=== PATIENT | male | born 1950 | race Caucasian/White ===

== ENCOUNTER 2017-05-21 09:35 | Emergency (ER) | payer OTHER ==
--- NOTE | 2017-05-21 09:53 | CPEKG ---
Heart Rate: 89 RR Interval: 674 P-R Interval: 172 QRSD Interval: 86 QT Interval: 360 QTC Interval: 439 P [place]: 40 QRS [place]: -30 T Wave [place]: 25 EKG Severity - OTHERWISE NORMAL ECG - EKG Impression: SINUS RHYTHM EKG Impression: LEFT AXIS DEVIATION Electronically Signed By: Ivan Ho 21-May-2017 13:24:55
--- NOTE | 2017-05-21 09:55 | EDPHY ---
H & P Time Seen by Provider: 05/21/17 09:54 HPI/ROS: Chief complaint. Chest pain HPI. 66-year-old male presents emergency department with 2 day history of sharp right anterior chest discomfort. It was worse yesterday. He describes it as pinpoint in the right chest radiating into his right axilla and right shoulder blade. Slight burning sensation. Slight shortness of breath sensation. Has a chronic cough but no fever. He has pain with movement and palpation but not with exertion or deep breathing. He denies recent injury or unusual activity. He has mild chronic swelling to his legs but no unusual leg swelling or pain. No recent travel. He has had a recent illness that is thought to be viral. ROS Constitutional. no fever/chills, no weakness Eyes. no problems with vision ENT. no sore throat, no nasal drainage Cardiovascular. Right-sided chest pain Respiratory. Slight shortness of breath with chronic cough Abdominal. no abdominal pain, no nausea/vomiting, no diarrhea . no problems urinating MS. no calf pain/swelling, no neck/back pain, no joint pain Skin. no rash Lymph. no swollen glands Neuro. no headache, no dizziness, no difficulty walking or with speech Past Medical/Surgical History: Bronchiectasis, gout, hypertension, diabetes Social History: Single, nonsmoker, no alcohol Smoking Status: Former smoker Physical Exam: General Appearance: Alert well-developed male mild distress. Vital signs are stable Eyes: Pupils equal and round no pallor or injection. ENT, Mouth: Mucous membranes are moist. Respiratory: There are no retractions, lungs are clear to auscultation. Cardiovascular: Regular rate and rhythm. Gastrointestinal: Abdomen is soft and nontender, no masses, bowel sounds normal. Neurological: Awake and alert, sensory and motor exams grossly normal. Skin: Warm and dry, no rashes. No rash that would suggest shingles Musculoskeletal: Neck is supple nontender. There is tenderness to palpation right anterior chest wall, axilla, palpation of the medial scapula. Extremities symmetrical, full range of motion. Psychiatric: Patient is oriented X 3, there is no agitation. Constitutional: Initial Vital Signs Temperature (C) 37.1 C 05/21/17 09:45 Heart Rate 99 05/21/17 09:45 Respiratory Rate 20 05/21/17 09:45 Blood Pressure 142/101 H 05/21/17 09:45 O2 Sat (%) 95 05/21/17 09:45 O2 Delivery Mode Room Air Allergies/Adverse Reactions: gentamicin sulfate [From Garamycin] Allergy (Verified 05/21/17 09:59) Penicillins Allergy (Verified 05/21/17 09:59) Home Medications: Medication Instructions Recorded metFORMIN HCL [Glucophage 500 mg 500 mg PO BIDMEAL 06/27/12 (RX)] Indomethacin 50 mg PO TIDMEAL PRN 11/19/12 Metoprolol Tartrate [Lopressor 25 25 mg PO DAILY 11/19/12 mg (RX)] Albuterol [Ventolin Hfa Inhaler] 200 puffs IH DAILY PRN 06/22/16 Allopurinol [Allopurinol 100 MG 100 mg PO DAILY 06/22/16 (*)] Budesonide/Formoterol 80/4.5 2 puffs IH BID 06/22/16 [Symbicort 80-4.5 Mcg Inhaler] Citalopram Hydrobromide 40 mg PO DAILY 06/22/16 [Citalopram HBr] Colchicine [Colchicine (*)] 1.2 mg PO DAILY PRN 06/22/16 Gabapentin [Neurontin 300 MG (*)] 300 mg PO TID 06/22/16 Ipratropium/Albuterol [Duoneb (*)] 3 ml IH Q4-6PRN PRN 06/22/16 Mycophenolate Mofetil 05/21/17 Medical Decision Making - Diagnostics EKG Interpretation: EKG interpreted by me shows normal sinus rhythm normal interval. There is left axis deviation. QRS is otherwise normal. There is no significant ST elevation or depression. No arrhythmia. The rate is 89 Imaging Results: Imaging Impressions Chest X-Ray 05/21/17 10:10 Impression: 1. Suspect low-grade CHF and new small right pleural effusion. 2. Query constrictive pericarditis. Chest/Thorax CTA 05/21/17 11:06 Impression: 1. No visible pulmonary embolus. 2. Interstitial lung disease, most likely representing UIP. 3. Mildly prominent mediastinal lymph nodes, which can be seen in the setting of interstitial lung disease. Attention is recommended on follow up. 4. Coronary artery atherosclerosis. 5. Likely benign 6-mm right middle lobe nodule. The 2017 Fleischner Society Guidelines recommend follow-up unenhanced chest CT in 6-12 months for a low risk patient, then consider additional follow up at 18-24 months. For a high risk patient, follow-up CT is recommended in 6-12 months, then again at 18-24 months if there is no change. 6. Additional findings as above. Findings discussed with Dr. Ivan Ho on May 21, 2017 at 1239 hours. Chest x-ray interpreted by me shows a new right pleural effusion. CT angiogram chest shows no evidence of pulmonary embolus. He has interstitial lung disease with prominent adenopathy. No evidence for congestive heart failure. Small right pleural effusion less impressive on CT then chest x-ray. No pericardial effusion. He does have atherosclerosis of his coronary arteries. This CT is reviewed by me and discussed with Dr. Harrington Procedures: IV normal saline, monitor ED Course/Re-evaluation: Re-evaluation at 11:05 a.m.. The patient and I discussed lab EKG and imaging studies. We discussed treatment plan including recommendation for chest CT. He expresses understanding and agreement He would like something for pain. Toradol IV is ordered Re-evaluation at 12:50 p.m. patient is much more comfortable. The patient and I discussed imaging and lab results. We discussed treatment plan. He is offered admission but he feels also that this is likely muscular and feels comfortable going home and will return for worsening symptoms. We discussed importance of follow-up and further evaluation. He expresses understanding and agreement Differential Diagnosis: I considered pulmonary embolus, pneumonia, muscular etiology as well as less likely this is acute coronary syndrome - Data Points Laboratory Results: Laboratory Results 05/21/17 09:35 05/21/17 09:35 05/21/17 05/21/17 05/21/17 09:35 09:35 09:35 WBC 7.96 10^3/uL 10^3/uL (3.80-9.50) RBC 4.60 10^6/uL 10^6/uL (4.40-6.38) Hgb 13.7 g/dL g/dL (13.7-17.5) Hct 41.4 % % (40.0-51.0) MCV 90.0 fL fL (81.5-99.8) MCH 29.8 pg pg (27.9-34.1) MCHC 33.1 g/dL g/dL (32.4-36.7) RDW 13.5 % % (11.5-15.2) Plt Count 388 10^3/uL 10^3/uL (150-400) MPV 9.5 fL fL (8.7-11.7) Neut % (Auto) 71.5 % % (39.3-74.2) Lymph % (Auto) 16.0 % % (15.0-45.0) [place] % (Auto) 7.5 % % (4.5-13.0) Eos % (Auto) 3.0 % % (0.6-7.6) Baso % (Auto) 1.1 % % (0.3-1.7) Nucleat RBC Rel Count 0.0 % % (0.0-0.2) Absolute Neuts (auto) 5.69 10^3/uL 10^3/uL (1.70-6.50) Absolute Lymphs (auto) 1.27 10^3/uL 10^3/uL (1.00-3.00) Absolute Monos (auto) 0.60 10^3/uL 10^3/uL (0.30-0.80) Absolute Eos (auto) 0.24 10^3/uL 10^3/uL (0.03-0.40) Absolute Basos (auto) 0.09 10^3/uL 10^3/uL (0.02-0.10) Absolute Nucleated RBC 0.00 10^3/uL 10^3/uL (0-0.01) Immature Gran % 0.9 % % (0.0-1.1) Immature Gran # 0.07 10^3/uL 10^3/uL (0.00-0.10) D-Dimer 0.40 ug/mLFEU ug/mLFEU (0.00-0.50) Sodium 137 mEq/L mEq/L (134-144) Potassium 4.3 mEq/L mEq/L (3.5-5.2) Chloride 103 mEq/L mEq/L (97-110) Carbon Dioxide 22 mEq/l mEq/l (22-31) Anion Gap 12 mEq/L mEq/L (8-16) BUN 12 mg/dL mg/dL (7-23) Creatinine 0.8 mg/dL mg/dL (0.7-1.3) Estimated GFR > 60 Glucose 121 mg/dL H mg/dL (70-100) Calcium 8.7 mg/dL mg/dL (8.5-10.4) Troponin I < 0.012 ng/mL ng/mL (0.000-0.034) Medications Given: Discontinued Medications Ketorolac Tromethamine (Toradol) 30 mg IVP EDNOW ONE Stop: 05/21/17 11:14 Last Admin: 05/21/17 11:22 Dose: 30 mg Departure - Departure Disposition: Home, Routine, Self-Care Clinical Impression: Chest wall pain Condition: Good Instructions: Chest Wall Pain (ED) Additional Instructions: Ibuprofen 600 mg every 6 hours for the next 24 hours. Heat to sore area of chest and back. Return for worsening chest discomfort, trouble breathing. Recheck in 1-2 days if not improving Referrals: SURI COLUNGA [Primary Care Provider] - 1 day, if not improved
[2017-05-21 10:09] VITALS: TEMP 98.8
[2017-05-21 10:16] LABS: % IMMATURE GRANULYOCYTES 0.9 % (0.0-1.1); ABSOLUTE IMMATURE GRANULOCYTES 0.07 10^3/uL (0.00-0.10); ADD DIFF? NO; ADD MORPH? NO; ADD SCAN? NO; ATYPICAL LYMPHOCYTE FLAG 0 (0-99); FRAGMENT RBC FLAG 0 (0-99); HEMATOCRIT 41.4 % (40.0-51.0); HEMOGLOBIN 13.7 g/dL (13.7-17.5); LEFT SHIFT FLG 0 (0-99); LIPEMIA HEMOLYSIS FLAG 80 (0-99); MEAN CELL HEMOGLOBIN 29.8 pg (27.9-34.1); MEAN CELL HEMOGLOBIN CONCENTR. 33.1 g/dL (32.4-36.7); MEAN PLATELET VOLUME 9.5 fL (8.7-11.7); PLATELET CLUMPS FLAG 10 (0-99); PLATELET COUNT 388 10^3/uL (150-400); RED CELL DISTRIBUTION WIDTH 13.5 % (11.5-15.2)
[2017-05-21 10:28] LABS: ANION GAP 12 mEq/L (8-16); CALCIUM 8.7 mg/dL (8.5-10.4); CARBON DIOXIDE 22 mEq/l (22-31); CHLORIDE 103 mEq/L (97-110); CREATININE 0.8 mg/dL (0.7-1.3); GLOMERULAR FILTRATION RATE > 60; GLUCOSE 121 mg/dL (70-100); POTASSIUM 4.3 mEq/L (3.5-5.2); SODIUM 137 mEq/L (134-144)
[2017-05-21 10:34] LABS: TROPONIN I < 0.012 ng/mL (0.000-0.034)
[2017-05-21] MEDS ORDERED: KETOROLAC 30 MG/1 ML SDV IVP ONE (11:13)
[2017-05-21] MEDS ORDERED: IOPAMIDOL (ISOVUE 370) 100 ML BTL IV ONE (11:13)
[2017-05-21 14:40] VITALS: BP 160/99; PULSE 71; RESP 18; O2SAT 96
== END 2017-05-21 13:21 | disposition home or self-care (01) ==
LOC: CED 09:35
DX: R07.89 Other chest pain (principal); I10 Essential (primary) hypertension; E11.9 Type 2 diabetes mellitus without complications; Z79.84 Long term (current) use of oral hypoglycemic drugs; Z87.891 Personal history of nicotine dependence
CPT/HCPCS: 71010-PO; 71275-PO; 80048-PO; 84484-PO; 85025-PO; 85378-PO; 96374; J1885; Q9967

== ENCOUNTER 2018-06-05 07:26 | Inpatient (IN) | payer OTHER ==
--- NOTE | 2018-06-05 07:02 | PDGENHP ---
History and Physical - Chief Complaint severe , single vessel CAD - History of Present Illness 67 yo diabetic male with ILD, severe PHTN and progressive /AI associated with a decline in LVEF, evaluated in clinic last month for consideration AVR. Preop testing notable for high grade RCA disease, nonobstructive carotid disease and preserved PFTs (normal lung volumes, low-normal diffusing capacity and mild obstruction). He has had cataract surgery and has generally been feeling well. No wt gain, edema, abdominal pains, palpitations, presyncope, chest pains, or change in morning cough or degree of exertional dyspnea. Feels that his left leg is getting stronger and is no longer as reliant on ambulatory assist devices. History Information - Allergies/Home Medication List Allergies/Adverse Reactions: gentamicin sulfate [From Garamycin] Allergy (Verified 06/05/18 07:52) Rash Penicillins Allergy (Verified 06/05/18 07:52) Swelling/neck,face,throat Home Medications: metFORMIN HCL [Glucophage 500 mg (RX)] 500 mg PO DAILY 06/27/12 [Last Taken 11/11] Metoprolol Tartrate [Lopressor 25 mg (RX)] 25 mg PO DAILY 11/19/12 [Last Taken 06/04/18] Citalopram Hydrobromide [Citalopram HBr] 40 mg PO DAILY 06/22/16 [Last Taken 08/11 08:00] Gabapentin [Neurontin 300 MG (*)] 300 mg PO DAILY 06/22/16 [Last Taken 06/04/18 08:00] Ipratropium/Albuterol [Duoneb (*)] 3 ml IH Q4-6PRN PRN 06/22/16 [Last Taken 08/11 21:00] Mycophenolate Mofetil [Cellcept] 1,500 mg PO TID 05/21/17 [Last Taken 06/04/18 08:00] Albuterol [Proventil Inhaler HFA (*)] 1 - 2 puffs IH DAILY PRN 05/16/18 [Last Taken 06/04/18 23:30] Allopurinol [Allopurinol 300 MG (RX)] 300 mg PO DAILY 05/16/18 [Last Taken 06/04 08:00] Aspirin [Aspirin 81mg (*)] 81 mg PO DAILY 05/16/18 [Last Taken 06/04/18 08:00] Budesonide/Formoterol 160/4.5 [Symbicort 160-4.5 Mcg Inh (*)] 1 puffs IH BID PRN 05/16/18 [Last Taken 06/04/18 08:00] Herbals/Supplements -Info Only 1 ea PO DAILY 05/16/18 [Last Taken 06/04/18 08:00 ] Ibuprofen [Motrin (*)] 200 mg PO DAILY PRN 05/16/18 [Last Taken 06/03/18] Lisinopril [Zestril 20 mg (*)] 20 mg PO DAILY 05/16/18 [Last Taken 06/04/18 08: 00] I have personally reviewed and updated: medical history, social history, surgical history - Past Medical History cataracts, CVA (november 2017, residual LLE weakness, walker for ambulation), diabetes type 2, GERD, migraines (ocular), pneumonia (hypersensitivity pneumonitis), SVT (paroxysmal), seizures (remote - no longer treated) Additional medical history: 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 Subcentimeter lung nodules, RUL/RML/LLL. TYLER - nocturnal O2 use; CPAP declined d/t claustrophobia. poor dentition. alcohol abuse - sober on Antabuse and d/cd about 8 mon ago. DJD knees - Surgical History Reports: ablation (catheter based RFA 2012) Additional surgical history: bilateral TKAs. bilateral cataract removal - complicated by intermittent right eye floaters and blurriness - Family History Positive for: cancer, CAD Additional family history: arrhythmias (mother) - Social History Smoking Status: Light smoker (in college; none since) Alcohol Use: Sober Review of Systems Review of Systems: Constitutional: Reports: no symptoms EENMT: Reports: blurred vision (rt eye) Cardiac: Reports: no symptoms Respiratory: Reports: cough (morning), shortness of breath (with rapid walking pace or stairs) Gastrointestinal: Reports: no symptoms Genitourinary: Reports: no symptoms Muscolosketal: Reports: no symptoms Skin: Reports: no symptoms Neurological: Reports: no symptoms Hematologic/Lymphatic: Reports: no symptoms Physical Exam Physical Exam: Constitutional: no apparent distress, obese Eyes: anicteric sclera Ears, Nose, Mouth, Throat: moist mucous membranes, poor dentition (multiple missing teeth) Cardiovascular: regular rate and rhythym, systolic murmur (harsh), pulses symmetric bilaterally, other (no visible edema) Peripheral Pulses: 2+: dorsalis-pedis (R), dorsalis-pedis (L) Respiratory: no respiratory distress Gastrointestinal: soft, non-tender abdomen Skin: warm, normal color, abrasion (left forearm) Musculoskeletal: other (symmetric tone) Psychiatric: interacting appropriately, not anxious Lab Data & Imaging Review 05/23/18: WBC 11.6, Hgb 14.3, HCT 43.1, Plt 286, INR 1.03 O positive, no antibodies Na 138, K 4.6, CO2 20, BUN 18, Cr 0.9, glc 101 HgbA1c 6.5% Visualized and Interpreted Chest x-ray results: Yes Chest X-Ray results: infiltrate (bilateral diffuse interstitial fibrosis) Visualized and Interpreted imaging results: No Interpretation: Carotid US: mild calcific plaquing bilateral bulbs, antegrade flow bilat vertebrals. R/LHC: rt dom system, mild diffuse irregs LAD, 50% LCX, 80% mid RCA, PA 69/35 (48), PCWP 19, CI 3.4. LOLIS: sig confirmed, LVEF 55-60% , mild-mod KADY, mild MR, mild TR Visualized and Interpreted EKG results: Yes EKG Interpretation: Positive for: normal sinsus rhythm, other (borderline TWA inf leads) Assessment & Plan Assessment: Severe with moderate AI Obstructive RCA disease Stable ILD TYLER Severe PHTN Recent CVA with residual left leg weakness and gait instability DM2, controlled Recovering alcoholic Chronic immunosuppression Plan: Tissue AVR CABG x 1 with SVG-RCA Consents per Dr Medel
[~2018-06-05 07:26] MED LIST: AMINOCAPROIC ACID 5 GM/20 ML VIAL IV ONE; CHLORHEXIDINE GLUC HIBICLENS 118 ML BTL TP SCH; CITRATE DEXTROSE SOLN 500 ML BAG MISC ONE; INSULIN REGULAR HUMAN 100 UNIT in NS 100 ML IV ONE; LIDOCAINE 1% 2 ML INJ ID PRN; MANNITOL 25% 12.5 GM/50 ML VIAL IVP ONE; MUPIROCIN 2% 22 GM OINT NS ONE; NOREPINEPHRINE BITARTRATE 16 MG in NS 250 ML IV ONE; PHENYLEPHRINE HCL 50 MG in NS 250 ML IV ONE; SODIUM BICARBONATE 20 MEQ, LIDOCAINE 1% 10 ML in NORMOSOL-R 1,000 ML MISC ONE; VANCOMYCIN 1.5 GM in NS 250 ML IV ONE; VANCOMYCIN PHARMACY TO DOSE MISC ONE; VERAPAMIL 5 MG, NITROGLYCERIN 2.5 MG, HEPARIN 500 UNIT, SODIUM BICARBONATE 0.2 MEQ in L... MISC ONE; niCARdipine/NACL 200 ML IV ONE
[2018-06-05] MEDS ORDERED: LR 1,000 ML IV ONE (07:32)
[2018-06-05] MEDS ORDERED: NA BICARBONATE 50 MEQ/50 ML VIAL ONE (07:39)
[2018-06-05] MEDS ORDERED: PROTAMINE SULFATE 50 MG/5 ML VIAL IVP ONE (07:39)
[2018-06-05] MEDS ORDERED: CALCIUM CHLORIDE 1 GM/10 ML INJ ONE ×2 (07:39→07:41)
[2018-06-05] MEDS ORDERED: MILRINONE/DEXTROSE/100 ML BAG IV ONE (07:39)
[2018-06-05] MEDS ORDERED: NITROGLYCERIN/D5W 50 MG/250 ML BOTTLE IV ONE (07:40)
[2018-06-05] MEDS ORDERED: ceFAZolin 1 GM VIAL ONE (07:40)
[2018-06-05] MEDS ORDERED: DOPamine/DEXTROSE 400 MG/250 ML BAG IV ONE ×2 (07:40→20:16)
[2018-06-05] MEDS ORDERED: AMIODARONE HCL 150 MG/3 ML VIAL ONE ×2 (07:40→07:42)
[2018-06-05] MEDS ORDERED: niCARdipine/NACL/200 ML BAG IV ONE ×2 (07:40→13:01)
[2018-06-05] MEDS ORDERED: ADENOSINE 6 MG/2 ML VIAL ONE (07:40)
[2018-06-05] MEDS ORDERED: HEPARIN 10,000 UNIT/10 ML MDV (1,000 UNIT/ML) ONE ×2 (07:40→07:41)
[2018-06-05] MEDS ORDERED: CITRATE DEXTROSE SOLN 500 ML BAG ONE (07:41)
[2018-06-05] MEDS ORDERED: LIDOCAINE 2% 100 MG/5 ML SYR ONE (07:41)
[2018-06-05] MEDS ORDERED: ALBUMIN 5% 250 ML BOTTLE IV ONE ×4 (07:41→20:00)
[2018-06-05] MEDS ORDERED: MAGNESIUM SULFATE 1 GM/2 ML VIAL ONE (07:42)
[2018-06-05] MEDS ORDERED: methylPREDNISolone SOD SUCC 1 GM/8 ML VIAL ONE (07:42)
[2018-06-05] MEDS ORDERED: PAPAVERINE HCL 60 MG/2 ML SDV ONE (08:00)
[2018-06-05] MEDS ORDERED: MINERAL OIL 10 ML VIAL ONE (08:00)
[2018-06-05] MEDS ORDERED: VERAPAMIL 5 MG/2 ML VIAL ONE (08:00)
[2018-06-05] MEDS ORDERED: MIDAZOLAM 2 MG/2 ML VIAL ONE (08:33)
[2018-06-05] MEDS ORDERED: MIDAZOLAM 2 MG/2 ML VIAL IVP ONE (08:36)
--- NOTE | 2018-06-05 08:36 | PDANEPAE ---
ANE History of Present Illness 67 yo for cabg/avr ANE Past Medical History - Cardiovascular History Hx Hypertension: Yes Hx Arrhythmias: Yes Hx Chest Pain: Yes Hx Coronary Artery / Peripheral Vascular Disease: Yes Hx CHF / Valvular Disease: Yes Hx Palpitations: No Cardiovascular History Comment: aortic insuff & stenosis. htn. murmur. svt. pericarditis. ablation with chad 11/19/12 - Pulmonary History Hx COPD: No Hx Asthma/Reactive Airway Disease: Yes Hx Recent Upper Respiratory Infection: No Hx Oxygen in Use at Home: Yes O2 in Use at Home (L/minute): 4l at noc Hx Sleep Apnea: Yes Sleep Apnea Screening Result - Last Documented: Positive Pulmonary History Comment: leah positive uses o2. asthma. interstitial lung disease. lung nodule 02/2015 - Neurologic History Hx Cerebrovascular Accident: Yes Hx Seizures: No Hx Dementia: No Neurologic History Comment: cva in november 2017 when he was in [place]- left sided weakness with hx of falls- last one being 2.4 weeks ago - Endocrine History Hx Diabetes: Yes Endocrine History Comment: type 2 - Renal History Hx Renal Disorders: No - Liver History Hx Hepatic Disorders: No - Neurological & Psychiatric Hx Hx Neurological and Psychiatric Disorders: No - Cancer History Hx Cancer: No - Congenital Disorder History Hx Congenital Disorders: No - GI History Hx Gastrointestinal Disorders: Yes Gastrointestinal History Comment: GERD - Other Health History Other Health History: wears glasses. 2 scabs on knees from falling - Chronic Pain History Chronic Pain: No - Surgical History Prior Surgeries: bilateral cataract surgery 04/2018. bilateral TKA. cardiac ablation. bleeding ulcer cauterized 2007 ANE Review of Systems Review of Systems: - Exercise capacity METS (RN): 3 METS ANE Patient History - Allergies Allergies/Adverse Reactions: gentamicin sulfate [From Garamycin] Allergy (Verified 06/05/18 07:52) Rash Penicillins Allergy (Verified 06/05/18 07:52) Swelling/neck,face,throat - Home Medications Home medications: home medication list seen and reviewed Home Medications: metFORMIN HCL [Glucophage 500 mg (RX)] 500 mg PO DAILY 06/27/12 [Last Taken 11/11] Metoprolol Tartrate [Lopressor 25 mg (RX)] 25 mg PO DAILY 11/19/12 [Last Taken 06/04/18] Citalopram Hydrobromide [Citalopram HBr] 40 mg PO DAILY 06/22/16 [Last Taken 08/11 08:00] Gabapentin [Neurontin 300 MG (*)] 300 mg PO DAILY 06/22/16 [Last Taken 06/04/18 08:00] Ipratropium/Albuterol [Duoneb (*)] 3 ml IH Q4-6PRN PRN 06/22/16 [Last Taken 08/11 21:00] Mycophenolate Mofetil [Cellcept] 1,500 mg PO TID 05/21/17 [Last Taken 06/04/18 08:00] Albuterol [Proventil Inhaler HFA (*)] 1 - 2 puffs IH DAILY PRN 05/16/18 [Last Taken 06/04/18 23:30] Allopurinol [Allopurinol 300 MG (RX)] 300 mg PO DAILY 05/16/18 [Last Taken 06/04 08:00] Aspirin [Aspirin 81mg (*)] 81 mg PO DAILY 05/16/18 [Last Taken 06/04/18 08:00] Budesonide/Formoterol 160/4.5 [Symbicort 160-4.5 Mcg Inh (*)] 1 puffs IH BID PRN 05/16/18 [Last Taken 06/04/18 08:00] Herbals/Supplements -Info Only 1 ea PO DAILY 05/16/18 [Last Taken 06/04/18 08:00 ] Ibuprofen [Motrin (*)] 200 mg PO DAILY PRN 05/16/18 [Last Taken 06/03/18] Lisinopril [Zestril 20 mg (*)] 20 mg PO DAILY 05/16/18 [Last Taken 06/04/18 08: 00] - NPO status NPO Status: no food or drink >8 hours - Anes Hx Anes Hx: no prior problems - Smoking Hx Smoking Status: Light smoker (in college; none since) - Alcohol Use Alcohol Use: Sober - Family Anes Hx Family Hx Anesthesia Complications: none ANE Labs/Vital Signs - Vital Signs Height: 5 ft 10 in Weight: 97.522 kg ANE Physical Exam - Airway Neck exam: FROM Mallampati Score: Class 2 Mouth exam: normal dental/mouth exam - Pulmonary Pulmonary: no respiratory distress - Cardiovascular Cardiovascular: regular rate and rhythym, systolic murmur - ASA Status ASA Status: IV ANE Anesthesia Plan Anesthesia Plan: general endotracheal anesthesia Lines/Monitors: arterial line, central line, LOLIS
[2018-06-05] MEDS ORDERED: fentaNYL 100 MCG/2 ML INJ ONE ×2 (08:47→12:49)
[2018-06-05] MEDS ORDERED: PROPOFOL/EMULSION 500 MG/50 ML BOTTLE IV ONE (08:47)
[2018-06-05] MEDS ORDERED: ROCURONIUM 100 MG/10 ML VIAL ONE (08:47)
[2018-06-05] MEDS ORDERED: REMIFENTANIL HCL 1 MG VIAL ONE (08:47)
[2018-06-05] MEDS ORDERED: DEXMEDETOMIDINE HCL 400 MCG in NS 100 ML IV SCH (09:00)
[2018-06-05] MEDS: ASPIRIN 81 MG CHEWABLE TAB PO SCH (10:57)
[2018-06-05] MEDS ORDERED: SUGAMMADEX SODIUM 200 MG/2 ML VIAL IVP ONE (12:09)
[2018-06-05] MEDS ORDERED: ONDANSETRON 4 MG/2 ML VIAL ONE (12:09)
[2018-06-05] MEDS ORDERED: PROPOFOL 200 MG/20 ML VIAL ONE (12:21)
[2018-06-05] MEDS ORDERED: niCARdipine/NACL 200 ML IV PRN (12:41)
[2018-06-05] MEDS ORDERED: MAGNESIUM HYDROXIDE 30 ML UDCUP PO PRN (12:41)
[2018-06-05] MEDS ORDERED: ONDANSETRON DISINTEGRATING 4 MG TAB PO PRN (12:41)
[2018-06-05] MEDS ORDERED: LACTULOSE 20 GM/30 ML UDCUP PO PRN (12:41)
[2018-06-05] MEDS ORDERED: BISACODYL 10 MG SUPP PR PRN (12:41)
[2018-06-05] MEDS ORDERED: ACETAMINOPHEN 325 MG TAB PO PRN (12:41)
[2018-06-05] MEDS ORDERED: ONDANSETRON 4 MG/2 ML VIAL IVP PRN (12:41)
[2018-06-05] MEDS ORDERED: METOCLOPRAMIDE 10 MG/2 ML VIAL IVP PRN (12:41)
[2018-06-05] MEDS ORDERED: ACETAMINOPHEN 650 MG SUPP PR PRN (12:41)
[2018-06-05] MEDS ORDERED: POTASSIUM Cl (KCl) 50 ML IV PRN (12:41)
[2018-06-05] MEDS ORDERED: fentaNYL 100 MCG/2 ML INJ IVP PRN (12:41)
[2018-06-05] MEDS ORDERED: SODIUM CL NASAL 45 ML BTL EACHNARE PRN (12:41)
[2018-06-05] MEDS ORDERED: MEPERIDINE 25 MG/0.5 ML AMP IVP PRN (12:41)
[2018-06-05] MEDS ORDERED: CEPACOL LOZENGE PO PRN (12:41)
[2018-06-05] MEDS ORDERED: PANTOPRAZOLE SODIUM 40 MG VIAL IVP ONE ×2 (12:41→15:00)
[2018-06-05] MEDS ORDERED: D50W 25 GM/50 ML SYR IVP PRN (12:41)
[2018-06-05] MEDS ORDERED: NS 1,000 ML IV SCH (12:45)
[2018-06-05] MEDS ORDERED: IPRATROPIUM/ALBUTEROL 3 ML DEYVIAL IH PRN (12:50)
[2018-06-05] MEDS ORDERED: INSULIN REGULAR HUMAN 100 UNIT in NS 100 ML IV SCH (13:00)
--- NOTE | 2018-06-05 14:00 | GOP ---
DATE OF OPERATION: 06/05/2018 SURGEON: Rich Medel DO LOOPER FIXER: Elias. ANESTHESIA: [facility]. PREOPERATIVE DIAGNOSIS: 1. Critical aortic stenosis. 2. Arteriosclerotic heart disease. POSTOPERATIVE DIAGNOSIS: 1. Critical aortic stenosis. 2. Arteriosclerotic heart disease. PROCEDURE PERFORMED: 1. Aortic valve replacement with a #23 Inspiris aortic valve. 2. Patch enlargement of the ascending aorta with bovine pericardium. 3. Saphenous vein graft to the distal right coronary artery. 4. Endoscopic vein harvest from the left leg. 5. Ligate left atrial appendage. FINDINGS: The patient was noted to have symptomatic aortic stenosis which had progressed under obser vation and diagnostic cath. He was noted to have severe mid right coronary artery stenosis. He was referred for surgical intervention. DESCRIPTION OF PROCEDURE: He was consented, brought to the operating room intubated, and monitoring lines were placed. He was prepped and draped in the sterile classical manner. A sternotomy was performed. Simultaneously, vein was harvested from the left leg by RIDDHI Engle wh o first assisted throughout the procedure. We then cannulated the patient in the ascending aorta. I t was noted the sinotubular junction appeared small for a gentleman of his size. The aorta was guy l in caliber. Sinuses were also noted to be quite small. He was heparinized and cannulated. Bypass was begun. A cardioplegic arrest was obtained with antegrade cardioplegia, retrograde cardioplegia, topical hypothermia, and systemic cooling. He had significant left ventricular hypertrophy noted at surgery. Aortotomy was performed. A heavily calcified trileaflet valve was excised. The anulus wa s debrided. The mitral valve was aggressively debrided from extension of calcium down onto the anter ior leaflet of the mitral valve. This was copiously irrigated. I then sized the patient for a 23 In spiris valve which was sutured with interrupted 2-0 Ti-Cron pledgeted mattress sutures in a supraannu lar position. Because of the small sinotubular junction and small sinuses, a piece of bovine pericar dium was used to close the aortotomy, taking all tension off the angle [place], facilitating easy hossein sure. We then proceeded with grafting the right coronary artery after takeoff of the large marginal branch. It was a 3 mm vessel. The vein was 3.5. It was then brought off the ascending aorta with a cross- clamp on without difficulty. The left atrial appendage had been doubly ligated. The cross-clamp was removed with suction on the ascending aortic vent. Spontaneous cardiac activity was noted to resume . When there was no further air identified on echo, the LV sump was removed. While he is in [place], he was aspirated through the LV apex for any residual air which was then oversewn. He then w as weaned from bypass. The aortic valve appeared to be competent and well-seated. Biventricular fun ction was unchanged. When no further air was identified, heparin was reversed with protamine. The cannula was removed and oversewn. Two ventricular pacing wires and 2 mediastinal drains were placed. The thymic fat and pe ricardium were closed. The chest was closed in the standard fashion. The patient was returned to [facility] ICU in stable condition. /[id number]/MODL
[2018-06-05] MEDS ORDERED: SODIUM BICARBONATE 50 MEQ/50 ML SYR ONE (14:20)
--- NOTE | 2018-06-05 14:20 | GCON ---
PULMONARY/CRITICAL CARE CONSULTATION DATE OF CONSULTATION: 06/05/2018 REFERRING PHYSICIAN: Rich Medel DO REASON FOR CONSULTATION: Evaluation and management of interstitial lung disease and sleep apnea. HISTORY: The patient is a 67-year-old man with a history of chronic interstitial lung disease, who u nderwent elective aortic valve replacement with a single-vessel CABG earlier today. His intraoperati ve course was unremarkable. He has returned to the intensive care unit, intubated and unresponsive. I am asked to assist in ventilator/respiratory management. PAST MEDICAL HISTORY: 1. Interstitial lung disease. The patient has been seen by Dr. Zarate and is also followed at [facility] by Dr. Raygoza. He is presumed to have a chronic hypersensitivity pneumonitis. He has be en managed with prednisone and mycophenolate in the past, but stopped the prednisone due to side effe cts and is primarily managed with mycophenolate. He uses oxygen at night. His main symptom is nonpr oductive cough. 2. Obstructive sleep apnea. This is previously diagnosed. The patient was using CPAP, but has not been using CPAP recently because of claustrophobia. 3. Diabetes. 4. Hypertension. MEDICATIONS: At the time of admission include: Metformin, metoprolol, gabapentin, citalopram, DuoNeb , mycophenolate 1500 mg 3 times daily, Symbicort 1 puff twice daily, albuterol p.r.n., aspirin, lisin opril, allopurinol. ALLERGIES: Gentamicin and penicillins. SOCIAL HISTORY: The patient has a trivial history of smoking. He previously had moderate to heavy a lcohol use, but has been sober recently. FAMILY HISTORY: Positive for cancer and coronary artery disease. REVIEW OF SYSTEMS: A 10-point review of systems adds nothing to the history of present illness. PHYSICAL EXAMINATION: GENERAL: The patient is intubated and sedated, recovering from anesthesia. V ITAL SIGNS: Blood pressure is 149/74 with a heart rate of 68. He is afebrile. Oxygen saturations 98% on 50% oxygen. His CVP is 8. HEENT: Normocephalic and atraumatic. No icterus. NECK: No adenopathy . Trachea is midline. CHEST: He has some rales in the bases. CARDIAC: Regular rate and rhythm withou t murmur. ABDOMEN: Soft, nontender. Bowel sounds are present. EXTREMITIES: No clubbing, cyanosis , or edema. NEURO: The patient is currently unresponsive and not cooperating with neuro exam. LABORATORIES: Glucose is 110. Pulmonary function tests from 05/02/2018 demonstrate mild obstruction that does not improve with bronchodilator. Lung volumes are in the normal range, with a total lung capacity of 89% of normal. Diffusing capacity is mildly reduced at 75% predicted. A chest x-ray ramon ws some mild peripheral interstitial lung disease. Images reviewed by me. ASSESSMENT: 1. Status post coronary artery bypass graft and aortic valve replacement. These were done due to dy spnea with exertion with progressive aortic stenosis and reduced left ventricular function. The etelvina ent's intraoperative course was unremarkable. 2. Interstitial lung disease. This is mild-moderate radiographically, and mild clinically in terms of his symptoms. He is managed by Dr. Raygoza from [facility] on mycophenolate, and appears to be stable recently. 3. Possible asthma. The patient has some obstruction on pulmonary function test. He is currently o n Symbicort. 4. Obstructive sleep apnea. This has been previously diagnosed and treated with CPAP, the patient i s currently noncompliant due to claustrophobia. He uses oxygen with sleep. RECOMMENDATIONS: 1. Wean ventilator and extubate as per protocol. I do not anticipate a prolonged mechanical ventila tion due to his mild lung disease. 2. Consider the use of CPAP here in the hospital if he is able to tolerate it. Otherwise, oxygen wi ll be used at night. 3. Continue Symbicort and p.r.n. bronchodilators. /[id number]/MODL
[2018-06-05] MEDS ORDERED: SODIUM BICARBONATE 50 MEQ/50 ML SYR IVP ONE (15:00)
--- NOTE | 2018-06-05 15:15 | PDMN ---
Medical Necessity Medical necessity: Pt meets inpt criteria per MD order and [facility] S-390, Coronary Artery Bypass Graft, CPT 20123, [facility] inpt only surgery list and [facility] S-290, Cardiac Valve Replacement or Repair, CPT 33688, [facility] inpt only surgery list. Est LOS>2MN for above surgery and post-op care.
[2018-06-05] MEDS: ALBUMIN 5% 250 ML IV PRN ×2 (15:40→17:10)
[2018-06-05] MEDS: KETOROLAC 15 MG/1 ML SDV IVP PRN (19:09)
--- NOTE | 2018-06-05 19:52 | ASMTCASEMG ---
Living Arrangements What is your living Answers: With Spouse arrangement? Who do you live with? Type Of Residence What kind of residence do Answers: House you live in? Discharge Plan Comments Coordination Status Comments Notes: Patient is a 67yo male who was admitted for surgery tissue AVR, CABG x1 with SVG-RCA. OT/PT/cardiac rehab evals ordered. D/C plan TBD. CM will follow. Date Signed: 06/05/2018 04:52 PM Electronically Signed By:Ghada Monk LCSW
[2018-06-05] MEDS ORDERED: ALBUMIN 5% 250 ML IV ONE ×2 (20:30)
[2018-06-05] MEDS ORDERED: VANCOMYCIN HCL/NORMAL SALINE 250 ML IV SCH (21:00)
[2018-06-05] MEDS: POLYMYXIN B SULFATE/TMP 10 ML OPHT.BTL RTEYE SCH (21:05)
[2018-06-05] MEDS: prednisoLONE ACET 1% 5 ML OPHT.BTL RTEYE SCH (21:07)
[2018-06-05] MEDS: Difluprednate [Durezol] 1 DROP RTEYE SCH (21:08)
[2018-06-05] MEDS: BRIMONIDINE/TIMOLOL 5 ML OPHT.BTL RTEYE SCH (21:09)
[2018-06-05] MEDS: BIMATOPROST 0.01% 2.5 ML OPHT.BTL RTEYE SCH (21:10)
[2018-06-05] MEDS: MUPIROCIN 2% 22 GM OINT NS SCH (21:15)
[2018-06-05] MEDS: VANCOMYCIN 1.5 GM in NS 250 ML IV SCH (21:21)
[2018-06-06] MEDS: KETOROLAC 15 MG/1 ML SDV IVP PRN ×3 (00:20→12:16)
[2018-06-06 04:10] LABS: PLATELET COUNT 159 10^3/uL (150-400)
--- NOTE | 2018-06-06 06:09 | SOAPPROG ---
SOAP Progress Note Assessment/Plan: POD #1: CABGx1 (SVG-RCA), AVR with #23 Inspiris Resilia bioprosthesis, patch enlargement of ascending aorta with bovine pericardium, ligation left atrial appendage Critical aortic stenosis s/p AVR - AL/FC out, CTs to bulb suction, wires removed - ASA for thromboprophylaxis - Transfer to PCU later today CAD- s/p CABGx1 - BB, ASA, statin when appropriate - Further mgmt as per AVR Acute blood loss anemia - No transfusions needed DM 2, well-controlled by A1c of 6.5% - Insulin gtt transition to ISS with eventual restarting of Metformin DVT prophylaxis - SCDs/heparin SQ 06/06/18 10:37 Subjective: Denies pain/SOB. Objective: Vital Signs Temp Pulse Resp BP Pulse Ox 36.1 C 75 15 153/67 H 98 06/05/18 20:00 06/06/18 05:00 06/06/18 05:00 06/06/18 05:00 06/06/18 05:00 Laboratory Results 06/06/18 04:00 06/06/18 04:00 06/05/18 06/06/18 06/07/18 05:59 05:59 05:59 Intake Total 2524.9 Output Total 2790 Balance -265.1 Physical Exam - Physical Exam General Appearance: WD/WN, alert, no apparent distress EENT: No scleral icterus (R), No scleral icterus (L) Neck: normal inspection Respiratory: No respiratory distress Cardiac/Chest: regular rate, rhythm Abdomen: non-tender, soft, No distended Skin: normal color, warm/dry Extremities: No pedal edema Neuro/Psych: no motor/sensory deficits, alert, normal mood/affect, oriented x 3 ICD10 Worksheet Patient Problems: Problems Problem Status Onset S/P CABG x 1 Acute ~06/05/18 S/P aortic valve replacement with bioprosthetic valve Acute ~06/05/18 Aortic valve stenosis with insufficiency Chronic CAD in [place] artery Chronic Diabetes mellitus type 2, controlled Chronic History of stroke with residual deficit Chronic ILD (interstitial lung disease) Chronic Immunosuppression Chronic Nocturnal hypoxemia Chronic TYLER (obstructive sleep apnea) Chronic Pulmonary hypertension Chronic
[2018-06-06] MEDS: prednisoLONE ACET 1% 5 ML OPHT.BTL RTEYE SCH ×2 (06:42→21:17)
[2018-06-06] MEDS: HEPARIN 5,000 UNIT/0.5 ML INJ SC SCH ×3 (06:43→21:13)
[2018-06-06] MEDS: HYDROCODONE/APAP 5/325 TAB PO PRN ×4 (06:47→21:07)
--- NOTE | 2018-06-06 08:40 | CPEKG ---
Test Reason : OPEN Blood Pressure : / mmHG Vent. Rate : 071 BPM Atrial Rate : 071 BPM P-R Int : 197 ms QRS Dur : 121 ms QT Int : 439 ms P-R-T Axes : 058 -50 074 degrees QTc Int : 478 ms Sinus rhythm Left bundle branch block Confirmed by Deniz Wagner ([id number]) on 06/06/2018 8:40:13 AM Referred By: Confirmed By:Deniz Wagner
[2018-06-06] MEDS ORDERED: ASPIRIN 81 MG CHEWABLE TAB TUBE PRN (09:00)
[2018-06-06] MEDS: VANCOMYCIN 1.5 GM in NS 250 ML IV SCH ×2 (09:11→22:00)
[2018-06-06] MEDS: PANTOPRAZOLE SODIUM 40 MG TAB PO SCH (09:11)
[2018-06-06] MEDS: ASPIRIN 81 MG CHEWABLE TAB PO SCH (09:11)
[2018-06-06] MEDS: BIMATOPROST 0.01% 2.5 ML OPHT.BTL RTEYE SCH (09:16)
[2018-06-06] MEDS: POLYMYXIN B SULFATE/TMP 10 ML OPHT.BTL RTEYE SCH ×2 (09:16→21:12)
[2018-06-06] MEDS: BRIMONIDINE/TIMOLOL 5 ML OPHT.BTL RTEYE SCH ×2 (09:16→21:12)
[2018-06-06] MEDS: Difluprednate [Durezol] 1 DROP RTEYE SCH ×2 (09:16→21:12)
[2018-06-06] MEDS: MUPIROCIN 2% 22 GM OINT NS SCH ×2 (09:19→21:12)
[2018-06-06] MEDS: INSULIN LISPRO 100 UNIT/ML SC SCH ×2 (12:19→18:30)
[2018-06-06] MEDS ORDERED: PROPOFOL/EMULSION 100 ML IV SCH (14:30)
[2018-06-06] MEDS ORDERED: fentaNYL/NACL 100 ML IV SCH (14:30)
--- NOTE | 2018-06-06 14:45 | PDINTPN ---
Business Support Manager Progress Note Assessment/Plan: Assessment: S/P AVR/CABG x 1: Doing well post-op. ILD: Clinically stable on mycophenolate. Cough: Chronic. He reports that nasal ipratropium helps, suggesting that this is due to PND, not ILD. TYLER; On oxygen at night due to intolerance of CPAP. He might do better with BiPAP, could be tried as an outpatient. Plan: Ipratropium nasal p.r.n. Cough. Consider trial of BiPAP as an outpatient. 06/06/18 14:48 Subjective: Feels better. Some LEA with walking in the unit. Continues to have a chronic cough with a sense of irritation in the back of his throat. Has sternal pain wiht the cough. Objective: Vital Signs Temp Pulse Resp BP Pulse Ox 36.7 C 77 18 127/68 H 97 06/06/18 12:00 06/06/18 12:00 06/06/18 12:00 06/06/18 12:00 06/06/18 12:00 Laboratory Results 06/06/18 04:00 06/06/18 13:15 06/05/18 06/06/18 06/07/18 05:59 05:59 05:59 Intake Total 2524.9 Output Total 2790 260 Balance -265.1 -260 CXR: Decreased edema pattern. Images reviewed by me. Physical Exam - Physical Exam General Appearance: alert, no apparent distress EENT: normal ENT inspection Neck: normal inspection Respiratory: lungs clear, normal breath sounds Cardiac/Chest: regular rate, rhythm, No edema Abdomen: normal bowel sounds, non-tender Skin: normal color, warm/dry Extremities: normal inspection Neuro/Psych: alert, normal mood/affect, oriented x 3 ICD10 Worksheet Patient Problems: Problems Problem Status Onset S/P CABG x 1 Acute ~06/05/18 S/P aortic valve replacement with bioprosthetic valve Acute ~06/05/18 Aortic valve stenosis with insufficiency Chronic CAD in [place] artery Chronic Diabetes mellitus type 2, controlled Chronic History of stroke with residual deficit Chronic ILD (interstitial lung disease) Chronic Immunosuppression Chronic Nocturnal hypoxemia Chronic TYLER (obstructive sleep apnea) Chronic Pulmonary hypertension Chronic
[2018-06-06] MEDS: traMADol 50 MG TAB PO PRN ×2 (14:46→19:25)
--- NOTE | 2018-06-06 15:57 | ASMTCMCOM ---
CM Note CM Note Notes: Spoke with PT/OT and both are recommending Inpatient Rehab for discharge. Requested an order for inpatient rehab eval. CM will follow. Date Signed: 06/06/2018 03:51 PM Electronically Signed By:Ghada Monk LCSW
[2018-06-06] MEDS: MYCOPHENOLATE MOFETIL 250 MG CAP PO SCH ×2 (16:13→21:11)
[2018-06-06] MEDS: SENNOSIDES/DOCUSATE SODIUM TAB PO SCH (21:08)
[2018-06-06] MEDS: METOPROLOL TARTRATE 25 MG TAB PO SCH (21:09)
[2018-06-07] MEDS: HYDROCODONE/APAP 5/325 TAB PO PRN ×2 (04:08→19:56)
[2018-06-07] MEDS: HEPARIN 5,000 UNIT/0.5 ML INJ SC SCH (04:09)
[2018-06-07 04:22] LABS: PLATELET COUNT 124 10^3/uL (150-400)
--- NOTE | 2018-06-07 06:32 | SOAPPROG ---
SOBELLA Progress Note Assessment/Plan: POD #2: CABGx1 (SVG-RCA), AVR with #23 Inspiris Resilia bioprosthesis, patch enlargement of ascending aorta with bovine pericardium, ligation left atrial appendage Critical aortic stenosis s/p AVR - Remove CTs today - ASA for thromboprophylaxis CAD - s/p CABGx1 - BB, ASA, statin Acute blood loss anemia - No transfusions needed Post-op rate controlled AF - Amiodarone/BB for rhythm/rate control - Eliquis for thromboprophylaxis DM 2, well-controlled by A1c of 6.5% - ISS/Metformin h/o CVA with residual LLE weakness - Stable h/o autoimmune dx - Home meds restarted DVT prophylaxis - SCDs/Eliquis Subjective: Has some pain around CT sites and feels it's hard to take deep breaths. Objective: Vital Signs Temp Pulse Resp BP Pulse Ox 36.7 C 74 16 119/77 98 06/07/18 04:05 06/07/18 04:05 06/07/18 04:05 06/07/18 04:05 06/07/18 04:05 Laboratory Results 06/07/18 04:15 06/07/18 04:15 06/06/18 06/07/18 06/08/18 05:59 05:59 05:59 Intake Total 2524.9 500 Output Total 2790 1190 Balance -265.1 -690 Physical Exam - Physical Exam General Appearance: WD/WN, alert, no apparent distress EENT: No scleral icterus (R), No scleral icterus (L) Neck: normal inspection Respiratory: No respiratory distress Cardiac/Chest: irregularly irregular Abdomen: non-tender, soft, No distended Skin: normal color, warm/dry Extremities: pedal edema Neuro/Psych: no motor/sensory deficits, alert, normal mood/affect, oriented x 3 ICD10 Worksheet Patient Problems: Problems Problem Status Onset S/P CABG x 1 Acute ~06/05/18 S/P aortic valve replacement with bioprosthetic valve Acute ~06/05/18 Aortic valve stenosis with insufficiency Chronic CAD in [place] artery Chronic Diabetes mellitus type 2, controlled Chronic History of stroke with residual deficit Chronic ILD (interstitial lung disease) Chronic Immunosuppression Chronic Nocturnal hypoxemia Chronic TYLER (obstructive sleep apnea) Chronic Pulmonary hypertension Chronic
[2018-06-07] MEDS ORDERED: FUROSEMIDE 20 MG/2 ML VIAL IVP ONE (07:50)
[2018-06-07] MEDS: APIXABAN 5 MG TAB PO SCH ×2 (08:37→22:13)
[2018-06-07] MEDS: ASPIRIN 81 MG CHEWABLE TAB PO SCH (08:37)
[2018-06-07] MEDS: PANTOPRAZOLE SODIUM 40 MG TAB PO SCH (08:37)
[2018-06-07] MEDS: CITALOPRAM 20 MG TAB PO SCH (08:37)
[2018-06-07] MEDS: ALLOPURINOL 300 MG TAB PO SCH (08:37)
[2018-06-07] MEDS: GABAPENTIN 300 MG CAP PO SCH (08:37)
[2018-06-07] MEDS: SENNOSIDES/DOCUSATE SODIUM TAB PO SCH ×2 (08:38→22:12)
[2018-06-07] MEDS: metFORMIN HCL 500 MG TAB PO SCH (08:38)
[2018-06-07] MEDS: AMIODARONE HCL 200 MG TAB PO SCH ×2 (08:38→22:13)
[2018-06-07] MEDS: METOPROLOL TARTRATE 25 MG TAB PO SCH ×2 (08:38→22:13)
[2018-06-07] MEDS: POLYMYXIN B SULFATE/TMP 10 ML OPHT.BTL RTEYE SCH ×2 (08:39→21:59)
[2018-06-07] MEDS: MUPIROCIN 2% 22 GM OINT NS SCH ×2 (08:39→22:03)
[2018-06-07] MEDS: BRIMONIDINE/TIMOLOL 5 ML OPHT.BTL RTEYE SCH ×2 (08:40→22:01)
[2018-06-07] MEDS: BIMATOPROST 0.01% 2.5 ML OPHT.BTL RTEYE SCH ×2 (08:40→08:50)
[2018-06-07] MEDS: prednisoLONE ACET 1% 5 ML OPHT.BTL RTEYE SCH ×2 (08:40→22:01)
[2018-06-07] MEDS: Difluprednate [Durezol] 1 DROP RTEYE SCH ×2 (08:40→22:01)
[2018-06-07] MEDS: traMADol 50 MG TAB PO PRN ×3 (08:54→20:54)
[2018-06-07] MEDS: VANCOMYCIN 1.5 GM in NS 250 ML IV SCH (08:55)
[2018-06-07] MEDS: INSULIN LISPRO 100 UNIT/ML SC SCH ×3 (09:44→18:06)
[2018-06-07] MEDS: MYCOPHENOLATE MOFETIL 1500 MG PO SCH ×3 (09:45→22:02)
--- NOTE | 2018-06-07 13:47 | ECHO ---
[email or web address] [address] [address] Main: [phone] Fax: Transthoracic Echocardiogram Name: GINA IGNACIO MR#: [id number] Study Date: 06/07/2018 Study Time: 10:43 AM Date of : 1950 Age: 67 year(s) Height: 177.8 cm (70 in.) Weight: 104.78 kg (231 lb.) BSA: 2.22 m2 Gender: Male Examination: Echo Indication: #23 Inspiris Resilia bioprosthesis Image Quality: Technically Difficult Contrast: Requested by: Alvin Prado BP: 110 mmHg/60 mmHg Heart Rate: Rhythm: Indication: #23 Inspiris Resilia bioprosthesis Procedure Staff Delivery Specialist: Tricia Sanches RD Reading Physician: Jordan Unger MD Requesting Provider: Conclusions: Normal global systolic LV function. The ejection fraction is visually estimated to be 55 %. Difficult assessment of mitral valve due to limited windows. Mitral valve calcification. The aortic valve is a bioprosthesis. Normal functioning aortic valve prosthesis. #23 Inspiris Resilia bioprosthesis. Difficult visualization of the aortic valve replacement due to recent surgery. Difficult tricuspid regurgitation assessment. Patient supine due to recent surgery, difficult imaging. Measurements: Chambers Valvular Assessment AV/MV Valvular Assessment TV/PV Normal Normal Normal Name Value Range Name Value Range Name Value Range Visual EF: 55 % AV Vmax: 1.68 m/s (1 m/s-1.7 m/s) AV maxP mmHg ( - ) AV meanP mmHg ( - ) MV E Vmax: 1.27 m/s ( - ) MV A Vmax: 1.04 m/s ( - ) MV E/A: 1.22 ( - ) MV meanP mmHg ( - ) MV PHT: 0.079 s ( - ) MVA (PHT): 2.8 s ( - ) Continued Measurements: Valvular Assessment AV/MV Name Value Patient: GINA IGNACIO Study Date: 06/07/2018 Page 1 of 2 10:43 AM MV DecTime: 257 m/s MV E/E' Lateral: 18.90 MV VTI: 45.00 cm Findings: Left Ventricle: Normal size left ventricle. Normal global systolic LV function. The ejection fraction is visually estimated to be 55 %. No regional wall motion abnormality. Diastolic function appears normal, not all criteria could be accurately obtained due to difficult imaging from recent surgery. Difficult visualization of 2D structures making measurements limited. Right Ventricle: Normal size right ventricle. Mitral Valve: The mitral valve is normal in appearance and function. Difficult assessment of mitral valve due to limited windows. Mitral valve calcification. Aortic Valve: The aortic valve is a bioprosthesis. Normal functioning aortic valve prosthesis. The prosthetic aortic valve is normal. The orifice motion of the prosthetic aortic valve is normal. No prosthesis regurgitation. #23 Inspiris Resilia bioprosthesis. Difficult visualization of the aortic valve replacement due to recent surgery. Tricuspid Valve: The tricuspid valve is normal in appearance and function. Difficult tricuspid regurgitation assessment. Pulmonic Valve: The pulmonic valve is normal in appearance and function. Aorta: The aorta is normal. Pericardium: No obvious evidence of pericardial effusion. Exam Comments: Patient supine due to recent surgery, difficult imaging. (No Signature Object) Patient: GINA IGNACIO Study Date: 06/07/2018 Page 2 of 2 10:43 AM [id number]
--- NOTE | 2018-06-07 15:11 | ASMTCMCOM ---
CM Note CM Note Notes: Pt will be observed over the weekend and reassessed on Sunday to determine if acute inpatient rehab is an appropriate referral. CM to follow. D/C Plan: TBD Date Signed: 06/07/2018 03:02 PM Electronically Signed By:Chloe Dodd
[2018-06-07] MEDS ORDERED: FUROSEMIDE 40 MG/4 ML VIAL IVP ONE (15:50)
[2018-06-07] MEDS ORDERED: POTASSIUM CL 20 MEQ TAB PO ONE (15:50)
[2018-06-08] MEDS: HYDROCODONE/APAP 5/325 TAB PO PRN ×3 (05:51→22:48)
[2018-06-08] MEDS: INSULIN LISPRO 100 UNIT/ML SC SCH ×3 (07:34→17:56)
[2018-06-08] MEDS: BUDESONIDE/FORMOTEROL 160/4.5 60 PUFFS/MDI IH PRN ×2 (09:13→21:56)
[2018-06-08] MEDS: ALBUTEROL 60 PUFFS/8 GM MDI IH PRN ×2 (09:17→21:56)
[2018-06-08] MEDS: Difluprednate [Durezol] 1 DROP RTEYE SCH ×2 (09:34→20:39)
[2018-06-08] MEDS: POLYMYXIN B SULFATE/TMP 10 ML OPHT.BTL RTEYE SCH ×2 (09:34→20:40)
[2018-06-08] MEDS: BRIMONIDINE/TIMOLOL 5 ML OPHT.BTL RTEYE SCH ×2 (09:34→20:41)
[2018-06-08] MEDS: SENNOSIDES/DOCUSATE SODIUM TAB PO SCH ×2 (09:35→20:42)
[2018-06-08] MEDS: prednisoLONE ACET 1% 5 ML OPHT.BTL RTEYE SCH ×2 (09:35→20:41)
[2018-06-08] MEDS: CITALOPRAM 20 MG TAB PO SCH (09:35)
[2018-06-08] MEDS: MYCOPHENOLATE MOFETIL 1500 MG PO SCH ×2 (09:35→21:47)
[2018-06-08] MEDS: METOPROLOL TARTRATE 25 MG TAB PO SCH ×2 (09:36→20:42)
[2018-06-08] MEDS: metFORMIN HCL 500 MG TAB PO SCH (09:36)
[2018-06-08] MEDS: AMIODARONE HCL 200 MG TAB PO SCH ×2 (09:36→20:42)
[2018-06-08] MEDS: ASPIRIN 81 MG CHEWABLE TAB PO SCH (09:36)
[2018-06-08] MEDS: ALLOPURINOL 300 MG TAB PO SCH (09:36)
[2018-06-08] MEDS: PANTOPRAZOLE SODIUM 40 MG TAB PO SCH (09:36)
[2018-06-08] MEDS: APIXABAN 5 MG TAB PO SCH ×2 (09:36→20:41)
[2018-06-08] MEDS: GABAPENTIN 300 MG CAP PO SCH (09:36)
[2018-06-08] MEDS: BIMATOPROST 0.01% 2.5 ML OPHT.BTL RTEYE SCH ×2 (09:40→21:49)
[2018-06-08] MEDS: traMADol 50 MG TAB PO PRN ×3 (11:21→20:41)
--- NOTE | 2018-06-08 11:39 | SOAPPROG ---
SOAP Progress Note Assessment/Plan: Assessment: POD #3: CABGx1 (SVG-RCA), AVR with #23 Inspiris Resilia bioprosthesis, patch enlargement of ascending aorta with bovine pericardium, ligation left atrial appendage Critical aortic stenosis s/p AVR - CT and PW out - ASA for thromboprophylaxis - Routine postop echo showed EF 55% and well-functioning prosthetic aortic valve CAD s/p CABGx1 - On BB, ASA, statin Acute blood loss anemia - No transfusions needed Post-op rate controlled AF - Resolved. Currently in SR 60-80's with 1st degree AVB - Amiodarone/BB for rhythm/rate control - Eliquis for thromboprophylaxis Postop hypervolemia - Patient still up 5g from preop weight - On Lasix DM 2, well-controlled by A1c of 6.5% - ISS/Metformin h/o CVA with residual LLE weakness - Stable h/o Autoimmune dx - Home meds restarted DVT prophylaxis - SCDs/Eliquis Disposition - to evaluate patient for Acute rehab on Sunday d/t patient's hx stroke Subjective: Patient reports good pain control. Patient without complaints. Objective: Vital Signs Temp Pulse Resp BP Pulse Ox 36.4 C 71 19 104/64 93 06/08/18 04:00 06/08/18 09:36 06/08/18 07:30 06/08/18 09:36 06/08/18 07:30 Laboratory Results 06/07/18 04:15 06/07/18 04:15 06/07/18 06/08/18 06/09/18 05:59 05:59 05:59 Intake Total 500 2100 Output Total 1190 2900 200 Balance -690 -800 -200 Physical Exam - Physical Exam General Appearance: WD/WN, alert, no apparent distress EENT: normal ENT inspection Neck: supple Respiratory: lungs clear, decreased breath sounds (bases), other (No wheezing/ rhonchi/rales. ) Cardiac/Chest: regular rate, rhythm, other (Distant heart sounds. No murmurs/ rubs/gallops. Sternum stable. Sternotomy c/d/i. ) Abdomen: normal bowel sounds, non-tender, soft Skin: normal color, warm/dry Extremities: other (warm, minimal lower extremity edema. Leg incision c/d/i. ) Neuro/Psych: alert, normal mood/affect, oriented x 3 ICD10 Worksheet Patient Problems: Problems Problem Status Onset S/P CABG x 1 Acute ~06/05/18 S/P aortic valve replacement with bioprosthetic valve Acute ~06/05/18 Aortic valve stenosis with insufficiency Chronic CAD in [place] artery Chronic Diabetes mellitus type 2, controlled Chronic History of stroke with residual deficit Chronic ILD (interstitial lung disease) Chronic Immunosuppression Chronic Nocturnal hypoxemia Chronic TYLER (obstructive sleep apnea) Chronic Pulmonary hypertension Chronic
[2018-06-08] MEDS: ATORVASTATIN CALCIUM 40 MG TAB PO SCH (11:46)
[2018-06-08] MEDS: FUROSEMIDE 40 MG TAB PO SCH (12:53)
[2018-06-08] MEDS: POTASSIUM CL 20 MEQ TAB PO SCH (12:53)
[2018-06-08] MEDS: POLYETHYLENE GLYCOL 3350 17 GM PKT PO PRN (16:26)
[2018-06-09] MEDS: POLYETHYLENE GLYCOL 3350 17 GM PKT PO PRN (06:02)
[2018-06-09] MEDS: traMADol 50 MG TAB PO PRN ×3 (06:02→19:12)
--- NOTE | 2018-06-09 08:01 | SOAPPROG ---
SOBELLA Progress Note Assessment/Plan: Assessment: POD #4: CABGx1 (SVG-RCA), AVR with #23 Inspiris Resilia bioprosthesis, patch enlargement of ascending aorta with bovine pericardium, ligation left atrial appendage Critical aortic stenosis s/p AVR - CT and PW out. D/c TLC. - ASA for thromboprophylaxis. - Routine postop echo showed EF 55% and well-functioning prosthetic aortic valve. CAD s/p CABGx1 - On BB, ASA, statin. Acute blood loss anemia - H&H 9.1/28.7. Will start Iron. - No transfusions needed. Post-op rate controlled AF - Resolved. Currently in SR 60-70's with 1st degree AVB. - Amiodarone/BB for rhythm/rate control. - Eliquis for thromboprophylaxis. Postop hypervolemia - Patient still up 5.6 g from preop weight - On Lasix 40mg po daily. Will give Lasix 40mg IV x 1 today. DM 2, well-controlled by A1c of 6.5% - ISS/Metformin h/o CVA with residual LLE weakness - Stable h/o Autoimmune dx - Home meds restarted DVT prophylaxis - SCDs/Eliquis Disposition - to evaluate patient for Acute rehab on Sunday d/t patient's hx stroke Subjective: Patient without complaints. Reports good pain control. Objective: Vital Signs Temp Pulse Resp BP Pulse Ox 37.1 C 71 20 104/63 88 L 06/09/18 07:53 06/09/18 07:53 06/09/18 07:53 06/09/18 07:53 06/09/18 07:53 Laboratory Results 06/09/18 06:10 06/09/18 06:10 06/08/18 06/09/18 06/10/18 05:59 05:59 05:59 Intake Total 2100 850 Output Total 2900 1075 Balance -800 -225 Physical Exam - Physical Exam General Appearance: WD/WN, alert, no apparent distress Neck: supple Respiratory: lungs clear, decreased breath sounds (bases), other (No wheezing, rhonchi, rales) Cardiac/Chest: regular rate, rhythm, other (No murmurs, rubs, gallops. Sternum stable. Sternotomy c/d/i. ) Abdomen: normal bowel sounds, non-tender, soft Skin: normal color, warm/dry Extremities: other (Warm, 1+ lower extremity pitting edema L>R. ) Neuro/Psych: no motor/sensory deficits, alert, normal mood/affect, oriented x 3 ICD10 Worksheet Patient Problems: Problems Problem Status Onset S/P CABG x 1 Acute ~06/05/18 S/P aortic valve replacement with bioprosthetic valve Acute ~06/05/18 Aortic valve stenosis with insufficiency Chronic CAD in [place] artery Chronic Diabetes mellitus type 2, controlled Chronic History of stroke with residual deficit Chronic ILD (interstitial lung disease) Chronic Immunosuppression Chronic Nocturnal hypoxemia Chronic TYLER (obstructive sleep apnea) Chronic Pulmonary hypertension Chronic
[2018-06-09] MEDS: INSULIN LISPRO 100 UNIT/ML SC SCH ×3 (09:23→18:21)
[2018-06-09] MEDS: ALBUTEROL 60 PUFFS/8 GM MDI IH PRN (09:38)
[2018-06-09] MEDS: BUDESONIDE/FORMOTEROL 160/4.5 60 PUFFS/MDI IH PRN ×2 (09:42→20:07)
[2018-06-09] MEDS: ATORVASTATIN CALCIUM 40 MG TAB PO SCH (09:56)
[2018-06-09] MEDS: SENNOSIDES/DOCUSATE SODIUM TAB PO SCH ×2 (09:56→20:44)
[2018-06-09] MEDS: ASPIRIN 81 MG CHEWABLE TAB PO SCH (09:56)
[2018-06-09] MEDS: CITALOPRAM 20 MG TAB PO SCH (09:56)
[2018-06-09] MEDS: metFORMIN HCL 500 MG TAB PO SCH (09:56)
[2018-06-09] MEDS: AMIODARONE HCL 200 MG TAB PO SCH ×2 (09:56→20:42)
[2018-06-09] MEDS: PANTOPRAZOLE SODIUM 40 MG TAB PO SCH (09:56)
[2018-06-09] MEDS: GABAPENTIN 300 MG CAP PO SCH (09:56)
[2018-06-09] MEDS: POTASSIUM CL 20 MEQ TAB PO SCH (09:57)
[2018-06-09] MEDS: ALLOPURINOL 300 MG TAB PO SCH (09:57)
[2018-06-09] MEDS: METOPROLOL TARTRATE 25 MG TAB PO SCH ×2 (09:57→20:42)
[2018-06-09] MEDS: APIXABAN 5 MG TAB PO SCH ×2 (09:57→20:43)
[2018-06-09] MEDS: FUROSEMIDE 40 MG TAB PO SCH (09:57)
[2018-06-09] MEDS: BRIMONIDINE/TIMOLOL 5 ML OPHT.BTL RTEYE SCH ×2 (09:59→20:40)
[2018-06-09] MEDS: MYCOPHENOLATE MOFETIL 1500 MG PO SCH ×2 (09:59→20:42)
[2018-06-09] MEDS ORDERED: POTASSIUM CL 20 MEQ TAB PO ONE ×2 (10:00→15:00)
[2018-06-09] MEDS: prednisoLONE ACET 1% 5 ML OPHT.BTL RTEYE SCH ×2 (10:00→20:40)
[2018-06-09] MEDS: Difluprednate [Durezol] 1 DROP RTEYE SCH ×2 (10:00→20:40)
[2018-06-09] MEDS ORDERED: FUROSEMIDE 40 MG/4 ML VIAL IVP ONE ×2 (10:00→15:00)
[2018-06-09] MEDS: POLYMYXIN B SULFATE/TMP 10 ML OPHT.BTL RTEYE SCH ×2 (10:00→20:40)
[2018-06-09] MEDS ORDERED: ZOLPIDEM TARTRATE 5 MG TAB PO PRN (10:01)
[2018-06-09] MEDS: FERROUS SULFATE 325 MG TAB PO SCH ×2 (10:11→20:43)
[2018-06-09] MEDS: BUDESONIDE/FORMOTEROL 160/4.5 60 PUFFS/MDI IH SCH (20:09)
[2018-06-09] MEDS: BIMATOPROST 0.01% 2.5 ML OPHT.BTL RTEYE SCH (20:41)
[2018-06-09] MEDS: HYDROCODONE/APAP 5/325 TAB PO PRN (20:42)
[2018-06-10] MEDS: traMADol 50 MG TAB PO PRN ×3 (01:13→13:42)
--- NOTE | 2018-06-10 08:35 | SOAPPROG ---
SOAP Progress Note Assessment/Plan: Assessment: POD#5 CABGx1 (SV-RCA), EVH LLE, AVR#23 Inspiris Resilia bioprosthesis, bovine pericardial patch aortoplasty, prophylactic suture ligation of BONNY Critical aortic stenosis s/p tissue AVR - CT, PW, and QLC out. - ASA for thromboprophylaxis. - Active diuresis of moderate volume overload in progress. - Nl bioprosthetic valve fx and preserved BiV systolic fx by postop echo. Incidental CAD s/p CABGx1 - Secondary prevention with BB, ASA, statin. Acute expected blood loss anemia - Stable. No transfusions needed. - DVT prophylaxis with Eliquis/SCDs. Post-op PAF - Resolved on amiodarone and BB. - [id number] VASc score of 6. Eliquis for thromboprophylaxis. DM2, well-controlled by A1c of 6.5% - Transitioned from insulin gtt to Metformin/SSI. No correctional needs. h/o CVA with residual LLE weakness and gait instability - Stable - Significant deficits per PT. ? IPR. h/o ILD - MDIs and mycophenolate resumed. Plan: Cont IV diuresis. Stop SSI. Wean O2. Inpatient rehab consult. Dispo - IPR vs SNF when bed available. 06/10/18 08:32 Subjective: Doing ok. Some difficulty mobilizing secretions. Improving appetite and stamina. Adequate analgesia. Terrified of left knee buckling/falling. Awaiting BM. Objective: Vital Signs Temp Pulse Resp BP Pulse Ox 37.0 C 72 19 117/77 95 06/10/18 07:55 06/10/18 07:55 06/10/18 07:55 06/10/18 07:55 06/10/18 07:55 Laboratory Results 06/10/18 03:24 06/10/18 03:24 06/09/18 06/10/18 06/11/18 05:59 05:59 05:59 Intake Total 850 420 Output Total 1075 1450 Balance -225 -1030 Holding SR w 1st degree AVB. SBP controlled. Borderline suppl O2 req. Improving fluid balance on IV lasix. Physical Exam - Physical Exam General Appearance: alert, no apparent distress Respiratory: lungs clear (grossly) Cardiac/Chest: regular rate, rhythm, other (Sternotomy, CT sites and LLE venotomy CDI) Abdomen: non-tender, soft Skin: warm/dry Extremities: swelling (trace dependent) ICD10 Worksheet Patient Problems: Problems Problem Status Onset S/P CABG x 1 Acute ~06/05/18 S/P aortic valve replacement with bioprosthetic valve Acute ~06/05/18 Aortic valve stenosis with insufficiency Chronic CAD in [place] artery Chronic Diabetes mellitus type 2, controlled Chronic History of stroke with residual deficit Chronic ILD (interstitial lung disease) Chronic Immunosuppression Chronic Nocturnal hypoxemia Chronic TYLER (obstructive sleep apnea) Chronic Pulmonary hypertension Chronic
[2018-06-10] MEDS: INSULIN LISPRO 100 UNIT/ML SC SCH (08:45)
[2018-06-10] MEDS: BRIMONIDINE/TIMOLOL 5 ML OPHT.BTL RTEYE SCH (08:54)
[2018-06-10] MEDS: Difluprednate [Durezol] 1 DROP RTEYE SCH (08:55)
[2018-06-10] MEDS: POLYMYXIN B SULFATE/TMP 10 ML OPHT.BTL RTEYE SCH (08:56)
[2018-06-10] MEDS: prednisoLONE ACET 1% 5 ML OPHT.BTL RTEYE SCH (08:58)
[2018-06-10] MEDS: metFORMIN HCL 500 MG TAB PO SCH (09:00)
[2018-06-10] MEDS ORDERED: FUROSEMIDE 40 MG/4 ML VIAL IVP ONE (09:00)
[2018-06-10] MEDS: ALLOPURINOL 300 MG TAB PO SCH (09:00)
[2018-06-10] MEDS: METOPROLOL TARTRATE 25 MG TAB PO SCH (09:00)
[2018-06-10] MEDS: SENNOSIDES/DOCUSATE SODIUM TAB PO SCH (09:00)
[2018-06-10] MEDS: PANTOPRAZOLE SODIUM 40 MG TAB PO SCH (09:00)
[2018-06-10] MEDS: AMIODARONE HCL 200 MG TAB PO SCH (09:01)
[2018-06-10] MEDS: GABAPENTIN 300 MG CAP PO SCH (09:01)
[2018-06-10] MEDS: CITALOPRAM 20 MG TAB PO SCH (09:01)
[2018-06-10] MEDS: APIXABAN 5 MG TAB PO SCH (09:01)
[2018-06-10] MEDS: POTASSIUM CL 20 MEQ TAB PO SCH (09:01)
[2018-06-10] MEDS: ASPIRIN 81 MG CHEWABLE TAB PO SCH (09:01)
[2018-06-10] MEDS: ATORVASTATIN CALCIUM 40 MG TAB PO SCH (09:01)
[2018-06-10] MEDS: MYCOPHENOLATE MOFETIL 1500 MG PO SCH (09:03)
[2018-06-10] MEDS: BUDESONIDE/FORMOTEROL 160/4.5 60 PUFFS/MDI IH SCH (09:07)
[2018-06-10] MEDS ORDERED: guaiFENesin 600 MG TAB.ER PO SCH (11:00)
--- NOTE | 2018-06-10 14:17 | PDIAF ---
- Diagnosis Diagnosis: DM2, ILD, , CAD s/p AVR, CABG; postop PAF; LLE weakness from CVA 6 mo ago Code Status: Full Code - Medication Management Discharge Medications: Medications to Continue on Transfer metFORMIN HCL [Glucophage 500 mg (*)] 500 mg PO DAILY 06/27/12 [Last Taken 05/26] Citalopram Hydrobromide [Citalopram HBr] 40 mg PO DAILY 06/22/16 [Last Taken 08/11 08:00] Gabapentin [Neurontin 300 MG (*)] 300 mg PO DAILY 06/22/16 [Last Taken 06/04/18 08:00] Ipratropium/Albuterol [Duoneb (*)] 3 ml IH Q4-6PRN PRN 06/22/16 [Last Taken 08/11 21:00] Mycophenolate Mofetil [Cellcept] 1,500 mg PO BID 05/21/17 [Last Taken 06/04/18 08:00] Albuterol [Proventil Inhaler HFA (*)] 1 - 2 puffs IH DAILY PRN 05/16/18 [Last Taken 06/04/18 23:30] Allopurinol [Allopurinol 300 MG (RX)] 300 mg PO DAILY 05/16/18 [Last Taken 06/04 08:00] Aspirin [Aspirin 81mg (*)] 81 mg PO DAILY 05/16/18 [Last Taken 06/04/18 08:00] Budesonide/Formoterol 160/4.5 [Symbicort 160-4.5 Mcg Inh (*)] 1 puffs IH BID PRN 05/16/18 [Last Taken 06/04/18 08:00] Herbals/Supplements -Info Only 1 ea PO DAILY 05/16/18 [Last Taken 06/04/18 08:00 ] Bimatoprost 0.01% [Lumigan 0.01% (*)] 1 drops RTEYE DAILY 06/05/18 [Last Taken 06/05/18 08:30] Brimonidine/Timolol [Combigan (*)] 1 drop RTEYE BID 06/05/18 [Last Taken 08:30] Difluprednate [Durezol] 1 drop RTEYE BID 06/05/18 [Last Taken 06/05/18 08:30] Polymyxin B Sulfate/Tmp [Polytrim Opht Drops (*)] 1 drop RTEYE BID 06/05/18 [ Last Taken 06/05/18 08:30] prednisoLONE ACET 1% [Pred Forte 1% (*)] 1 drops RTEYE BID 06/05/18 [Last Taken 06/05/18 08:30] Acetaminophen [Tylenol 325mg (*)] 325 - 650 mg PO Q4HRS PRN tab 06/10/18 [Last Taken Unknown] Amiodarone HCl [Pacerone (*)] 200 mg PO BID tab 06/10/18 [Last Taken Unknown] Apixaban [Eliquis] 5 mg PO BID tab 06/10/18 [Last Taken Unknown] Atorvastatin Calcium [Lipitor 40 mg (*)] 40 mg PO DAILY tab 06/10/18 [Last Taken Unknown] Furosemide [Lasix 40 MG (*)] 40 mg PO BID@0900,1500 tab 06/10/18 [Last Taken Unknown] Metoprolol Tartrate [Lopressor 25 mg (*)] 12.5 mg PO BID tab 06/10/18 [Last Taken Unknown] Polyethylene Glycol 3350 [Miralax 17 gm (*)] 17 gm PO DAILY PRN pkt 06/10/18 [ Last Taken Unknown] Potassium Cl [Klor-Con 20 meq (*)] 20 meq PO BID tab 06/10/18 [Last Taken Unknown] Sennosides/Docusate Sodium [Senokot-S] 1 - 2 tab PO BID PRN tab 06/10/18 [Last Taken Unknown] guaiFENesin [Mucinex 600 MG (*)] 600 mg PO BID tab.er 06/10/18 [Last Taken Unknown] traMADol [Ultram 50 mg (*)] 50 - 100 mg PO Q4HRS PRN tab 06/10/18 [Last Taken Unknown] Additional Medication Instructions: Reduce lasix to 40 mg daily once back to baseline weight of 103 kg. Reduce klor con to 20 meq daily if lasix dose reduced. Reduce amiodarone to 200 mg once daily on 06/15/18. Reduce amiodarone to 100 mg once daily on 06/22/18. Discontinue amiodarone on 07/06/18. Discharge Medications: Refer to the Discharge Home Medication list for PRN reason. PICC Care - Routine: N/A - Orders Services needed: Registered Nurse (cardiorespiratory and wound monitoring ), Physical Therapy (2x daily; sternal precautions x 3 more weeks), Occupational Therapy (daily; sternal precautions x 3 more weeks) Isolation Type: None Oxygen: prn SpO2 < 90% Diet Recommendation: ADA 2000 consistent carb, fluid restriction (use comment for amount) (2 liters daily while on lasix) Diet Texture: Regular Texture Diet Weigh Patient: daily Robert: Not applicable Wound Care Instructions: daily soap and water. ok to leave open to air. no ointments Activity/Weight Bearing Restrictions: Sternal precautions x 3 more weeks. Avoid push pull activities. Avoid lifting > 10 lbs with an outstretched arm Additional Instructions: Call [facility] cardiac rehab to enroll in phase 2 classes once released from [facility]. Sternal precautions x 3 more weeks. Avoid lifting > 10lbs with an outstretched arm. Avoid push/pull activities. Cleanse wounds once daily with soap and water. Avoid underwater immersion (pool , hot tub, bath) until scabs off. Ok to leave all wounds open to air. Avoid creams or ointments until scabs off. Elevate low legs at rest. Avoid prolonged standing or dangling. Log daily vital signs: weight, resting heart rate over 1 minute, blood pressure , +/- pulse oximetry. Call [facility] for overnight weight gain > 2lbs, weekly gain > 5lbs or worsening leg swelling. Call [facility] for resting heart rate > 120 or < 60 OR for systolic blood pressure consistently < 90 or > 140. Target oxygen saturation > 89%. Please obtain a chest xray prior to surgical appointment. Use requisition form attached to appointment card. Chest x-rays don't require an appointment. Go to the Emergency Room entrance at the [facility] location. Sign in at the computer kiosk in the entryway. You will be given a number & may sit in the waiting area until called. You will be registered and directed to Imaging on the 1st floor. This process can take up to an hour. Please allow at least 30 min before your appt to get x-ray taken. Ok to use [id number] medications for iron supplementation, bowel function or pain. Consider Tylenol 500-650 mg with meals and before bed. Max daily dose of Tylenol 3000 mg. Avoid nonsteroidal anti-inflammatories (ie. Ibuprofen, advil, motrin, aleve) x 3 months for interference with beneficial effects of aspirin on graft flow. - Labs/Radiology Imaging Orders: chest xray prior to surgical appointment - Follow Up Care Current Providers and Referrals: SURI COLUNGA [Primary Care Provider] - Rich Medel DO [Doctor of Osteopathy] - 06/18/18 10:30 am Mg Corrales MD [Medical Doctor] - (follow up in 4-6 weeks; appointment to be established during surgical visit)
--- NOTE | 2018-06-10 14:22 | PDDCSUM ---
Discharge Summary Discharge Summary: DATE OF ADMISSION: 06/05/18 DATE OF DISCHARGE: 06/10/18 DISPOSITION: Transferred to [facility] in [place] PRINCIPAL DISCHARGE DIAGNOSES: 1. Severe aortic valve stenosis treated with aortic valve replacement with a bioprosthesis 2. Single vessel obstructive coronary artery disease treated with coronary artery bypass grafting 3. Acute expected blood loss anemia 4. Postoperative paroxysmal atrial fibrillation FOLLOW UP APPOINTMENTS: 1. CV surgery: with Dr Medel at [facility] on 06/18 at 10:30 am. 2. Cardiology: with Dr Corrales at [facility] within 4-6 weeks. Appointment to be established during surgical visit. FOLLOW UP TESTIN. CXR prior to surgical appointment. ALLERGIES/SENSITIVITIES: Gentamicin causing a rash, Penicillins causing swelling of the neck/throat/face DISCHARGE MEDICATIONS: see medical administration record for full details Essentially as on admission with the following adjustments: 1. Hold Lisinopril 20 mg daily 2. Change metoprolol tartrate from 25 mg daily to 12.5 mg BID NEW prescriptions: 1. Amiodarone 200 mg BID thru 06/14, then 200 mg daily x 1 week, then 100 mg daily x 2 weeks 2. Eliquis 5 mg BID 3. Atorvastatin 40 mg daily 4. Lasix 40 mg BID until back to baseline weight of 97.5 kg, then 40 mg daily 5. Klor-Con 20 meq with each 40 mg dose of Lasix 6. Mucinex 600 mg BID x 2 weeks 7. Tramadol 50-100 mg q6hrs prn incisional pain 8. Oxygen @ 1 lpm continuously, or as directed by SpO2 CONSULTANTS: Pulmonology/critical care ([place]) PROCEDURES/IMAGIN/12 (Gianfranco): Coronary artery bypass grafting x 1 (SV-RCA). Endoscopic vein harvest left leg. Aortic valve replacement with a 23 mm Chahal Inspiris Resilia bovine pericardial bioprosthesis. Bovine pericardial patch aortoplasty. Prophylactic suture ligation of the left atrial appendage HISTORY OF PRESENT ILLNESS: 67 yo male with progressive aortic valve dysfunction associated with worsening LV systolic function and high grade RCA disease admitted for elective AVR/CABG. 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 ABBREVIATED HOSPITAL COURSE BY ACTIVE PROBLEM LIST: 1. Severe with mod AI - s/p tissue AVR. Stable postop course. Moderate volume overload actively diuresed with stable renal fx. Antithrombotic prophylaxis as per CAD. 2. Incidental CAD - s/p CABGx1 with venous conduit. Secondary prevention with baby ASA, BB, and statin. 3. Acute expected blood loss anemia - Stable. No transfusions needed. H/H > maintained. 4. Post-op PAF - Resolved on amiodarone and BB. Antithrombotic prophylaxis with Eliquis for [id number] VASc score of 6. 5. DM2 - Well-controlled by preop A1c of 6.5%. Transitioned from insulin gtt to Metformin/SSI. No correctional needs and monitoring suspended. 6. Hx CVA with residual LLE weakness and gait instability - Skilled by PT for inpatient rehab. 7. ILD - Extubated afternoon of surgery without incident. MDIs and Cellcept resumed. Steady reduction in suppl O2 needs. Mucolytics and cough suppressant prn.
[2018-06-10] MEDS ORDERED: FUROSEMIDE 40 MG TAB PO SCH (15:00)
[2018-06-10] MEDS ORDERED: POTASSIUM CL 20 MEQ TAB PO SCH (15:00)
[2018-06-10] MEDS: HYDROCODONE/APAP 5/325 TAB PO PRN (15:07)
--- NOTE | 2018-06-10 15:09 | PDIAF ---
- Diagnosis Diagnosis: DM2, ILD, , CAD s/p AVR, CABG; postop PAF; LLE weakness from CVA 6 mo ago Code Status: Full Code - Medication Management Discharge Medications: Medications to Continue on Transfer metFORMIN HCL [Glucophage 500 mg (*)] 500 mg PO DAILY 06/27/12 [Last Taken 05/26] Citalopram Hydrobromide [Citalopram HBr] 40 mg PO DAILY 06/22/16 [Last Taken 08/11 08:00] Gabapentin [Neurontin 300 MG (*)] 300 mg PO DAILY 06/22/16 [Last Taken 06/04/18 08:00] Ipratropium/Albuterol [Duoneb (*)] 3 ml IH Q4-6PRN PRN 06/22/16 [Last Taken 08/11 21:00] Mycophenolate Mofetil [Cellcept] 1,500 mg PO BID 05/21/17 [Last Taken 06/04/18 08:00] Albuterol [Proventil Inhaler HFA (*)] 1 - 2 puffs IH DAILY PRN 05/16/18 [Last Taken 06/04/18 23:30] Allopurinol [Allopurinol 300 MG (RX)] 300 mg PO DAILY 05/16/18 [Last Taken 06/04 08:00] Aspirin [Aspirin 81mg (*)] 81 mg PO DAILY 05/16/18 [Last Taken 06/04/18 08:00] Budesonide/Formoterol 160/4.5 [Symbicort 160-4.5 Mcg Inh (*)] 1 puffs IH BID PRN 05/16/18 [Last Taken 06/04/18 08:00] Herbals/Supplements -Info Only 1 ea PO DAILY 05/16/18 [Last Taken 06/04/18 08:00 ] Bimatoprost 0.01% [Lumigan 0.01% (*)] 1 drops RTEYE DAILY 06/05/18 [Last Taken 06/05/18 08:30] Brimonidine/Timolol [Combigan (*)] 1 drop RTEYE BID 06/05/18 [Last Taken 08:30] Difluprednate [Durezol] 1 drop RTEYE BID 06/05/18 [Last Taken 06/05/18 08:30] Polymyxin B Sulfate/Tmp [Polytrim Opht Drops (*)] 1 drop RTEYE BID 06/05/18 [ Last Taken 06/05/18 08:30] prednisoLONE ACET 1% [Pred Forte 1% (*)] 1 drops RTEYE BID 06/05/18 [Last Taken 06/05/18 08:30] Acetaminophen [Tylenol 325mg (*)] 325 - 650 mg PO Q4HRS PRN tab 06/10/18 [Last Taken Unknown] Amiodarone HCl [Pacerone (*)] 200 mg PO BID tab 06/10/18 [Last Taken Unknown] Apixaban [Eliquis] 5 mg PO BID tab 06/10/18 [Last Taken Unknown] Atorvastatin Calcium [Lipitor 40 mg (*)] 40 mg PO DAILY tab 06/10/18 [Last Taken Unknown] Dextromethorphan Polistirex [Delsym] 30 mg PO BID PRN #1 [id number] 06/10/18 [ Last Taken Unknown] Furosemide [Lasix 40 MG (*)] 40 mg PO BID@0900,1500 tab 06/10/18 [Last Taken Unknown] Ipratropium 0.06% Nasal [Atrovent 0.06% Nasal] 1 - 2 sprays EACHNARE QID #1 mdi 06/10/18 [Last Taken Unknown] Metoprolol Tartrate [Lopressor 25 mg (*)] 12.5 mg PO BID tab 06/10/18 [Last Taken Unknown] Polyethylene Glycol 3350 [Miralax 17 gm (*)] 17 gm PO DAILY PRN pkt 06/10/18 [ Last Taken Unknown] Potassium Cl [Klor-Con 20 meq (*)] 20 meq PO BID tab 06/10/18 [Last Taken Unknown] Sennosides/Docusate Sodium [Senokot-S] 1 - 2 tab PO BID PRN tab 06/10/18 [Last Taken Unknown] guaiFENesin [Mucinex 600 MG (*)] 600 mg PO BID tab.er 06/10/18 [Last Taken Unknown] traMADol [Ultram 50 mg (*)] 50 - 100 mg PO Q4HRS PRN tab 06/10/18 [Last Taken Unknown] Additional Medication Instructions: Reduce lasix to 40 mg daily once back to baseline weight of 103 kg. Reduce klor con to 20 meq daily if lasix dose reduced. Reduce amiodarone to 200 mg once daily on 06/15/18. Reduce amiodarone to 100 mg once daily on 06/22/18. Discontinue amiodarone on 07/06/18. Discharge Medications: Refer to the Discharge Home Medication list for PRN reason. PICC Care - Routine: N/A - Orders Services needed: Registered Nurse (cardiorespiratory and wound monitoring ), Physical Therapy (2x daily; sternal precautions x 3 more weeks), Occupational Therapy (daily; sternal precautions x 3 more weeks) Isolation Type: None Oxygen: prn SpO2 < 90% Diet Recommendation: ADA 2000 consistent carb, fluid restriction (use comment for amount) (2 liters daily while on lasix) Diet Texture: Regular Texture Diet Weigh Patient: daily Robert: Not applicable Wound Care Instructions: daily soap and water. ok to leave open to air. no ointments Activity/Weight Bearing Restrictions: Sternal precautions x 3 more weeks. Avoid push pull activities. Avoid lifting > 10 lbs with an outstretched arm Additional Instructions: Call [facility] cardiac rehab to enroll in phase 2 classes once released from [facility]. Sternal precautions x 3 more weeks. Avoid lifting > 10lbs with an outstretched arm. Avoid push/pull activities. Cleanse wounds once daily with soap and water. Avoid underwater immersion (pool , hot tub, bath) until scabs off. Ok to leave all wounds open to air. Avoid creams or ointments until scabs off. Elevate low legs at rest. Avoid prolonged standing or dangling. Log daily vital signs: weight, resting heart rate over 1 minute, blood pressure , +/- pulse oximetry. Call [employer] for overnight weight gain > 2lbs, weekly gain > 5lbs or worsening leg swelling. Call [facility] for resting heart rate > 120 or < 60 OR for systolic blood pressure consistently < 90 or > 140. Target oxygen saturation > 89%. Please obtain a chest xray prior to surgical appointment. Use requisition form attached to appointment card. Chest x-rays don't require an appointment. Go to the Emergency Room entrance at the [facility] location. Sign in at the computer kiosk in the entryway. You will be given a number & may sit in the waiting area until called. You will be registered and directed to Imaging on the 1st floor. This process can take up to an hour. Please allow at least 30 min before your appt to get x-ray taken. Ok to use [id number] medications for iron supplementation, bowel function or pain. Consider Tylenol 500-650 mg with meals and before bed. Max daily dose of Tylenol 3000 mg. Avoid nonsteroidal anti-inflammatories (ie. Ibuprofen, advil, motrin, aleve) x 3 months for interference with beneficial effects of aspirin on graft flow. - Labs/Radiology Imaging Orders: chest xray prior to surgical appointment - Follow Up Care Current Providers and Referrals: SURI COLUNGA [Primary Care Provider] - Rich Medel DO [Doctor of Osteopathy] - 06/18/18 10:30 am Mg Corrales MD [Medical Doctor] - (follow up in 4-6 weeks; appointment to be established during surgical visit)
[2018-06-10] MEDS ORDERED: GUAIFENESIN/DM 10 ML UDCUP PO ONE (15:10)
--- NOTE | 2018-06-10 15:28 | ASMTDCNOTE ---
Case Management Discharge Discharge Order Complete? Answers: Yes Patient to Obtain Answers: Other Notes: [facility] Transportation Arranged Answers: Other Notes: [facility] - Bri [phone] Transport will Pick (Date 06/10/2018 12:00 AM & Time) Case Management Transport Answers: Yes Notes: [facility] Form Complete Faxed Final Orders Answers: Yes Notes: [facility] Agency/Facility Transfer Answers: Yes Notes: [facility] Report Printed & Faxed to Receiving Agency Family Notified Answers: Yes Notes: in room Discharge Comments Notes: Pt to discharge to [facility] in [place]. 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 Bri with [facility] arranged transport with [facility]. Her number is [phone]. No further CM needs noted at this time. CM available should further needs arise. Date Signed: 06/10/2018 03:27 PM Electronically Signed By:Ghada Monk LCSW
--- NOTE | 2018-06-10 15:30 | ASDISCHSUM ---
Discharge Information Plan Status:SNF Medically Cleared to Leave:06/10/2018 Discharge Date:06/10/2018 CM D/C [facility] ADT D/C Disposition[facility] Projected Discharge Date:06/10/2018 11:00 AM Transportation at D/C:Wheelchair Van Discharge Delay Reason: Follow-Up Date:06/10/2018 11:00 AM Discharge Slot:3 - 18:01 pm - 12:00 am Final Diagnosis:CAD Placement Information Referral Type:*Snf/SNF Referral ID:[id number] Provider Name:Roxana Ruffinayette Address 1:[address] Phone Number: Address 2: Fax Number: [facility]:[place] Selection Factors: State:[place] Patient Contact Information Contact Name:LATASHA Relationship: Address:[address] City:[place] Alternate Phone: State/Zip Code:[place] [address] Email: Financial Information Financial Class:HMO and PPO Plans Primary Plan Desc:[facility] Primary Plan Number:[id number] Secondary Plan Desc: Secondary Plan Number: Assessment Information LACE LACE Length of stay for Answers: 4-6 days current admission Acuity / Level of Answers: Yes Care: Did the patient have an inpatient admission? Comorbidities - select Answers: Coronary Artery Disease all that apply Other Notes: coronary artery bypass graft # of Emergency department Answers: 1-2 visits in the last 6 months Score: 11 Date Signed: 06/10/2018 03:28 PM Electronically Signed By:Ghada Monk LCSW [facility] Initial CM Assessment Living Arrangements What is your living Answers: With Spouse arrangement? Who do you live with? Type Of Residence What kind of residence do Answers: House you live in? Discharge Plan Comments Coordination Status Comments Notes: Patient is a 67yo male who was admitted for surgery tissue AVR, CABG x1 with SVG-RCA. OT/PT/cardiac rehab evals ordered. D/C plan TBD. CM will follow. Date Signed: 06/05/2018 04:52 PM Electronically Signed By:Ghada Monk LCSW [facility] CM Progress Note CM Note CM Note Notes: Spoke with PT/OT and both are recommending Inpatient Rehab for discharge. Requested an order for inpatient rehab eval. CM will follow. Date Signed: 06/06/2018 03:51 PM Electronically Signed By:Ghada Monk LCSW [facility] CM Progress Note CM Note CM Note Notes: Pt will be observed over the weekend and reassessed on Sunday to determine if acute inpatient rehab is an appropriate referral. CM to follow. D/C Plan: TBD Date Signed: 06/07/2018 03:02 PM Electronically Signed By:Chloe Dodd Case Management Discharge Plan Note Case Management Discharge Discharge Order Complete? Answers: Yes Patient to Obtain Answers: Other Notes: [facility] Transportation Arranged Answers: Other Notes: [facility] - Bri [phone] Transport will Pick (Date 06/10/2018 12:00 AM & Time) Case Management Transport Answers: Yes Notes: [facility] Form Complete Faxed Final Orders Answers: Yes Notes: [facility] Agency/Facility Transfer Answers: Yes Notes: [facility] Report Printed & Faxed to Receiving Agency Family Notified Answers: Yes Notes: in room Discharge Comments Notes: Pt to discharge to [facility] in [place]. 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 Bri with [facility] arranged transport with [facility]. Her number is [phone]. No further CM needs noted at this time. CM available should further needs arise. Date Signed: 06/10/2018 03:27 PM Electronically Signed By:Ghada Monk LCSW Intervention Information
[2018-06-10 16:26] VITALS: BP 105/72
[2018-06-10] MEDS ORDERED: SENNOSIDES/DOCUSATE SODIUM TAB PO PRN (21:00)
--- NOTE | 2018-06-17 07:30 | GPROG ---
Patient has been discharged. Chart has been reviewed. He left. He was cardiovascularly stable. Pu lmonary status was stable. Pain was well controlled. There were no apparent complications from anthony thesianu. /[id number]/MODL
== END 2018-06-10 18:38 | DRG 220 ==
LOC: F2W 07:26 → F2N 12:54 → F2W 06-06 17:05
PROVIDERS: ADMIT Thoracic Surgery (Cardiothoracic Vascular Surgery); ATTEND Thoracic Surgery (Cardiothoracic Vascular Surgery)
PROC: 5A1221Z Performance of Cardiac Output, Continuous (ICD-10-PCS; principal; 2018-06-05 08:45)
PROC: 06BQ4ZZ Excision of Left Saphenous Vein, Percutaneous Endoscopic Approach (ICD-10-PCS; principal; 2018-06-05 08:45)
PROC: 02L70CK Occlusion of Left Atrial Appendage with Extraluminal Device, Open Approach (ICD-10-PCS; principal; 2018-06-05 08:45)
PROC: 02RF08Z Replacement of Aortic Valve with Zooplastic Tissue, Open Approach (ICD-10-PCS; principal; 2018-06-05 08:45)
PROC: 021009W Bypass Coronary Artery, One Artery from Aorta with Autologous Venous Tissue, Open Approach (ICD-10-PCS; principal; 2018-06-05 08:45)
DX: I35.2 Nonrheumatic aortic (valve) stenosis with insufficiency (principal); D62 Acute posthemorrhagic anemia; J84.9 Interstitial pulmonary disease, unspecified; I69.354 Hemiplegia and hemiparesis following cerebral infarction affecting left non-dominant side; I48.0 Paroxysmal atrial fibrillation; I25.10 Atherosclerotic heart disease of native coronary artery without angina pectoris; E11.9 Type 2 diabetes mellitus without complications; K21.9 Gastro-esophageal reflux disease without esophagitis; G47.33 Obstructive sleep apnea (adult) (pediatric); I10 Essential (primary) hypertension; Z72.0 Tobacco use; Z23 Encounter for immunization
CPT/HCPCS: 82435-PO; 82565-PO; 82947-PO; 83605-PO; 84132-PO; 84295-PO; 84520-PO; 85014-PO; 97110-GP; 97116-GP; 97162-GP; 97166-GO; 97530-GO; 97530-GP; 97535-GO; C1763; G0008; J0153; J0282; J0690; J1265; J1644; J1815; J1885; J1940; J2001; J2150; J2250; J2260; J2270; J2370; J2405; J2440; J2704; J2720; J2765; J2930; J3010; J3370; J3475; J7060; P9041

== ENCOUNTER → 2018-06-18 | Outpatient (CLI) | payer OTHER | LOC: FIMAGING 09:29 | PROVIDERS: ATTEND Thoracic Surgery (Cardiothoracic Vascular Surgery) | DX: Z48.89 Encounter for other specified surgical aftercare (principal); J84.9 Interstitial pulmonary disease, unspecified; J84.10 Pulmonary fibrosis, unspecified; M40.204 Unspecified kyphosis, thoracic region; M51.34 Other intervertebral disc degeneration, thoracic region; Z95.1 Presence of aortocoronary bypass graft; Z95.2 Presence of prosthetic heart valve ==

== ENCOUNTER 2018-06-25 19:39 | Inpatient (IN) | payer OTHER ==
--- NOTE | 2018-06-25 19:46 | EDPHY ---
H & P Time Seen by Provider: 06/25/18 19:39 HPI/ROS: CHIEF COMPLAINT: Left-sided weakness HISTORY OF PRESENT ILLNESS: Patient had recent cardiac surgery, had a previous stroke earlier this year with a little bit of left-sided residual weakness, presents today with severe left-sided weakness that the patient and states started yesterday morning 36 hr ago. Today presents with severe generalized weakness. His left-sided weakness is much more pronounced than typical. Not associated with headache or difficulty with speech or vision. Not better or worse with anything. He did see his primary care doctor today and apparently had systolic blood pressures in the 80s and increased his fluids. REVIEW OF SYSTEMS: Eye: no change in vision ENT: no sore throat Cardiac: Residual chest pain after surgery, no palpitations. Pulmonary: no cough or SOB Abdomen: no vomiting, diarrhea, abdominal pain Musculoskeletal: Other than postoperative pain, negative. Peripheral edema. Skin: no new rash Neuro: no headache, no neck pain, no vertigo Constitutional: no fever : no urinary symptoms A comprehensive 10 point review of systems is otherwise negative aside from elements mentioned in the history of present illness. PAST MEDICAL HISTORY: Aortic valve replacement with bypass surgery and 2017, stroke in November of 2017 with residual mild left-sided weakness, atrial fibrillation postoperatively, interstitial lung disease, diabetes, hypertension Social history: Here with his General Appearance: Alert and conversant, cooperative. Eyes: No scleral icterus. ENT, Mouth: Normal mucous membranes. Respiratory: Normal respiratory effort, breath sounds equal, lungs are clear to auscultation. Cardiovascular: Regular rate and rhythm. Gastrointestinal: Abdomen is soft and non tender. Neurological: Alert, face symmetric. He can lift the right leg off the bed with normal strength and has good back end developer with the right arm. He can barely lift the left leg 1 in off the bed, can lift the left arm very slowly about 4 in off the bed but is very weak movement of his fingers. Speech is fluent. Mentation is normal. Skin: Some bruising on the right arm. Slight LLe redness not warm to touch. Musculoskeletal: Lower extremity 2+ bilateral peripheral edema without tenderness. Psychiatric: Not agitated. Emergency Department course/MDM: Patient presents with acute left-sided weakness which is worse then his normal, but he is 36 hr since onset of symptoms so he is not made an acute stroke alert. I-STAT creatinine 1.8, noncontrast head CT ordered but angiography not performed with abnormal renal function. 2021: discussed with Dr. Vargas from [facility]; recommends no CTA, no stroke alert, admit for evaluation. 2023: discussed with Danielle Griffin from CV surgery, admit hospitalist service, Gianfranco aware. 2030: Discussed with admitting hospitalist Dr. Enciso, requests no lovenox, ( INR 1.5) risk of hemorrhagic transformation if he did have an ischemic stroke event. Elias aware and in agreement. Blood pressure noted to be 98 and 105 systolic, normal saline 500 mL IV given. Differential includes hypoperfusion from hypotension, this would also go along with his elevated creatinine, possibly prerenal. Negative head CT per Dr. Hodge at 8:40 p.m. White blood cell count noted to be elevated but his last 4 range from 11-19, 000. Think it is unlikely that he has an acute infection, or sepsis. 2102: BP 107 systolic after 500ml NS. Ejection fraction 55% on echo performed June 07, additional 500 mL normal saline IV bolus. Possible that hypotension exacerbating previous CVA symptoms. Smoking Status: Light smoker Constitutional: Initial Vital Signs Temperature (C) 36.5 C 06/25/18 19:44 Heart Rate 68 06/25/18 19:44 Respiratory Rate 20 06/25/18 19:44 Blood Pressure 105/62 06/25/18 19:44 O2 Sat (%) 93 06/25/18 19:44 O2 Delivery Mode Room Air Allergies/Adverse Reactions: gentamicin sulfate [From Garamycin] Allergy (Verified 06/25/18 19:48) Rash Penicillins Allergy (Verified 06/25/18 19:48) Swelling/neck,face,throat Home Medications: Medication Instructions Recorded metFORMIN HCL [Glucophage 500 mg 500 mg PO DAILY 06/27/12 (*)] Citalopram Hydrobromide 40 mg PO DAILY 06/22/16 [Citalopram HBr] Gabapentin [Neurontin 300 MG (*)] 300 mg PO DAILY 06/22/16 Ipratropium/Albuterol [Duoneb (*)] 3 ml IH Q4-6PRN PRN 06/22/16 Mycophenolate Mofetil [Cellcept] 1,500 mg PO BID 05/21/17 Albuterol [Proventil Inhaler HFA 1 - 2 puffs IH DAILY PRN 05/16/18 (*)] Allopurinol [Allopurinol 300 MG 300 mg PO DAILY 05/16/18 (RX)] Aspirin [Aspirin 81mg (*)] 81 mg PO DAILY 05/16/18 Budesonide/Formoterol 160/4.5 1 puffs IH BID PRN 05/16/18 [Symbicort 160-4.5 Mcg Inh (*)] Bimatoprost 0.01% [Lumigan 0.01% 1 drops RTEYE DAILY 06/05/18 (*)] Brimonidine/Timolol [Combigan (*)] 1 drop RTEYE BID 06/05/18 Difluprednate [Durezol] 1 drop RTEYE BID 06/05/18 Polymyxin B Sulfate/Tmp [Polytrim 1 drop RTEYE BID 06/05/18 Opht Drops (*)] prednisoLONE ACET 1% [Pred Forte 1 drops RTEYE BID 06/05/18 1% (*)] Acetaminophen [Tylenol 325mg (*)] 325 - 650 mg PO Q4HRS PRN tab 06/10/18 Amiodarone HCl [Pacerone (*)] 200 mg PO BID tab 06/10/18 Apixaban [Eliquis] 5 mg PO BID tab 06/10/18 Atorvastatin Calcium [Lipitor 40 40 mg PO DAILY tab 06/10/18 mg (*)] Dextromethorphan Polistirex 30 mg PO BID PRN #1 [id number] 06/10/18 [Delsym] Furosemide [Lasix 40 MG (*)] 40 mg PO BID@0900,1500 tab 06/10/18 Metoprolol Tartrate [Lopressor 25 12.5 mg PO BID tab 06/10/18 mg (*)] Polyethylene Glycol 3350 [Miralax 17 gm PO DAILY PRN pkt 06/10/18 17 gm (*)] Potassium Cl [Klor-Con 20 meq (*)] 20 meq PO BID tab 06/10/18 Sennosides/Docusate Sodium 1 - 2 tab PO BID PRN tab 06/10/18 [Senokot-S] traMADol [Ultram 50 mg (*)] 50 - 100 mg PO Q4HRS PRN tab 06/10/18 Ipratropium 0.06% Nasal [Atrovent 1 - 2 sprays EACHNARE QID PRN 06/25/18 0.06% Nasal] guaiFENesin [Mucinex 600 MG (*)] 600 mg PO BID PRN 06/25/18 Medical Decision Making - Diagnostics EKG Interpretation: 12-lead EKG interpreted by me; official reading is in computer system. My interpretation is sinus rhythm with first-degree AV block and left bundle branch block. Rate 69. Imaging Results: Imaging Impressions Head CT 06/25/18 19:59 Impression: Atrophy and microvascular ischemic disease. Findings and recommendations discussed with NORBERTO DEE at 8:39 PM hour, 2017. Final report concurs with initial preliminary interpretation. Imaging: Discussed imaging studies w/ scallop binder Radiologist Differential Diagnosis: Differential considered including but not limited to ischemic stroke, intracranial bleed, seizure, dissection Critical Care Time: Critical care time spent by me, Dr. Dee, exclusively with the care of this patient was 30 minutes, exclusive of PA or LINER WORKER time and exclusive of separate procedures. The organ system at risk was neurologic and I ordered multiple diagnostics, specialist consultation, IV fluids to address borderline low blood pressure to stabilize the patient and prevent worsening of the patient's condition. - Data Points Laboratory Results: Laboratory Results 06/25/18 19:47 06/25/18 19:47 06/25/18 06/25/18 06/25/18 20:00 19:51 19:47 WBC RBC Hgb POC Hgb 11.2 gm/dL L gm/dL (13.7-17.5) Hct POC Hct 33 % L % (40-51) MCV MCH MCHC RDW Plt Count MPV Neut % (Auto) Lymph % (Auto) [place] % (Auto) Eos % (Auto) Baso % (Auto) Nucleat RBC Rel Count Absolute Neuts (auto) Absolute Lymphs (auto) Absolute Monos (auto) Absolute Eos (auto) Absolute Basos (auto) Absolute Nucleated RBC Immature Gran % Immature Gran # PT INR APTT POC Sodium 134 mEq/L L mEq/L (135-145) Sodium 133 mEq/L L mEq/L (135-145) POC Potassium 4.0 mEq/L mEq/L (3.3-5.0) Potassium 4.3 mEq/L mEq/L (3.3-5.0) POC Chloride 95 mEq/L L mEq/L (97-110) Chloride 93 mEq/L L mEq/L (97-110) Carbon Dioxide 28 mEq/l mEq/l (22-31) Anion Gap 12 mEq/L mEq/L (8-16) POC BUN 23 mg/dL mg/dL (7-23) BUN 27 mg/dL H mg/dL (7-23) Creatinine 1.6 mg/dL H mg/dL (0.7-1.3) POC Creatinine 1.8 mg/dL H mg/dL (0.7-1.3) Estimated GFR 43 Glucose 110 mg/dL H mg/dL (70-100) POC Glucose 114 mg/dL H mg/dL (70-100) Calcium 8.6 mg/dL mg/dL (8.5-10.4) POC Troponin I 0.03 ng/mL ng/mL (0.00-0.08) 06/25/18 06/25/18 19:47 19:47 WBC 15.83 10^3/uL H 10^3/uL (3.80-9.50) RBC 3.43 10^6/uL L 10^6/uL (4.40-6.38) Hgb 9.8 g/dL L g/dL (13.7-17.5) POC Hgb Hct 31.5 % L % (40.0-51.0) POC Hct MCV 91.8 fL fL (81.5-99.8) MCH 28.6 pg pg (27.9-34.1) MCHC 31.1 g/dL L g/dL (32.4-36.7) RDW 14.6 % % (11.5-15.2) Plt Count 508 10^3/uL H 10^3/uL (150-400) MPV 8.8 fL fL (8.7-11.7) Neut % (Auto) 77.9 % H % (39.3-74.2) Lymph % (Auto) 8.9 % L % (15.0-45.0) [place] % (Auto) 9.2 % % (4.5-13.0) Eos % (Auto) 2.1 % % (0.6-7.6) Baso % (Auto) 0.5 % % (0.3-1.7) Nucleat RBC Rel Count 0.0 % % (0.0-0.2) Absolute Neuts (auto) 12.33 10^3/uL H 10^3/uL (1.70-6.50) Absolute Lymphs (auto) 1.41 10^3/uL 10^3/uL (1.00-3.00) Absolute Monos (auto) 1.46 10^3/uL H 10^3/uL (0.30-0.80) Absolute Eos (auto) 0.33 10^3/uL 10^3/uL (0.03-0.40) Absolute Basos (auto) 0.08 10^3/uL 10^3/uL (0.02-0.10) Absolute Nucleated RBC 0.00 10^3/uL 10^3/uL (0-0.01) Immature Gran % 1.4 % H % (0.0-1.1) Immature Gran # 0.22 10^3/uL H 10^3/uL (0.00-0.10) PT 18.5 SEC H SEC (12.0-15.0) INR 1.53 H (0.83-1.16) APTT 37.4 SEC SEC (23.0-38.0) POC Sodium Sodium POC Potassium Potassium POC Chloride Chloride Carbon Dioxide Anion Gap POC BUN BUN Creatinine POC Creatinine Estimated GFR Glucose POC Glucose Calcium POC Troponin I Medications Given: Discontinued Medications Sodium Chloride (Ns) 500 mls @ 0 mls/hr IV EDNOW ONE; Wide Open PRN Reason: Protocol Stop: 06/25/18 20:37 Last Admin: 06/25/18 20:39 Dose: 500 mls Sodium Chloride (Ns) 500 mls @ 1,000 mls/hr IV EDNOW ONE PRN Reason: Protocol Stop: 06/25/18 21:33 Last Admin: 06/25/18 21:33 Dose: 500 mls Cefazolin Sodium/Dextrose (Ancef 2 Gm) 100 mls @ 200 mls/hr IV Q8HRS SCAR PRN Reason: Protocol Stop: 07/25/18 23:44 Last Admin: 06/26/18 03:00 Dose: 100 mls Point of Care Test Results: Chemistry 06/25/18 06/25/18 20:00 19:51 POC Sodium 134 mEq/L L mEq/L (135-145) POC Potassium 4.0 mEq/L mEq/L (3.3-5.0) POC Chloride 95 mEq/L L mEq/L (97-110) POC BUN 23 mg/dL mg/dL (7-23) POC Creatinine 1.8 mg/dL H mg/dL (0.7-1.3) POC Glucose 114 mg/dL H mg/dL (70-100) POC Troponin I 0.03 ng/mL ng/mL (0.00-0.08) ISTAT H&H 06/25/18 20:00 POC Hgb 11.2 gm/dL L gm/dL (13.7-17.5) POC Hct 33 % L % (40-51) Departure - Departure Disposition: [facility] Inpatient Acute Clinical Impression: Left-sided weakness, Acute kidney injury Condition: Serious
--- NOTE | 2018-06-25 19:56 | CPEKG ---
Test Reason : OPEN Blood Pressure : / mmHG Vent. Rate : 069 BPM Atrial Rate : 069 BPM P-R Int : 210 ms QRS Dur : 123 ms QT Int : 416 ms P-R-T Axes : 056 -35 202 degrees QTc Int : 446 ms Sinus rhythm Left bundle branch block Confirmed by Desmond Ma ([id number]) on 06/25/2018 7:55:47 PM Referred By: Confirmed By:Desmond Ma
[2018-06-25 20:00] LABS: PLATELET COUNT 508 10^3/uL (150-400)
[2018-06-25 20:07] LABS: INR 1.53 (0.83-1.16)
[2018-06-25] MEDS ORDERED: NS 500 ML IV ONE ×2 (20:36→21:04)
[2018-06-25 20:43] LABS: PROTIME(PATIENT) 18.5 SEC (12.0-15.0)
[2018-06-25] MEDS ORDERED: ONDANSETRON DISINTEGRATING 4 MG TAB PO PRN (22:05)
[2018-06-25] MEDS ORDERED: ONDANSETRON 4 MG/2 ML VIAL IVP PRN (22:05)
[2018-06-25] MEDS ORDERED: BUDESONIDE/FORMOTEROL 160/4.5 60 PUFFS/MDI IH PRN (22:13)
[2018-06-25] MEDS ORDERED: ALBUTEROL 60 PUFFS/8 GM MDI IH PRN (22:13)
[2018-06-25] MEDS ORDERED: ceFAZolin 2 GM/DEXTROSE 100 ML IV SCH (23:45)
--- NOTE | 2018-06-26 00:57 | PDGENHP ---
History and Physical - Chief Complaint Weakness - History of Present Illness 67 yo M w/ hx of CVA, CAD, AF, ILD, recent CABG and bAVR presents with L leg weakness beyond baseline. The patient had a stroke in November of 2017 and suffers from resultant L leg and arm weakness. He returned home from rehab on Sunday. Starting Sunday, he noticed a worsening of his L leg and arm weakness. This progressed to the point where he was no longer able to ambulate with a walker. He denies other, new neurologic symptoms. During my evaluation he is complaining of continued LLE weakness as well as L heel pain. His LLE is erythematous and mildly swollen. Of note, he stubbed his toe a few days ago and lost a toenail. He has been taking Eliquis for anticoagulation after bioprosthetic AVR. Case discussed with Dr. Enciso; records reviewed in EMR including last DC summary by Dr. schaffer 06/10/18. History Information - Allergies/Home Medication List Allergies/Adverse Reactions: gentamicin sulfate [From Garamycin] Allergy (Verified 06/25/18 19:48) Rash Penicillins Allergy (Verified 06/25/18 19:48) Swelling/neck,face,throat Home Medications: metFORMIN HCL [Glucophage 500 mg (*)] 500 mg PO DAILY 06/27/12 [Last Taken 06/25] Citalopram Hydrobromide [Citalopram HBr] 40 mg PO DAILY 06/22/16 [Last Taken 11/11] Gabapentin [Neurontin 300 MG (*)] 300 mg PO DAILY 06/22/16 [Last Taken 06/25/18] Ipratropium/Albuterol [Duoneb (*)] 3 ml IH Q4-6PRN PRN 06/22/16 [Last Taken 08/11 21:00] Mycophenolate Mofetil [Cellcept] 1,500 mg PO BID 05/21/17 [Last Taken 06/25/18] Albuterol [Proventil Inhaler HFA (*)] 1 - 2 puffs IH DAILY PRN 05/16/18 [Last Taken 06/04/18 23:30] Allopurinol [Allopurinol 300 MG (RX)] 300 mg PO DAILY 05/16/18 [Last Taken 06/25] Aspirin [Aspirin 81mg (*)] 81 mg PO DAILY 05/16/18 [Last Taken 06/24/18] Budesonide/Formoterol 160/4.5 [Symbicort 160-4.5 Mcg Inh (*)] 1 puffs IH BID PRN 05/16/18 [Last Taken 06/04/18 08:00] Bimatoprost 0.01% [Lumigan 0.01% (*)] 1 drops RTEYE DAILY 06/05/18 [Last Taken 06/25/18] Brimonidine/Timolol [Combigan (*)] 1 drop RTEYE BID 06/05/18 [Last Taken ] Difluprednate [Durezol] 1 drop RTEYE BID 06/05/18 [Last Taken 06/25/18] Polymyxin B Sulfate/Tmp [Polytrim Opht Drops (*)] 1 drop RTEYE BID 06/05/18 [ Last Taken 06/25/18] prednisoLONE ACET 1% [Pred Forte 1% (*)] 1 drops RTEYE BID 06/05/18 [Last Taken 06/25/18] Ipratropium 0.06% Nasal [Atrovent 0.06% Nasal] 1 - 2 sprays EACHNARE QID PRN 11/11 [Last Taken Unknown] guaiFENesin [Mucinex 600 MG (*)] 600 mg PO BID PRN 06/25/18 [Last Taken Unknown] I have personally reviewed and updated: family history, medical history - Past Medical History cataracts, CVA (november 2017, residual LLE weakness, walker for ambulation), diabetes type 2, GERD, migraines (ocular), pneumonia (hypersensitivity pneumonitis), SVT (paroxysmal), seizures (remote - no longer treated) Additional medical history: 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 Subcentimeter lung nodules, RUL/RML/LLL. TYLER - nocturnal O2 use; CPAP declined d/t claustrophobia. poor dentition. alcohol abuse - sober on Antabuse and d/cd about 8 mon ago. DJD knees - Surgical History Reports: ablation (catheter based RFA 2012), coronary bypass surgery Additional surgical history: bilateral TKAs. bilateral cataract removal - complicated by intermittent right eye floaters and blurriness. bAVR - Family History Positive for: cancer, CAD Additional family history: arrhythmias (mother) - Social History Smoking Status: Light smoker Review of Systems Review of Systems: ROS: 10pt was reviewed & negative except for what was stated in HPI & below Physical Exam Physical Exam: Temp Pulse Resp BP Pulse Ox 36.7 C 62 16 104/59 L 93 06/26/18 00:25 06/26/18 00:25 06/26/18 00:25 06/26/18 00:25 06/26/18 00:25 O2 (L/minute) 3 Constitutional: no apparent distress, not in pain Eyes: PERRL, EOMI Ears, Nose, Mouth, Throat: moist mucous membranes, no oral mucosal ulcers Cardiovascular: regular rate and rhythym, no murmur, rub, or gallop, edema (1+ LLE) Respiratory: no respiratory distress, clear to auscultation Gastrointestinal: normoactive bowel sounds, soft, non-tender abdomen Skin: warm, erythema (LLE below the knee) Neurologic: AAOx3, weakness (LLE 3/5, LUE 4/5), CN II-XII Intact Psychiatric: interacting appropriately, not anxious Lab Data & Imaging Review 06/25/18 19:47 06/25/18 19:47 WBC 15.83 10^3/uL (3.80-9.50) H 06/25/18 19:47 RBC 3.43 10^6/uL (4.40-6.38) L 06/25/18 19:47 Hgb 9.8 g/dL (13.7-17.5) L 06/25/18 19:47 POC Hgb 11.2 gm/dL (13.7-17.5) L 06/25/18 20:00 Hct 31.5 % (40.0-51.0) L 06/25/18 19:47 POC Hct 33 % (40-51) L 06/25/18 20:00 MCV 91.8 fL (81.5-99.8) 06/25/18 19:47 MCH 28.6 pg (27.9-34.1) 06/25/18 19:47 MCHC 31.1 g/dL (32.4-36.7) L 06/25/18 19:47 RDW 14.6 % (11.5-15.2) 06/25/18 19:47 Plt Count 508 10^3/uL (150-400) H 06/25/18 19:47 MPV 8.8 fL (8.7-11.7) 06/25/18 19:47 Neut % (Auto) 77.9 % (39.3-74.2) H 06/25/18 19:47 Lymph % (Auto) 8.9 % (15.0-45.0) L 06/25/18 19:47 [place] % (Auto) 9.2 % (4.5-13.0) 06/25/18 19:47 Eos % (Auto) 2.1 % (0.6-7.6) 06/25/18 19:47 Baso % (Auto) 0.5 % (0.3-1.7) 06/25/18 19:47 Nucleat RBC Rel Count 0.0 % (0.0-0.2) 06/25/18 19:47 Absolute Neuts (auto) 12.33 10^3/uL (1.70-6.50) H 06/25/18 19:47 Absolute Lymphs (auto) 1.41 10^3/uL (1.00-3.00) 06/25/18 19:47 Absolute Monos (auto) 1.46 10^3/uL (0.30-0.80) H 06/25/18 19:47 Absolute Eos (auto) 0.33 10^3/uL (0.03-0.40) 06/25/18 19:47 Absolute Basos (auto) 0.08 10^3/uL (0.02-0.10) 06/25/18 19:47 Absolute Nucleated RBC 0.00 10^3/uL (0-0.01) 06/25/18 19:47 Immature Gran % 1.4 % (0.0-1.1) H 06/25/18 19:47 Immature Gran # 0.22 10^3/uL (0.00-0.10) H 06/25/18 19:47 PT 18.5 SEC (12.0-15.0) H 06/25/18 19:47 INR 1.53 (0.83-1.16) H 06/25/18 19:47 APTT 37.4 SEC (23.0-38.0) 06/25/18 19:47 POC Sodium 134 mEq/L (135-145) L 06/25/18 20:00 Sodium 133 mEq/L (135-145) L 06/25/18 19:47 POC Potassium 4.0 mEq/L (3.3-5.0) 06/25/18 20:00 Potassium 4.3 mEq/L (3.3-5.0) 06/25/18 19:47 POC Chloride 95 mEq/L (97-110) L 06/25/18 20:00 Chloride 93 mEq/L (97-110) L 06/25/18 19:47 Carbon Dioxide 28 mEq/l (22-31) 06/25/18 19:47 Anion Gap 12 mEq/L (8-16) 06/25/18 19:47 POC BUN 23 mg/dL (7-23) 06/25/18 20:00 BUN 27 mg/dL (7-23) H 06/25/18 19:47 Creatinine 1.6 mg/dL (0.7-1.3) H 06/25/18 19:47 POC Creatinine 1.8 mg/dL (0.7-1.3) H 06/25/18 20:00 Estimated GFR 43 06/25/18 19:47 Glucose 110 mg/dL (70-100) H 06/25/18 19:47 POC Glucose 114 mg/dL (70-100) H 06/25/18 20:00 Calcium 8.6 mg/dL (8.5-10.4) 06/25/18 19:47 POC Troponin I 0.03 ng/mL (0.00-0.08) 06/25/18 19:51 Imaging Review: Imaging Impressions Head CT 06/25/18 19:59 Impression: Atrophy and microvascular ischemic disease. Findings and recommendations discussed with NORBERTO DEE at 8:39 PM hour, 2017. Final report concurs with initial preliminary interpretation. Visualized and Interpreted EKG results: Yes EKG Interpretation: Positive for: normal sinsus rhythm Assessment & Plan Assessment: 67 yo M w/ hx of CVA and resultant L-sided weakness presents with L-sided weakness beyond baseline. Plan: 1. Left-sided weakness, acute on chronic - Patient presents with 36 hours of L sided weakness beyond baseline. Unclear if this represents new CVA or worsening of existing symptoms due to other illness; I favor the latter. Considerations for etiology include LLE cellulitis vs. hypotension/KEELY from dehydration. CTH in the ED without acute findings. - Admit for observation - Hold Eliquis, monitor on telemetry - Obtain Brain MRI, carotid dopplers, TTE w/ bubble for stroke work-up ( Currently with KEELY so will hold off on CTA) - Neurology consult placed - PT/OT/JEWEL HOLE GAUGER evaluations - Address LLE erythema as below 2. LLE erythema - LLE erythematous with mild swelling; suspicious for cellulitis. WBC of 15,000 on admission. This may be contributing to worsening of existing stroke symptoms. - Blood cultures ordered - Cefazolin 2g IV q8h - Will also obtain LLE US to rule out DVT 3. KEELY - Serum creatinine 1.8 on admission increased from a normal baseline. This is possibly due to combination of ongoing furosemide and lisinopril use noting recent low/normal BPs. - Hold furosemide, lisinopril - S/p 1L IVF, will continue mIVF overnight - Check UA, FeNa, FeUrea - Avoid nephrotoxic agents, renally dose medications - Monitor BMP 4. CAD, - S/p CABG and bAVR by Dr. Medel on 06/06/18. - Will hold Eliquis and for now pending stroke evaluation - Continue BB, ASA, statin 5. Hx CVA - In November of 2017; with resultant L-sided weakness. - Acute management as above 6. ILD - Stable on Cellcept, will continue. 7. HTN - Low/normal BPs as of late. - Hold antihypertensives for now and monitor Diet - Regular pending swallow screen Code - Full Ppx - SCDs Dispo - Admit under observation status
[2018-06-26 04:22] LABS: PLATELET COUNT 402 10^3/uL (150-400)
[2018-06-26] MEDS ORDERED: GABAPENTIN 300 MG CAP PO SCH (09:00)
[2018-06-26] MEDS ORDERED: MYCOPHENOLATE MOFETIL 250 MG CAP PO SCH (09:00)
[2018-06-26] MEDS ORDERED: AMIODARONE HCL 200 MG TAB PO SCH (09:45)
--- NOTE | 2018-06-26 09:52 | WOCRNPDOC ---
WOCRN Advanced Assessment Note - Skin Integrity Problem, Advanced Assess Left Second Toe Dressing Type: Gauze Exudate Amount: None Integumentary Issue Intervention: Dressing Removed Skin Integrity Problem Comment: Patient states that he fell and ripped the nail off of the left second toe. No drainage noted and no open wound. Explained to patient that nail will likely grow back in time. May keep it covered to minimize risk of further damage to the area and protect it from bumping. Left lower leg and foot are endematous, patient states he is having a flair up of his gout. No open wounds noted on his lower extremeties. Wound care will sign off, please reconsult PRN.
[2018-06-26] MEDS: ALLOPURINOL 300 MG TAB PO SCH (10:16)
[2018-06-26] MEDS: ATORVASTATIN CALCIUM 40 MG TAB PO SCH (10:16)
[2018-06-26] MEDS: ASPIRIN 81 MG CHEWABLE TAB PO SCH (10:16)
[2018-06-26] MEDS: CITALOPRAM 20 MG TAB PO SCH (10:16)
[2018-06-26] MEDS ORDERED: D50W 25 GM/50 ML SYR IVP PRN (10:41)
[2018-06-26] MEDS: prednisoLONE ACET 1% 5 ML OPHT.BTL RTEYE SCH ×2 (12:00→21:46)
[2018-06-26] MEDS: DIFLUPREDNATE RTEYE SCH ×2 (12:01→21:46)
--- NOTE | 2018-06-26 12:01 | ASMTCMCOM ---
CM Note CM Note Notes: Pts case discussed in tx rounds. Pt is a 67 y/o man admitted for low blood pressure, weakness on left side. Pt had a stroke. SPL, OT, PT and wound care have been ordered. PT is recommending inpatient rehab. Yolanda Galvan will be continuing to follow this case. CM awaiting on additional recommendations from therapies. Pt has a supportive . CM to follow. Plan: TBD/Possibly inpatient rehab Date Signed: 06/26/2018 12:00 PM Electronically Signed By:MICHEL Medel
--- NOTE | 2018-06-26 12:01 | GCON ---
NEUROLOGY CONSULTATION REFERRING PHYSICIAN: Niraj Baird MD CHIEF COMPLAINT: Stroke. HISTORY OF PRESENT ILLNESS: The patient is a very pleasant 67-year-old gentleman who has multiple vascular risk factors. He had a stroke in November of 2017, which left him with left-sided hemiparesis. The patient recently had open -heart surgery on June 05, 2018. The patient had aortic valve replacement with a #23 Inspiris aortic valve, patch enlargement of the ascending aorta with bovine pericardium, saphenous vein graft to the distal right coronary artery, endoscopic vein harvest from the left leg and ligation of the left atrial appendage. He was just discharged from rehabilitation on Sunday, and then on Sunday at home, he noticed acute on chronic left-sided weakness, especially in his leg, and came back to the emergency department. In addition to the cardiac procedure noted above, he also has atrial fibrillation, for which he was prescribed Eliquis. He states he was on Eliquis when the acute on chronic left- sided symptoms occurred on Sunday. The patient had MRI brain, which showed acute subacute multifocal punctate infarcts in the left parietal-occipital region, left occipital lobe, and right frontal lobe near the vertex. Carotid ultrasound was also done, showing no sonographic evidence of hemodynamically significant ICA stenosis on either side. He does have some plaque noted in each common carotid artery, which is similar to his previous study on April. REVIEW OF SYSTEMS: A 10-point review of systems was done and only pertinent to the HPI. For past medical history, social history, family history, home medications, and allergies, see Dr. Baird's note. PHYSICAL EXAM: VITAL SIGNS: Blood pressure is 97/60. He is afebrile at 36.6, respirations 16, O2 sats 97-100 percent. GENERAL: The patient is awake and alert, very pleasant. He has no aphasia. No dysarthria. He has some left- sided weakness. No convulsive movements in my presence. IMPRESSION/PLAN: 1. Status post cardiac surgery. 2. History of atrial fibrillation. 3. Stroke. The patient's MRI brain suggests a cardioembolic mechanism for these recurrent, small infarcts. It appears the right frontal infarct would explain his acute on chronic left-sided weakness, maximal in the left leg. We discussed that this can happen in a variety of settings, including the patient's specific cardiac risk factors noted above and being on oral anticoagulation. I discussed this at length with the patient and his primary hospitalist, Dr. Hendrickson. The patient states he was on Eliquis when this occurred. If that is the case, it would be reasonable to switch him to a different oral anticoagulant. The hospitalist team will confirm this data before changing his oral anticoagulation. He will also need evaluation by Physical Therapy to comment on the therapy plan for his acute on chronic left-sided weakness. No further recommendations now. We will continue to follow as needed. Please do not hesitate to call if there are any questions or changes in neurologic status with this very pleasant patient. Forty-five total minutes today of floor time reviewing the patient's previous records, including his recent heart surgery, current inpatient records, including MRI brain images showing acute infarct, showing image to the patient, direct counseling and coordination of care. /[id number]/MODL MTDD
[2018-06-26] MEDS: BRIMONIDINE/TIMOLOL 5 ML OPHT.BTL RTEYE SCH ×2 (12:02→21:46)
[2018-06-26] MEDS: BIMATOPROST 0.01% 2.5 ML OPHT.BTL RTEYE SCH (12:02)
[2018-06-26] MEDS: INSULIN REGULAR HUMAN 100 UNIT/ML UNIT SC SCH ×3 (12:04→21:51)
[2018-06-26] MEDS ORDERED: ceFAZolin 2 GM/DEXTROSE 100 ML IV SCH (12:30)
--- NOTE | 2018-06-26 13:06 | ECHO ---
[email or web address] [address] [address] Main: [phone] Fax: Transthoracic Echocardiogram Name: GINA IGNAICO MR#: [id number] Study Date: 06/26/2018 Study Time: 11:16 AM Date of : 1950 Age: 67 year(s) Height: 177.8 cm (70 in.) Weight: 99.79 kg (220 lb.) BSA: 2.17 m2 Gender: Male Examination: Echo with Agitated Saline Indication: Ischemic Stroke Image Quality: Technically Difficult Contrast: Requested by: Niraj Fierro BP: 95 mmHg/51 mmHg Heart Rate: Rhythm: Indication: Ischemic Stroke Procedure Staff Printed Circuit Board Preassembler: Tricia Sanches RDCS Reading Physician: Michael Jolley MD Requesting Provider: Conclusions: This is a technically limited study with poor acoustic windows. The patient was bradycardic throughout the study. The left ventricle is normal in size with preserved LV systolic function. There are no obvious wall motion abnormalities. These, however, cannot be excluded based on the quality of this study. Diastolic dysfunction is noted. There is mild left atrial enlargement. An agitated saline contrast study was performed without evidence of an interatrial shunt. The aortic valve is a bioprosthesis with normal function. Mild mitral leaflet calcification is present. There is mild mitral regurgitation. There is trivial tricuspid regurgitation. There are no obvious vegetations noted however, based on the limited nature of the study these cannot be excluded. Consider LOLIS if there is a high index of suspicion for a cardiac source for embolism. Measurements: Chambers Valvular Assessment AV/MV Valvular Assessment TV/PV Normal Normal Normal Name Value Range Name Value Range Name Value Range Ao Abeba (2D): 2.7 cm (1.4 cm-2.6 AV Vmax: 2.10 m/s (1 m/s-1.7 PV Vmax: 0.96 m/s (0.6 m/s-0.9 cm) m/s) m/s) IVSd (2D): 1.3 cm (0.6 cm-1.1 AV maxP mmHg ( - ) PV PGmax: 4 mmHg ( - ) cm) AV meanP mmHg ( - ) LVDd (2D): 4.9 cm (4.2 cm-5.9 PRATIK (VTI): 1.8 cm ( - ) cm) MV E Vmax: 1.25 m/s ( - ) LVDs (2D): 3.4 cm (2.1 cm-4 MV A Vmax: 1.06 m/s ( - ) cm) MV E/A: 1.18 ( - ) LVPWd (2D): 1.2 cm (0.6 cm-1 cm) MV PHT: 0.063 s ( - ) LVOTd 2.0 cm 2.0 cm mm MVA (PHT): 3.5 s ( - ) LVEF (MOD4): 65 % (>=55 %) Visual EF: 60 % RVDd(2D): 3.1 cm (1.9 cm-3.8 cmmm) Patient: GINA IGNACIO Study Date: 06/26/2018 Page 1 of 2 11:16 AM Continued Measurements: Chambers Valvular Assessment AV/MV Name Value Name Value LADs: 5.2 cm MV DecTime: 190 m/s LADs Lon.6 cm MV E' Septal: 0.07 m/s LA Area: 22.7 cm2 MV E/E' Septal: 18.10 LA Volume: 84 ml MV E/E' Lateral: 18.60 LA Volume Index: 38.7 ml/m2 RA Area: 22.3 cm2 Additional Vessels Name Value Ao Ascendin.3 cm Inferior Vena Cava: 2.4 cm Findings: Left Ventricle: Normal size left ventricle. Mild concentric LV hypertrophy. Normal global systolic LV function. The ejection fraction is visually estimated to be 60 %. No regional wall motion abnormality. Grade 2 diastolic dysfunction (pseudonormalized LV filling pattern). Right Ventricle: Normal size right ventricle. Normal RV function. Left Atrium: The left atrium is mildly dilated. An agitated saline study was performed and was negative for intracardiac shunting. Right Atrium: The right atrium is normal in size. Mitral Valve: The mitral valve is normal in appearance and function. Mild mitral valve leaflet calcification is present. Mild mitral valve regurgitation is present. Aortic Valve: The aortic valve is a bioprosthesis. Normal functioning aortic valve prosthesis. The prosthetic aortic valve is normal. The orifice motion of the prosthetic aortic valve is normal. No prosthesis stenosis. No prosthesis regurgitation. #23 Inspiris Resilia. Tricuspid Valve: The tricuspid valve is normal in appearance and function. Trivial tricuspid valve regurgitation. Pulmonic Valve: The pulmonic valve is normal in appearance and function. There is no pulmonic regurgitation seen. Aorta: The aorta is normal. Normal size aortic root measuring 2.7 cm. Normal size ascending aorta measuring 3.3 cm. IVC: The IVC is dilated. Pericardium: No pericardial effusion. Exam Comments: (No Signature Object) Patient: GINA IGNACIO Study Date: 06/26/2018 Page 2 of 2 11:16 AM [id number]
[2018-06-26] MEDS: ENOXAPARIN 100 MG/ML SYR SC SCH (17:37)
[2018-06-26] MEDS: WARFARIN SODIUM 5 MG TAB PO SCH (17:37)
--- NOTE | 2018-06-26 18:00 | HOSPPROG ---
Hospitalist Progress Note Assessment/Plan: Assessment: 67 yo M p/w acute CVA Plan: # Acute CVA. New problem, further w/u indicated. Multifocal on MRI, resulting in acute on chronic L hemiparesis -CUS w/ stable, bilat plaque but non-flow limiting -getting Echo w/ bubble -d/w Dr. Castaneda, he recommends d/w patient regarding anticoagulation adherence to determine whether this is eliquis failure -get PT/OT/inpatient rehab consults, suspect patient may benefit from IPR # Leg edema. Unilateral, LLE w/ no e/o DVT on US -suspect 2/2 post-vein graft harvest w/ mild hematoma on US -counseled patient to elevate, wear GLORIA # KEELY. Most likely 2/2 hypovolemia and hypotension in setting of restarting ACEi + diuretics -holding diuretics and ACEi -cont IVF -repeat Cr in AM # CAD, . Chronic, s/p CABG and bAVR by Dr. Medel on 06/06/18. - Continue BB (low dose), ASA, statin # ILD. Chronic, stable on Cellcept, will continue. # HTN. Patient accidentally restarted ACEi, resulting in hypotension -held bblocker and ACEi today # DM2. Holding metformin until renal fxn improved, ISS Diet - ADA Code - Full Ppx - restart anticoagulation Dispo - upgrade to inpatient admission status for reasonable medical necessity including acute CVA requiring initiation of anticoagulation, therapy evals Subjective: ongoing L hemiparesis, less pain in L heel Objective: Vital Signs Temp Pulse Resp BP Pulse Ox 36.6 C 69 16 113/61 95 06/26/18 15:03 06/26/18 15:03 06/26/18 15:03 06/26/18 15:03 06/26/18 15:03 Laboratory Results 06/26/18 04:12 06/26/18 04:12 06/25/18 06/26/18 06/27/18 05:59 05:59 05:59 Intake Total 1000 570 Output Total 200 Balance 800 570 PT 18.5 SEC (12.0-15.0) H 06/25/18 19:47 INR 1.53 (0.83-1.16) H 06/25/18 19:47 - Physical Exam Constitutional: no apparent distress, appears nourished, not in pain, No uncomfortable Cardiovascular: systolic murmur (I/ at sternum), edema (1+ LLE), No irregularly irregular, No tachycardia Respiratory: no respiratory distress, no rales or rhonchi, clear to auscultation Gastrointestinal: normoactive bowel sounds, soft, non-tender abdomen, no palpable masses Skin: other (mild blanchability L heel and lateral aspect L foot w/o erythema, no tenderness, no fluctuance, no induration) Musculoskeletal: other (no tenderness L ankle or heel) Neurologic: AAOx3, sensation intact bilaterally, weakness (motor 5/5 bilat UE/LE ), CN II-XII Intact Psychiatric: interacting appropriately, not anxious, not encephalopathic, thought process linear ICD10 Worksheet Patient Problems: Problems Problem Status Onset Left-sided weakness Acute Acute kidney injury Acute Diabetes mellitus type 2, controlled Chronic History of stroke with residual deficit Chronic S/P CABG x 1 Acute ~06/05/18 S/P aortic valve replacement with bioprosthetic valve Acute ~06/05/18 Immunosuppression Chronic Pulmonary hypertension Chronic Nocturnal hypoxemia Chronic TYLER (obstructive sleep apnea) Chronic ILD (interstitial lung disease) Chronic Aortic valve stenosis with insufficiency Chronic CAD in [place] artery Chronic
--- NOTE | 2018-06-26 21:29 | PDMN ---
Medical Necessity Medical necessity: Pt meets inpt criteria per MD order and [facility] M-83, Stroke: Ischemic, 2 days. 67 y/o admitted w/ acute CVA, multifocal on MRI, resulting in acute on chronic L hemiparesis, ongoing, leg edema, and KEELY. Neuro consult, initiation of anticoagulation, PT/OT evals, inpatient rehab may be appropriate, anticipate >2MN for further eval/management of above medical issues.
[2018-06-26] MEDS: ACETAMINOPHEN 325 MG TAB PO PRN (21:45)
[2018-06-26] MEDS: GABAPENTIN 300 MG CAP PO SCH (21:46)
[2018-06-26] MEDS: MYCOPHENOLATE MOFETIL 1500 MG PO SCH (21:47)
[2018-06-27 04:21] LABS: PLATELET COUNT 407 10^3/uL (150-400)
[2018-06-27 04:23] LABS: INR 1.34 (0.83-1.16); PROTIME(PATIENT) 16.8 SEC (12.0-15.0)
[2018-06-27] MEDS: ENOXAPARIN 100 MG/ML SYR SC SCH ×2 (05:48→17:45)
[2018-06-27] MEDS: INSULIN REGULAR HUMAN 100 UNIT/ML UNIT SC SCH ×4 (08:53→22:21)
[2018-06-27] MEDS ORDERED: FUROSEMIDE 20 MG TAB PO ONE (09:12)
[2018-06-27] MEDS: GABAPENTIN 300 MG CAP PO SCH ×2 (09:36→20:37)
[2018-06-27] MEDS: CITALOPRAM 20 MG TAB PO SCH (09:36)
[2018-06-27] MEDS: ATORVASTATIN CALCIUM 40 MG TAB PO SCH (09:36)
[2018-06-27] MEDS: ASPIRIN 81 MG CHEWABLE TAB PO SCH (09:36)
[2018-06-27] MEDS: METOPROLOL SUCCINATE XR 25 MG TAB PO SCH (09:36)
[2018-06-27] MEDS: ALLOPURINOL 300 MG TAB PO SCH (09:36)
[2018-06-27] MEDS: AMIODARONE HCL 200 MG TAB PO SCH (09:37)
[2018-06-27] MEDS: MYCOPHENOLATE MOFETIL 1500 MG PO SCH ×2 (11:29→20:36)
[2018-06-27] MEDS: prednisoLONE ACET 1% 5 ML OPHT.BTL RTEYE SCH ×2 (11:33→20:38)
[2018-06-27] MEDS: DIFLUPREDNATE RTEYE SCH ×2 (11:35→20:38)
[2018-06-27] MEDS: BRIMONIDINE/TIMOLOL 5 ML OPHT.BTL RTEYE SCH ×2 (11:36→20:38)
[2018-06-27] MEDS: BIMATOPROST 0.01% 2.5 ML OPHT.BTL RTEYE SCH (14:19)
--- NOTE | 2018-06-27 14:41 | ASMTCMCOM ---
CM Note CM Note Notes: Pts case discussed in tx rounds. Pt may be ready to d/c as early as tomorrow. LOY spoke to Eulalia with [facility]. Eulalia provided Yolanda Galvan at inpatient rehab the contact number for the [facility] at [place]. CM to follow. Plan: Inpatient rehab/awaiting auth Date Signed: 06/27/2018 02:40 PM Electronically Signed By:MICHEL Medel
[2018-06-27] MEDS: WARFARIN SODIUM 5 MG TAB PO SCH (15:40)
[2018-06-27] MEDS ORDERED: BIMATOPROST 0.01% 2.5 ML OPHT.BTL RTEYE SCH (21:00)
--- NOTE | 2018-06-27 21:44 | HOSPPROG ---
Hospitalist Progress Note Assessment/Plan: Assessment: 67 yo M p/w acute CVA Plan: # Acute CVA. Multifocal on MRI, resulting in acute on chronic L hemiparesis -CUS w/ stable, bilat plaque but non-flow limiting -Echo bubble neg -initiated on coumadin/lovenox bridge -get PT/OT/inpatient rehab consults, suspect patient may benefit from IPR # Leg edema. Unilateral, LLE w/ no e/o DVT on US -suspect 2/2 post-vein graft harvest w/ mild hematoma on US -counseled patient to elevate, wear GLORIA # KEELY. Resolved # CAD, . Chronic, s/p CABG and bAVR by Dr. Medel on 06/06/18. - Continue BB (low dose), ASA, statin # ILD. Chronic, stable on Cellcept, will continue # HTN. Patient accidentally restarted ACEi, resulting in hypotension -reinitiated bblocker today, gauge tolerance -orthostatic VS neg # DM2. Restarted metformin, stop ISS # Cough. Acute, new prob, further w/u indicated. At risk for effusion given recent CABG -checked CXR w/ atelectasis but no effusion (personally interpreted) -WBC elevated but downtrending from prior labs post-CABG, cont to monitor # Atelectasis. Resulting in cough, physical exam findings -start acapella chest therapy, start IS Diet - ADA Code - Full Ppx - restarted anticoagulation Dispo - ongoing therapy assessments, recommend IPR Subjective: productive cough, increasing strength Objective: Vital Signs Temp Pulse Resp BP Pulse Ox 36.3 C 70 16 107/65 99 06/27/18 20:00 06/27/18 20:00 06/27/18 20:00 06/27/18 20:00 06/27/18 20:00 Laboratory Results 06/27/18 03:53 06/27/18 03:53 06/26/18 06/27/18 06/28/18 05:59 05:59 05:59 Intake Total 1000 1370 440 Output Total 200 1275 775 Balance 800 95 -335 PT 16.8 SEC (12.0-15.0) H 06/27/18 03:53 INR 1.34 (0.83-1.16) H 06/27/18 03:53 - Physical Exam Constitutional: no apparent distress, not in pain, chronically ill appearing, No uncomfortable Cardiovascular: edema (2+ LLE, trace RLE), No systolic murmur, No irregularly irregular, No tachycardia Respiratory: reduced air movement (L base), inspiratory crackles (bilat bases), No expiratory wheeze, No bronchial breath sounds, No respiratory distress Gastrointestinal: normoactive bowel sounds, soft, non-tender abdomen, no palpable masses Skin: other (blanching but non-erythematous lateral aspect L ankle w/o tenderness/induration/fluctuance) Musculoskeletal: other (full ROM L ankle w/o pain) Neurologic: AAOx3 Psychiatric: interacting appropriately, not anxious, not encephalopathic, thought process linear ICD10 Worksheet Patient Problems: Problems Problem Status Onset Left-sided weakness Acute Acute kidney injury Acute Diabetes mellitus type 2, controlled Chronic History of stroke with residual deficit Chronic S/P CABG x 1 Acute ~06/05/18 S/P aortic valve replacement with bioprosthetic valve Acute ~06/05/18 Immunosuppression Chronic Pulmonary hypertension Chronic Nocturnal hypoxemia Chronic TYLER (obstructive sleep apnea) Chronic ILD (interstitial lung disease) Chronic Aortic valve stenosis with insufficiency Chronic CAD in [place] artery Chronic
[2018-06-27] MEDS ORDERED: IPRATROPIUM/ALBUTEROL 3 ML DEYVIAL IH PRN (21:46)
[2018-06-28] MEDS: ACETAMINOPHEN 325 MG TAB PO PRN (03:03)
[2018-06-28 04:42] LABS: PLATELET COUNT 380 10^3/uL (150-400)
[2018-06-28 04:49] LABS: INR 1.61 (0.83-1.16); PROTIME(PATIENT) 19.3 SEC (12.0-15.0)
[2018-06-28] MEDS: ENOXAPARIN 100 MG/ML SYR SC SCH (05:42)
[2018-06-28] MEDS: HYDROCODONE/APAP 5/325 TAB PO PRN ×2 (06:42→11:21)
[2018-06-28] MEDS ORDERED: metFORMIN HCL 500 MG TAB PO SCH (09:00)
[2018-06-28] MEDS ORDERED: FUROSEMIDE 20 MG TAB PO SCH (09:00)
[2018-06-28] MEDS: AMIODARONE HCL 200 MG TAB PO SCH (09:33)
[2018-06-28] MEDS: ALLOPURINOL 300 MG TAB PO SCH (09:33)
[2018-06-28] MEDS: ASPIRIN 81 MG CHEWABLE TAB PO SCH (09:33)
[2018-06-28] MEDS: METOPROLOL SUCCINATE XR 25 MG TAB PO SCH (09:34)
[2018-06-28] MEDS: ATORVASTATIN CALCIUM 40 MG TAB PO SCH (09:34)
[2018-06-28] MEDS: GABAPENTIN 300 MG CAP PO SCH (09:34)
[2018-06-28] MEDS: CITALOPRAM 20 MG TAB PO SCH (09:34)
[2018-06-28] MEDS: DIFLUPREDNATE RTEYE SCH (09:37)
[2018-06-28] MEDS: prednisoLONE ACET 1% 5 ML OPHT.BTL RTEYE SCH (10:22)
[2018-06-28] MEDS: BRIMONIDINE/TIMOLOL 5 ML OPHT.BTL RTEYE SCH (10:23)
[2018-06-28 11:14] VITALS: BP 96/61
[2018-06-28] MEDS: MYCOPHENOLATE MOFETIL 1500 MG PO SCH (13:16)
--- NOTE | 2018-06-28 13:34 | PDIAF ---
- Diagnosis Diagnosis: CVA, Afib, leg edema Code Status: Full Code - Medication Management Discharge Medications: Medications to Continue on Transfer metFORMIN HCL [Glucophage 500 mg (*)] 500 mg PO DAILY 06/27/12 [Last Taken 06/25] Citalopram Hydrobromide [Citalopram HBr] 40 mg PO DAILY 06/22/16 [Last Taken 11/11] Gabapentin [Neurontin 300 MG (*)] 300 mg PO BID 06/22/16 [Last Taken 06/25/18] Ipratropium/Albuterol [Duoneb (*)] 3 ml IH Q4-6PRN PRN 06/22/16 [Last Taken 08/11 21:00] Albuterol [Proventil Inhaler HFA (*)] 1 - 2 puffs IH DAILY PRN 05/16/18 [Last Taken 06/04/18 23:30] Allopurinol [Allopurinol 300 MG (RX)] 300 mg PO DAILY 05/16/18 [Last Taken 06/25] Aspirin [Aspirin 81mg (*)] 81 mg PO DAILY 05/16/18 [Last Taken 06/24/18] Budesonide/Formoterol 160/4.5 [Symbicort 160-4.5 Mcg Inh (*)] 1 puffs IH BID PRN 05/16/18 [Last Taken 06/04/18 08:00] Bimatoprost 0.01% [Lumigan 0.01% (*)] 1 drops RTEYE DAILY 06/05/18 [Last Taken 06/25/18] Brimonidine/Timolol [Combigan (*)] 1 drop RTEYE BID 06/05/18 [Last Taken ] Difluprednate [Durezol] 1 drop RTEYE BID 06/05/18 [Last Taken 06/25/18] Polymyxin B Sulfate/Tmp [Polytrim Opht Drops (*)] 1 drop RTEYE BID 06/05/18 [ Last Taken 06/25/18] prednisoLONE ACET 1% [Pred Forte 1% (*)] 1 drops RTEYE BID 06/05/18 [Last Taken 06/25/18] Acetaminophen [Tylenol 325mg (*)] 325 - 650 mg PO Q4HRS PRN tab 06/10/18 [Last Taken Unknown] Atorvastatin Calcium [Lipitor 40 mg (*)] 40 mg PO DAILY tab 06/10/18 [Last Taken 06/25/18] Dextromethorphan Polistirex [Delsym] 30 mg PO BID PRN #1 hank.[id number] 06/10/18 [ Last Taken Unknown] Polyethylene Glycol 3350 [Miralax 17 gm (*)] 17 gm PO DAILY PRN pkt 06/10/18 [ Last Taken Unknown] Sennosides/Docusate Sodium [Senokot-S] 1 - 2 tab PO BID PRN tab 06/10/18 [Last Taken Unknown] Ipratropium 0.06% Nasal [Atrovent 0.06% Nasal] 1 - 2 sprays EACHNARE QID PRN 11/11 [Last Taken Unknown] guaiFENesin [Mucinex 600 MG (*)] 600 mg PO BID PRN 06/25/18 [Last Taken Unknown] Mycophenolate Mofetil [Cellcept] 1,500 mg PO BID 06/26/18 [Last Taken 06/25/18] Amiodarone HCl [Pacerone (*)] 200 mg PO DAILY tab 06/28/18 [Last Taken Unknown] Bacitracin Zinc [Bacitracin Ointment Tube 15 gm (OTC)] 1 maddie TP BID #1 ointtube 06/28/18 [Last Taken Unknown] Enoxaparin [Lovenox 100 MG (*)] 100 mg SC BID@0600,1800 syr 06/28/18 [Last Taken Unknown] Furosemide [Lasix 20 MG (*)] 20 mg PO BID@0900,1500 tab 06/28/18 [Last Taken Unknown] Hydrocodone/APAP 5/325 [[place] 5/325 (*)] 1 tab PO Q4HRS PRN tab 06/28/18 [Last Taken Unknown] Metoprolol Succinate Xr [Toprol Xl 25 mg (*)] 25 mg PO DAILY tab 06/28/18 [ Last Taken Unknown] Potassium Cl [Klor-Con 20 meq (*)] 20 meq PO DAILY #0 tab 06/28/18 [Last Taken 06/25/18] Warfarin Sodium [Coumadin 5MG (*)] 5 mg PO DAILY AT 4PM tab 06/28/18 [Last Taken Unknown] Additional Medication Instructions: stop lovenox 24hrs (2 doses AFTER INR > 2) Discharge Medications: Refer to the Discharge Home Medication list for PRN reason. PICC Care - Routine: N/A - Orders Services needed: Registered Nurse, Certified Back Roll Lathe Operator, Physical Therapy, Occupational Therapy, Speech Language Pathologist Isolation Type: None Oxygen: NA Diet Recommendation: ADA 2000 consistent carb Weigh Patient: weekly Robert: Not applicable Wound Care Instructions: daily bacitracin to R great toe, keep clean and bandaged - Labs/Radiology BMP Date: 07/01/18 PT/INR Date: 07/01/18 - Follow Up Care Current Providers and Referrals: SURI COLUNGA [Primary Care Provider] - As per Instructions Rich Medel DO [Doctor of Osteopathy] - (follow-up after DC from rehab) Lorelei Umanzor DPM [Doctor of Podiatric Medicine] - 3 days of d/c SNF/Rehab Nicolas Castaneda MD [Medical Doctor] - follow up in 2 weeks
--- NOTE | 2018-06-28 16:54 | ASDISCHSUM ---
Discharge Information Plan Status:Inpatient Rehab Medically Cleared to Leave:06/28/2018 Discharge Date:06/28/2018 02:30 PM D/C Disposition:[facility] D/C Disposition:[facility] Projected Discharge Date:06/28/2018 11:00 AM Transportation at D/C:Family Discharge Delay Reason: Follow-Up Date:06/28/2018 11:00 AM Discharge Slot: Final Diagnosis: Placement Information Referral Type:Rehabilitation Hospital Referral ID:[id number] Provider Name:[facility] Address 1:[address] Phone Number: Address 2: Fax Number: City:[place] Selection Factors: State:[place] Patient Contact Information Contact Name:LATASHA Relationship: Address:[address] City:[place] Alternate Phone: State/Zip Code:[place] [address] Email: Financial Information Financial Class:HMO and PPO Plans Primary Plan Desc:[facility] Primary Plan Number:[id number] Secondary Plan Desc:MEDICARE INPATIENT Secondary Plan Number:[id number] Assessment Information LACE LACE Length of stay for Answers: 2 days current admission Acuity / Level of Answers: Yes Care: Did the patient have an inpatient admission? Comorbidities - select Answers: Cerebrovascular disease all that apply (CVA, TIA, aneurysms, vasc ular dementia) Coronary Artery Disease Diabetes (uncontrolled or controlled) Other Notes: AFib; HTN # of Emergency department Answers: 1-2 visits in the last 6 months Score: 11 Date Signed: 06/28/2018 04:46 PM Electronically Signed By:Carli Keane RN [facility] CM Progress Note CM Note CM Note Notes: Pts case discussed in tx rounds. Pt is a 67 y/o man admitted for low blood pressure, weakness on left side. Pt had a stroke. SPL, OT, PT and wound care have been ordered. PT is recommending inpatient rehab. Yolanda Galvan will be continuing to follow this case. CM awaiting on additional recommendations from therapies. Pt has a supportive . CM to follow. Plan: TBD/Possibly inpatient rehab Date Signed: 06/26/2018 12:00 PM Electronically Signed By:MICHEL Medel [facility] Progress Note CM Note CM Note Notes: Pts case discussed in tx rounds. Pt may be ready to d/c as early as tomorrow. LOY spoke to Eulalia with [place]. Eulalia provided Yolanda Galvan at inpatient rehab the contact number for the [facility] [place]. CM to follow. Plan: Inpatient rehab/awaiting auth Date Signed: 06/27/2018 02:40 PM Electronically Signed By:MICHEL Medel Case Management Discharge Plan Note Case Management Discharge Discharge Order Complete? Answers: Yes Patient to Obtain Answers: Other Notes: inpatient rehab Medications Transportation Arranged Answers: Family/Friends Faxed Final Orders Answers: Yes Agency/Facility Transfer Answers: Yes Report Printed & Faxed to Receiving Agency Family Notified Answers: Yes Notes: in room Discharge Comments Notes: 06/28/2018 Case Management Note Faxed final orders to inpatient rehab [facility]. RN called report. Pt transported in private vehicle to save money. Date Signed: 06/28/2018 04:48 PM Electronically Signed By:Carli Keane RN Intervention Information Intervention Type:*IM-Signed Date of Service:06/28/2018 02:02 PM Patient Type:Inpatient Staff Member:Debbie David Hours: Discipline: Severity: Comment:
--- NOTE | 2018-06-28 20:48 | PDDCSUM ---
Discharge Summary Discharge Summary: Date of Admission: 06/25/18 Date of Discharge: 06/28/18 Follow-up items: Outpatient podiatry appointment after DC from [facility] Discharge Diagnoses: 1. Acute CVA 2. KEELY 3. Chronic HTN 4. Unilateral edema 5. R great toe wound 6. Atelectasis 7. Chronic CAD 8. Paroxysmal Afib Procedures: MRI confirming multifocal CVA; no significant stenosis on CUS; LLE US w/o DVT Chief complaint: L. hemiparesis Subjective: Improved strength, throbbing pain in R great toe Physical Exam: SBP 110-120, HR 60, AFeb o/n, R great toe w/ non-erythematous medial laceration w/ scabbing tissue, no tenderness or induration; L calf w/o erythema around vein harvest site; bibasilar crackles w/o wheezing Labs: Hgb 9; WBC 10,600; Cr 0.7; K 4.3; 1.6 Hospital Course: 67 yo M p/w acute CVA in setting of recent CABG and PAF 1. Acute CVA. Multifocal on MRI, resulting in acute on chronic L hemiparesis, likely 2/2 watershed events from over-treated hypertension w/ SBP < 90 in setting of presentation. -CUS w/ stable, bilat plaque but non-flow limiting -Echo bubble neg -initiated on coumadin/lovenox bridge given underlying Afib -recommend more liberal BPs (>100) and have educated patient/ that he is to stay off ACEi on discharge 2. Leg edema. Unilateral, LLE w/ no e/o DVT on US -suspect 2/2 post-vein graft harvest w/ mild hematoma on US -counseled patient to elevate, wear GLORIA, and restarted low dose lasix 20 bid + K 3. KEELY. 2/2 hypotension, resolved. 4. CAD, . Chronic, s/p CABG and bAVR by Dr. Medel on 06/06/18. - Continue BB (low dose), ASA, statin 5. ILD. Chronic, stable on Cellcept 6. Chronic HTN. Patient accidentally restarted ACEi when he discharged from SNF , resulting in SBP < 90 and CVA. BPs have been stable and > 100 w/ reintroduction of bblocker + lasix. -tolerating bblocker + lasix, w/ negative orthostatics -remain OFF of ACEi 7. DM2. Restarted metformin 8. Atelectasis. Resulting in cough, but no significant effusion on CXR -started acapella chest therapy, started IS 9. Paroxysmal Afib. Unclear if contributing to CVA, but certainly has high CVA risk moving forward, recommend systemic anticoagulation. Long discussion w/ patient/ regarding risk of continuing on eliquis (unclear if this is truly an eliquis "failure", but he was adherent to it), and he has decided to use coumadin moving forward. Providing lovenox bridge, recommend continuing for 2 doses beyond therapeutic INR of 2, recommend regular INR monitoring at [facility]. -adjusted to metop succinate 25 daily + amio 200 daily (per Dr. Medel's recent adjustment) 10. Great toe wound. POA, not infected, recommended bacitracin + routine wound care and outpt podiatry f/u -PRN vicodin + ongoing gabapentin Discharge medications: see official DC med rec sheet in chart; of note, off ACEi , on metop succ 25 daily, lasix 20 bid, amio 200 daily > 30 minutes spent on direct patient care, as well as discharge planning and preparation.
== END 2018-06-28 14:30 | DRG 65 ==
LOC: F2W 21:57
PROVIDERS: ADMIT Internal Medicine; ATTEND Internal Medicine
DX: I63.9 Cerebral infarction, unspecified (principal); N17.9 Acute kidney failure, unspecified; G81.94 Hemiplegia, unspecified affecting left nondominant side; J98.11 Atelectasis; J84.9 Interstitial pulmonary disease, unspecified; E86.9 Volume depletion, unspecified; I10 Essential (primary) hypertension; I25.10 Atherosclerotic heart disease of native coronary artery without angina pectoris; I48.0 Paroxysmal atrial fibrillation; E11.9 Type 2 diabetes mellitus without complications; S91.205A Unspecified open wound of left lesser toe(s) with damage to nail, initial encounter; W22.09XA Striking against other stationary object, initial encounter; Z79.84 Long term (current) use of oral hypoglycemic drugs; Z95.4 Presence of other heart-valve replacement; Z79.01 Long term (current) use of anticoagulants; Z95.1 Presence of aortocoronary bypass graft
CPT/HCPCS: 82435-PO; 82565-PO; 82947-PO; 84132-PO; 84295-PO; 84484-PO; 84520-PO; 85014-PO; 92523-GN; 97116-GP; 97162-GP; 97166-GO; 97530-GP; 97535-GO; G0378; G8978-GP-CJ; G8979-GP-CI; G8987-GO-CK; G8988-GO-CI; G9165-GN-CH; G9166-GN-CH; G9167-GN-CH; J0690; J1650

== ENCOUNTER 2018-06-28 15:01 | Inpatient (IN) | payer OTHER ==
[2018-06-28] MEDS ORDERED: ALBUTEROL 60 PUFFS/8 GM MDI IH PRN (16:05)
[2018-06-28] MEDS ORDERED: DEXTROMETHORPHAN POLISTIREX 30 MG PO PRN (16:05)
[2018-06-28] MEDS ORDERED: POLYETHYLENE GLYCOL 3350 17 GM PKT PO PRN (16:05)
[2018-06-28] MEDS ORDERED: ACETAMINOPHEN 325 MG TAB PO PRN (16:05)
[2018-06-28] MEDS ORDERED: IPRATROPIUM/ALBUTEROL 3 ML DEYVIAL IH PRN (16:05)
[2018-06-28] MEDS ORDERED: IPRATROPIUM 0.06% NASAL SPRAY EACHNARE PRN (16:05)
[2018-06-28] MEDS ORDERED: SENNOSIDES/DOCUSATE SODIUM TAB PO PRN (16:05)
[2018-06-28] MEDS ORDERED: PANTOPRAZOLE SODIUM 40 MG TAB PO ONE (16:09)
--- NOTE | 2018-06-28 17:15 | GHP ---
POST ADMISSION PHYSICIAN EVALUATION AND REHABILITATION TREATMENT PLAN. DATE OF ADMISSION: 06/28/2018 DATE OF EVALUATION: June 28, 2018. TIME OF EVALUATION: 1525. REFERRING FACILITY: [facility]. REFERRING PHYSICIAN: Dr. Enciso. CONSULTING PHYSICIANS: He was seen by Neurology, Dr. Castaneda, and by the wound nurse, Stacie Collazo. REHABILITATION DIAGNOSIS: Cerebrovascular accident IMPAIRMENT GROUP is 1.1. ETIOLOGIC DIAGNOSIS is left body involvement (right brain). Date of onset: 10/2017. HISTORY OF PRESENT ILLNESS: This patient had a coronary artery bypass graft and aortic valve replacement on 06/05/2018, at [facility]. He was discharged to the [facility] on 06/10/2018. He returned home on 06/24/2018, and was rehospitalized the next day with stroke symptoms of acute on chronic left-sided weakness. He had an MRI of the brain which showed acute and subacute multifocal punctate infarcts in the left parieto -occipital region, the left occipital lobe and the right frontal lobe near the vertex. He was seen by Neurology, who considered it most likely to be cardioembolic in origin. A carotid ultrasound study showed stable plaque in the common carotid artery, but no embolic source. He had been on apixaban, so it was considered that the apixaban had failed to prevent cerebrovascular accident. He was switched to warfarin. It was also considered possible that the strokes were due to hypotensive watershed infarcts, as he had a systolic blood pressure lower than 90 on the day of admission. He was otherwise medically stabilized, participating in therapies and ready for inpatient rehabilitation. STUDIES AND LABS DURING HIS STAY: Most recent CBC showed anemia with a hemoglobin of 9 and hematocrit of 28.8, and an elevated white blood cell count at 10.64 which was predominantly neutrophils and monocytes with no left shift. Most recent INR on the day of discharge is 1.61. Serum chemistry showed stable hyponatremia of 133-134. He had an elevated creatinine of 1.6 with a GFR of 43 on the day of admission, but that subsequently normalized and on the day of hospital discharge it is 0.7 with a GFR of greater than 60. Liver function tests done on 06/26/2018, showed a slightly low albumin at 2.7. Cholesterol was less than 50. Hemoglobin A1c was 6.5. Echocardiogram showed normal sized left ventricle with preserved LV function and no obvious wall motion abnormalities. He had diastolic dysfunction. There was mild left atrial enlargement. There was no interatrial shunt. The aortic valve was a bioprosthesis with normal function. He had mitral leaflet calcification and mild mitral regurgitation. There was trivial tricuspid regurgitation. Head CT ruled out intracranial hemorrhage. Brain MRI showed acute to subacute punctate lacunar infarcts at the left parieto-occipital junction, left occipital lobe, and the right frontal lobe near the vertex. There was extensive periventricular white matter disease and central volume loss, which was unchanged from previous studies. Ultrasound of the left lower extremity was done and ruled out superficial deep venous thromboses. There was a subcutaneous clot in the medial calf. This was within the surgical site where the patient's greater saphenous vein had been removed for bypass surgery. Chest x-ray on 06/27/2018, showed mild cardiomegaly, peribronchial cuffing and pulmonary vascular congestion and stable interstitial edema/fibrosis. There was small persistent bilateral pleural effusions and there were persistent areas of bibasilar subsegmental atelectasis. PRECAUTIONS: He is a fall risk and he has sternal precautions. ACTIVE COMORBIDITIES: He has the comorbidities of morbid obesity and diabetes mellitus. PAST MEDICAL HISTORY: 1. CVA in November of 2017. 2. Coronary artery disease. 3. Aortic valve dysfunction. 4. Diabetes mellitus type 2. 5. Interstitial lung disease. 6. Atrial fibrillation. 7. Depression. 8. Peripheral neuropathy. 9. Gout. 10. Glaucoma. 11. Gastroesophageal reflux disorder. 12. Ocular migraines. 13. Seizures. 14. Viral pericarditis. 15. Obstructive sleep apnea, treated with nocturnal oxygen. 16. History of alcohol abuse. 17. Degenerative joint disease of the knees. PAST SURGICAL HISTORY: 1. He has had catheter ablation for dysrhythmia. 2. Coronary artery bypass surgery. 3. Aortic valve replacement. 4. Left atrial appendage clipping. 5. Bilateral total knee arthroplasties. 6. Bilateral cataract removal. PRE-HOSPITAL MEDICATIONS: 1. Metformin 500 mg p.o. daily. 2. Citalopram 40 mg p.o. daily. 3. Gabapentin 300 mg p.o. daily. 4. Ipratropium/albuterol nebulizer q.4-6 hours p.r.n. 5. Mycophenolate mofetil 1500 mg p.o. twice daily. 6. Albuterol 1-2 puffs daily p.r.n. 7. Allopurinol 300 mg p.o. daily. 8. Aspirin 81 mg p.o. daily. 9. Budesonide/formoterol 1 puff twice daily p.r.n. 10. Bimatoprost 0.01% 1 drop right eye daily. 11. Brimonidine/timolol 1 drop right eye twice daily. 12. Difluprednate 1 drop right eye twice daily. 13. Polymyxin B/trimethoprim ophthalmic drops right eye twice daily. 14. Prednisolone 1% ophthalmic 1 drop right eye twice daily. 15. Ipratropium nasal 2 sprays each nares four times daily p.r.n. 16. Guaifenesin 600 mg p.o. twice daily p.r.n. ADMISSION MEDICATIONS: 1. metFORMIN HCL [Glucophage 500 mg (*)] 500 mg PO DAILY 06/27/12 [Last Taken ] 2. Citalopram Hydrobromide [Citalopram HBr] 40 mg PO DAILY 06/22/16 [Last Taken 06/25/18] 3. Gabapentin [Neurontin 300 MG (*)] 300 mg PO BID 06/22/16 [Last Taken ] 4. Ipratropium/Albuterol [Duoneb (*)] 3 ml IH Q4-6PRN PRN 06/22/16 [Last Taken 06/04/18 21:00] 5. Albuterol [Proventil Inhaler HFA (*)] 1 - 2 puffs IH DAILY PRN 05/16/18 [ Last Taken 06/04/18 23:30] 6. Allopurinol [Allopurinol 300 MG (RX)] 300 mg PO DAILY 05/16/18 [Last Taken 06/25/18] 7. Aspirin [Aspirin 81mg (*)] 81 mg PO DAILY 05/16/18 [Last Taken 06/24/18] 8. Budesonide/Formoterol 160/4.5 [Symbicort 160-4.5 Mcg Inh (*)] 1 puffs IH BID PRN 05/16/18 [Last Taken 06/04/18 08:00] 9. Bimatoprost 0.01% [Lumigan 0.01% (*)] 1 drops RTEYE DAILY 06/05/18 [Last Taken 06/25/18] 10. Brimonidine/Timolol [Combigan (*)] 1 drop RTEYE BID 06/05/18 [Last Taken ] 11. Difluprednate [Durezol] 1 drop RTEYE BID 06/05/18 [Last Taken 06/25/18] 12. Polymyxin B Sulfate/Tmp [Polytrim Opht Drops (*)] 1 drop RTEYE BID [Last Taken 06/25/18] 13. prednisoLONE ACET 1% [Pred Forte 1% (*)] 1 drops RTEYE BID 06/05/18 [Last Taken 06/25/18] 14. Acetaminophen [Tylenol 325mg (*)] 325 - 650 mg PO Q4HRS PRN tab 06/10/18 [ Last Taken Unknown] 15. Atorvastatin Calcium [Lipitor 40 mg (*)] 40 mg PO DAILY tab 06/10/18 [ Last Taken 06/25/18] 16. Dextromethorphan Polistirex [Delsym] 30 mg PO BID PRN #1 hank.er.12h [Last Taken Unknown] 17. Polyethylene Glycol 3350 [Miralax 17 gm (*)] 17 gm PO DAILY PRN pkt [Last Taken Unknown] 18. Sennosides/Docusate Sodium [Senokot-S] 1 - 2 tab PO BID PRN tab 06/10/18 [ Last Taken Unknown] 19. Ipratropium 0.06% Nasal [Atrovent 0.06% Nasal] 1 - 2 sprays EACHNARE QID PRN 06/25/18 [Last Taken Unknown] 20. guaiFENesin [Mucinex 600 MG (*)] 600 mg PO BID PRN 06/25/18 [Last Taken Unknown] 21. Mycophenolate Mofetil [Cellcept] 1,500 mg PO BID 06/26/18 [Last Taken 06/25] 22. Amiodarone HCl [Pacerone (*)] 200 mg PO DAILY tab 06/28/18 [Last Taken Unknown] 23. Bacitracin Zinc [Bacitracin Ointment Tube 15 gm (OTC)] 1 maddie TP BID #1 ointtube 06/28/18 [Last Taken Unknown] 24. Enoxaparin [Lovenox 100 MG (*)] 100 mg SC BID@0600,1800 syr 06/28/18 [ Last Taken Unknown] 25. Furosemide [Lasix 20 MG (*)] 20 mg PO BID@0900,1500 tab 06/28/18 [Last Taken Unknown] 26. Hydrocodone/APAP 5/325 [Platinum 5/325 (*)] 1 tab PO Q4HRS PRN tab 06/28/18 [ Last Taken Unknown] 27. Metoprolol Succinate Xr [Toprol Xl 25 mg (*)] 25 mg PO DAILY tab 06/28/18 [Last Taken Unknown] 28. Potassium Cl [Klor-Con 20 meq (*)] 20 meq PO DAILY #0 tab 06/28/18 [Last Taken 06/25/18] 29. Warfarin Sodium [Coumadin 5MG (*)] 5 mg PO DAILY AT 4PM tab 06/28/18 [ Last Taken Unknown] ALLERGIES: Listed to gentamicin and penicillins. SOCIAL HISTORY: He is . He lives with his . They have no children. He is a former smoker and has a history of alcohol abuse but has been sober for many months. He is retired from [employer] in [employer]. FAMILY HISTORY: Positive for cancer and coronary artery disease. REVIEW OF SYSTEMS: He has a cough. It was severe on the day of his stroke, but has been improving subsequently. He denies dyspnea. He is sleeping well. He denies visual disturbance. He denies difficulty swallowing. He is aware of some numbness on the left foot and thinks it may be a residual of his prior stroke. He is not in pain. He has no nausea, vomiting, constipation, or diarrhea. There is no dysuria or urinary frequency. He has swollen feet, the left more than the right, though he denies any joint pain or joint swelling. Otherwise, a 10-point review of systems is negative. PHYSICAL EXAMINATION: VITAL SIGNS: Vitals are not yet available in the chart. In the hospital this morning, blood pressure was 96/61, heart rate was 62, respiratory rate was 16, oxygenation saturation was 91% on room air. Temperature was 36.4 degrees centigrade. His weight was 100.6 kg for a body mass index of 31.8. GENERAL: This is an obese man, dressed in street clothes, sitting up on the edge of the bed with his present, cooperative and in no acute distress. HEENT: Extraocular movements are intact. Pupils are equal, round, reactive to light. Mucous membranes are moist. Dentition is in good condition. He has a moderately crowded airway, Mallampati class 3. NECK: Supple. HEART: There is a regular rate and rhythm. Heart sounds are distant. No murmurs were auscultated. LUNGS: Clear to auscultation bilaterally with somewhat reduced lung sounds overall. ABDOMEN: Soft, nontender, nondistended with normoactive bowel sounds and no hepatosplenomegaly. EXTREMITIES: There is no cyanosis or clubbing. There is 3 to 4+ edema on the left foot and 2+ edema left pretibial. There is 1+ edema on the right lower leg pretibial. He has dystrophic nails. There is callus on the left medial plantar foot. He has a split nail on the left great toe. NEUROLOGIC: He is alert and oriented x3. Cranial nerves 2-12 are grossly intact. There is no focal weakness. Sensation overall is intact to light touch, but is absent on the left foot. There is no extinction to double simultaneous stimulation. Deep tendon reflexes are grossly hypoactive. On finger to nose testing it is normal on the right side and slow and mildly inaccurate on the left side. There is mild pronator drift on the left. CURRENT LEVEL OF FUNCTION per the preadmission screen. he is on a regular diet texture. He accomplished grooming, contact guard standing at the sink. Bathing required minimal assist and voice cues. Dressing lower body required total assist and the upper body required minimal assist. Toileting required moderate assist for clothing management. He was continent of bowel and bladder. Bed mobility required moderate assist. Transfers required minimal to standby assist with voice cues for safe and controlled [id number] technique, used a front-wheeled walker. Balance, seated was independent and standing required contact guard. Endurance was fair. He ambulated 125 feet with contact guard and voice cues. Communication and cognition were considered to be within normal limits. IMPRESSION: This is a 67-year-old man who has suffered his 2nd cerebrovascular accident. This was presumably cardioembolic, though he was taking apixaban for atrial fibrillation. He was initiated on warfarin and the apixaban was discontinued. Other multiple medical conditions were stable. He is status post coronary artery bypass graft and aortic valve replacement on 06/06/2018, and continues on sternal precautions. He has interstitial lung disease, which is chronic and stable. He has intermittent exacerbation of cough related to this. He has hypertension and per the hospital notes, he was inadvertently restarted on an angiotensin-converting enzyme inhibitor which caused hypotension and has not been continued. He has diabetes mellitus type 2, treated with a low dose of metformin, but his hemoglobin A1c was 6.5, indicating adequate control. He is appropriate for inpatient rehabilitation where he will receive therapies with Physical Therapy and Occupational Therapy with a goal to return home with his spouse and outpatient services. For safe discharge he will need to achieve independence with grooming, and modified independence with dressing, transfers, bathing and ambulation with the least restrictive device on level and unlevel surfaces. He will need to have awareness and compliance of sternal precautions during activities of daily living and functional activities. He may require assistance with bed mobility to maintain sternal precautions, and he will likely require assistance for shopping and household management. He will have therapy with Physical Therapy and Occupational Therapy for 90 minutes per day for each discipline on 5-7 days of the week. His expected duration of stay is 7-10 days. It is expected that upon discharge he will continue to benefit from outpatient therapy including Occupational Therapy and Physical Therapy as well as an outpatient stroke support group. PLAN: 1. Multifocal cerebrovascular accident with left-sided weakness and ataxia. PT and OT to optimize mobility and activities of daily living towards the independent to modified independent level. 2. Diastolic congestive heart failure, recent coronary artery bypass graft and aortic valve replacement, and edema. Continue cardiac related medications with furosemide and metoprolol. Will also provide GLORIA hose to help with edema. Daily weights. 3. Secondary prevention of CVA. He is on warfarin and INR will be managed per pharmacy. Continue control of lipids with atorvastatin. Continue aspirin as well. 4. Diabetes mellitus type 2, well controlled on metformin 500 mg daily. 5. Coronary artery disease status post CABG. Continue aspirin as well as other cardiac medications. 6. Interstitial lung disease, chronic, stable. Continue mycophenolate mofetil , as well as a cough suppressants with dextromethorphan and guaifenesin. 7. Hypertension, currently managed only with furosemide and metoprolol. The amiodarone may have some effect on blood pressure as well. Monitor blood pressure and adjust medications as needed. 8. Prophylaxis. Continue enoxaparin at treatment dose until he is therapeutic with warfarin, at which point it can be discontinued. He also reported history of a bleeding gastric ulcer in the past, which may have been related to his alcohol use. However, given that he is on anti-platelet as well as anticoagulant therapy, will initiate pantoprazole at least while he is inpatient. 9. History of cataracts with cataract surgery, as well as glaucoma. Continue multiple eyedrops. /[id number]/MODL MTDD
[2018-06-28] MEDS ORDERED: WARFARIN SODIUM 5 MG TAB PO SCH (17:45)
[2018-06-28] MEDS: ENOXAPARIN 100 MG/ML SYR SC SCH (18:30)
[2018-06-28] MEDS: HYDROCODONE/APAP 5/325 TAB PO PRN ×2 (18:35→22:33)
[2018-06-28] MEDS: MUPIROCIN 2% OINTMENT TP SCH (20:39)
[2018-06-28] MEDS: MYCOPHENOLATE MOFETIL 500 MG PO SCH (20:45)
[2018-06-28] MEDS: prednisoLONE ACET 1% 5 ML OPHT.BTL RTEYE SCH (20:46)
[2018-06-28] MEDS: Difluprednate [Durezol] 1 DROP RTEYE SCH (20:48)
[2018-06-28] MEDS: GABAPENTIN 300 MG CAP PO SCH (20:50)
[2018-06-28] MEDS: BRIMONIDINE/TIMOLOL 5 ML OPHT.BTL RTEYE SCH (20:51)
[2018-06-28] MEDS: BUDESONIDE/FORMOTEROL 160/4.5 60 PUFFS/MDI IH SCH (21:04)
[2018-06-28] MEDS: POLYMYXIN B SULFATE/TMP 10 ML OPHT.BTL RTEYE SCH (21:04)
[2018-06-29] MEDS: HYDROCODONE/APAP 5/325 TAB PO PRN ×3 (02:30→22:49)
[2018-06-29] MEDS: ENOXAPARIN 100 MG/ML SYR SC SCH (05:11)
[2018-06-29 08:04] LABS: INR 1.84 (0.83-1.16); PROTIME(PATIENT) 21.3 SEC (12.0-15.0)
[2018-06-29] MEDS ORDERED: BIMATOPROST 0.01% 2.5 ML OPHT.BTL RTEYE SCH (09:00)
[2018-06-29] MEDS: ALLOPURINOL 300 MG TAB PO SCH (09:02)
[2018-06-29] MEDS: AMIODARONE HCL 200 MG TAB PO SCH (09:02)
[2018-06-29] MEDS: ATORVASTATIN CALCIUM 40 MG TAB PO SCH (09:03)
[2018-06-29] MEDS: ASPIRIN 81 MG CHEWABLE TAB PO SCH (09:03)
[2018-06-29] MEDS: CITALOPRAM 20 MG TAB PO SCH (09:04)
[2018-06-29] MEDS: FUROSEMIDE 20 MG TAB PO SCH ×2 (09:05→15:46)
[2018-06-29] MEDS: GABAPENTIN 300 MG CAP PO SCH ×2 (09:05→20:34)
[2018-06-29] MEDS: METOPROLOL SUCCINATE XR 25 MG TAB PO SCH (09:06)
[2018-06-29] MEDS: metFORMIN HCL 500 MG TAB PO SCH (09:06)
[2018-06-29] MEDS: POTASSIUM CL 20 MEQ TAB PO SCH (09:07)
[2018-06-29] MEDS: BRIMONIDINE/TIMOLOL 5 ML OPHT.BTL RTEYE SCH ×2 (09:26→20:32)
[2018-06-29] MEDS: Difluprednate [Durezol] 1 DROP RTEYE SCH ×2 (09:27→20:33)
[2018-06-29] MEDS: MYCOPHENOLATE MOFETIL 500 MG PO SCH ×2 (09:30→20:35)
[2018-06-29] MEDS: prednisoLONE ACET 1% 5 ML OPHT.BTL RTEYE SCH ×2 (09:31→20:36)
[2018-06-29] MEDS ORDERED: ENOXAPARIN 100 MG/ML SYR SC SCH (11:57)
[2018-06-29] MEDS: MUPIROCIN 2% OINTMENT TP SCH ×2 (12:01→20:36)
--- NOTE | 2018-06-29 13:42 | HOSPPROG ---
Hospitalist Progress Note Assessment/Plan: * s/p multifocal CVA - ?cardioembolic or d/t low BP. Was on oral anticoagulant at the time * cont PT/OT * Stroke prophylaxis * coumadin has been started with lovenox bridge. INR 1.8 today * will decrease lovenox dose to 40mg bid because of hematuria * Hematuria * decrease intensity of anticoagulation today *h/o recent CABG and AVR *diastolic CHF * on some lasix. right leg edema without vein graft is improving slowly * raise left leg d/t venous insuff *DM2' * metformin *htn * bp good - not too low on current regimen *ILD * cont mycophenate *TYLER * nocturnal o2 Subjective: had gross hematuria last night and a little today. some pain when starting to urinate Objective: Vital Signs Temp Pulse Resp BP Pulse Ox 36.6 C 65 16 121/69 H 96 06/29/18 06:23 06/29/18 09:06 06/29/18 06:23 06/29/18 09:06 06/29/18 10:35 06/28/18 06/29/18 06/30/18 05:59 05:59 05:59 Intake Total 550 Output Total 350 700 Balance 200 -700 PT 21.3 SEC (12.0-15.0) H 06/29/18 06:00 INR 1.84 (0.83-1.16) H 06/29/18 06:00 - Physical Exam Constitutional: no apparent distress, appears nourished, not in pain Eyes: anicteric sclera, EOMI Ears, Nose, Mouth, Throat: moist mucous membranes, hearing normal Cardiovascular: regular rate and rhythym, systolic murmur, edema (1+ right, 2 + left) Gastrointestinal: normoactive bowel sounds, soft, non-tender abdomen, no palpable masses Skin: warm Neurologic: AAOx3 Psychiatric: interacting appropriately, not anxious, not encephalopathic, thought process linear ICD10 Worksheet Patient Problems: Problems Problem Status Onset Acute kidney injury Acute Left-sided weakness Acute S/P CABG x 1 Acute ~06/05/18 S/P aortic valve replacement with bioprosthetic valve Acute ~06/05/18 Aortic valve stenosis with insufficiency Chronic CAD in elim ira artery Chronic Diabetes mellitus type 2, controlled Chronic History of stroke with residual deficit Chronic ILD (interstitial lung disease) Chronic Immunosuppression Chronic Nocturnal hypoxemia Chronic TYLER (obstructive sleep apnea) Chronic Pulmonary hypertension Chronic
[2018-06-29] MEDS ORDERED: WARFARIN SODIUM 3 MG TAB PO ONE (16:00)
[2018-06-29] MEDS: POLYMYXIN B SULFATE/TMP 10 ML OPHT.BTL RTEYE SCH ×2 (17:19→21:13)
[2018-06-29] MEDS: BUDESONIDE/FORMOTEROL 160/4.5 60 PUFFS/MDI IH SCH ×2 (17:19→20:49)
[2018-06-29] MEDS: BIMATOPROST 0.01% 2.5 ML OPHT.BTL RTEYE SCH (20:30)
[2018-06-29] MEDS ORDERED: ENOXAPARIN 40 MG/0.4 ML SYR SC SCH ×2 (21:00→21:30)
[2018-06-29] MEDS ORDERED: ONDANSETRON DISINTEGRATING 4 MG TAB PO ONE (21:00)
[2018-06-29] MEDS: ENOXAPARIN 40 MG/0.4 ML SYR SC SCH (22:37)
[2018-06-30 07:10] LABS: INR 2.18 (0.83-1.16); PROTIME(PATIENT) 24.3 SEC (12.0-15.0)
[2018-06-30] MEDS: MUPIROCIN 2% OINTMENT TP SCH ×2 (07:55→21:47)
[2018-06-30] MEDS: ASPIRIN 81 MG CHEWABLE TAB PO SCH (08:52)
[2018-06-30] MEDS: ATORVASTATIN CALCIUM 40 MG TAB PO SCH (08:52)
[2018-06-30] MEDS: AMIODARONE HCL 200 MG TAB PO SCH (08:52)
[2018-06-30] MEDS: ALLOPURINOL 300 MG TAB PO SCH (08:52)
[2018-06-30] MEDS: CITALOPRAM 20 MG TAB PO SCH (08:53)
[2018-06-30] MEDS: FUROSEMIDE 20 MG TAB PO SCH ×2 (08:54→15:17)
[2018-06-30] MEDS: GABAPENTIN 300 MG CAP PO SCH ×2 (08:54→21:35)
[2018-06-30] MEDS: POTASSIUM CL 20 MEQ TAB PO SCH (09:05)
[2018-06-30] MEDS: metFORMIN HCL 500 MG TAB PO SCH (09:05)
[2018-06-30] MEDS: METOPROLOL SUCCINATE XR 25 MG TAB PO SCH (09:06)
[2018-06-30] MEDS: MYCOPHENOLATE MOFETIL 500 MG PO SCH ×2 (09:18→21:47)
[2018-06-30] MEDS: BRIMONIDINE/TIMOLOL 5 ML OPHT.BTL RTEYE SCH ×2 (09:22→21:39)
[2018-06-30] MEDS: Difluprednate [Durezol] 1 DROP RTEYE SCH ×2 (09:23→21:39)
[2018-06-30] MEDS: ENOXAPARIN 40 MG/0.4 ML SYR SC SCH ×2 (09:24→21:35)
[2018-06-30] MEDS: prednisoLONE ACET 1% 5 ML OPHT.BTL RTEYE SCH ×2 (09:25→21:47)
--- NOTE | 2018-06-30 11:08 | HOSPPROG ---
Hospitalist Progress Note Assessment/Plan: * s/p multifocal CVA - ?cardioembolic or d/t low BP. Was on oral anticoagulant at the time * cont PT/OT * Stroke prophylaxis * coumadin has been started with lovenox bridge. INR 2.1 today * lovenox decreased to 40 mg bid because of hematuria. Will d/c after tomorrow am dose. * Hematuria * resolved today *h/o recent CABG and AVR *diastolic CHF * on some lasix. right leg edema without vein graft is improving slowly * raise left leg d/t venous insuff *DM2' * metformin *htn * bp good - not too low on current regimen *ILD * cont mycophenate *TYLER * nocturnal o2 Subjective: feeling well. no more hematuria Objective: Vital Signs Temp Pulse Resp BP Pulse Ox 36.6 C 66 19 109/63 84 L 06/30/18 08:00 06/30/18 08:00 06/30/18 08:00 06/30/18 08:00 06/30/18 08:00 06/29/18 06/30/18 07/01/18 05:59 05:59 05:59 Intake Total 550 1107 450 Output Total 350 1290 Balance 200 -183 450 PT 24.3 SEC (12.0-15.0) H 06/30/18 06:00 INR 2.18 (0.83-1.16) H 06/30/18 06:00 - Physical Exam Constitutional: no apparent distress, appears nourished, not in pain Eyes: anicteric sclera, EOMI Ears, Nose, Mouth, Throat: moist mucous membranes, ears appear normal Cardiovascular: regular rate and rhythym, systolic murmur, edema (1+ RIGHT, 2 + left) Skin: warm Neurologic: AAOx3 Psychiatric: interacting appropriately, not anxious, not encephalopathic, thought process linear ICD10 Worksheet Patient Problems: Problems Problem Status Onset Acute kidney injury Acute Left-sided weakness Acute S/P CABG x 1 Acute ~06/05/18 S/P aortic valve replacement with bioprosthetic valve Acute ~06/05/18 Aortic valve stenosis with insufficiency Chronic CAD in elim ira artery Chronic Diabetes mellitus type 2, controlled Chronic History of stroke with residual deficit Chronic ILD (interstitial lung disease) Chronic Immunosuppression Chronic Nocturnal hypoxemia Chronic TYLER (obstructive sleep apnea) Chronic Pulmonary hypertension Chronic
[2018-06-30] MEDS: POLYMYXIN B SULFATE/TMP 10 ML OPHT.BTL RTEYE SCH ×2 (14:02→21:47)
[2018-06-30] MEDS: BUDESONIDE/FORMOTEROL 160/4.5 60 PUFFS/MDI IH SCH ×2 (14:03→21:46)
[2018-06-30] MEDS ORDERED: WARFARIN SODIUM 3 MG TAB PO ONE (16:00)
[2018-06-30] MEDS: BIMATOPROST 0.01% 2.5 ML OPHT.BTL RTEYE SCH (21:39)
[2018-06-30] MEDS: HYDROCODONE/APAP 5/325 TAB PO PRN (23:30)
[2018-07-01 09:36] LABS: INR 2.48 (0.83-1.16); PROTIME(PATIENT) 26.8 SEC (12.0-15.0)
[2018-07-01] MEDS: prednisoLONE ACET 1% 5 ML OPHT.BTL RTEYE SCH ×2 (10:09→20:41)
[2018-07-01] MEDS: MYCOPHENOLATE MOFETIL 500 MG PO SCH ×2 (10:10→20:47)
[2018-07-01] MEDS: BRIMONIDINE/TIMOLOL 5 ML OPHT.BTL RTEYE SCH ×2 (10:11→20:42)
[2018-07-01] MEDS: METOPROLOL SUCCINATE XR 25 MG TAB PO SCH (10:11)
[2018-07-01] MEDS: AMIODARONE HCL 200 MG TAB PO SCH (10:11)
[2018-07-01] MEDS: metFORMIN HCL 500 MG TAB PO SCH (10:12)
[2018-07-01] MEDS: CITALOPRAM 20 MG TAB PO SCH (10:12)
[2018-07-01] MEDS: GABAPENTIN 300 MG CAP PO SCH ×2 (10:13→20:40)
[2018-07-01] MEDS: FUROSEMIDE 20 MG TAB PO SCH ×2 (10:13→15:28)
[2018-07-01] MEDS: ATORVASTATIN CALCIUM 40 MG TAB PO SCH (10:13)
[2018-07-01] MEDS: POTASSIUM CL 20 MEQ TAB PO SCH (10:13)
[2018-07-01] MEDS: ALLOPURINOL 300 MG TAB PO SCH (10:13)
[2018-07-01] MEDS: ENOXAPARIN 40 MG/0.4 ML SYR SC SCH (10:14)
[2018-07-01] MEDS: Difluprednate [Durezol] 1 DROP RTEYE SCH ×2 (10:14→20:45)
[2018-07-01] MEDS: ASPIRIN 81 MG CHEWABLE TAB PO SCH (10:14)
[2018-07-01] MEDS: BUDESONIDE/FORMOTEROL 160/4.5 60 PUFFS/MDI IH SCH ×2 (10:16→20:48)
[2018-07-01] MEDS: MUPIROCIN 2% OINTMENT TP SCH ×2 (10:19→20:43)
[2018-07-01] MEDS: POLYMYXIN B SULFATE/TMP 10 ML OPHT.BTL RTEYE SCH ×2 (10:20→20:42)
[2018-07-01] MEDS ORDERED: PNEUMOC 13-VAL CONJ-DIP CRM/PF 0.5 ML SYR IM ONE (10:24)
--- NOTE | 2018-07-01 11:52 | SOAPPROG ---
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 * Initial functional independence measure 88 on 07/01/2018. Standby assist for bed mobility and transfers. Ambulated 150 ft with standby assist using 1 L of oxygen. Has decreased endurance. Climbed and descended 9 stairs with 1 rail, standby assist to supervision level. Standby assist for most ADLs but needs assist for Gloria hose and a neoprene knee brace that he chooses to wear. Minimal assist for bath transfer and bathing. Contact guard assist for toileting and toilet transfer. * Continue PT and OT to optimize mobility and activities of daily living towards the independent to modified independent level. Diastolic congestive heart failure, recent coronary artery bypass graft and aortic valve replacement, and edema. Continue cardiac related medications with furosemide and metoprolol. Will also provide GLORIA hose to help with edema. Daily weights. * Chest x-ray 07/01/2018 to further evaluate hypoxia with exertion. Secondary prevention of CVA. He is on warfarin and INR will be managed per pharmacy. Continue control of lipids with atorvastatin. Continue aspirin as well. Diabetes mellitus type 2, well controlled on metformin 500 mg daily. Coronary artery disease status post CABG. Continue aspirin as well as other cardiac medications. Interstitial lung disease, chronic, stable. Continue mycophenolate mofetil, as well as a cough suppressants with dextromethorphan and guaifenesin. Hypertension, currently managed only with furosemide and metoprolol. The amiodarone may have some effect on blood pressure as well. Monitor blood pressure and adjust medications as needed. History of cataracts with cataract surgery, as well as glaucoma. Continue multiple eyedrops. Prophylaxis. Continue enoxaparin at treatment dose until he is therapeutic with warfarin, at which point it can be discontinued. He also reported history of a bleeding gastric ulcer in the past, which may have been related to his alcohol use. However, given that he is on anti-platelet as well as anticoagulant therapy, will initiate pantoprazole at least while he is inpatient. DISPOSITION: Attended staffing, 15 min. Discussed with case management, nursing, dietitian, PT, OT. Lives at home with his . has reported that he has significant fear of falling. Needs to accomplish a high level of independence as his works during the day. Tentative discharge date set for 07/05/2018. 07/01/18 12:13 Subjective: Not sleeping well in the bed. He says his feet bump up against the foot board and he can't get comfortable. He slept last night in the recliner and says he slept well. He does not normally sleep in recliner at home. He denies cough or shortness of breath when he lies down. Overall he thinks his breathing feels better than prior to his surgery. Objective: Vital Signs Temp Pulse Resp BP Pulse Ox 36.6 C 54 L 16 126/74 H 85 L 07/01/18 06:38 07/01/18 06:38 07/01/18 06:38 07/01/18 06:38 07/01/18 09:30 06/30/18 07/01/18 07/02/18 05:59 05:59 05:59 Intake Total 1107 1690 240 Output Total 1290 600 Balance -183 1090 240 PT 26.8 SEC (12.0-15.0) H 07/01/18 08:00 INR 2.48 (0.83-1.16) H 07/01/18 08:00 - Time Spent With Patient Time Spent With Patient: Greater than 35 min floor time today, including more than 50% of time in coordination of care during staffing meeting, and counseling patient. Physical Exam - Physical Exam General Appearance: WD/WN, alert, no apparent distress, obese Respiratory: normal breath sounds, No crackles, No rhonchi, No wheezing Cardiac/Chest: regular rate, rhythm, edema (Trace bilateral pretibial), JVD ( [facility] from clavicle to angle of jaw.), systolic murmur Skin: normal color, warm/dry Neuro/Psych: alert, normal mood/affect, oriented x 3, abnormal gait (Slow, narrow based, step through pattern, with front wheeled walker.) ICD10 Worksheet Patient Problems: Problems Problem Status Onset Acute kidney injury Acute Left-sided weakness Acute S/P CABG x 1 Acute ~06/05/18 S/P aortic valve replacement with bioprosthetic valve Acute ~06/05/18 Aortic valve stenosis with insufficiency Chronic CAD in [place] artery Chronic Diabetes mellitus type 2, controlled Chronic History of stroke with residual deficit Chronic ILD (interstitial lung disease) Chronic Immunosuppression Chronic Nocturnal hypoxemia Chronic TYLER (obstructive sleep apnea) Chronic Pulmonary hypertension Chronic
[2018-07-01] MEDS ORDERED: WARFARIN SODIUM 2 MG TAB PO ONE (16:00)
[2018-07-01] MEDS: BIMATOPROST 0.01% 2.5 ML OPHT.BTL RTEYE SCH (20:44)
[2018-07-01] MEDS: HYDROCODONE/APAP 5/325 TAB PO PRN (21:30)
[2018-07-02 09:26] LABS: INR 2.64 (0.83-1.16); PROTIME(PATIENT) 28.1 SEC (12.0-15.0)
[2018-07-02] MEDS: AMIODARONE HCL 200 MG TAB PO SCH (10:05)
[2018-07-02] MEDS: METOPROLOL SUCCINATE XR 25 MG TAB PO SCH (10:05)
[2018-07-02] MEDS: MUPIROCIN 2% OINTMENT TP SCH ×2 (10:05→20:22)
[2018-07-02] MEDS: CITALOPRAM 20 MG TAB PO SCH (10:05)
[2018-07-02] MEDS: ATORVASTATIN CALCIUM 40 MG TAB PO SCH (10:06)
[2018-07-02] MEDS: POTASSIUM CL 20 MEQ TAB PO SCH (10:06)
[2018-07-02] MEDS: FUROSEMIDE 20 MG TAB PO SCH ×2 (10:06→14:58)
[2018-07-02] MEDS: ASPIRIN 81 MG CHEWABLE TAB PO SCH (10:06)
[2018-07-02] MEDS: GABAPENTIN 300 MG CAP PO SCH ×2 (10:07→20:19)
[2018-07-02] MEDS: BRIMONIDINE/TIMOLOL 5 ML OPHT.BTL RTEYE SCH ×2 (10:07→20:22)
[2018-07-02] MEDS: Difluprednate [Durezol] 1 DROP RTEYE SCH ×2 (10:07→20:23)
[2018-07-02] MEDS: POLYMYXIN B SULFATE/TMP 10 ML OPHT.BTL RTEYE SCH ×2 (10:07→20:24)
[2018-07-02] MEDS: metFORMIN HCL 500 MG TAB PO SCH (10:07)
[2018-07-02] MEDS: ALLOPURINOL 300 MG TAB PO SCH (10:07)
[2018-07-02] MEDS: BUDESONIDE/FORMOTEROL 160/4.5 60 PUFFS/MDI IH SCH ×2 (10:08→20:22)
[2018-07-02] MEDS: MYCOPHENOLATE MOFETIL 500 MG PO SCH ×2 (10:08→20:19)
[2018-07-02] MEDS: prednisoLONE ACET 1% 5 ML OPHT.BTL RTEYE SCH ×2 (10:08→20:23)
--- NOTE | 2018-07-02 13:03 | SOAPPROG ---
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 * Initial functional independence measure 88 on 07/01/2018. Standby assist for bed mobility and transfers. Ambulated 150 ft with standby assist using 1 L of oxygen. Has decreased endurance. Climbed and descended 9 stairs with 1 rail, standby assist to supervision level. Standby assist for most ADLs but needs assist for Gloria hose and a neoprene knee brace that he chooses to wear. Minimal assist for bath transfer and bathing. Contact guard assist for toileting and toilet transfer. * Continue PT and OT to optimize mobility and activities of daily living towards the independent to modified independent level. Diastolic congestive heart failure, recent coronary artery bypass graft and aortic valve replacement, and edema. Continue cardiac related medications with furosemide and metoprolol. Will also provide GLORIA hose to help with edema. Daily weights. * Chest x-ray 07/02/2018 with increased signs of fluid overload. * Increase furosemide from 20 mg twice daily to 40 mg twice daily starting this afternoon 07/02/2018. * Back CBC to rule out infection. Check BM P and BNP regarding renal function, electrolytes and status of CHF. Continue daily weights. Secondary prevention of CVA. He is on warfarin and INR will be managed per pharmacy. Continue control of lipids with atorvastatin. Continue aspirin as well. Anxiety. He is reassured but plan for a home visit with PT and OT prior to discharge home. Diabetes mellitus type 2, well controlled on metformin 500 mg daily. Coronary artery disease status post CABG. Continue aspirin as well as other cardiac medications. Interstitial lung disease, chronic, stable. Continue mycophenolate mofetil, as well as a cough suppressants with dextromethorphan and guaifenesin. Hypertension, currently managed only with furosemide and metoprolol. The amiodarone may have some effect on blood pressure as well. Monitor blood pressure and adjust medications as needed. History of cataracts with cataract surgery, as well as glaucoma. Continue multiple eyedrops. Prophylaxis. Continue warfarin. He also reported history of a bleeding gastric ulcer in the past, which may have been related to his alcohol use. However, given that he is on anti-platelet as well as anticoagulant therapy, will initiate pantoprazole at least while he is inpatient. DISPOSITION: Lives at home with his . has reported that he has significant fear of falling. Needs to accomplish a high level of independence as his works during the day. Tentative discharge date set for 07/05/2018. 07/02/18 13:23 Subjective: Episode of anxiety this morning any felt that his breathing was shallow. He did not have chest pain or chest pressure. He continues to have a cough consistent with his chronic symptoms due to bronchiectasis. He brings up some clear sputum. No fevers or chills. Otherwise no dyspnea. He thinks the anxiety might have to do with his 's reaction to his pending discharge in 3 days. Objective: Vital Signs Temp Pulse Resp BP Pulse Ox 36.6 C 60 16 114/69 97 07/02/18 07:30 07/02/18 10:05 07/02/18 07:30 07/02/18 10:05 07/02/18 07:30 07/01/18 07/02/18 07/03/18 05:59 05:59 05:59 Intake Total 1690 1380 Output Total 600 700 Balance 1090 680 PT 28.1 SEC (12.0-15.0) H 07/02/18 06:00 INR 2.64 (0.83-1.16) H 07/02/18 06:00 Physical Exam - Physical Exam General Appearance: WD/WN, alert, no apparent distress Respiratory: normal breath sounds, decreased breath sounds (Left lower lobe), crackles (Right lower lobe), No rhonchi, No wheezing Cardiac/Chest: regular rate, rhythm, edema (Trace bilateral pretibial), JVD (To angle of jaw), No diastolic murmur, No systolic murmur Skin: normal color, warm/dry Neuro/Psych: no motor/sensory deficits, alert, normal mood/affect, oriented x 3 ICD10 Worksheet Patient Problems: Problems Problem Status Onset Acute kidney injury Acute Left-sided weakness Acute S/P CABG x 1 Acute ~06/05/18 S/P aortic valve replacement with bioprosthetic valve Acute ~06/05/18 Aortic valve stenosis with insufficiency Chronic CAD in [place] artery Chronic Diabetes mellitus type 2, controlled Chronic History of stroke with residual deficit Chronic ILD (interstitial lung disease) Chronic Immunosuppression Chronic Nocturnal hypoxemia Chronic TYLER (obstructive sleep apnea) Chronic Pulmonary hypertension Chronic
[2018-07-02 15:11] LABS: PLATELET COUNT 350 10^3/uL (150-400)
[2018-07-02] MEDS ORDERED: WARFARIN SODIUM 2 MG TAB PO ONE (16:00)
[2018-07-02] MEDS: BIMATOPROST 0.01% 2.5 ML OPHT.BTL RTEYE SCH (20:23)
[2018-07-02] MEDS: HYDROCODONE/APAP 5/325 TAB PO PRN (20:39)
[2018-07-03 08:20] LABS: INR 2.42 (0.83-1.16); PROTIME(PATIENT) 26.3 SEC (12.0-15.0)
[2018-07-03] MEDS: POTASSIUM CL 20 MEQ TAB PO SCH (08:46)
[2018-07-03] MEDS: CITALOPRAM 20 MG TAB PO SCH (08:46)
[2018-07-03] MEDS: GABAPENTIN 300 MG CAP PO SCH ×2 (08:46→20:24)
[2018-07-03] MEDS: metFORMIN HCL 500 MG TAB PO SCH (08:46)
[2018-07-03] MEDS: ASPIRIN 81 MG CHEWABLE TAB PO SCH (08:46)
[2018-07-03] MEDS: FUROSEMIDE 20 MG TAB PO SCH ×2 (08:46→16:41)
[2018-07-03] MEDS: ALLOPURINOL 300 MG TAB PO SCH (08:47)
[2018-07-03] MEDS: AMIODARONE HCL 200 MG TAB PO SCH (08:47)
[2018-07-03] MEDS: ATORVASTATIN CALCIUM 40 MG TAB PO SCH (08:47)
[2018-07-03] MEDS: BUDESONIDE/FORMOTEROL 160/4.5 60 PUFFS/MDI IH SCH ×2 (10:05→20:22)
[2018-07-03] MEDS: MYCOPHENOLATE MOFETIL 500 MG PO SCH ×2 (10:06→20:23)
[2018-07-03] MEDS: METOPROLOL SUCCINATE XR 25 MG TAB PO SCH (10:06)
[2018-07-03] MEDS: MUPIROCIN 2% OINTMENT TP SCH ×2 (10:08→20:10)
[2018-07-03] MEDS: BRIMONIDINE/TIMOLOL 5 ML OPHT.BTL RTEYE SCH ×2 (10:09→20:19)
[2018-07-03] MEDS: prednisoLONE ACET 1% 5 ML OPHT.BTL RTEYE SCH (10:09)
[2018-07-03] MEDS: POLYMYXIN B SULFATE/TMP 10 ML OPHT.BTL RTEYE SCH (10:09)
[2018-07-03] MEDS: Difluprednate [Durezol] 1 DROP RTEYE SCH (10:10)
--- NOTE | 2018-07-03 11:24 | SOAPPROG ---
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 * Initial functional independence measure 88 on 07/01/2018. Standby assist for bed mobility and transfers. Ambulated 150 ft with standby assist using 1 L of oxygen. Has decreased endurance. Climbed and descended 9 stairs with 1 rail, standby assist to supervision level. Standby assist for most ADLs but needs assist for Gloria hose and a neoprene knee brace that he chooses to wear. Minimal assist for bath transfer and bathing. Contact guard assist for toileting and toilet transfer. * Continue PT and OT to optimize mobility and activities of daily living towards the independent to modified independent level. Diastolic congestive heart failure, recent coronary artery bypass graft and aortic valve replacement, and edema. Continue cardiac related medications with furosemide and metoprolol. Will also provide GLORIA hose to help with edema. Daily weights. * Chest x-ray 07/02/2018 with increased signs of fluid overload. * Increase furosemide from 20 mg twice daily to 40 mg twice daily starting this afternoon 07/02/2018. * Labs, 07/02/2018: Renal function normal. Mild elevation of white blood cells , improving. BNP elevated at 14 10. * Low blood pressure morning of 07/03/2018. Discussed with legal support assistant to Dr. Shey aparicio at [facility]: Okay to discontinue amiodarone. Will reduce metoprolol from 25 mg to 12.5 mg q.day. Continue increased furosemide but with 40 mg in the morning and 20 mg in the afternoon. Has diuresed approximately half a kg as of 07/03/2018. Secondary prevention of CVA. He is on warfarin and INR will be managed per pharmacy. Continue control of lipids with atorvastatin. Continue aspirin as well. Anxiety. He is reassured but plan for a home visit with PT and OT prior to discharge home. Diabetes mellitus type 2, well controlled on metformin 500 mg daily. Coronary artery disease status post CABG. Continue aspirin as well as other cardiac medications. Interstitial lung disease, chronic, stable. Continue mycophenolate mofetil, as well as a cough suppressants with dextromethorphan and guaifenesin. Hypertension, currently managed only with furosemide and metoprolol. The amiodarone may have some effect on blood pressure as well. Monitor blood pressure and adjust medications as needed. History of cataracts with cataract surgery, as well as glaucoma. Discussed with office of melter supervisor Dr. Morel. Discontinue steroid and antibiotic eyedrops 07/03/2018, which were prescribed short-term post cataract surgery. Prophylaxis. Continue warfarin. He also reported history of a bleeding gastric ulcer in the past, which may have been related to his alcohol use. However, given that he is on anti-platelet as well as anticoagulant therapy, will initiate pantoprazole at least while he is inpatient. DISPOSITION: Lives at home with his . has reported that he has significant fear of falling. Needs to accomplish a high level of independence as his works during the day. Tentative discharge date set for 07/05/2018. FOLLOW-UP: Will have home therapies. Will see Cardiology and cardiothoracic surgery after discharge. Will arrange for cardiac rehabilitation when home therapies are completed. 07/03/18 11:24 Subjective: No complaints. Sleeping well. Not in pain. Has occasional cough. Does not no dyspnea. Thinks his endurance is improving since prior to his heart surgery. Objective: Vital Signs Temp Pulse Resp BP Pulse Ox 36.4 C 67 16 96/58 L 92 07/02/18 19:24 07/03/18 10:06 07/03/18 08:00 07/03/18 10:06 07/03/18 08:00 Laboratory Results 07/02/18 13:43 07/02/18 13:43 07/02/18 07/03/18 07/04/18 05:59 05:59 05:59 Intake Total 1380 1180 240 Output Total 700 400 Balance 680 780 240 PT 26.3 SEC (12.0-15.0) H 07/03/18 06:00 INR 2.42 (0.83-1.16) H 07/03/18 06:00 Physical Exam - Physical Exam General Appearance: WD/WN, alert, no apparent distress Respiratory: normal breath sounds, crackles (Few, right lower lobe), No rhonchi , No wheezing Cardiac/Chest: regular rate, rhythm, edema (1+ bilateral feet and ankles), JVD ( To angle of jaw) Skin: normal color, warm/dry Neuro/Psych: alert, normal mood/affect, oriented x 3 ICD10 Worksheet Patient Problems: Problems Problem Status Onset Acute kidney injury Acute Left-sided weakness Acute S/P CABG x 1 Acute ~06/05/18 S/P aortic valve replacement with bioprosthetic valve Acute ~06/05/18 Aortic valve stenosis with insufficiency Chronic CAD in [place] artery Chronic Diabetes mellitus type 2, controlled Chronic History of stroke with residual deficit Chronic ILD (interstitial lung disease) Chronic Immunosuppression Chronic Nocturnal hypoxemia Chronic TYLER (obstructive sleep apnea) Chronic Pulmonary hypertension Chronic
[2018-07-03] MEDS ORDERED: WARFARIN SODIUM 3 MG TAB PO ONE (16:00)
[2018-07-03] MEDS: HYDROCODONE/APAP 5/325 TAB PO PRN ×2 (17:25→21:35)
[2018-07-03] MEDS: guaiFENesin 600 MG TAB.ER PO PRN (17:48)
[2018-07-03] MEDS: BIMATOPROST 0.01% 2.5 ML OPHT.BTL RTEYE SCH (20:19)
[2018-07-04] MEDS: CITALOPRAM 20 MG TAB PO SCH (08:46)
[2018-07-04] MEDS: FUROSEMIDE 20 MG TAB PO SCH ×2 (08:47→15:33)
[2018-07-04] MEDS: ALLOPURINOL 300 MG TAB PO SCH (08:49)
[2018-07-04] MEDS: GABAPENTIN 300 MG CAP PO SCH ×2 (08:49→20:00)
[2018-07-04] MEDS: ASPIRIN 81 MG CHEWABLE TAB PO SCH (08:49)
[2018-07-04] MEDS: POTASSIUM CL 20 MEQ TAB PO SCH (08:50)
[2018-07-04] MEDS: ATORVASTATIN CALCIUM 40 MG TAB PO SCH (08:50)
[2018-07-04] MEDS: metFORMIN HCL 500 MG TAB PO SCH (08:50)
[2018-07-04] MEDS: METOPROLOL SUCCINATE XR 25 MG TAB PO SCH (08:58)
[2018-07-04] MEDS: MUPIROCIN 2% OINTMENT TP SCH ×2 (09:00→20:06)
[2018-07-04] MEDS: BUDESONIDE/FORMOTEROL 160/4.5 60 PUFFS/MDI IH SCH ×2 (11:03→20:05)
[2018-07-04] MEDS: BRIMONIDINE/TIMOLOL 5 ML OPHT.BTL RTEYE SCH ×2 (11:03→20:03)
[2018-07-04 11:25] LABS: INR 2.32 (0.83-1.16); PROTIME(PATIENT) 25.5 SEC (12.0-15.0)
[2018-07-04] MEDS: MYCOPHENOLATE MOFETIL 500 MG PO SCH (12:26)
--- NOTE | 2018-07-04 12:27 | SOAPPROG ---
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 * Initial functional independence measure 88 on 07/01/2018. Standby assist for bed mobility and transfers. Ambulated 150 ft with standby assist using 1 L of oxygen. Has decreased endurance. Climbed and descended 9 stairs with 1 rail, standby assist to supervision level. Standby assist for most ADLs but needs assist for GLORIA hose and a neoprene knee brace that he chooses to wear. Minimal assist for bath transfer and bathing. Contact guard assist for toileting and toilet transfer. * Continue PT and OT to optimize mobility and activities of daily living towards the independent to modified independent level. Diastolic congestive heart failure, recent coronary artery bypass graft and aortic valve replacement, and edema. Continue cardiac related medications with furosemide and metoprolol. Will also provide GLORIA hose to help with edema. Daily weights. * Chest x-ray 07/02/2018 with increased signs of fluid overload. * Increase furosemide from 20 mg twice daily to 40 mg twice daily starting this afternoon 07/02/2018. * Labs, 07/02/2018: Renal function normal. Mild elevation of white blood cells , improving. BNP elevated at 1410. * Low blood pressure morning of 07/03/2018. Discussed with assistant film editor to Dr. Medel at [facility]: Okay to discontinue amiodarone. Reduced metoprolol from 25 mg to 12.5 mg q.day starting 07/04/2018. Continue increased furosemide but with 40 mg in the morning and 20 mg in the afternoon. Has diuresed approximately half a kg as of 07/03/2018. Secondary prevention of CVA. He is on warfarin and INR will be managed per pharmacy. Continue control of lipids with atorvastatin. Continue aspirin as well. Diabetes mellitus type 2, well controlled on metformin 500 mg daily. Coronary artery disease status post CABG. Continue aspirin as well as other cardiac medications. Interstitial lung disease, chronic, stable. Continue mycophenolate mofetil, as well as a cough suppressants with dextromethorphan and guaifenesin. Hypertension, currently managed only with furosemide and metoprolol. Discontinued amiodarone and decreased metoprolol to 12.5 mg q.day starting 07/04.. Monitor blood pressure and adjust medications as needed. History of cataracts with cataract surgery, as well as glaucoma. Discussed with office of community resource consultant Dr. Morel. Discontinued steroid and antibiotic eyedrops 07/03/2018, which were prescribed short-term post cataract surgery. Prophylaxis. Continue warfarin. He also reported history of a bleeding gastric ulcer in the past, which may have been related to his alcohol use. However, given that he is on anti-platelet as well as anticoagulant therapy, will initiate pantoprazole at least while he is inpatient. DISPOSITION: Lives at home with his . has reported that he has significant fear of falling. Needs to accomplish a high level of independence as his works during the day. Tentative discharge date set for 07/05/2018. FOLLOW-UP: Will have home OT & PT. Will see Cardiology and cardiothoracic surgery after discharge. Will arrange for cardiac rehabilitation when home therapies are completed. 07/04/18 12:21 Subjective: No complaints. Slept well. Moved his bowels this morning. Not in pain. No cough or dyspnea. Objective: Vital Signs Temp Pulse Resp BP Pulse Ox 36.6 C 67 14 122/68 H 97 07/04/18 06:40 07/04/18 08:58 07/04/18 06:40 07/04/18 06:40 07/04/18 06:40 Laboratory Results 07/02/18 13:43 07/02/18 13:43 07/03/18 07/04/18 07/05/18 05:59 05:59 05:59 Intake Total 1180 890 830 Output Total 400 925 Balance 780 -35 830 PT 25.5 SEC (12.0-15.0) H 07/04/18 10:05 INR 2.32 (0.83-1.16) H 07/04/18 10:05 Physical Exam - Physical Exam General Appearance: WD/WN, alert, no apparent distress Respiratory: normal breath sounds, No decreased breath sounds, No rhonchi, No wheezing Cardiac/Chest: regular rate, rhythm, edema (Trace bilateral pretibial), JVD ( Approximately 7 cm above clavicle), systolic murmur (1+, left sternal border), No diastolic murmur Skin: normal color, warm/dry Neuro/Psych: alert, normal mood/affect, oriented x 3, abnormal gait (Narrow based, step through pattern, slow, with front wheeled walker) ICD10 Worksheet Patient Problems: Problems Problem Status Onset Acute kidney injury Acute Left-sided weakness Acute S/P CABG x 1 Acute ~06/05/18 S/P aortic valve replacement with bioprosthetic valve Acute ~06/05/18 Aortic valve stenosis with insufficiency Chronic CAD in [place] artery Chronic Diabetes mellitus type 2, controlled Chronic History of stroke with residual deficit Chronic ILD (interstitial lung disease) Chronic Immunosuppression Chronic Nocturnal hypoxemia Chronic TYLER (obstructive sleep apnea) Chronic Pulmonary hypertension Chronic
--- NOTE | 2018-07-04 12:54 | PDOREHIP ---
Admission [facility] - Admission - 3 Day Assessment Period Admission Date/Day 1: 06/28/18 Day 2: 06/29/18 Day 3: 06/30/18 - Active Diagnoses Comorbidities and Co-existing Conditions at Admission: 57258. None of the Above Discharge [facility] - Discharge - 3 Day Assessment Period 2 Days Prior to Anticipated Discharge Date: 07/03/18 1 Day Prior to Anticipated Discharge Date: 07/04/18 Anticipated Discharge Date: 07/05/18 - Discharge Skin Conditions Unhealed Pressure Ulcer (1 or more/Stage 1 or >)-Discharge: 0. No # Stage 1 Pressure Ulcers-Discharge: 0 # Stage 2 Pressure Ulcers-Discharge: 0 # of These Stage 2 Pressure Ulcers Present on Admission: 0 # Stage 3 Pressure Ulcers-Discharge: 0 # of These Stage 3 Pressure Ulcers Present on Admission: 0 # Stage 4 Pressure Ulcers-Discharge: 0 # of These Stage 4 Pressure Ulcers Present on Admission: 0 # Unstageable Pressure Ulcers (Non-remove Dress)-Discharge: 0 # These Unstageable Pressure Ulcers (NRD)-Present on Admit: 0 # Unstageable Pressure Ulcers (Slough/Eschar)-Discharge: 0 # These Unstageable Pressure Ulcers(Slough) Present on Admit: 0 # Unstageable Pressure Ulcers (Deep Tissue Injury)-Discharge: 0 # These Unstageable Pressure Ulcers (DTI) Present on Admit: 0
--- NOTE | 2018-07-04 12:54 | PDOREHIP ---
Admission [facility] - Admission - 3 Day Assessment Period Admission Date/Day 1: 06/28/18 Day 2: 06/29/18 Day 3: 06/30/18 - Active Diagnoses Comorbidities and Co-existing Conditions at Admission: 16036. None of the Above - Skin Conditions Unhealed Pressure Ulcer (1 or more/Stage 1 or >)-Admission: 0. No (Late entry for 06/28/2018) # Stage 1 Pressure Ulcers-Admission: 0 # Stage 2 Pressure Ulcers-Admission: 0 # Stage 3 Pressure Ulcers-Admission: 0 # Stage 4 Pressure Ulcers-Admission: 0 # Unstageable Pressure Ulcers (Non-remove Dress)-Admission: 0 # Unstageable Pressure Ulcers (Slough/Eschar)-Admission: 0 # Unstageable Pressure Ulcers (Deep Tissue Injury)-Admission: 0 Discharge [facility] - Discharge - 3 Day Assessment Period 2 Days Prior to Anticipated Discharge Date: 07/03/18 1 Day Prior to Anticipated Discharge Date: 07/04/18 Anticipated Discharge Date: 07/05/18
[2018-07-04] MEDS ORDERED: WARFARIN SODIUM 3 MG TAB PO SCH (16:00)
[2018-07-04] MEDS: MYCOPHENOLATE MOFETIL 250 MG CAP PO SCH (20:00)
[2018-07-04] MEDS: BIMATOPROST 0.01% 2.5 ML OPHT.BTL RTEYE SCH (20:03)
[2018-07-04] MEDS: guaiFENesin 600 MG TAB.ER PO PRN (20:18)
[2018-07-05] MEDS: FUROSEMIDE 20 MG TAB PO SCH (08:55)
[2018-07-05] MEDS: MYCOPHENOLATE MOFETIL 250 MG CAP PO SCH (08:55)
[2018-07-05] MEDS: POTASSIUM CL 20 MEQ TAB PO SCH (08:55)
[2018-07-05] MEDS: CITALOPRAM 20 MG TAB PO SCH (08:56)
[2018-07-05] MEDS: ATORVASTATIN CALCIUM 40 MG TAB PO SCH (08:56)
[2018-07-05] MEDS: metFORMIN HCL 500 MG TAB PO SCH (08:56)
[2018-07-05] MEDS: GABAPENTIN 300 MG CAP PO SCH (08:56)
[2018-07-05] MEDS: ALLOPURINOL 300 MG TAB PO SCH (08:56)
[2018-07-05] MEDS: ASPIRIN 81 MG CHEWABLE TAB PO SCH (08:56)
[2018-07-05 09:08] VITALS: BP 102/60
[2018-07-05] MEDS: METOPROLOL SUCCINATE XR 25 MG TAB PO SCH (09:09)
[2018-07-05] MEDS: BRIMONIDINE/TIMOLOL 5 ML OPHT.BTL RTEYE SCH (09:56)
[2018-07-05] MEDS: BUDESONIDE/FORMOTEROL 160/4.5 60 PUFFS/MDI IH SCH (09:57)
[2018-07-05] MEDS: MUPIROCIN 2% OINTMENT TP SCH (09:57)
--- NOTE | 2018-07-05 14:25 | GDS ---
ADMITTING DIAGNOSIS: Cerebrovascular accident with left-sided weakness and ataxia. DISCHARGE DIAGNOSIS: Cerebrovascular accident with left-sided weakness and ataxia. OTHER DISCHARGE DIAGNOSES: 1. Diastolic congestive heart failure, status post coronary artery bypass grafting and aortic valve replacement. 2. Diabetes mellitus type 2. 3. Chronic interstitial lung disease. COMPLICATIONS: There were none. PROCEDURES: There were none. CONSULTATIONS: There were none. HISTORY AND HOSPITAL COURSE: This patient was admitted from [facility]. He had a coronary artery bypass graft and aortic valve replacement on 06/05/2018 at [facility]. He was discharged to the [facility] on 06/10/2018. He returned home on 06/24/2018 and was rehospitalized the next day with stroke symptoms of acute on chronic left-sided weakness. MRI of the brain showed acute and subacute multifocal punctate infarcts in the left parieto-occipital region, the left occipital lobe, and the right frontal lobe near the vertex. This was considered most likely to be cardioembolic in origin. He had been taking apixaban for anticoagulation, so this was considered a failure on apixaban. He was switched to warfarin. There was also suspicion that these were hypotensive watershed infarcts as he had a low systolic blood pressure on the day of hospitalization. He did well in rehabilitation. His initial functional independence measure was 88 on 07/01/2018, which is consistent with assisted living level of care. He had subsequent improvement, and by the day of discharge, he was ambulating 150 feet or greater using a front-wheeled walker with cues and supervision for safety but no assistance. He had climbed and descended 12 stairs with a step to step pattern using no rails and with cues and supervision for safety. He was independent with bed mobility. Regarding activities of daily living, he had modified independence using an assistive device for grooming, which he did standing at the sink. He needed only setup for upper and lower body dressing. He was able to shower with setup and standby assist. He was able to do shower transfers with standby assist. He was independent with toileting. Regarding congestive heart failure, he continued furosemide and metoprolol. There was edema, which was treated with GLORIA hose. A chest x-ray was done on 05/2018, which showed increased signs of fluid overload. His furosemide was increased from 20 mg twice a day to 40 mg twice a day on 07/02/2018. He had an elevated BNP at 1410. There was a low blood pressure on the higher dose of furosemide on 07/03/2018. Amiodarone was discontinued. Metoprolol was decreased from 25 to 12.5 mg q. day, and he was continued on the elevated dose of furosemide at 40 mg in the morning and 20 mg in the afternoon. His weight on the day of discharge was 98.4 kg, which was at least a 2 kg and possibly as much as a 3 kg diuresis during his stay. He continued to need 1-2 L of oxygen, though at times at rest he was able to be without oxygen. Blood pressure on the day of discharge ranged from 102/60 to 125/71. CONDITION UPON DISCHARGE: Good. ACTIVITY: Ad barron. DIET: Cardiac low-salt and low-fat. MEDICATIONS UPON DISCHARGE: 1. Acetaminophen 325-650 mg p.o. q.4 hours p.r.n. 2. Albuterol 1-2 puffs q. day p.r.n. 3. Allopurinol 300 mg p.o. q. day. 4. Aspirin 81 mg p.o. q. day. 5. Atorvastatin 40 mg p.o. q. day. 6. Bimatoprost 0.01% 1 drop right eye daily. 7. Brimonidine/timolol 1 drop right eye b.i.d. 8. Budesonide/formoterol 1 puff b.i.d. 9. Citalopram 40 mg p.o. q. day. 10. Dextromethorphan 30 mg p.o. b.i.d. p.r.n. 11. Furosemide 40 mg p.o. q. day and 20 mg p.o. at 1500 each day. 12. Gabapentin 300 mg p.o. b.i.d. 13. Guaifenesin 600 mg p.o. b.i.d. p.r.n. 14. Hydrocodone/acetaminophen 5/325 one p.o. q.4 hours p.r.n. 15. Ipratropium 0.06% nasal 1-2 sprays each naris q.i.d. p.r.n. 16. Metformin 500 mg p.o. q. day. 17. Metoprolol succinate XR 12.5 mg p.o. q. day. 18. Mycophenolate mofetil 1500 mg p.o. b.i.d. 19. Polyethylene glycol 17 g p.o. q. day p.r.n. 20. Potassium chloride 20 mEq p.o. q. day. 21. Warfarin 2 mg p.o. q. Sunday, Sunday, and Sunday, and 3 mg p.o. q. Sunday, Sunday, , and Sunday. ISSUES TO BE ADDRESSED AT FOLLOWUP: 1. Functional status: Continue PT and OT at home and follow up with primary care. 2. Diastolic CHF, status post CABG and aortic valve replacement. He will follow up with configuration management manager, Savanna Horne, and wood model builder, Dr. Rich Medel. 3. Status post CVA. He will follow up with Dr. Grabiel Ingram. Greater than 30 minutes was spent on this discharge summary including medication reconciliation, coordination of care, and counseling of patient. Copy requested to: Dr. Grabiel Ingram Neurologist Frantz Medley Primary Care Provider /[id number]/MODL MTDD
[2018-07-05] MEDS ORDERED: WARFARIN SODIUM 2 MG TAB PO SCH (16:00)
== END 2018-07-05 13:00 | disposition home health service (06) | DRG 57 ==
LOC: BREH 15:01
PROVIDERS: ADMIT Internal Medicine; ATTEND Internal Medicine
PROC: F07M3ZZ Motor Function Treatment of Musculoskeletal System - Whole Body (ICD-10-PCS; principal; 2018-06-28)
PROC: F08Z7ZZ Vocational Activities and Functional Community or Work Reintegration Skills Treatment (ICD-10-PCS; principal; 2018-06-28)
DX: I69.354 Hemiplegia and hemiparesis following cerebral infarction affecting left non-dominant side (principal); E66.01 Morbid (severe) obesity due to excess calories; Z68.31 Body mass index [BMI] 31.0-31.9, adult; J84.9 Interstitial pulmonary disease, unspecified; R31.9 Hematuria, unspecified; E11.9 Type 2 diabetes mellitus without complications; I25.10 Atherosclerotic heart disease of native coronary artery without angina pectoris; I11.0 Hypertensive heart disease with heart failure; I50.30 Unspecified diastolic (congestive) heart failure; I48.91 Unspecified atrial fibrillation; F32.9 Major depressive disorder, single episode, unspecified; G62.9 Polyneuropathy, unspecified; K21.9 Gastro-esophageal reflux disease without esophagitis; G47.33 Obstructive sleep apnea (adult) (pediatric); H40.9 Unspecified glaucoma; Z96.653 Presence of artificial knee joint, bilateral; Z95.3 Presence of xenogenic heart valve; Z95.1 Presence of aortocoronary bypass graft; M10.9 Gout, unspecified; Z86.73 Personal history of transient ischemic attack (TIA), and cerebral infarction without residual deficits
CPT/HCPCS: 97110-GP; 97116-GP; 97140-GO; 97162-GP; 97166-GO; 97530-GO; 97530-GP; 97535-GO; G0009; G0515-GO; J1650

== ENCOUNTER → 2018-10-16 | Outpatient (CLI) | payer OTHER | LOC: FIMAGING 16:24 | PROVIDERS: ATTEND Psychiatry & Neurology Neurology | DX: R41.3 Other amnesia (principal); G31.9 Degenerative disease of nervous system, unspecified; Z86.73 Personal history of transient ischemic attack (TIA), and cerebral infarction without residual deficits ==

== ENCOUNTER 2018-10-28 19:44 | Inpatient (IN) | payer OTHER ==
--- NOTE | 2018-10-28 19:54 | EDPHY ---
H & P Stated Complaint: left leg weakness Time Seen by Provider: 10/28/18 19:53 HPI/ROS: CHIEF COMPLAINT: Weakness, dyspnea, hypotension HISTORY OF PRESENT ILLNESS: The patient is an anticoagulated 68 y/o male with a history of CVA x2, CAD, atrial fibrillation, interstitial lung disease, CABG arriving with his for evaluation of weakness, dyspnea, and difficulty walking worsening since , 4 days ago. He has residual left leg weakness following his CVA, but this has been worse than baseline over the last few days. He says he "fell 7 times in 2 days" last week, but denies injuries from these. On , while getting into the car he couldn't move his left leg and had to physically move it with his arms. This improved through the evening. In conjunction with this weakness his had a diffuse itching sensation, chills, and a weight increase as measured at cardiac rehab. Today his came home to find him so weak he couldn't walk and seemed unable to catch his breath. His BP was low around 90/32 at home. No chest pain, fever, change in cough, abdominal pain, change in stools, hematuria, dysuria, melena, headache, sore throat. REVIEW OF SYSTEMS: A ten system review of systems was performed and is negative with the exception of the items mentioned in the HPI. Baseline ankle swelling. Past medical history: 1. CVA x2 (Nov 2017, Jun 2018) - residual left leg weakness, slight left arm weakness 2. CAD 3. Atrial fibrillation - Coumadin 4. Interstitial lung disease with bronchiectasis - attributed to chronic hypersensitivity pneumonitis. 5. Hypertension 6. Cataracts 7. Diabetes type 2 8. GERD 9. Obstructive sleep apnea 10. GI bleed due to ulcer Past surgical history: 1. CABG x1 - Dr. Medel 06/05/18 2. Bioprosthetic AVR - Eliquis - Dr. Medel 06/05/18 3. Bilateral total knee arthroplasties 4. Cataract removal 5. Ablation Family history: Noncontributory Social history: at bedside. Lives in [place]. Retired. Prior medical records reviewed including admission 06/25/18 for weakness. General Appearance: Alert. Vital signs reviewed. BP 94/67, HR 64. Eyes: Pupils equal and round, no conjunctival injection, no discharge. Anicteric. ENT, Mouth: Mucous membranes are moist, no oropharyngeal erythema or edema. Neck: No lymphadenopathy, supple. Respiratory: Lungs have bilateral wheezing. No rales or rhonchi. Cardiovascular: Distant but regular rate and rhythm; no murmur, rub, or gallop. Gastrointestinal: Abdomen is soft and nontender, no masses or organomegaly. Skin: Warm and dry, no rashes on exposed skin, normal color. Back: Nontender to palpation over the thoracolumbar spine. No CVAT. Rectal: Melanotic stool. Extremities: 2+ pitting lower extremity edema almost to the knees bilaterally, no calf tenderness or swelling. Scarring on forearms. Neurological: Alert and oriented. Moving all four extremities easily and equally. Cranial nerves II through XII are examined and are intact (visual acuity not tested). Strength is 5 over 5 bilaterally with testing of all major motor groups. Can hold left leg up for count of 10. Sensation is intact to light touch over all 4 extremities. Psychiatric: Normal affect. - Personal History Current Tetanus/Diphtheria Vaccine: Yes Current Tetanus Diphtheria and Acellular Pertussis (TDAP): Yes - Medical/Surgical History Hx Asthma: No Hx Chronic Respiratory Disease: Yes Hx Diabetes: Yes Hx Cardiac Disease: Yes Hx Renal Disease: No Hx Cirrhosis: No Hx Alcoholism: Yes Hx HIV/AIDS: No Hx Splenectomy or Spleen Trauma: No Other PMH: bilat knee replacement, BRONCHIECTASIS. cardiac ablation Dr Corrales, for abnormalities on the heart wall. ulcer of the stomach-cauterized, cva, aortic valve replacement, cabg, HTN, sleep apnea. - Social History Smoking Status: Former smoker Constitutional: Initial Vital Signs Temperature (C) 36.4 C 10/28/18 19:46 Heart Rate 66 10/28/18 19:46 Respiratory Rate 16 10/28/18 19:46 Blood Pressure 94/51 L 10/28/18 19:46 O2 Sat (%) 94 10/28/18 19:46 O2 Delivery Mode Room Air Allergies/Adverse Reactions: gentamicin sulfate [From Garamycin] Allergy (Verified 10/28/18 19:52) Rash Penicillins Allergy (Verified 10/28/18 19:52) Swelling/neck,face,throat gentamicin sulfate Allergy (Unknown, Uncoded 10/28/18 19:52) Rash Home Medications: Medication Instructions Recorded Polyethylene Glycol 3350 [Miralax 17 gm PO DAILY PRN pkt 06/10/18 17 gm (*)] Albuterol [Proventil Inhaler HFA 1 - 2 puffs IH DAILY PRN #1 mdi 07/04/18 (*)] Allopurinol [Allopurinol 300 MG 300 mg PO DAILY #30 tab 07/04/18 (RX)] Atorvastatin Calcium [Lipitor 40 40 mg PO DAILY #30 tab 07/04/18 mg (*)] Budesonide/Formoterol 160/4.5 1 puffs IH BID PRN #1 mdi 07/04/18 [Symbicort 160-4.5 Mcg Inh (*)] Citalopram Hydrobromide 40 mg PO DAILY #30 tablet 07/04/18 [Citalopram HBr] Furosemide [Lasix 40 MG (*)] 40 mg PO DAILY #30 tab 07/04/18 Gabapentin [Neurontin 300 MG (*)] 300 mg PO BID #60 cap 07/04/18 Ipratropium 0.06% Nasal [Atrovent 1 - 2 sprays EACHNARE QID PRN #1 07/04/18 0.06% Nasal] mdi Metoprolol Succinate Xr [Toprol Xl 12.5 mg PO DAILY #15 tab 07/04/18 25 mg (*)] Mycophenolate Mofetil [Cellcept] 1,500 mg PO BID #60 tablet 07/04/18 Potassium Cl [Klor-Con 20 meq (*)] 20 meq PO DAILY #30 tab 07/04/18 metFORMIN HCL [Glucophage 500 mg 500 mg PO DAILY #30 tab 07/04/18 (*)] Furosemide [Lasix 20 MG (*)] 40 mg PO DAILY@1500 10/28/18 Acetaminophen [Tylenol 325mg (*)] 650 mg PO Q4HRS PRN tab 11/01/18 Cetirizine [ZyrTEC 10 mg (*)] 10 mg PO HS tab 11/01/18 Ipratropium/Albuterol [Duoneb (*)] 3 ml IH Q6HRS deyvial 11/01/18 Pantoprazole Sodium [Protonix 40mg 40 mg PO BID #120 tab 11/01/18 (*)] Medical Decision Making - Diagnostics Imaging: Discussed imaging studies w/ call manager Radiologist, I viewed and interpreted images myself ED Course/Re-evaluation: This is a 68 y/o male with a history of CVA x2 on coumadin, h/o UGI bleed in past and several comorbidities who presents with a 4-day history of worsening weakness, dyspnea, difficulty walking, and today hypotension. He has wheezes bilaterally on auscultation and 2+ pitting edema in lower extremities. He has decent strength in extremities while lying in the bed. He is hypotensive at 94/ 51. Doubt ACS. Plan for IV, labs, EKG, chest x-ray, duo neb. The 12 lead EKG was interpreted by myself. Sinus rhythm. T wave inversion II, III, avF different from EKG 06/25/18. See hard copy and/or "tracemaster" electronic copy for interpretation. Chest x-ray: CHF INR 3.9. 2139: Patient walked to the bathroom with assistance. He had "diarrheal" stool. He says his leg and walking ability feels like it is back at baseline. 2199: Consulted with Dr. Corrales, cardiology. 0: Hgb 25.9. Rectal exam reveals melena. Plan for type&cross, second peripheral IV, 80mg IV Protonix, 10mg IV vitamin K ordered. Will consider FFP if needed. Two IVs. 3: Consulted with Dr. Larson, hospitalist. She accepts admission for GI bleed , weakness, dyspnea. Plan to transfuse. Suspect LEA due to anemia, chronic lung disease, and CHF. 223: Consulted with Dr. Hickman, GI. He will consult during admission. He remained awake and alert during his ED stay. Differential Diagnosis: I considered a ddx of upper GI bleeding that includes but is not limited to coagulopathy, ulcer disease, esophageal varices, Maricruz-Leon tears, and esophagitis. Critical Care Time: This patient received 45 minutes of critical care, exclusive of procedures performed (none were) and PA involvement (there was no midlevel involvement). The patient was at risk of hemodynamic deterioration. - Data Points Laboratory Results: Laboratory Results 10/28/18 20:18 10/28/18 20:18 Medications Given: Discontinued Medications Albuterol/Ipratropium (Duoneb) 3 ml IH EDNOW ONE Stop: 10/28/18 20:25 Last Admin: 10/28/18 20:28 Dose: 3 ml Albuterol/Ipratropium (Duoneb) 3 ml IH Q6HRS SCAR Stop: 04/29/19 17:59 Last Admin: 11/01/18 11:19 Dose: 3 ml Allopurinol (Allopurinol) 300 mg PO DAILY SCAR Stop: 04/30/19 08:59 Last Admin: 11/01/18 09:24 Dose: 300 mg Alprazolam (Xanax) 0.25 mg PO BID PRN PRN Reason: Anxiety Stop: 04/28/19 13:59 Last Admin: 11/01/18 09:51 Dose: 0.25 mg Atorvastatin Calcium (Lipitor) 40 mg PO DAILY SCAR Stop: 04/30/19 08:59 Last Admin: 11/01/18 09:27 Dose: 40 mg Cetirizine HCl (Zyrtec) 10 mg PO HS SCAR Stop: 04/27/19 23:44 Last Admin: 10/31/18 21:50 Dose: 10 mg Citalopram Hydrobromide (Celexa) 40 mg PO DAILY SCAR Stop: 04/30/19 08:59 Last Admin: 11/01/18 09:29 Dose: 40 mg Diphenhydramine HCl (Benadryl Injection) 25 mg IVP EDNOW ONE Stop: 10/28/18 23:19 Last Admin: 10/28/18 23:19 Dose: 25 mg Diphenhydramine HCl (Benadryl Injection) 25 mg IVP Q4HRS PRN PRN Reason: Itching Stop: 04/27/19 00:26 Last Admin: 10/31/18 19:45 Dose: 25 mg Furosemide (Lasix Injection) 20 mg IVP ONCE ONE Stop: 10/29/18 08:04 Last Admin: 10/29/18 08:23 Dose: 20 mg Furosemide (Lasix Injection) 40 mg IVP BID@0900,1500 [facility] Stop: 04/29/19 14:59 Last Admin: 11/01/18 09:30 Dose: 40 mg Gabapentin (Neurontin) 300 mg PO BID SCAR Stop: 04/29/19 20:59 Last Admin: 11/01/18 09:24 Dose: 300 mg Hydroxyzine HCl (Hydroxyzine Hcl) 25 mg PO Q6HRS PRN PRN Reason: Itching Stop: 04/28/19 09:38 Last Admin: 10/30/18 10:02 Dose: 25 mg Phytonadione 10 mg/ Sodium (Chloride) 51 mls @ 102 mls/hr IV EDNOW ONE Stop: 10/28/18 22:54 Last Admin: 10/28/18 22:43 Dose: 51 mls Sodium Chloride (Ns) 1,000 mls @ 75 mls/hr IV CONT SCAR Stop: 10/29/18 12:49 Last Admin: 10/29/18 00:43 Dose: 1,000 mls Lactated Ringer's (Lr) 1,000 mls @ 0 mls/hr IV ONCE ONE PRN Reason: Per Protocol Stop: 10/29/18 16:54 Last Admin: 10/29/18 16:59 Dose: 1,000 mls Metformin HCl (Glucophage) 500 mg PO DAILY SCAR Stop: 04/29/19 13:44 Last Admin: 11/01/18 09:29 Dose: 500 mg Metoprolol Succinate (Toprol Xl) 12.5 mg PO DAILY SCAR Stop: 04/29/19 13:44 Last Admin: 11/01/18 09:25 Dose: 12.5 mg Miscellaneous Medication (Icy Hot Lidocaine/Menthol 4%/1% Patch) 1 patch TD ONCE ONE Stop: 10/31/18 17:31 Last Admin: 10/31/18 17:39 Dose: 1 patch Mycophenolate Mofetil (Cellcept) 1,500 mg PO BID SCAR Stop: 04/29/19 20:59 Last Admin: 11/01/18 09:22 Dose: 1,500 mg Pantoprazole Sodium (Protonix) 80 mg IVP EDNOW ONE Stop: 10/28/18 22:12 Last Admin: 10/28/18 22:19 Dose: 80 mg Pantoprazole Sodium (Protonix) 40 mg IVP Q6H SCAR Stop: 04/27/19 03:59 Last Admin: 11/01/18 09:46 Dose: 40 mg Point of Care Test Results: Chemistry 10/28/18 20:19 POC Troponin I 0.00 ng/mL ng/mL (0.00-0.08) Departure - Departure Disposition: [facility] Acute Clinical Impression: Upper GI bleeding, Weakness Dyspnea Qualifiers: Dyspnea type: dyspnea on exertion Qualified Code(s): R06.09 - Other forms of dyspnea Condition: Fair Report Scribed for: Lise Terrell Report Scribed by: Olga Wahl Date of Report: 10/28/18 Time of Report: 20:28 Physician Review and Approval Statement: 10/28/18 19:53 Portions of this note were transcribed by the medical pathology teacher. I, Dr. Lise Terrell, personally performed the history, physical exam, and medical decision- making; and confirmed the accuracy of the information in the transcribed note.
[2018-10-28] MEDS ORDERED: IPRATROPIUM/ALBUTEROL 3 ML DEYVIAL IH ONE (20:24)
--- NOTE | 2018-10-28 20:33 | CPEKG ---
Test Reason : OPEN Blood Pressure : / mmHG Vent. Rate : 064 BPM Atrial Rate : 064 BPM P-R Int : 162 ms QRS Dur : 104 ms QT Int : 422 ms P-R-T Axes : 039 -34 -72 degrees QTc Int : 436 ms Sinus rhythm Left axis deviation Nonspecific T abnormalities, inferior leads Confirmed by Lise Terrell ([id number]) on 10/28/2018 8:32:50 PM Referred By: Lise Terrell Confirmed By:Lise Terrell
[2018-10-28 20:34] LABS: PLATELET COUNT 275 10^3/uL (150-400)
[2018-10-28 20:39] LABS: INR 3.9 (0.83-1.16); PROTIME(PATIENT) 37.9 SEC (12.0-15.0)
[2018-10-28] MEDS ORDERED: PANTOPRAZOLE SODIUM 40 MG VIAL IVP ONE (22:11)
[2018-10-28] MEDS ORDERED: PANTOPRAZOLE SODIUM 40 MG VIAL ONE (22:19)
[2018-10-28] MEDS ORDERED: PHYTONADIONE 10 MG in NS 50 ML IV ONE (22:25)
[2018-10-28] MEDS ORDERED: ACETAMINOPHEN 325 MG TAB PO PRN (23:16)
[2018-10-28] MEDS ORDERED: ONDANSETRON DISINTEGRATING 4 MG TAB PO PRN (23:16)
[2018-10-28] MEDS ORDERED: ONDANSETRON 4 MG/2 ML VIAL IVP PRN (23:16)
[2018-10-28] MEDS ORDERED: NS 1,000 ML IV SCH (23:30)
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
[2018-10-29] MEDS: PANTOPRAZOLE SODIUM 40 MG VIAL IVP SCH ×4 (04:08→21:40)
[2018-10-29 06:19] LABS: PLATELET COUNT 205 10^3/uL (150-400)
[2018-10-29 06:28] LABS: INR 2.47 (0.83-1.16); PROTIME(PATIENT) 26.7 SEC (12.0-15.0)
[2018-10-29] MEDS ORDERED: FUROSEMIDE 20 MG/2 ML VIAL IVP ONE (08:03)
--- NOTE | 2018-10-29 10:04 | PDMN ---
Medical Necessity Medical necessity: Pt meets inpt criteria per MD order and MCG M-180, Gastrointestinal Bleeding, Upper, A-2 days. 68 y/o presented w/c/o worsening fatigue, SOB, acute on chronic LLE weakness, and melanic stool, admitted w/ acute upper GI bleed (has hx gastric ulcer requiring cautery), ABLA (H&H 6.4, 21.3), acute dyspnea, hypotension, CHF exacerbation as seen on CXR and BNP 1230 , weakness, and suprathrapeutic INR (3.9). PMH includes chronic afib- currently on Coumadin, interstitial lung diasease (on 3 L O2 chronically), CAD w/CABG, HTN , gastric ulcer, and DM 2. GI consult pending, IVF, IV PPI, IV antiemetics, IV benedryl, sereial H&H, anticipate>2MN for ongoing eval/management of above.
--- NOTE | 2018-10-29 10:44 | HOSPPROG ---
Hospitalist Progress Note Assessment/Plan: DIAGNOSES: * Acute upper GI bleed (suspect ulcer, has hx bleeding ulcer and has been taking some NSAID) * excessive anticoagulation (coumadin for chronic AFib) * Acute CHF, R sided, ?also some diastolic L CHF * dyspnea on exertion worsening over period of 4-6 weeks due to CHF, also has bronchiectasis/ILD/ TYLER (not tolerant of cpap so not using) * L leg weakness * severre pruritis x weeks, scratching * ? pericardial abnormality on CXR? (none mentioned on prior echo's or heart surgery op note) PLANS: * transfusing FFP now * follow hemodynamics, INR, Hg closely * GI consult for EGD * bid PPI * lasix diuresis * review cxr findings with Dr Long and with Dr Zuniga Seen by me today on hospitalist rounds as well as ICU multidisciplinary rounds Greater than 45 min total in 3 visits with the patient and in care coordination by me today Needing ongoingn aggressive treatments of CHF and bleeding, careful monitoring, and procedures Will need at least one more midnight, inpatient care SUBJECTIVE: Feels well with no abdominal pain or nausea or vomiting Has not passed any more stools or blood Not lightheaded, no shortness of breath or chest pain OBJECTIVE Vitals reviewed: Vaccine Manager, my review: Exam: alert oriented skin warm dry color ok resps not labored lungs clear BSs heart regular abd soft nondistended nontender, bowel sounds present limbs warm, no edema iv site ok Lab data: Hemoglobin stable at 7.2 through the day Creatinine stable ADDENDUM: I reviewed the endoscopy images with Dr. Colindres after the EGD today. The patient did have multiple ulcers 1 of which had slight bleeding and a visible vessel. This was clipped on. Patient will need ongoing proton pump inhibitor therapy and will need to monitor very closely for any further bleeding Objective: Vital Signs Temp Pulse Resp BP Pulse Ox 36.7 C 66 20 108/67 100 10/29/18 09:08 10/29/18 09:08 10/29/18 09:08 10/29/18 09:08 10/29/18 09:08 Laboratory Results 10/29/18 08:20 10/29/18 06:01 10/28/18 10/29/18 10/30/18 06:59 06:59 06:59 Intake Total 2000 Output Total 1000 Balance 1000 PT 26.7 SEC (12.0-15.0) H 10/29/18 06:01 INR 2.47 (0.83-1.16) H 10/29/18 06:01 ICD10 Worksheet Patient Problems: Problems Problem Status Onset Dyspnea Acute Upper GI bleeding Acute Weakness Acute Acute kidney injury Acute Left-sided weakness Acute S/P CABG x 1 Acute ~06/05/18 S/P aortic valve replacement with bioprosthetic valve Acute ~06/05/18 Aortic valve stenosis with insufficiency Chronic CAD in [place] artery Chronic Diabetes mellitus type 2, controlled Chronic History of stroke with residual deficit Chronic ILD (interstitial lung disease) Chronic Immunosuppression Chronic Nocturnal hypoxemia Chronic TYLER (obstructive sleep apnea) Chronic Pulmonary hypertension Chronic
[2018-10-29 11:58] LABS: INR 1.79 (0.83-1.16); PROTIME(PATIENT) 20.9 SEC (12.0-15.0)
--- NOTE | 2018-10-29 13:54 | GCON ---
[f rep st] CONSULTATION MEDICAL REVIEW SPECIALIST CONSULTATION REFERRING PHYSICIAN: Elizabeth Larson MD REASON FOR ADMISSION: GI bleed. I was asked to see patient by Dr. Elizabeth Larson. HISTORY: Mr. Weathers is an extremely pleasant 68-year-old white male with an extensive past medica l history, including possible hypersensitivity pneumonitis, bronchiectasis for which he is followed a t [facility], cataracts, stroke, non-insulin dependent diabetes, gastroesophageal reflux disease , SVT, remote history of seizures, obstructive sleep apnea, coronary artery disease with a coronary b ypass graft, aortic valve replacement and a gastric ulcer in the past as well as hypertension. He pr esented with complaints of feeling unwell. He is on Coumadin. His INR was quite high. He was seen in the emergency room, found to be hypotensive. Hemoglobin and hematocrit revealed significant anemi a, and patient was found to have a melenic stool. He was subsequently admitted to the intensive care unit. Currently, he is resting comfortably awaiting GI evaluation. REVIEW OF SYSTEMS: A 10-point review of systems is performed. Negative, except for what is listed i n HPI. ALLERGIES: Gentamicin and penicillin. MEDICATION: Medications at home include: 1. Coumadin. 2. Lasix. 3. Aspirin. 4. Mycophenolate. FAMILY HISTORY: Significant for coronary artery disease. PAST MEDICAL HISTORY: Again, significant for gastric ulcer, hypertension, coronary artery disease, a trial fibrillation, obstructive sleep apnea for which he is noncompliant with CPAP, interstitial lung disease and bronchiectasis for which he is on mycophenolate, chronic respiratory failure for which sasha cohen is on supplemental oxygen 24/7, stroke, SVT, [id number] diabetes, gastroesophageal reflu x disease. SOCIAL HISTORY: Previous smoker, none for many years. No significant alcohol use. Work history: Sasha cohen is retired. He is , lives with his . They have no children. He has excellent family s upport. OBJECTIVE: VITAL SIGNS: On physical exam, blood pressure is 111/54, pulse is 71, respirations 18, t emperature is 36.8. Oxygen saturation 100% on 3 liters nasal cannula. GENERAL: He is a mildly over weight but very pleasant 68-year-old white male who is resting comfortably in no acute distress. YOLANDA NT: Eyes are PERRLA, EOMI. Throat shows no erythema or tonsillar hypertrophy. NECK: Supple. No c ervical adenopathy. CARDIAC: Heart is regular rate and rhythm with a 2/6 systolic murmur at the lef t sternal border without radiation. RESPIRATORY: Lungs show diminished breath sounds, a few bibasil ar crackles. There is no wheeze. ABDOMEN: Soft, nontender. Bowel sounds are present in all 4 quad rants. EXTREMITIES: No clubbing, cyanosis or edema. LABORATORIES: White count is 10.8, hemoglobin is 7.1, hematocrit 23, platelet count is 205. INR is 1.79. Sodium 139, potassium 4.4, chloride 113, CO2 is 23, BUN 63, creatinine 1.0, glucose is 92. Chest x-ray shows congestive heart failure with interstitial lung disease. IMPRESSION: 1. Gastrointestinal bleed, likely upper. 2. A history of gastroesophageal reflux disease as well as a gastric ulcer. 3. Bronchiectasis. Possible hypersensitivity pneumonitis for which he is followed at [facility] and on mycophenolate. 4. Chronic respiratory failure. 5. Oxygen dependence. 6. Acute blood-loss anemia secondary to gastrointestinal bleed. 7. Supratherapeutic international normalized ratio. This is likely the cause of his acute blood-los s anemia and gastrointestinal bleed. 8. Coronary artery disease. 9. Obstructive sleep apnea. 10. Diabetes. 11. Hypertension. RECOMMENDATIONS: 1. Close cardiovascular monitoring. 2. Follow H and H closely. 3. GI to see the patient. 4. Continue supplemental oxygen. 5. , both, albuterol and Atrovent. 6. Judicious restarting of Coumadin. 7. NPO for now. /[id number]/MODL
[2018-10-29] MEDS ORDERED: LIDOCAINE 2% 5 ML SDV ONE (16:46)
[2018-10-29] MEDS ORDERED: MIDAZOLAM 2 MG/2 ML VIAL ONE (16:46)
[2018-10-29] MEDS ORDERED: PROPOFOL/EMULSION 500 MG/50 ML BOTTLE IV ONE (16:46)
[2018-10-29] MEDS ORDERED: LR 1,000 ML IV ONE (16:53)
[2018-10-29] MEDS ORDERED: NALOXONE HCL 0.4 MG/ML INJ IVP PRN (17:33)
[2018-10-29] MEDS ORDERED: fentaNYL 100 MCG/2 ML INJ IVP PRN (17:33)
[2018-10-29] MEDS ORDERED: ALBUTEROL 3 ML DEYVIAL IH PRN (17:33)
--- NOTE | 2018-10-29 17:33 | PDANEPAE ---
ANE History of Present Illness egd ANE Past Medical History - Cardiovascular History Hx Hypertension: Yes Hx Arrhythmias: Yes Hx Chest Pain: Yes Hx Coronary Artery / Peripheral Vascular Disease: Yes Hx CHF / Valvular Disease: Yes Hx Palpitations: No Cardiovascular History Comment: aortic insuff & stenosis. htn. murmur. svt. pericarditis. ablation with chad 11/19/12 - Pulmonary History Hx COPD: No Hx Asthma/Reactive Airway Disease: Yes Hx Recent Upper Respiratory Infection: No Hx Oxygen in Use at Home: Yes O2 in Use at Home (L/minute): 3 Hx Sleep Apnea: No Sleep Apnea Screening Result - Last Documented: Positive Pulmonary History Comment: laeh positive uses o2. asthma. interstitial lung disease. lung nodule 02/2015 - Neurologic History Hx Cerebrovascular Accident: Yes Hx Seizures: No Hx Dementia: No Neurologic History Comment: cva in november 2017 when he was in [place]- left sided weakness with hx of falls- last one being 2.4 weeks ago - Endocrine History Hx Diabetes: Yes Endocrine History Comment: type 2 - Renal History Hx Renal Disorders: No - Liver History Hx Hepatic Disorders: No - Neurological & Psychiatric Hx Hx Neurological and Psychiatric Disorders: No - Cancer History Hx Cancer: No - Congenital Disorder History Hx Congenital Disorders: No - GI History Hx Gastrointestinal Disorders: Yes Gastrointestinal History Comment: GERD - Other Health History Other Health History: wears glasses. 2 scabs on knees from falling - Chronic Pain History Chronic Pain: No - Surgical History Prior Surgeries: bilateral cataract surgery 04/2018. bilateral TKA. cardiac ablation. bleeding ulcer cauterized 2007 ANE Review of Systems Review of Systems: - Exercise capacity Exercise capacity: <4 METS ANE Patient History - Allergies Allergies/Adverse Reactions: gentamicin sulfate [From Garamycin] Allergy (Verified 10/28/18 19:52) Rash Penicillins Allergy (Verified 10/28/18 19:52) Swelling/neck,face,throat gentamicin sulfate Allergy (Unknown, Uncoded 10/28/18 19:52) Rash - Home Medications Home Medications: Aspirin [Aspirin 81mg (*)] 81 mg PO DAILY 05/16/18 [Last Taken 10/28/18] Furosemide [Lasix 20 MG (*)] 40 mg PO DAILY@1500 10/28/18 [Last Taken 10/28/18 15:00] Warfarin Sodium [Coumadin 3MG (*)] 6 mg PO MOWETHSA@16 10/28/18 [Last Taken 01/10] Warfarin Sodium [Coumadin 3MG (*)] 9 mg PO SUTUFR@1600 10/28/18 [Last Taken 12/10] - NPO status NPO Since - Liquids (Date): 10/29/18 NPO Since - Liquids (Time): 14:00 NPO Since - Solids (Date): 10/29/18 NPO Since - Solids (Time): 00:00 - Smoking Hx Smoking Status: Former smoker - Alcohol Use Alcohol Use: Sober - Family Anes Hx Family Hx Anesthesia Complications: none ANE Labs/Vital Signs - Labs Result Diagrams: 10/29/18 15:20 10/29/18 06:01 - Vital Signs Blood Pressure: 110/69 Heart Rate: 68 Respiratory Rate: 14 O2 Sat (%): 99 Height: 177.8 cm Weight: 100.698 kg ANE Physical Exam - Airway Mallampati Score: Class 2 Mouth exam: normal dental/mouth exam - Pulmonary Pulmonary: no respiratory distress - Cardiovascular Cardiovascular: regular rate and rhythym - ASA Status ASA Status: II ANE Anesthesia Plan Anesthesia Plan: GA with mask
--- NOTE | 2018-10-29 17:33 | POSTANESTH ---
Post Anesthetic Evaluation Cardiovascular Status: Normal, Stable Respiratory Status: Normal, Stable Level of Consciousness/Mental Status: Can Participate in Eval Pain Control: Adequate, Prn Tx Ordered Nausea/Vomiting Control: Adequate, Prn Tx Ordered Complications Possibly Related to Anesthesia: None Noted
--- NOTE | 2018-10-29 17:45 | GIREPORT ---
Formerly [facility], Later [facility] Surgical [facility] - Endoscopy Department Patient Name: Quentin Weathers Procedure Date: 10/29/2018 4:52 PM Patient Type: Inpatient Attending MD/ ER Physician: Jake Hickman MD Procedure: Upper GI endoscopy Indications: Acute post hemorrhagic anemia, Melena Providers: Jake Hickman MD Referring MD: Frantz Medley MD Medicines: Propofol per Anesthesia Complications: No immediate complications. Estimated blood loss: Minimal. Description of Procedure: After obtaining informed consent, the endoscope was passed under direct vision. Throughout the procedure, the patient's blood pressure, pulse, and oxygen saturations were monitored continuously. The Endoscope was intro duced through the mouth, and advanced to the third part of duodenum. The uppe r GI endoscopy was accomplished without difficulty. The patient tolerated th e procedure well. Findings: LA Grade B (one or more mucosal breaks greater than 5 mm, not extending between the tops of two mucosal folds) esophagitis with no bleeding was found at the gastroesophageal junction. Scattered moderate inflammation characterized by congestion (edema), erosions, erythema and shallow ulcerations was found in the gastric bod y and in the gastric antrum. Biopsies were taken with a cold forceps for histology. Estimated blood loss was minimal. One non-bleeding cratered duodenal ulcer with a flat pigmented spot (Fo rrest Class IIc) was found in the duodenal bulb. The lesion was 10 mm in larg est dimension. For hemostasis, four hemostatic clips were successful and on e hemostatic clip was unsuccessfully placed (MR conditional). There was n o bleeding during, or at the end, of the procedure. One non-bleeding superficial duodenal ulcer with no stigmata of bleedin g was found in the duodenal bulb. The lesion was 8 mm in largest dimension. The second portion of the duodenum and third portion of the duodenum we re normal. The exam was otherwise without abnormality. Estimated Blood Loss: Estimated blood loss was minimal. Post Op Diagnosis: - LA Grade B reflux esophagitis. - Gastritis. Biopsied. - One non-bleeding duodenal ulcer with a flat pigmented spot (Esdras C lass IIc). Clips (MR conditional) were placed. - One non-bleeding duodenal ulcer with no stigmata of bleeding. - Normal second portion of the duodenum and third portion of the duoden um. - The examination was otherwise normal. Recommendation: - Await pathology results. IF no h pylori, then check serum Ab and lito t if positive. - My office will call with the pathology result with 5-7 days. If you h ave not heard from my office by 12-14, do not assume the pathology is guy l, please call [phone] to get the pathology results. - Use Protonix (pantoprazole) 40 mg PO BID for 2 weeks. Then daily for total of 8 weeks - may need penitentiary acid suppression to prevent ulcers from recurring. - Clear liquid diet. If stable can advance in morning - Return patient to hospital ba for ongoing care. - Thank you for allowing me to help in your patient's care. Do not hesi hammond to call with any questions. Attending Participation: I personally performed the entire procedure. Vick Cuellar M.D Jake Hickman MD 10/29/2018 5:45:06 PM This report has been signed electronicallyMattkobe Hickman MD Number of Addenda: 0 Note Initiated On: 10/29/2018 4:52 PM [email or web address]
[2018-10-30] MEDS: CETIRIZINE 10 MG TAB PO SCH ×2 (00:02→20:06)
[2018-10-30] MEDS: PANTOPRAZOLE SODIUM 40 MG VIAL IVP SCH ×4 (04:31→20:07)
--- NOTE | 2018-10-30 05:48 | GCON ---
[f rep st] CONSULTATION DATE OF CONSULTATION: 10/29/2018 REFERRING PHYSICIAN: Marvin Bynum MD INDICATION FOR CONSULTATION: I have been asked by Dr. Bynum to see this patient in consultation for chief complaint of post hemorrhagic anemia, melena, and history of gastric ulcer. This is a pleasant 68-year-old male who has significant past medical history for coronary disease sta tus post CABG, hypertension, obstructive sleep apnea, history of gastric ulcer about 10 years ago, wh ich supposedly required cautery. He also has history of atrial fibrillation on chronic Coumadin, and interstitial lung disease on 3 L of oxygen chronically. His INRs have been over the board for the l ast number weeks and actually just last week was as high as 4.8. He was brought to the hospital by h is for evaluation of weakness, dyspnea, and difficulty walking since approximately 4 days ago. He says he fell a couple times in the last 2 days. He denies any nausea, vomiting, dysphagia, odynop hagia, or early satiety. On questioning, he has had some black stools for a number of days. Laborat ory studies showed a significant post hemorrhagic anemia and admitted for treatment of the above and I was called to help in treatment in that regard. PAST MEDICAL HISTORY: Coronary disease status post CABG, atrial fibrillation on chronic Coumadin, in terstitial lung disease on chronic oxygen, hypertension, diabetes, GERD, obstructive sleep apnea, and CVA with some residual left leg weakness and slight left arm weakness. SURGICAL HISTORY: Includes a bypass on June 05, 2018, an AVR for which he is on anticoagulation , again 06/05/2018, bilateral knee arthroplasties, cataract removal. FAMILY HISTORY: There is no family history of colon cancer, colon polyps to his knowledge. SOCIAL HISTORY: He is a former smoker. He does not drink. He is , lives with his . MEDICATIONS: At home include baby aspirin, Lasix 20 mg, and Coumadin takes 6 mg on Sunday, Sunday , , Sunday, and 9 mg on Sunday, Sunday, and Sunday. In hospital, he is written for Tyleno l, Benadryl p.r.n., Zofran p.r.n., Protonix 40 mg IV q.6. He has also received vitamin K for reversa l agents. ALLERGIES: He says he has allergies to Garamycin, although is currently this is gentamicin. He does have an allergy to penicillin with swelling neck, face, and throat. REVIEW OF SYSTEMS: A complete review of systems performed. Is negative other than noted in the HPI. Other pertinent negatives include no chest pain, palpitations, diaphoresis. Pertinent positives no in the HPI includes shortness of breath, melanic stools, weakness. PHYSICAL EXAM: GENERAL: Well-developed, well-nourished male sitting in his bed. No acute distress. VITAL SIGNS: Blood pressure is 113/64, pulse is 69, respirations are 18. 98% on 3 L nasal cannula . Temperature is 37. EYES: Anicteric. ANGELITA, EOMI. MOUTH: No lesions. Moist membranes. NECK: Supple. Full range of motion. No JVD. BACK: No spine tenderness. No CVA tenderness. LUNGS: Klaus ar. CARDIAC: S1, S2, regular. No murmurs, rubs, or gallops appreciated. ABDOMEN: Bowel sounds ar e normal pitch and frequency. Soft, nontender. No hepatosplenomegaly. EXTREMITIES: 1 to 2+ pittin g edema. No cyanosis. NEUROLOGIC: Cranial nerves intact, nonfocal. SKIN: No stigmata of advanced liver disease, no rashes. LABORATORY DATA: From yesterday, WBC 10.65, hemoglobin 7.5, hematocrit 25.9, platelet count 275. He moglobin dropped down to 6.4, it is up to 7.1 this morning. From yesterday, ProTime 37.9, INR 3.90, PTT 40.0. From this morning, PT 20.9, INR 1.79. From today, sodium 139, potassium 4.4, chloride 113 , bicarb 23, BUN 63, creatinine 1.0, glucose 90, calcium 7.02, total bilirubin 0.7, AST 15, ALT 25, a lkaline phosphatase 97, total protein 4.4, albumin 2.4. BNP from October 28 was 1,230. Chest x-ra y from October 28 reveals congestive heart failure superimposed on underlying interstitial lung dis ease and suspected COPD. Historical data: On July 02, 2018, his hemoglobin was 9.9, hematocrit 32.4. The same day, BUN was 16, creatinine 0.8. ASSESSMENT: 1. Posthemorrhagic anemia. 2. Melena. 3. Long-term use of aspirin. 4. Coronary disease status post bypass and valvular surgery. 5. Long-term anticoagulation. Over-anticoagulated on admission. 6. Interstitial lung disease. 7. Long-term oxygen use. RECOMMENDATIONS: 1. Urgent EGD with anesthesia for evaluation of presumed upper GI bleed related to peptic ulcer dise ase. 2. Serial H and H. Keep hemoglobin greater than 7. 3. Treatment of his other multiple medical issues as per hospitalist. 4. If he does peptic ulcer disease and biopsies not reveal H-pylori, I would recommend check H-pylor i serum antibody and treat for eradication. 5. If he does have peptic ulcer disease, he will likely need long-term anticoagulation given his asp irin use and Coumadin use, and history of peptic ulcer disease in the past. 6. Further recommendations to follow results above. Given the patient's medical history, this is a high-risk procedure. I will ask Anesthesia to be pres ent during the entire procedure for the safe completion of the EGD. Thank you for allowing me to participate in this patient's healthcare. Do not hesitate to call me wi th any questions. Copy requested to: Juanjo Medley Dr. /[id number]/MODL
[2018-10-30] MEDS ORDERED: hydrOXYzine HCL 25 MG TAB PO PRN (09:39)
--- NOTE | 2018-10-30 09:39 | PDINTPN ---
Travel Nurse Progress Note Assessment/Plan: Assessment/plan: * GI bleed-endoscopy found duodenal ulcer that was clipped. * Acute blood-loss anemia-H&H down this morning. -transfuse * Obstructive sleep apnea * Atrial fibrillation * Anticoagulation-was on Coumadin. -continue to hold * Pruritus-etiology which is unclear. On improved with Benadryl. -try Vistaril * Coronary disease * Interstitial lung disease-bronchiectasis * Diabetes-blood sugars under control Subjective: Resting comfortably. Still complains of severe itching. Objective: Vital Signs Temp Pulse Resp BP Pulse Ox 37.1 C 68 16 110/52 L 100 10/30/18 08:00 10/30/18 08:00 10/30/18 08:00 10/30/18 08:00 10/30/18 08:00 Laboratory Results 10/30/18 07:40 10/29/18 06:01 10/29/18 10/30/18 10/31/18 05:59 05:59 05:59 Intake Total 3050 Output Total 2150 Balance 900 PT 20.9 SEC (12.0-15.0) H 10/29/18 11:25 INR 1.79 (0.83-1.16) H 10/29/18 11:25 - Time Spent With Patient Time Spent With Patient: 35 min of time spent with patient, over 1/2 involved with coordination of care or counseling. Case discussed with nursing Physical Exam - Physical Exam General Appearance: alert, mild distress EENT: PERRL/EOMI Neck: non-tender, full range of motion Respiratory: chest non-tender, lungs clear, normal breath sounds, crackles (Few basilar), No wheezing Cardiac/Chest: normal peripheral pulses, regular rate, rhythm Peripheral Pulses: 2+: carotid (R), carotid (L), femoral (R), femoral (L), dorsalis-pedis (R), dorsalis-pedis (L) Abdomen: normal bowel sounds, non-tender, soft Male Genitalia: deferred Rectal: deferred Extremities: normal range of motion, non-tender, normal inspection, normal capillary refill Neuro/Psych: no motor/sensory deficits, alert, normal mood/affect, oriented x 3 ICD10 Worksheet Patient Problems: Problems Problem Status Onset Dyspnea Acute Upper GI bleeding Acute Weakness Acute Acute kidney injury Acute Left-sided weakness Acute S/P CABG x 1 Acute ~06/05/18 S/P aortic valve replacement with bioprosthetic valve Acute ~06/05/18 Aortic valve stenosis with insufficiency Chronic CAD in [place] artery Chronic Diabetes mellitus type 2, controlled Chronic History of stroke with residual deficit Chronic ILD (interstitial lung disease) Chronic Immunosuppression Chronic Nocturnal hypoxemia Chronic TYLER (obstructive sleep apnea) Chronic Pulmonary hypertension Chronic
[2018-10-30] MEDS: ALPRAZolam 0.25 MG TAB PO PRN ×2 (14:00→23:12)
--- NOTE | 2018-10-30 15:42 | ASMTCASEMG ---
Living Arrangements What is your living Answers: With Spouse arrangement? Who do you live with? Type Of Residence What kind of residence do Answers: House you live in? Discharge Plan Comments Coordination Status Comments Notes: Patient is a 68yo male with a hx of AFIB on Coumadin who presents with worsening fatigue, shortness of breath, acute on chronic left leg weakness and an episode of melanic stool. Patient is being admitted for upper GI bleed, acute blood loss anemia, hypotension, dyspnea, weakness, supratherapeutic INR, and hypoalbuminemia. Patient is full code. OT/PT evals have been ordered. D/C plan TBD. CM will follow. Date Signed: 10/30/2018 03:42 PM Electronically Signed By:Ghada Monk LCSW
--- NOTE | 2018-10-30 18:32 | SOAPPROG ---
[facility] Progress Note Assessment/Plan: Assessment:Plan: 1) DU - egd s/p clips - not sure if he has had rebleed, Hb dropped and BUN stable - had one melena this am and one in pm. ON PPI, if rebleeds may need repeat EGD 2) anemia - s/p one PRBC, keep HB > 7 3) diet - full liquids for now will follow 10/30/18 18:30 Subjective: cc- DU with UGI bleed and anemia pt w/o abdo pain no n/v two stools today both black Objective: Vital Signs Temp Pulse Resp BP Pulse Ox 37.0 C 67 19 112/64 100 10/30/18 12:00 10/30/18 16:00 10/30/18 16:00 10/30/18 16:00 10/30/18 16:00 Laboratory Results 10/30/18 15:58 10/29/18 06:01 10/29/18 10/30/18 10/31/18 05:59 05:59 05:59 Intake Total 3050 350 Output Total 2150 725 Balance 900 -375 PT 20.9 SEC (12.0-15.0) H 10/29/18 11:25 INR 1.79 (0.83-1.16) H 10/29/18 11:25 A+Ox3 CTA S Laboratory Tests 10/28/18 10/29/18 10/29/18 20:18 06:01 06:01 Hgb 6.9 L PT INR BUN 61 H 63 H Creatinine 1.0 1.0 10/29/18 10/29/18 10/29/18 08:20 11:25 15:20 Hgb 7.1 L 7.2 L PT 20.9 H INR 1.79 H BUN Creatinine 10/30/18 10/30/18 07:40 15:58 Hgb 6.8 L 7.6 L PT INR BUN Creatinine 1S2, RRR +BS soft nt ICD10 Worksheet Patient Problems: Problems Problem Status Onset Dyspnea Acute Upper GI bleeding Acute Weakness Acute Acute kidney injury Acute Left-sided weakness Acute S/P CABG x 1 Acute ~06/05/18 S/P aortic valve replacement with bioprosthetic valve Acute ~06/05/18 Aortic valve stenosis with insufficiency Chronic CAD in [place] artery Chronic Diabetes mellitus type 2, controlled Chronic History of stroke with residual deficit Chronic ILD (interstitial lung disease) Chronic Immunosuppression Chronic Nocturnal hypoxemia Chronic TYLER (obstructive sleep apnea) Chronic Pulmonary hypertension Chronic
[2018-10-31] MEDS: PANTOPRAZOLE SODIUM 40 MG VIAL IVP SCH ×4 (05:08→21:49)
--- NOTE | 2018-10-31 08:49 | ECHO ---
[email or web address] [address] [address] Main: [phone] Fax: Transthoracic Echocardiogram Name: GINA IGNACIO MR#: [id number] Study Date: 10/30/2018 Study Time: 03:21 PM Date of : 1950 Age: 68 year(s) Height: 177.8 cm (70 in.) Weight: 90.72 kg (200 lb.) BSA: 2.09 m2 Gender: Male Examination: Echo Indication: Aortic Valve Regurgitation, CABG x1 Image Quality: Technically Difficult Contrast: Requested by: Elizabeth Larson BP: 113 mmHg/57 mmHg Heart Rate: Rhythm: Indication: Aortic Valve Regurgitation, CABG x1 Procedure Staff Time Study Observer: Tricia Sanches RDCS Reading Physician: Jon Lou MD Requesting Provider: Conclusions: No effusion. Preserved LV systolic function. Mitral valve thickening. Normally functioning prosthetic aortic valve without significant regurgitation. Measurements: Chambers Valvular Assessment AV/MV Valvular Assessment TV/PV Normal Normal Normal Name Value Range Name Value Range Name Value Range Ao [place] (2D): 3.2 cm (1.4 cm-2.6 AV Vmax: 1.87 m/s (1 m/s-1.7 PV Vmax: 0.79 m/s (0.6 m/s-0.9 cm) m/s) m/s) IVSd (2D): 1.1 cm (0.6 cm-1.1 AV maxP mmHg ( - ) PV PGmax: 2 mmHg ( - ) cm) AV meanP mmHg ( - ) LVDd (2D): 4.5 cm (4.2 cm-5.9 PRATIK (VTI): 1.4 cm ( - ) cm) MV E Vmax: 1.30 m/s ( - ) LVDs (2D): 2.9 cm (2.1 cm-4 MV A Vmax: 1.05 m/s ( - ) cm) MV E/A: 1.24 ( - ) LVPWd (2D): 1.0 cm (0.6 cm-1 cm) MV meanP mmHg ( - ) LVOTd 1.9 cm 1.9 cm mm MV PHT: 0.075 s ( - ) Visual EF: 55 % MVA (Vmax): 1.2 m/s ( - ) RVDd(2D): 2.3 cm (1.9 cm-3.8 MVA (PHT): 2.9 s ( - ) cmmm) Continued Measurements: Chambers Valvular Assessment AV/MV Name Value Name Value LADs: 4.0 cm MV DecTime: 225 m/s LADs Lon.0 cm MV E' Septal: 0.10 m/s LA Area: 25.3 cm2 MV E/E' Septal: 13.00 MV E/E' Lateral: 13.00 Patient: IGNA IGNACIO Study Date: 10/30/2018 Page 1 of 2 03:21 PM MV VTI: 41.60 cm Additional Vessels Name Value Ao Ascendin.2 cm Findings: Left Ventricle: Normal size left ventricle. No LV hypertrophy. Normal global systolic LV function. The ejection fraction is visually estimated to be 55 %. Right Ventricle: Normal size right ventricle. Normal RV function. Left Atrium: The left atrium is mildly dilated. Right Atrium: The right atrium is normal in size. Mitral Valve: The mitral valve is normal in appearance and function. Mild mitral valve leaflet calcification is present. Trivial mitral valve regurgitation. No mitral stenosis is present. Aortic Valve: The aortic valve is a bioprosthesis. Normal functioning aortic valve prosthesis. The prosthetic aortic valve is normal. No prosthesis stenosis. No prosthesis regurgitation. Tricuspid Valve: The tricuspid valve is normal in appearance and function. Trivial tricuspid valve regurgitation. Pulmonic Valve: Pulmonary valve not well visualized. Aorta: The aorta is normal. Normal size aortic root measuring 3.2 cm. Normal size ascending aorta measuring 3.2 cm. Pericardium: No pericardial effusion. Exam Comments: Technically difficult exam, poor acoustic windows, patient supine. (No Signature Object) Patient: GINA IGNACIO Study Date: 10/30/2018 Page 2 of 2 03:21 PM [id number]
[2018-10-31 10:07] LABS: PLATELET COUNT 164 10^3/uL (150-400)
[2018-10-31] MEDS: ALPRAZolam 0.25 MG TAB PO PRN ×2 (11:33→22:39)
[2018-10-31] MEDS ORDERED: BUDESONIDE/FORMOTEROL 160/4.5 60 PUFFS/MDI IH PRN (13:45)
[2018-10-31] MEDS ORDERED: POLYETHYLENE GLYCOL 3350 17 GM PKT PO PRN (13:45)
[2018-10-31] MEDS ORDERED: ALBUTEROL 60 PUFFS/8 GM MDI IH PRN (13:45)
[2018-10-31] MEDS ORDERED: IPRATROPIUM 0.06% NASAL SPRAY EACHNARE PRN (13:45)
--- NOTE | 2018-10-31 13:55 | HOSPPROG ---
Hospitalist Progress Note Assessment/Plan: DIAGNOSES: * Acute upper GI bleed (bleeding gastric ulcer w visible vessel, several other ulcers; prior hx of gastric ulcer needing cautery) * excessive anticoagulation (coumadin for chronic AFib) * Acute CHF, R sided, ?also some diastolic L CHF * Acute Hypoxemic resp failure; dyspnea on exertion worsening over period of 4- 6 weeks due to CHF, also has bronchiectasis/hypersenstivity pneumonitis/ILD/ TYLER (not tolerant of cpap so not using) * severe pruritis x weeks, scratching - ? cause; no visible underlying skin process * ? pericardial abnormality on CXR? (none mentioned on prior echo's or heart surgery op note) * DM2 * hx of CVA w residual L side weakness * hx if sz disorder, no longer on meds * hx of Afib post ablation; chornic anticoag * Alcoholism, 8 months sober PLANS: * follow hemodynamics, Hg closely * off anticoag for now * bid PPI * diet per gi recommendations * start iv lasix diuresis at preset * increase activity * usual bronchodilators * reviewed cxr findings with Dr Long; recommends high resolution CT to assess pericardium * hydroxyzine for pruritis Ongoing inpatient care now for treatment of R side CHF, monitoring for any rebleed from ulcer SUBJECTIVE: Feels well with no abdominal pain or nausea or vomiting Has not passed any more stools or blood Not lightheaded, no shortness of breath or chest pain OBJECTIVE Vitals reviewed: normal BP, P, R, no fevers First Leveler, my review: sinus Exam: alert oriented skin warm dry color ok resps not labored lungs clear BSs heart regular abd soft nondistended nontender, bowel sounds present limbs warm, no edema iv site ok Lab data: Hemoglobin up from 6.8 to 7.8 after unit of RBCs yesterday Creatinine stable, lytes ok Objective: Vital Signs Temp Pulse Resp BP Pulse Ox 36.8 C 82 12 123/72 H 96 10/31/18 11:45 10/31/18 11:45 10/31/18 11:45 10/31/18 11:45 10/31/18 11:45 Laboratory Results 10/31/18 09:16 10/31/18 09:16 10/30/18 10/31/18 11/01/18 06:59 06:59 06:59 Intake Total 3050 550 Output Total 2150 1050 Balance 900 -500 PT 20.9 SEC (12.0-15.0) H 10/29/18 11:25 INR 1.79 (0.83-1.16) H 10/29/18 11:25 - Time Spent With Patient Time Spent with Patient: greater than 35 minutes Time Spent with Patient: Greater than 35 minutes spent on this patients care, greater than 50% of time spent counseling, educating, and coordinating care regarding the above mentioned plan. ICD10 Worksheet Patient Problems: Problems Problem Status Onset Dyspnea Acute Upper GI bleeding Acute Weakness Acute Acute kidney injury Acute Left-sided weakness Acute S/P CABG x 1 Acute ~06/05/18 S/P aortic valve replacement with bioprosthetic valve Acute ~06/05/18 Aortic valve stenosis with insufficiency Chronic CAD in [place] artery Chronic Diabetes mellitus type 2, controlled Chronic History of stroke with residual deficit Chronic ILD (interstitial lung disease) Chronic Immunosuppression Chronic Nocturnal hypoxemia Chronic TYLER (obstructive sleep apnea) Chronic Pulmonary hypertension Chronic
[2018-10-31] MEDS ORDERED: NON-FORMULARY NEW DRUG IH PRN (14:00)
[2018-10-31] MEDS: metFORMIN HCL 500 MG TAB PO SCH (14:33)
[2018-10-31] MEDS: FUROSEMIDE 40 MG/4 ML VIAL IVP SCH (14:33)
[2018-10-31] MEDS: METOPROLOL SUCCINATE XR 25 MG TAB PO SCH (14:34)
--- NOTE | 2018-10-31 15:01 | ASMTCMCOM ---
CM Note CM Note Notes: Today OT rec home, PT rec home/outpatient and therapies rec pt continue with cardiac rehab. Anticipate pt will d/c home with when medically stable. CM to follow. D/c plan of care: likely Independent Date Signed: 10/31/2018 03:01 PM Electronically Signed By:LINDSEY Parker
[2018-10-31] MEDS: IPRATROPIUM/ALBUTEROL 3 ML DEYVIAL IH SCH ×2 (15:30→22:50)
[2018-10-31] MEDS ORDERED: LIDOCAINE 4%/MENTHOL 1% PATCH TD ONE (17:30)
--- NOTE | 2018-10-31 20:25 | SOAPPROG ---
[facility] Progress Note Assessment/Plan: Assessment:Plan: 1) DU - egd s/p clips - not sure if he has had rebleed, Hb dropped and BUN stable - had one melena this am and one in pm. ON PPI, if rebleeds may need repeat EGD 2) anemia - s/p one PRBC, keep HB > 7 3) diet - full liquids for now will follow 10/30/18 18:30 10/31/18 20:22 1) DU - BUN down, HB up c/w no bleeding. PPI bid for 2 weeks then daily prob oysterman 2) anemia - hb going up no need for PRBC 3) diet - ADAT will sign off please recall if needed Subjective: CC - UGI bleed form DU s/p EGD and clips feeling well had one black stool today - expect will turn brown in few days Objective: Vital Signs Temp Pulse Resp BP Pulse Ox 36.4 C 82 15 133/79 H 92 10/31/18 19:19 10/31/18 19:19 10/31/18 19:19 10/31/18 19:19 10/31/18 19:19 Laboratory Results 10/31/18 09:16 10/31/18 09:16 10/30/18 10/31/18 11/01/18 05:59 05:59 05:59 Intake Total 3050 550 480 Output Total 2150 1050 900 Balance 900 -500 -420 PT 20.9 SEC (12.0-15.0) H 10/29/18 11:25 INR 1.79 (0.83-1.16) H 10/29/18 11:25 A+Ox3 CTA S1S2 +BS soft nt Laboratory Tests 10/29/18 10/30/18 10/30/18 06:01 07:40 15:58 Hgb 6.8 L 7.6 L BUN 63 H Creatinine 1.0 10/31/18 10/31/18 09:16 09:16 Hgb 7.8 L BUN 16 Creatinine 0.7 ICD10 Worksheet Patient Problems: Problems Problem Status Onset Dyspnea Acute Upper GI bleeding Acute Weakness Acute Acute kidney injury Acute Left-sided weakness Acute S/P CABG x 1 Acute ~06/05/18 S/P aortic valve replacement with bioprosthetic valve Acute ~06/05/18 Aortic valve stenosis with insufficiency Chronic CAD in [place] artery Chronic Diabetes mellitus type 2, controlled Chronic History of stroke with residual deficit Chronic ILD (interstitial lung disease) Chronic Immunosuppression Chronic Nocturnal hypoxemia Chronic TYLER (obstructive sleep apnea) Chronic Pulmonary hypertension Chronic
[2018-10-31] MEDS: CETIRIZINE 10 MG TAB PO SCH (21:50)
[2018-10-31] MEDS: GABAPENTIN 300 MG CAP PO SCH (21:50)
[2018-10-31] MEDS: MYCOPHENOLATE MOFETIL 250 MG CAP PO SCH (21:50)
[2018-11-01] MEDS: PANTOPRAZOLE SODIUM 40 MG VIAL IVP SCH ×2 (04:42→09:46)
[2018-11-01] MEDS: IPRATROPIUM/ALBUTEROL 3 ML DEYVIAL IH SCH ×3 (05:42→11:28)
[2018-11-01] MEDS ORDERED: ALLOPURINOL 300 MG TAB PO SCH (09:00)
[2018-11-01] MEDS ORDERED: ATORVASTATIN CALCIUM 40 MG TAB PO SCH (09:00)
[2018-11-01] MEDS ORDERED: CITALOPRAM 20 MG TAB PO SCH (09:00)
[2018-11-01] MEDS: MYCOPHENOLATE MOFETIL 250 MG CAP PO SCH (09:22)
[2018-11-01] MEDS: GABAPENTIN 300 MG CAP PO SCH (09:24)
[2018-11-01] MEDS: METOPROLOL SUCCINATE XR 25 MG TAB PO SCH (09:25)
[2018-11-01] MEDS: metFORMIN HCL 500 MG TAB PO SCH (09:29)
[2018-11-01] MEDS: FUROSEMIDE 40 MG/4 ML VIAL IVP SCH (09:30)
[2018-11-01] MEDS: ALPRAZolam 0.25 MG TAB PO PRN (09:51)
[2018-11-01 11:38] VITALS: BP 122/68
--- NOTE | 2018-11-01 12:30 | PDDCSUM ---
Discharge Summary Discharge Summary: DISCHARGE DIAGNOSES: * Acute upper GI bleed * Bleeding gastric ulcer with visible vessel * Multiple gastric ulcers, NSAID induced * Post hemorrhagic anemia requiring transfusion of 3 red cells; 1 transfusion FFP given because of anticoagulation * Excessive anticoagulation INR 3.9 at admission, on Coumadin chronically for AFib * Acute right-sided congestive heart failure * Acute on chronic hypoxemic respiratory failure * Type 2 diabetes mellitus * Lung disease including sleep apnea, interstitial lung disease, bronchiectasis , and hypersensitivity pneumonitis * History of stroke * History of seizure * History of alcoholism, now 8 months sober CONSULTANTS: Dr. Jake Long PROCEDURES: EGD, cautery and clipping of visible vessel and a bleeding gastric ulcer HOSPITAL COURSE SUMMARY: This patient who has chronic heart and lung disease came in complaining of gradually worsening fatigue weakness shortness of breath having difficulty walking. He noted having melenic stools. There was melenic stool here. The patient had initial hemoglobin of 7 and mildly hypotensive at 94/51. He had some mild right-sided congestive heart failure acutely and had INR 3.9 due to his Coumadin. The patient was admitted the hospital and had his Coumadin reversed, receive some red blood cell transfusion. He continued to have decrease in his hemoglobin even after transfusions so received further transfusions. He underwent esophagogastroduodenoscopy showing multiple gastric ulcers including a bleeding lesion with visible vessel. This was cauterized and clipped. Hemostasis was achieved and there is no sign of further bleeding after that. In all he received 3 units of red blood cells. He required some diuresis after this but otherwise has been fairly stable. As his INR was high his Coumadin is stopped at this time and he has been given FFP for reversal of his anticoagulation. Is recommended he stay off anticoagulation for another 2 weeks. The patient was taking the some nonsteroidal anti-inflammatory medicine prior to this admission. Notably he has a previous history of gastric bleeding ulcers from NSAIDs. Is strongly recommended that he not use NSAIDs in the future. He will need 8 weeks of twice daily Protonix, followed by daily Protonix after that as he will need to stay on anticoagulation. At this time he is stable for discharge to home. Follow up with his primary care physician in 2 4 weeks. PENDING TEST RESULTS: None MEDICATION CHANGES: Addition of Protonix 40 mg twice daily for 8 weeks; then once daily indefinitely due to prior history of bleeding ulcers Stay off anticoagulation for 2 weeks and then resume Coumadin as well as aspirin He is advised to avoid all nonsteroidal anti-inflammatory medicines indefinitely because of recurrent bleeding ulcers and need for Coumadin FOLLOW-UP PLAN: With primary care physician 2 - 4 weeks Greater than 35 minutes bedside and care coordination time today
--- NOTE | 2018-11-01 14:57 | ASMTDCNOTE ---
Case Management Discharge Discharge Order Complete? Answers: Yes Patient to Obtain Answers: Independently Medications Transportation Arranged Answers: Family/Friends Family Notified Answers: Yes Notes: , Gladys Discharge Comments Notes: Patient is discharging home independently today to follow up with his PCP in 2-4 weeks. Patient's will transport him home. No further needs. Date Signed: 11/01/2018 02:56 PM Electronically Signed By:Ghada Monk LCSW
--- NOTE | 2018-11-01 15:00 | ASDISCHSUM ---
Discharge Information Plan Status:Home with No Needs Medically Cleared to Leave:10/31/2018 Discharge Date:10/31/2018 CM D/C Disposition:Home, Routine, Self-Care ADT D/C Disposition:Home, Routine, Self-Care Projected Discharge Date:11/01/2018 12:00 AM Transportation at D/C:Family Discharge Delay Reason: Follow-Up Date:11/01/2018 12:00 AM Discharge Slot:2 - 12:01 pm - 18:00 pm Final Diagnosis:GI bleed, congestive heart failure Placement Information Patient Contact Information Contact Name:LATASHA Relationship: Address:[address] City:[place] Alternate Phone: [facility]/Zip Code:[place] [address] Email: Financial Information Financial Class:HMO and PPO Plans Primary Plan Desc:[facility] Primary Plan Number:[id number] Secondary Plan Desc: Secondary Plan Number: Assessment Information LACE LACE Length of stay for Answers: 4-6 days current admission Acuity / Level of Answers: Yes Care: Did the patient have an inpatient admission? Comorbidities - select Answers: Cerebrovascular disease all that apply (CVA, TIA, aneurysms, vasc ular dementia) Coronary Artery Disease Diabetes (uncontrolled or controlled) Other Notes: AFib; HTN # of Emergency department Answers: 1-2 visits in the last 6 months Score: 13 Date Signed: 11/01/2018 02:57 PM Electronically Signed By:Ghada Monk LCSW [facility] Initial CM Assessment Living Arrangements What is your living Answers: With Spouse arrangement? Who do you live with? Type Of Residence What kind of residence do Answers: House you live in? Discharge Plan Comments Coordination Status Comments Notes: Patient is a 68yo male with a hx of AFIB on Coumadin who presents with worsening fatigue, shortness of breath, acute on chronic left leg weakness and an episode of melanic stool. Patient is being admitted for upper GI bleed, acute blood loss anemia, hypotension, dyspnea, weakness, supratherapeutic INR, and hypoalbuminemia. Patient is full code. OT/PT evals have been ordered. D/C plan TBD. CM will follow. Date Signed: 10/30/2018 03:42 PM Electronically Signed By:Ghada Monk LCSW [facility] CM Progress Note CM Note CM Note Notes: Today OT rec home, PT rec home/outpatient and therapies rec pt continue with cardiac rehab. Anticipate pt will d/c home with when medically stable. CM to follow. D/c plan of care: likely Independent Date Signed: 10/31/2018 03:01 PM Electronically Signed By:LINDSEY Parker Case Management Discharge Plan Note Case Management Discharge Discharge Order Complete? Answers: Yes Patient to Obtain Answers: Independently Medications Transportation Arranged Answers: Family/Friends Family Notified Answers: Yes Notes: Gladys Discharge Comments Notes: Patient is discharging home independently today to follow up with his PCP in 2-4 weeks. Patient's will transport him home. No further needs. Date Signed: 11/01/2018 02:56 PM Electronically Signed By:Ghada Monk LCSW Intervention Information
== END 2018-11-01 16:10 | disposition home or self-care (01) | DRG 377 ==
LOC: F2N 10-29 08:56 → F2W 10-30 21:17
PROVIDERS: ADMIT Family Medicine; ATTEND Internal Medicine
DX: K92.2 Gastrointestinal hemorrhage, unspecified (principal); J96.21 Acute and chronic respiratory failure with hypoxia; K26.7 Chronic duodenal ulcer without hemorrhage or perforation; K25.7 Chronic gastric ulcer without hemorrhage or perforation; D62 Acute posthemorrhagic anemia; J84.9 Interstitial pulmonary disease, unspecified; I50.811 Acute right heart failure; T39.395A Adverse effect of other nonsteroidal anti-inflammatory drugs [NSAID], initial encounter; J47.9 Bronchiectasis, uncomplicated; I69.354 Hemiplegia and hemiparesis following cerebral infarction affecting left non-dominant side; I25.10 Atherosclerotic heart disease of native coronary artery without angina pectoris; K21.0 Gastro-esophageal reflux disease with esophagitis; R93.1 Abnormal findings on diagnostic imaging of heart and coronary circulation; R79.1 Abnormal coagulation profile; I48.2 Chronic atrial fibrillation; L29.9 Pruritus, unspecified; I11.0 Hypertensive heart disease with heart failure; E11.9 Type 2 diabetes mellitus without complications; G47.33 Obstructive sleep apnea (adult) (pediatric); F10.11 Alcohol abuse, in remission; Z79.1 Long term (current) use of non-steroidal anti-inflammatories (NSAID); Z79.01 Long term (current) use of anticoagulants; Z95.1 Presence of aortocoronary bypass graft; Z98.41 Cataract extraction status, right eye; Z98.42 Cataract extraction status, left eye; Z96.1 Presence of intraocular lens; Z96.653 Presence of artificial knee joint, bilateral; Z95.2 Presence of prosthetic heart valve; Z87.891 Personal history of nicotine dependence; Z91.81 History of falling; Z99.81 Dependence on supplemental oxygen; Z79.82 Long term (current) use of aspirin
CPT/HCPCS: 84484-ER; 96365; 97116-GP; 97161-GP; 97166-GO; 97530-GO; 97535-GO; J1200; J1940; J2250; J2704; J3430; P9016; P9017

== ENCOUNTER 2018-11-08 13:04 | Inpatient (IN) | payer OTHER ==
--- NOTE | 2018-11-08 13:25 | EDPHY ---
H & P Stated Complaint: Sent by M.D./ fatigue Time Seen by Provider: 11/08/18 13:25 - Personal History Current Tetanus/Diphtheria Vaccine: Yes - Medical/Surgical History Hx Asthma: No Hx Chronic Respiratory Disease: Yes Hx Diabetes: Yes Hx Cardiac Disease: Yes Hx Renal Disease: No Hx Cirrhosis: No Hx Alcoholism: Yes Hx HIV/AIDS: No Hx Splenectomy or Spleen Trauma: No Other PMH: bilat knee replacement, BRONCHIECTASIS. cardiac ablation Dr Corrales, for abnormalities on the heart wall. ulcer of the stomach-cauterized, cva, aortic valve replacement, cabg, HTN, sleep apnea. - Social History Smoking Status: Former smoker Constitutional: Initial Vital Signs Temperature (C) 36.3 C 11/08/18 13:14 Heart Rate 72 11/08/18 13:14 Respiratory Rate 18 11/08/18 13:14 Blood Pressure 138/83 H 11/08/18 13:14 O2 Sat (%) 94 11/08/18 13:14 O2 Delivery Mode Room Air Allergies/Adverse Reactions: gentamicin sulfate [From Garamycin] Allergy (Verified 11/08/18 13:17) Rash Penicillins Allergy (Verified 11/08/18 13:17) Swelling/neck,face,throat gentamicin sulfate Allergy (Unknown, Uncoded 11/08/18 13:17) Rash Home Medications: Medication Instructions Recorded Polyethylene Glycol 3350 [Miralax 17 gm PO DAILY PRN pkt 06/10/18 17 gm (*)] Albuterol [Proventil Inhaler HFA 1 - 2 puffs IH DAILY PRN #1 mdi 07/04/18 (*)] Allopurinol [Allopurinol 300 MG 300 mg PO DAILY #30 tab 07/04/18 (RX)] Atorvastatin Calcium [Lipitor 40 40 mg PO DAILY #30 tab 07/04/18 mg (*)] Budesonide/Formoterol 160/4.5 1 puffs IH BID PRN #1 mdi 07/04/18 [Symbicort 160-4.5 Mcg Inh (*)] Citalopram Hydrobromide 40 mg PO DAILY #30 tablet 07/04/18 [Citalopram HBr] Furosemide [Lasix 40 MG (*)] 40 mg PO DAILY #30 tab 07/04/18 Gabapentin [Neurontin 300 MG (*)] 300 mg PO BID #60 cap 10/11/18 Ipratropium 0.06% Nasal [Atrovent 1 - 2 sprays EACHNARE QID PRN #1 07/04/18 0.06% Nasal] mdi Metoprolol Succinate Xr [Toprol Xl 12.5 mg PO DAILY #15 tab 07/04/18 25 mg (*)] Mycophenolate Mofetil [Cellcept] 1,500 mg PO BID #60 tablet 07/04/18 Potassium Cl [Klor-Con 20 meq (*)] 20 meq PO DAILY #30 tab 07/04/18 metFORMIN HCL [Glucophage 500 mg 500 mg PO DAILY #30 tab 07/04/18 (*)] Furosemide [Lasix 20 MG (*)] 40 mg PO DAILY@1500 10/28/18 Acetaminophen [Tylenol 325mg (*)] 650 mg PO Q4HRS PRN tab 11/01/18 Cetirizine [ZyrTEC 10 mg (*)] 10 mg PO HS tab 11/01/18 Ipratropium/Albuterol [Duoneb (*)] 3 ml IH Q6HRS deyvial 11/01/18 Pantoprazole Sodium [Protonix 40mg 40 mg PO BID #120 tab 11/01/18 (*)] Medical Decision Making ED Course/Re-evaluation: CHIEF COMPLAINT: Dyspnea, weakness HISTORY OF PRESENT ILLNESS: The patient is a 68 y/o male with a history that includes a recent upper GI bleed requiring intervention and transfusion, diabetes type 2, CHF, atrial fibrillation, and multiple lung diseases who returns one week after discharge complaining of progressive dyspnea and weakness. His describes him as "going downhill" all week. His dyspnea is manageable at rest, but he has to rest when walking to the bathroom to recover. His also notes his leg swelling has increased again. He was seen by his PCP 2 days ago for this shortness of breath and his chest x-ray was reported as suggestive of CHF. His Coumadin was held for two weeks following recent admission. REVIEW OF SYSTEMS: A comprehensive 10 system review of systems is otherwise negative aside from elements mentioned in the history of present illness and medical decision making. PHYSICAL EXAM: HR, BP, O2 Sat, RR. Temp noted General Appearance: Alert, well hydrated, appropriate, and non-toxic appearing. Head: Atraumatic without scalp tenderness or obvious injury Eyes: Pupils equal, round, reactive to light and accommodation, EOMI, no trauma , no injection. Nose: Atraumatic, no rhinorrhea, clear. Throat: Mucus membranes moist. Neck: Supple, nontender, no lymphadenopathy. Respiratory: No retractions, no distress, no wheezes, and no accessory muscle use. Lungs are clear to auscultation bilaterally. Cardiovascular: Regular rate and rhythm, no murmurs, rubs, or gallops. Good capillary refill all extremities. Gastrointestinal: Abdomen is soft, nontender, non-distended, no masses, no rebound, no guarding, no peritoneal signs. Musculoskeletal: 1-2+ bilateral lower extremity edema. Normal active ROM of all extremities, atraumatic. Neurological: Alert, appropriate, and interactive. The patient has non-focal cranial nerves, motor, sensory, and cerebellar exam. Skin: No rashes, good turgor, no nodules on palpation. Past medical history: Upper GI bleed, multiple bleeding gastric ulcers NSAID induced, anemia requiring transfusion, atrial fibrillation - Coumadin, diabetes type 2, CAD, CVA, SVT, interstitial lung disease, hypertension, sleep apnea Past surgical history: Bilateral knee replacements, cardiac ablation with Dr. Corrales, CABG, gastric ulcer clipping by Dr. Hickman Family history: Noncontributory Social history: at bedside. Former smoker. Prior alcohol abuse. Prior medical records reviewed including admission 10/28/18 for dyspnea, weakness. DIAGNOSTICS/PROCEDURES/CRITICAL CARE TIME: The 12 lead EKG was interpreted by myself. Sinus mechanism, similar compared to prior EKG 10/28/18. See hard copy and/or "tracemaster" electronic copy for interpretation. Chest x-ray: pending at shift change. DIFFERENTIAL DIAGNOSIS: The differential diagnosis for the patient's shortness of breath and hypoxemia included but was not limited to pneumonia, myocardial infarction, acute mountain sickness, high altitude pulmonary edema, congestive heart failure, and pulmonary embolus. MEDICAL DECISION MAKING: This is a 68 y/o male with multiple comorbidities who presents with a 1-week history of progressive exertional dyspnea and weakness following recent admission for similar symptoms and upper GI bleed requiring transfusion. At discharge, his H&H was 7.8/25.9. Today he has peripheral edema and symptoms suggestive of high output congestive failure and likely ongoing anemia. Plan for IV, labs, EKG, chest x-ray, and admission. Hgb of 7.7 similar today to discharge one week ago. BNP 1999. Spoke with hospitalist service. Dr. Clinton accepts admission for anemia, CHF. 1445: Consulted with Dr. Jolley, cardiology. He will consult during admission. Patient care signed out to Dr. Ma at shift change pending review of chest x- ray and POC troponin. - Data Points Laboratory Results: Laboratory Results 11/08/18 14:00 11/08/18 14:00 11/08/18 11/08/18 11/08/18 14:28 14:11 14:00 WBC RBC Hgb Hct MCV MCH MCHC RDW Plt Count MPV Neut % (Auto) Lymph % (Auto) Dewitt % (Auto) Eos % (Auto) Baso % (Auto) Nucleat RBC Rel Count Absolute Neuts (auto) Absolute Lymphs (auto) Absolute Monos (auto) Absolute Eos (auto) Absolute Basos (auto) Absolute Nucleated RBC Immature Gran % Immature Gran # PT 15.6 SEC H SEC (12.0-15.0) INR 1.22 H (0.83-1.16) APTT Pending Sodium 137 mEq/L mEq/L (135-145) Potassium 5.1 mEq/L mEq/L (3.5-5.2) Chloride 104 mEq/L mEq/L (97-110) Carbon Dioxide 25 mEq/l mEq/l (22-31) Anion Gap 8 mEq/L mEq/L (6-14) BUN 20 mg/dL mg/dL (7-23) Creatinine 0.9 mg/dL mg/dL (0.7-1.3) Estimated GFR > 60 Glucose 160 mg/dL H mg/dL (70-100) Calcium 8.3 mg/dL L mg/dL (8.5-10.4) Magnesium 2.0 mg/dL mg/dL (1.6-2.3) Total Bilirubin 0.6 mg/dL mg/dL (0.1-1.4) Conjugated Bilirubin 0.4 mg/dL mg/dL (0.0-0.5) Unconjugated Bilirubin 0.2 mg/dL mg/dL (0.0-1.1) AST 20 IU/L IU/L (17-59) ALT 27 IU/L IU/L (21-72) Alkaline Phosphatase 192 IU/L H IU/L (38-126) POC Troponin I 0.00 ng/mL ng/mL (0.00-0.08) NT-Pro-B Natriuret Pep 2050 pg/mL H pg/mL (0-125) Total Protein 6.5 g/dL g/dL (6.3-8.2) Albumin 3.9 g/dL g/dL (3.5-5.0) Lipase 34 IU/L IU/L (23-300) 11/08/18 14:00 WBC 16.01 10^3/uL H 10^3/uL (3.80-9.50) RBC 2.94 10^6/uL L 10^6/uL (4.40-6.38) Hgb 7.7 g/dL L g/dL (13.7-17.5) Hct 25.6 % L % (40.0-51.0) MCV 87.1 fL fL (81.5-99.8) MCH 26.2 pg L pg (27.9-34.1) MCHC 30.1 g/dL L g/dL (32.4-36.7) RDW 18.4 % H % (11.5-15.2) Plt Count 391 10^3/uL 10^3/uL (150-400) MPV 9.6 fL fL (8.7-11.7) Neut % (Auto) 91.0 % H % (39.3-74.2) Lymph % (Auto) 5.7 % L % (15.0-45.0) Dewitt % (Auto) 2.0 % L % (4.5-13.0) Eos % (Auto) 0.1 % L % (0.6-7.6) Baso % (Auto) 0.2 % L % (0.3-1.7) Nucleat RBC Rel Count 0.2 % % (0.0-0.2) Absolute Neuts (auto) 14.57 10^3/uL H 10^3/uL (1.70-6.50) Absolute Lymphs (auto) 0.92 10^3/uL L 10^3/uL (1.00-3.00) Absolute Monos (auto) 0.32 10^3/uL 10^3/uL (0.30-0.80) Absolute Eos (auto) 0.01 10^3/uL L 10^3/uL (0.03-0.40) Absolute Basos (auto) 0.03 10^3/uL 10^3/uL (0.02-0.10) Absolute Nucleated RBC 0.03 10^3/uL H 10^3/uL (0-0.01) Immature Gran % 1.0 % % (0.0-1.1) Immature Gran # 0.16 10^3/uL H 10^3/uL (0.00-0.10) PT INR APTT Sodium Potassium Chloride Carbon Dioxide Anion Gap BUN Creatinine Estimated GFR Glucose Calcium Magnesium Total Bilirubin Conjugated Bilirubin Unconjugated Bilirubin AST ALT Alkaline Phosphatase POC Troponin I NT-Pro-B Natriuret Pep Total Protein Albumin Lipase Point of Care Test Results: Chemistry 11/08/18 14:11 POC Troponin I 0.00 ng/mL ng/mL (0.00-0.08) Departure - [facility] Condition: Good Report Scribed for: Chato Dailey Report Scribed by: Olga Wahl Date of Report: 11/08/18 Time of Report: 14:25
--- NOTE | 2018-11-08 14:07 | CPEKG ---
Test Reason : OPEN Blood Pressure : / mmHG Vent. Rate : 073 BPM Atrial Rate : 073 BPM P-R Int : 173 ms QRS Dur : 112 ms QT Int : 438 ms P-R-T Axes : 047 -22 -87 degrees QTc Int : 483 ms Sinus rhythm Nonspecific T abnormalities, diffuse leads Borderline prolonged QT interval Confirmed by Chato Dailey ([id number]) on 11/08/2018 2:06:41 PM Referred By: Chato Dailey Confirmed By:Chato Dailey
[2018-11-08 14:17] LABS: PLATELET COUNT 391 10^3/uL (150-400)
[2018-11-08 14:43] LABS: INR 1.22 (0.83-1.16); PROTIME(PATIENT) 15.6 SEC (12.0-15.0)
[2018-11-08] MEDS ORDERED: ONDANSETRON DISINTEGRATING 4 MG TAB PO PRN (15:16)
[2018-11-08] MEDS ORDERED: ACETAMINOPHEN 325 MG TAB PO PRN (15:16)
[2018-11-08] MEDS ORDERED: ONDANSETRON 4 MG/2 ML VIAL IVP PRN (15:16)
--- NOTE | 2018-11-08 15:19 | PDGENHP ---
History and Physical - Chief Complaint shortness of breath - History of Present Illness 68yo M with multiple medical problems including CAD s/p CABG, AI s/p bioprosthetic AVR (05/2018), ILD/bronchiectasis with nocturnal O2 dependence, recent hospitalization for acute GIB presents with worsening shortness of breath. He was discharged 1 week ago after GIB due to bleeding duodenal ulcer that was clipped. He received 3 units PRBCs and 1 unit FFP. He did receive some additional diuresis during that hospitalization. Since then he has had worsening dyspnea on exertion. He has also had increasing abdominal distention and bilateral leg swelling. He denies orthopnea or chest pain. He has been taking his diuretics as prescribed. He has not been taking his warfarin per his discharge orders. His reports that at one point he was supposed to wear oxygen at all times but doesn't typically do this. He is not having any fevers or increase in character or amount of sputum. In the ED, he had normal oxygen saturations at rest but would desaturate with minimal movement. Labs showed hemoglobin of 7.7 (roughly the same as hospital discharge) and BNP of 2k, which is the highest it's been. Cardiology was consulted and he is being admitted for further management. Of note, he had an echocardiogram 10/30/18 that showed preserved LV function and normal prosthetic AV gradients. History Information - Allergies/Home Medication List Allergies/Adverse Reactions: Penicillins Allergy (Severe, Verified 11/08/18 17:44) Swelling/neck,face,throat gentamicin [From Garamycin] Allergy (Intermediate, Verified 11/08/18 17:44) Rash Home Medications: Furosemide [Lasix 20 MG (*)] 40 mg PO DAILY@1500 PRN 10/28/18 [Last Taken 15:00] ALPRAZolam [Alprazolam] 0.25 mg PO TID PRN 11/08/18 [Last Taken 11/08/18899] Aspirin EC [Aspirin EC 81 mg (*)] 81 mg PO DAILY 11/08/18 [Last Taken 11/08/18899] Budesonide/Formoterol 160/4.5 [Symbicort 160-4.5 Mcg Inh (*)] 1 puffs IH BID PRN 11/08/18 [Last Taken 11/08/18899] FOLIC ACID 0.4 mg PO DAILY 11/08/18 [Last Taken 11/08/18899] Ipratropium/Albuterol [Duoneb (*)] 3 ml IH Q6HRS PRN 11/08/18 [Last Taken 899] Warfarin Sodium [Warfarin Sodium] 2 mg PO Q2D 11/08/18 [Last Taken 11/01/18] Warfarin Sodium [Warfarin Sodium] 3 mg PO Q2D 11/08/18 [Last Taken 11/01/18] predniSONE [predniSONE] 20 mg PO BID 11/08/18 [Last Taken 11/08/18899] I have personally reviewed and updated: family history, medical history, social history, surgical history - Past Medical History cataracts, CVA (november 2017, residual LLE weakness, walker for ambulation), diabetes type 2, GERD, migraines (ocular), pneumonia (hypersensitivity pneumonitis), SVT (paroxysmal), seizures (remote - no longer treated) Additional medical history: 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 fibrosing ILD with bronchiectasis - attributed to chronic hypersensitivity pneumonitis. chronic nocturnal oxygen dependence 3 liters/minute. Subcentimeter lung nodules, RUL/RML/LLL. TYLER - nocturnal O2 use ; CPAP declined d/t claustrophobia. poor dentition. alcohol abuse - sober on Antabuse and d/cd in distant past. DJD knees. Atrial fibrillation status post ablation, chronic anticoagulation with Coumadin. CAD with history of CABG. Aortic valve insufficiency s/p replacement. Gastric and duodenal ulcer requiring cauterization/clip. HTN. - Surgical History Reports: ablation (catheter based RFA 2012), coronary bypass surgery Additional surgical history: bilateral TKAs. bilateral cataract removal - complicated by intermittent right eye floaters and blurriness. bAVR. EGD with cautery. CABG. Cardiac ablation - Family History Positive for: cancer, CAD Additional family history: arrhythmias (mother). Father-history of CAD. - Social History Smoking Status: Former smoker Alcohol Use: None Drug Use: None Additional social history: lives with . Cor status-full. Patient would not want prolonged life support. Review of Systems Review of Systems: ROS: 10pt was reviewed & negative except for what was stated in HPI & below Physical Exam Physical Exam: Temp Pulse Resp BP Pulse Ox 36.3 C 72 18 129/90 H 99 11/08/18 13:14 11/08/18 15:08 11/08/18 15:08 11/08/18 15:08 11/08/18 15:08 Constitutional: no apparent distress, appears nourished, not in pain Eyes: PERRL, anicteric sclera, EOMI Ears, Nose, Mouth, Throat: moist mucous membranes, hearing normal, ears appear normal, no oral mucosal ulcers Cardiovascular: regular rate and rhythym, systolic murmur, edema (2+ BLE), No JVD Respiratory: no respiratory distress, reduced air movement, inspiratory crackles , No expiratory wheeze Gastrointestinal: soft, non-tender abdomen, distension Genitourinary: no bladder fullness, no bladder tenderness Skin: warm, normal color, no rashes or abrasions, no fluctuance, no induration, No mottled Musculoskeletal: full muscle strength Neurologic: AAOx3 Psychiatric: interacting appropriately, not anxious, not encephalopathic, thought process linear Lab Data & Imaging Review 11/08/18 14:00 11/08/18 14:00 WBC 16.01 10^3/uL (3.80-9.50) H 11/08/18 14:00 RBC 2.94 10^6/uL (4.40-6.38) L 11/08/18 14:00 Hgb 7.7 g/dL (13.7-17.5) L 11/08/18 14:00 Hct 25.6 % (40.0-51.0) L 11/08/18 14:00 MCV 87.1 fL (81.5-99.8) 11/08/18 14:00 MCH 26.2 pg (27.9-34.1) L 11/08/18 14:00 MCHC 30.1 g/dL (32.4-36.7) L 11/08/18 14:00 RDW 18.4 % (11.5-15.2) H 11/08/18 14:00 Plt Count 391 10^3/uL (150-400) 11/08/18 14:00 MPV 9.6 fL (8.7-11.7) 11/08/18 14:00 Neut % (Auto) 91.0 % (39.3-74.2) H 11/08/18 14:00 Lymph % (Auto) 5.7 % (15.0-45.0) L 11/08/18 14:00 [place] % (Auto) 2.0 % (4.5-13.0) L 11/08/18 14:00 Eos % (Auto) 0.1 % (0.6-7.6) L 11/08/18 14:00 Baso % (Auto) 0.2 % (0.3-1.7) L 11/08/18 14:00 Nucleat RBC Rel Count 0.2 % (0.0-0.2) 11/08/18 14:00 Absolute Neuts (auto) 14.57 10^3/uL (1.70-6.50) H 11/08/18 14:00 Absolute Lymphs (auto) 0.92 10^3/uL (1.00-3.00) L 11/08/18 14:00 Absolute Monos (auto) 0.32 10^3/uL (0.30-0.80) 11/08/18 14:00 Absolute Eos (auto) 0.01 10^3/uL (0.03-0.40) L 11/08/18 14:00 Absolute Basos (auto) 0.03 10^3/uL (0.02-0.10) 11/08/18 14:00 Absolute Nucleated RBC 0.03 10^3/uL (0-0.01) H 11/08/18 14:00 Immature Gran % 1.0 % (0.0-1.1) 11/08/18 14:00 Immature Gran # 0.16 10^3/uL (0.00-0.10) H 11/08/18 14:00 PT 15.6 SEC (12.0-15.0) H 11/08/18 14:28 INR 1.22 (0.83-1.16) H 11/08/18 14:28 APTT 20.0 SEC (23.0-38.0) L 11/08/18 14:28 Sodium 137 mEq/L (135-145) 11/08/18 14:00 Potassium 5.1 mEq/L (3.5-5.2) 11/08/18 14:00 Chloride 104 mEq/L (97-110) 11/08/18 14:00 Carbon Dioxide 25 mEq/l (22-31) 11/08/18 14:00 Anion Gap 8 mEq/L (6-14) 11/08/18 14:00 BUN 20 mg/dL (7-23) 11/08/18 14:00 Creatinine 0.9 mg/dL (0.7-1.3) 11/08/18 14:00 Estimated GFR > 60 11/08/18 14:00 Glucose 160 mg/dL (70-100) H 11/08/18 14:00 Calcium 8.3 mg/dL (8.5-10.4) L 11/08/18 14:00 Magnesium 2.0 mg/dL (1.6-2.3) 11/08/18 14:00 Total Bilirubin 0.6 mg/dL (0.1-1.4) 11/08/18 14:00 Conjugated Bilirubin 0.4 mg/dL (0.0-0.5) 11/08/18 14:00 Unconjugated Bilirubin 0.2 mg/dL (0.0-1.1) 11/08/18 14:00 AST 20 IU/L (17-59) 11/08/18 14:00 ALT 27 IU/L (21-72) 11/08/18 14:00 Alkaline Phosphatase 192 IU/L (38-126) H 11/08/18 14:00 POC Troponin I 0.00 ng/mL (0.00-0.08) 11/08/18 14:11 NT-Pro-B Natriuret Pep 2050 pg/mL (0-125) H 11/08/18 14:00 Total Protein 6.5 g/dL (6.3-8.2) 11/08/18 14:00 Albumin 3.9 g/dL (3.5-5.0) 11/08/18 14:00 Lipase 34 IU/L (23-300) 11/08/18 14:00 Interpretation: CXR: bilateral alveolar and interstitial opacities, obscured bilateral costophrenic angles, mildly enlarged heart, sternotomy wires, pericardial calcifications - all changes mostly stable since 10/28/18 EKG additional interpertation: ECG: normal sinus rhythm, likely LVH, normal axis , borderline prolonged QTc, borderline prolonged QRS, T wave flattening/ inversion in lateral leads (old), no acute ischemic changes Assessment & Plan Assessment: 68yo M with multiple medical problems including CAD s/p CABG, AI s/p bioprosthetic AVR (05/2018), ILD/bronchiectasis with nocturnal O2 dependence, recent hospitalization for acute GIB presents with worsening shortness of breath. This is likely multifactorial from anemia and CHF. Plan: 1. Acute diastolic CHF: Likely worsened by recent blood transfusions. - Cardiology consulted in ED, Dr Unger evaluating - Lasix 40mg IV BID, monitor I/Os, weights - No need to repeat TTE at this time 2. Anemia: Hgb stable from recent discharge. - Recheck hgb in AM, tranfuse to keep >7 (will need additional diuretics if transfused) - Continue to hold warfarin 3. Dyspnea: Multifactorial from anemia and CHF. I do not think he's having a flare of his ILD or COPD. Management as above. 4. ILD/bronchiectasis: Continue home prednisone and cellcept. 5. Chronic nocturnal hypoxia/TYLER: Doesn't use CPAP. Continue nighttime O2. Per his , he has been prescribed to wear O2 during the day in the past. 6. AI s/p bAVR: Normal gradients on echo last week. 7. CAD s/p CABG: No anginal sxs, trop/ecg without ischemic changes. Continue aspirin, statin. 8. Atrial fibrillation: Sinus with controlled rates on admission. Holding warfarin. 9. Recent GI bleed: Monitoring hemoglobin as above. 10. Diabetes: Home meds. 11. COPD: Mild per recent PFTs. No flare. Home inhalers. VTE ppx: LMWH Code: full Diet: cardiac Dispo: Admit under observation
[2018-11-08] MEDS ORDERED: diphenhydrAMINE 25 MG CAP PO PRN (17:18)
[2018-11-08] MEDS: FUROSEMIDE 40 MG/4 ML VIAL IVP SCH (17:19)
[2018-11-08] MEDS ORDERED: ALPRAZolam 0.25 MG TAB PO PRN (17:24)
[2018-11-08] MEDS ORDERED: IPRATROPIUM 0.06% NASAL SPRAY EACHNARE PRN (17:46)
[2018-11-08] MEDS ORDERED: IPRATROPIUM/ALBUTEROL 3 ML DEYVIAL IH PRN (17:46)
[2018-11-08] MEDS ORDERED: BUDESONIDE/FORMOTEROL 160/4.5 60 PUFFS/MDI IH PRN (17:46)
[2018-11-08] MEDS ORDERED: POLYETHYLENE GLYCOL 3350 17 GM PKT PO PRN (17:46)
[2018-11-08] MEDS ORDERED: ALBUTEROL 60 PUFFS/8 GM MDI IH PRN (17:46)
--- NOTE | 2018-11-08 18:22 | GCON ---
[f rep st] CONSULTATION CARDIOLOGY CONSULTATION CHIEF COMPLAINT: Shortness of breath. HISTORY OF PRESENT ILLNESS: This is a 68-year-old male with history of single-vessel bypass, left at rial appendage ligation, and bioprosthetic aortic valve replacement as well as paroxysmal atrial fibr illation who was admitted for shortness of breath for the last 3 days. The patient actually had been seen recently for GI bleeding and had undergone GI procedure for clipping. The patient had been tra nsfused 3 units in the last week as well. He does take Lasix at home. However, his Lasix dose has n ot been increased since the transfusions. The patient indicates that he has been having significant shortness of breath with just minimal ambulation. Of note, the patient was profoundly anemic today w ith a hemoglobin of 7.7. Additionally, his BNP level was 2000, and his chest x-ray revealed diffuse airspace disease. The patient does have a history of ILD, but however, this airspace disease appeare d to be more profound than prior chest x-rays. The patient apparently did have a recent echocardiogr am done 2 weeks ago which showed normal LV function as well as normal bioprosthetic aortic valve. Bl ood pressure is currently stable. EKG shows normal sinus rhythm with nonspecific T-wave changes. PAST MEDICAL HISTORY: Significant for CVA in both November of 2017 as well as June 2018, open heart surgery which consisted of a single-vessel bypass with appendage ligation, bioprosthetic aortic valve replacement in May of 2018, atrial fibrillation, hypertension, recent GI bleeding. HOME MEDICATIONS: Please see patient's attached list. SOCIAL HISTORY: No current smoking. Was a former drinker but does not drink currently. FAMILY HISTORY: Noncontributory. REVIEW OF SYSTEMS: Patient currently denies any visual changes. No headache and no jaw pain. No ne ck pain. No throat pain. Patient denies any chest pain. No abdominal discomfort. He does indicate moderate dyspnea with minimal exertion. No lower extremity pain. PHYSICAL EXAM: VITAL SIGNS: Patient afebrile 96, blood pressure 130/70, heart rate 72, respiratory rate 12, sat 95% on room air. HEENT: Pupils equal, round, and reactive to light and accommodation. Extraocular movements intact. CARDIOVASCULAR: Regular rate and rhythm, S1, S2, 2/6 systolic murmur heard throughout the precordium. LUNGS: Decreased breath sounds bilaterally. ABDOMEN: Soft, nont donald. No guarding. EXTREMITIES: No clubbing, no cyanosis, no edema. NEUROLOGIC: Patient alert, oriented x3. LABORATORY VALUES: Currently show sodium 137, potassium 5.1, creatinine 0.9, calcium 8.3, BNP of 205 0. White blood cell count 16,000, hemoglobin 7.7, platelet count 391. INR 1.2. ASSESSMENT AND PLAN: Shortness of breath. At this time, the patient appears to have fluid overload plus being significantly anemic. The patient's recent echocardiogram showed a normal EF with a guy l ventricular function. I suspect the recent blood transfusion the patient received without the incr ease in Lasix may be resulted in fluid overload/diastolic dysfunction. We will institute Lasix 40 mg IV twice daily. Additionally would hold the patient's anticoagulation therapy. Of note the patient was on anticoagulation therapy, even though he had a left atrial appendage ligation secondary to the fact that he had a stroke post discharge from the hospital after surgery which was thought to be car dioembolic. We would consider restarting the Coumadin only if his hemoglobin stabilizes. Continue t o follow on telemetry. Thank you for the consult. /[id number]/MODL
[2018-11-08] MEDS: GABAPENTIN 300 MG CAP PO SCH (21:43)
[2018-11-08] MEDS: PANTOPRAZOLE SODIUM 40 MG TAB PO SCH (21:43)
[2018-11-08] MEDS: predniSONE 20 MG TAB PO SCH (21:43)
[2018-11-08] MEDS: ALPRAZolam 0.25 MG TAB PO PRN (21:44)
[2018-11-08] MEDS: MYCOPHENOLATE MOFETIL 250 MG CAP PO SCH (21:44)
[2018-11-09 04:32] LABS: PLATELET COUNT 407 10^3/uL (150-400)
[2018-11-09] MEDS: ATORVASTATIN CALCIUM 40 MG TAB PO SCH (08:52)
[2018-11-09] MEDS: ASPIRIN EC 81 MG TAB PO SCH (08:52)
[2018-11-09] MEDS: ALLOPURINOL 300 MG TAB PO SCH (08:52)
[2018-11-09] MEDS: METOPROLOL SUCCINATE XR 25 MG TAB PO SCH (08:53)
[2018-11-09] MEDS: FUROSEMIDE 40 MG/4 ML VIAL IVP SCH ×2 (08:53→15:09)
[2018-11-09] MEDS: CITALOPRAM 20 MG TAB PO SCH (08:53)
[2018-11-09] MEDS: FOLIC ACID 1 MG TAB PO SCH (08:53)
[2018-11-09] MEDS: GABAPENTIN 300 MG CAP PO SCH ×2 (08:53→22:10)
[2018-11-09] MEDS: PANTOPRAZOLE SODIUM 40 MG TAB PO SCH ×2 (08:54→22:10)
[2018-11-09] MEDS: predniSONE 20 MG TAB PO SCH ×2 (08:54→22:09)
[2018-11-09] MEDS: MYCOPHENOLATE MOFETIL 250 MG CAP PO SCH ×2 (08:54→22:09)
[2018-11-09] MEDS ORDERED: metFORMIN HCL 500 MG TAB PO SCH (09:00)
--- NOTE | 2018-11-09 09:29 | SOAPPROG ---
SOAP Progress Note Assessment/Plan: SOAP Progress Note Assessment/Plan: Assessment:1. chf..diastolic...dys fxn ..continue iv lasix today and hopefully will change to po meds tomorrow... 2. s/p avr and cabg 05/2018.. 3. gi bleed with duodenal ulcer stapled a few weeks ago ..followed by hosp 4. h/o afib...nsr so far will here Plan:1. no changes today 11/09/18 09:24 Subjective: pt feeling better today no cv c/o i>o 330 cc...hgb stable at 7...nsr no afib Objective: Vital Signs Temp Pulse Resp BP Pulse Ox 36.7 C 76 18 129/79 H 98 11/09/18 07:39 11/09/18 07:39 11/09/18 07:39 11/09/18 07:39 11/09/18 07:39 Laboratory Results 11/09/18 03:55 11/09/18 03:55 11/08/18 11/09/18 11/10/18 05:59 05:59 05:59 Intake Total 925 Output Total 1475 310 Balance -550 -310 PT 15.6 SEC (12.0-15.0) H 11/08/18 14:28 INR 1.22 (0.83-1.16) H 11/08/18 14:28 Physical Exam - Physical Exam Respiratory: lungs clear, wheezing Cardiac/Chest: regular rate, rhythm, No edema ICD10 Worksheet Patient Problems: Problems Problem Status Onset Acute kidney injury Acute Dyspnea Acute Left-sided weakness Acute S/P CABG x 1 Acute ~06/05/18 S/P aortic valve replacement with bioprosthetic valve Acute ~06/05/18 Upper GI bleeding Acute Weakness Acute Aortic valve stenosis with insufficiency Chronic CAD in [place] artery Chronic Diabetes mellitus type 2, controlled Chronic History of stroke with residual deficit Chronic ILD (interstitial lung disease) Chronic Immunosuppression Chronic Nocturnal hypoxemia Chronic TYLER (obstructive sleep apnea) Chronic Pulmonary hypertension Chronic
[2018-11-09] MEDS: diphenhydrAMINE 25 MG CAP PO PRN ×2 (10:17→23:37)
[2018-11-09] MEDS: ALPRAZolam 0.25 MG TAB PO PRN ×2 (10:17→23:37)
--- NOTE | 2018-11-09 11:57 | ASMTCMCOM ---
CM Note CM Note Notes: Pt discussed in rounds, pt is 68 yo M presents with anemia and congestive heart failure. Pt had an unlcer clip last week. Pt lives with Gladys, is MDPOA. Transitional care and Cardiac Rehab consult in. Pt will likely be discharged independent with follow-up as recommended. No CM needs identified at this time. CM available if needs change. Plan: Independent once medically stable. Date Signed: 11/09/2018 11:57 AM Electronically Signed By:MICHEL Flores
[2018-11-09] MEDS ORDERED: D50W 25 GM/50 ML SYR IVP PRN (15:21)
--- NOTE | 2018-11-09 15:26 | HOSPPROG ---
Hospitalist Progress Note Assessment/Plan: 68yo M with multiple medical problems including CAD s/p CABG, AI s/p bioprosthetic AVR (05/2018), ILD/bronchiectasis with nocturnal O2 dependence, recent hospitalization for acute GIB presents with worsening shortness of breath. This is likely multifactorial from anemia and CHF. 1. Acute diastolic CHF: Likely worsened by recent blood transfusions. - Cardiology consulted in ED, Dr Unger evaluating - Lasix 40mg IV BID, monitor I/Os, weights - No need to repeat TTE at this time 2. Anemia: Hgb stable from recent discharge. -Hgb on d/c was high 7's, now slightly decreased 3. Dyspnea: Multifactorial from anemia and CHF. I do not think he's having a flare of his ILD or COPD. Management as above. 4. ILD/bronchiectasis: Continue home prednisone and cellcept. 5. Chronic nocturnal hypoxia/TYLER: Doesn't use CPAP. Continue nighttime O2. Per his , he has been prescribed to wear O2 during the day in the past. 6. AI s/p bAVR: Normal gradients on echo last week. 7. CAD s/p CABG: No anginal sxs, trop/ecg without ischemic changes. Continue aspirin, statin. 8. Atrial fibrillation: Sinus with controlled rates on admission. Holding warfarin. 9. Recent GI bleed: Monitoring hemoglobin as above. 10. Diabetes: Home meds. Hold Metformin 11. COPD: Mild per recent PFTs. No flare. Home inhalers. VTE ppx: SCD's Code: full Diet: cardiac Plan: cont with Lasix IV BID Cards following From a GI and anemia perspective, he does not appear to have had an acute drop in Hgb. He denies melena. For now we will repeat a Hgb in the a.m. If further drop, then consult GI in the a.m. I will make him NPO in case this is needed. Given his fluid overload and hemodynamically stability, I will hold off on transfusion now and wait to see if there is a further drop. Can reconsider tomorrow if there is a drop or once fluid status is improved. Change to inpatient Subjective: Still with SOB. Diuresis is favorable. Denies Melena Objective: Vital Signs Temp Pulse Resp BP Pulse Ox 36.6 C 86 17 123/75 H 97 11/09/18 15:05 11/09/18 15:05 11/09/18 15:05 11/09/18 15:05 11/09/18 15:05 Laboratory Results 11/09/18 03:55 11/09/18 03:55 11/08/18 11/09/18 11/10/18 05:59 05:59 05:59 Intake Total 925 Output Total 1475 2235 Balance -550 -2235 PT 15.6 SEC (12.0-15.0) H 11/08/18 14:28 INR 1.22 (0.83-1.16) H 11/08/18 14:28 - Physical Exam Constitutional: no apparent distress Eyes: PERRL, EOMI Ears, Nose, Mouth, Throat: moist mucous membranes, hearing normal Cardiovascular: regular rate and rhythym, No edema Respiratory: no respiratory distress, no rales or rhonchi Gastrointestinal: normoactive bowel sounds, soft, non-tender abdomen Skin: warm Neurologic: AAOx3 Psychiatric: interacting appropriately, not anxious, not encephalopathic Lymph, Heme, Immunologic: No petechiae ICD10 Worksheet Patient Problems: Problems Problem Status Onset Acute kidney injury Acute Dyspnea Acute Left-sided weakness Acute S/P CABG x 1 Acute ~06/05/18 S/P aortic valve replacement with bioprosthetic valve Acute ~06/05/18 Upper GI bleeding Acute Weakness Acute Aortic valve stenosis with insufficiency Chronic CAD in [place] artery Chronic Diabetes mellitus type 2, controlled Chronic History of stroke with residual deficit Chronic ILD (interstitial lung disease) Chronic Immunosuppression Chronic Nocturnal hypoxemia Chronic TYLER (obstructive sleep apnea) Chronic Pulmonary hypertension Chronic
[2018-11-09] MEDS: INSULIN LISPRO 100 UNIT/ML SC SCH (17:47)
[2018-11-10 04:32] LABS: PLATELET COUNT 402 10^3/uL (150-400)
--- NOTE | 2018-11-10 09:58 | SOAPPROG ---
SOAP Progress Note Assessment/Plan: SOAP Progress Note Assessment/Plan: Assessment:1. chf..diastolic...dys fxn . good diuresis yeaterday...change to po meds today ..d/c home depending on gi bleed status... 2. s/p avr and cabg 05/2018.. 3. gi bleed with duodenal ulcer stapled a few weeks ago ..followed by hosp 4. h/o afib...nsr so far will here Plan:1. as ordered 11/09/18 09:24 11/10/18 09:56 Subjective: pt feeling well no cv issues no afib...stable ghb..will change to po lasix this AM ..ok to d/c home from my standpoint..if blood trx given would give iv lasix post infusion...o>i by 3 liter yesterday Objective: Vital Signs Temp Pulse Resp BP Pulse Ox 36.3 C 71 17 120/84 H 97 11/10/18 08:00 11/10/18 08:00 11/10/18 08:00 11/10/18 08:00 11/10/18 08:00 Laboratory Results 11/10/18 03:30 11/10/18 03:30 11/09/18 11/10/18 11/11/18 05:59 05:59 05:59 Intake Total 925 7599 Output Total 8131 2002 Balance -550 -2637 PT 15.6 SEC (12.0-15.0) H 11/08/18 14:28 INR 1.22 (0.83-1.16) H 11/08/18 14:28 ICD10 Worksheet Patient Problems: Problems Problem Status Onset Left-sided weakness Acute Acute kidney injury Acute Upper GI bleeding Acute Weakness Acute Dyspnea Acute Diabetes mellitus type 2, controlled Chronic History of stroke with residual deficit Chronic S/P CABG x 1 Acute ~06/05/18 S/P aortic valve replacement with bioprosthetic valve Acute ~06/05/18 Immunosuppression Chronic Pulmonary hypertension Chronic Nocturnal hypoxemia Chronic TYLER (obstructive sleep apnea) Chronic ILD (interstitial lung disease) Chronic Aortic valve stenosis with insufficiency Chronic CAD in [place] artery Chronic
[2018-11-10] MEDS: CITALOPRAM 20 MG TAB PO SCH (10:06)
[2018-11-10] MEDS: ALLOPURINOL 300 MG TAB PO SCH (10:06)
[2018-11-10] MEDS: FOLIC ACID 1 MG TAB PO SCH (10:06)
[2018-11-10] MEDS: ASPIRIN EC 81 MG TAB PO SCH (10:06)
[2018-11-10] MEDS: ATORVASTATIN CALCIUM 40 MG TAB PO SCH (10:06)
[2018-11-10] MEDS: MYCOPHENOLATE MOFETIL 250 MG CAP PO SCH ×2 (10:07→20:05)
[2018-11-10] MEDS: GABAPENTIN 300 MG CAP PO SCH ×2 (10:07→20:04)
[2018-11-10] MEDS: PANTOPRAZOLE SODIUM 40 MG TAB PO SCH ×2 (10:07→20:04)
[2018-11-10] MEDS: METOPROLOL SUCCINATE XR 25 MG TAB PO SCH (10:07)
[2018-11-10] MEDS: predniSONE 20 MG TAB PO SCH ×2 (10:07→20:04)
[2018-11-10] MEDS: INSULIN LISPRO 100 UNIT/ML SC SCH ×3 (10:15→18:28)
[2018-11-10] MEDS: FUROSEMIDE 40 MG TAB PO SCH (10:15)
[2018-11-10] MEDS: FUROSEMIDE 40 MG/4 ML VIAL IVP SCH (10:19)
--- NOTE | 2018-11-10 11:31 | PDMN ---
Medical Necessity Medical necessity: Change to inpt as of 11/10/18 @ 0914, meets inpt criteria per MD order and MCG M-190, Heart Failure, A-2 days. 68 y/o w/mult med problems including CAD s/p CABG, AI s/p AVR, ILD/bronchiectasis w/nocturnal O2 dep, recent hospitalization for GIB, admitted now w/acute diastolic CHF, anemia, and dyspnea. Upgraded to inpt for persistent dyspnea, further diuresis w/IV Lasix needed, following H&H (last 7.3, 24.3), may need transfusion, cardiology following, may need GI consult. mEst LOS>2MN for ongoing management of above.
[2018-11-10] MEDS ORDERED: FUROSEMIDE 20 MG/2 ML VIAL IVP ONE (13:10)
--- NOTE | 2018-11-10 14:58 | HOSPPROG ---
Hospitalist Progress Note Assessment/Plan: 68yo M with multiple medical problems including CAD s/p CABG, AI s/p bioprosthetic AVR (05/2018), ILD/bronchiectasis with nocturnal O2 dependence, recent hospitalization for acute GIB presents with worsening shortness of breath. This is likely multifactorial from anemia and CHF. 1. Acute diastolic CHF: Likely worsened by recent blood transfusions. - Cardiology consulted in ED, Dr Unger evaluating - Lasix 40mg IV BID initially, now changed to PO -monitor I/Os, weights - No need to repeat TTE at this time 2. Anemia: Hgb stable from recent discharge. -Hgb on d/c was high 7's, now slightly decreased -no e/o ongoing bleed but hgb has decreased to low 7's 3. Dyspnea: Multifactorial from anemia and CHF. I do not think he's having a flare of his ILD or COPD. Management as above. 4. ILD/bronchiectasis: Continue home prednisone and cellcept. 5. Chronic nocturnal hypoxia/TYLER: Doesn't use CPAP. Continue nighttime O2. Per his , he has been prescribed to wear O2 during the day in the past. 6. AI s/p bAVR: Normal gradients on echo last week. 7. CAD s/p CABG: No anginal sxs, trop/ecg without ischemic changes. Continue aspirin, statin. 8. Atrial fibrillation: Sinus with controlled rates on admission. Holding warfarin. 9. Recent GI bleed: Monitoring hemoglobin as above. 10. Diabetes: Home meds. Hold Metformin 11. COPD: Mild per recent PFTs. No flare. Home inhalers. VTE ppx: SCD's Code: full Diet: cardiac Plan: Transfuse 1 unit PRBC today IV Lasix after, may need additional in a.m. If stable tomorrow, consider d/c on Lasix 40mg daily. cont inpatient Subjective: sob is better. leg swelling is better. Hgb stable Objective: Vital Signs Temp Pulse Resp BP Pulse Ox 36.4 C 82 20 114/80 91 L 11/10/18 12:00 11/10/18 12:00 11/10/18 12:00 11/10/18 12:00 11/10/18 12:00 11/09/18 11/10/18 11/11/18 05:59 05:59 05:59 Output Total 450 Balance -450 PT 15.6 SEC (12.0-15.0) H 11/08/18 14:28 INR 1.22 (0.83-1.16) H 11/08/18 14:28 - Physical Exam Constitutional: no apparent distress Eyes: PERRL, EOMI Cardiovascular: regular rate and rhythym, edema (trace) Respiratory: reduced air movement Gastrointestinal: normoactive bowel sounds, soft, non-tender abdomen Skin: warm Neurologic: AAOx3 Psychiatric: interacting appropriately, not anxious, not encephalopathic Lymph, Heme, Immunologic: No petechiae ICD10 Worksheet Patient Problems: Problems Problem Status Onset Acute kidney injury Acute Dyspnea Acute Left-sided weakness Acute S/P CABG x 1 Acute ~06/05/18 S/P aortic valve replacement with bioprosthetic valve Acute ~06/05/18 Upper GI bleeding Acute Weakness Acute Aortic valve stenosis with insufficiency Chronic CAD in [place] artery Chronic Diabetes mellitus type 2, controlled Chronic History of stroke with residual deficit Chronic ILD (interstitial lung disease) Chronic Immunosuppression Chronic Nocturnal hypoxemia Chronic TYLER (obstructive sleep apnea) Chronic Pulmonary hypertension Chronic
[2018-11-10] MEDS: ALPRAZolam 0.25 MG TAB PO PRN (22:42)
[2018-11-10] MEDS: diphenhydrAMINE 25 MG CAP PO PRN (22:42)
[2018-11-11 04:20] LABS: PLATELET COUNT 423 10^3/uL (150-400)
[2018-11-11] MEDS: INSULIN LISPRO 100 UNIT/ML SC SCH ×2 (08:57→13:34)
[2018-11-11] MEDS: CITALOPRAM 20 MG TAB PO SCH (08:58)
[2018-11-11] MEDS: MYCOPHENOLATE MOFETIL 250 MG CAP PO SCH (08:58)
[2018-11-11] MEDS: ASPIRIN EC 81 MG TAB PO SCH (08:58)
[2018-11-11] MEDS: GABAPENTIN 300 MG CAP PO SCH (08:58)
[2018-11-11] MEDS: PANTOPRAZOLE SODIUM 40 MG TAB PO SCH (08:58)
[2018-11-11] MEDS: ALLOPURINOL 300 MG TAB PO SCH (08:59)
[2018-11-11] MEDS: FOLIC ACID 1 MG TAB PO SCH (08:59)
[2018-11-11] MEDS: ATORVASTATIN CALCIUM 40 MG TAB PO SCH (08:59)
[2018-11-11] MEDS: METOPROLOL SUCCINATE XR 25 MG TAB PO SCH (08:59)
[2018-11-11] MEDS: FUROSEMIDE 40 MG TAB PO SCH (08:59)
[2018-11-11] MEDS: predniSONE 20 MG TAB PO SCH (08:59)
--- NOTE | 2018-11-11 10:42 | PDCARPN ---
Cardiology Progress Note Chief Complaint: Reports shortness of breath has significantly improved Assessment/Plan: Assessment: 68-year-old male with history of AI. Status post bile AVR, CAD status post CABG (1 vessel SVG to RCA), bovine pericardial patch, ligation of left atrial appendage (05/2018), previous CVA (11/2017 and 06/2018), TYLER, I LD, hypertension , DM, and recent hospitalization for acute upper GI bleed (10/28 through 11/01) admitted on 11/08 for increased shortness of breath. ECHO on 10/30/2018 noting normal LV systolic function with EF of 55%, normal RV size and function, LA is mildly dilated, RA is normal size, trivial MR, bioprosthetic aortic valve with normal aortic function, no prosthesis stenosis, no prosthesis regurgitation. Trivial TR. Recent hospitalization, requiring transfusion. Admitted with BNP this hospitalization of 2049. Chest x-ray demonstrating small right pleural effusion. Initially treated with IV diuresis. Negative troponin on admission. 11/11/2018: Patient has transition back to oral Lasix. Reporting SOB has significantly improved. Reports no chest pressure or pain. Down 2 kilos from admission. O>I. Patient reports significant improvement in peripheral edema. Plan: 1. Acute diastolic CHF: Potentially worsening with recent GI bleed and blood transfusion. Improved with IV diuresis, has been started on p.o. Diuretics. No change in current therapy at this time. Monitor I and O. Daily weights. Low-sodium. Potentially could be discharged home today, will schedule him to be seen later this week by his primary it architecture consultant, Dr. Corrales. 2. CAD: Status post CABG, negative troponin, no wall motion abnormalities noted off of recent echo. Continue on aspirin. Secondary risk prevention with atorvastatin. 3. AI: Status post bioprosthetic aortic valve 05/2018, recent echo showing normal function of valve with no stenosis or regurgitation. 4. Anemia: Recent GI bleed, improve H&H today. Continue monitor. Med management for GI bleed per hospitalist services and GI. 5. PAF: None noted since admission. Warfarin on hold due to recent GI bleed. 6. Dyspnea: Patient reports improvement over last few days. Potentially multifactorial with CHF, ILD and COPD. 11/11/18 10:42 Subjective: Denies of any chest pressure or pain. Reports no orthopnea. Reports significant improvement in shortness of breath and peripheral edema. Denies of any palpitations. Reviewed/Discussed With: hospitalist (Dr Clinton), other (Dr Christopher) Objective: Vital Signs (8 Hrs) Temp Pulse Resp BP Pulse Ox 11/11/18 08:00 36.4 C 79 20 127/79 H 90 L 11/11/18 03:54 36.5 C 79 17 133/82 H 97 Intake/Output (24 Hrs) 11/10/18 11/11/18 11/12/18 05:59 05:59 05:59 Intake Total 1280 Output Total 2950 300 Balance -1670 -300 Intake: Oral (ml) 980 IV Intake (ml) 300 Output: Urine (ml) 2950 300 Urinal 2950 300 Other: Weight 105.052 kg Number of Voids Urinal 1 Number of Stools Urinal 1 Result Diagrams: 11/11/18 03:30 11/11/18 03:30 Cardiac Labs: Cardiac Lab Results (72 Hrs) 11/11/18 11/11/18 11/11/18 07:58 03:30 03:30 WBC 15.55 H RBC 3.27 L Hgb 8.4 L Hct 28.1 L MCV 85.9 MCH 25.7 L MCHC 29.9 L RDW 18.6 H Plt Count 423 H MPV 9.4 Neut % (Auto) 82.8 H Lymph % (Auto) 7.3 L [place] % (Auto) 8.7 Eos % (Auto) 0.1 L Baso % (Auto) 0.1 L Nucleat RBC Rel Count 0.8 H Absolute Neuts (auto) 12.87 H Absolute Lymphs (auto) 1.14 Absolute Monos (auto) 1.35 H Absolute Eos (auto) 0.01 L Absolute Basos (auto) 0.02 Absolute Nucleated RBC 0.12 H Immature Gran % 1.0 Immature Gran # 0.16 H Sodium 136 Potassium 4.5 Chloride 99 Carbon Dioxide 28 Anion Gap 9 BUN 22 Creatinine 0.9 Estimated GFR > 60 Glucose 261 H POC Glucose 239 H Calcium 7.6 L 11/10/18 11/10/18 11/10/18 21:14 15:40 12:18 WBC RBC Hgb Hct MCV MCH MCHC RDW Plt Count MPV Neut % (Auto) Lymph % (Auto) [place] % (Auto) Eos % (Auto) Baso % (Auto) Nucleat RBC Rel Count Absolute Neuts (auto) Absolute Lymphs (auto) Absolute Monos (auto) Absolute Eos (auto) Absolute Basos (auto) Absolute Nucleated RBC Immature Gran % Immature Gran # Sodium Potassium Chloride Carbon Dioxide Anion Gap BUN Creatinine Estimated GFR Glucose POC Glucose 247 H 215 H 210 H Calcium - Physical Exam Constitutional: no apparent distress, obese Ears, Nose, Mouth, Throat: moist mucous membranes Cardiovascular: regular rate and rhythm, no murmurs, No pulses symmetric bilat Peripheral Pulses: 0: dorsalis-pedis (L), 2+: carotid (R), carotid (L), dorsalis -pedis (R) Respiratory: clear to auscultate bilat, no crackles, no wheezes Gastrointestinal: normoactive bowel sounds Skin: warm, No no edema (Trace pedal edema) Neurologic: AAOx3 Psychiatric: cooperative, interactive, following commands ICD10 Worksheet Patient Problems: Problems Problem Status Onset Left-sided weakness Acute Acute kidney injury Acute Upper GI bleeding Acute Weakness Acute Dyspnea Acute Diabetes mellitus type 2, controlled Chronic History of stroke with residual deficit Chronic S/P CABG x 1 Acute ~06/05/18 S/P aortic valve replacement with bioprosthetic valve Acute ~06/05/18 Immunosuppression Chronic Pulmonary hypertension Chronic Nocturnal hypoxemia Chronic TYLER (obstructive sleep apnea) Chronic ILD (interstitial lung disease) Chronic Aortic valve stenosis with insufficiency Chronic CAD in [place] artery Chronic
--- NOTE | 2018-11-11 12:27 | PDDCSUM ---
Discharge Summary Discharge Summary: Date of Admission: 11/08/2018 Date of Discharge: 11/11/2018 Consultants: cardiology Studies: CXR Discharge Diagnoses: 1. Acute on chronic diastolic CHF 2. Anemia with recent GI bleed 2/2 duodenal ulcer 3. Dyspnea due to #1 and #2 4. Chronic respiratory failure 5. ILD/bronchiectasis on chronic steroids 6. COPD 7. AI s/p bioprosthetic AVR with normal gradients on recent TTE 8. CAD s/p CABG 9. Atrial fibrillation 10. Diabetes Brief Hospital Course: 68yo M with multiple medical problems including CAD s/p CABG, AI s/p bioprosthetic AVR (05/2018), ILD/bronchiectasis on steroids with chronic O2 dependence, recent hospitalization for acute GIB presents with worsening shortness of breath. Clinically, he was volume overloaded and his BNP was elevated at 2000. His hemoglobin was roughly stable from recent discharge. Cardiology saw him in consultation. He received IV diuresis with improvement in symptoms and clinical exam. He was felt safe for discharge on 40mg lasix daily. He was at his baseline 2-3L of oxygen. He did receive 1 unit PRBC during this admission with an extra dose of lasix at that time and his hemoglobin responded appropriately. Medications: Please refer to EMR for complete list. I have written a prescription for Lasix 40mg QD. Follow Up Plan: 1. To see Dr Corrales in cardiology clinic tomorrow 11/12. 2. To see PCP on to discuss re-initiation of systemic anticoagulation and aspirin pending no further GI bleeding. Physical Exam: Vitals and telemetry reviewed, no arrhythmias noted. Alert and oriented, RRR, lungs with improved aeration at bases and no crackles or wheezing , abdomen soft and nontender, no leg edema.
[2018-11-11 13:28] VITALS: BP 117/86
--- NOTE | 2018-11-11 14:14 | ASMTLACE ---
[facility] Length of stay for Answers: 2 days current admission Acuity / Level of Answers: Yes Care: Did the patient have an inpatient admission? Comorbidities - select Answers: Cerebrovascular disease all that apply (CVA, TIA, aneurysms, vasc ular dementia) Congestive heart failure Diabetes (uncontrolled or controlled) Other Notes: HTN; AFib # of Emergency department Answers: 3-4 visits in the last 6 months Social determinants Answers: History of substance abuse (ETOH, street drugs, prescription drugs, etc.) Score: 16 Date Signed: 11/11/2018 02:14 PM Electronically Signed By:Carolyn Stewart
== END 2018-11-11 14:20 | disposition home or self-care (01) | DRG 291 ==
LOC: INTOOBSV 14:45 → F2W 16:15 → OBSVTOIN 11-10 09:14
PROVIDERS: ADMIT Internal Medicine; ATTEND Internal Medicine
PROC: 30233N1 Transfusion of Nonautologous Red Blood Cells into Peripheral Vein, Percutaneous Approach (ICD-10-PCS; principal; 2018-11-10)
DX: I50.33 Acute on chronic diastolic (congestive) heart failure (principal); I11.0 Hypertensive heart disease with heart failure; K26.4 Chronic or unspecified duodenal ulcer with hemorrhage; J96.10 Chronic respiratory failure, unspecified whether with hypoxia or hypercapnia; J84.9 Interstitial pulmonary disease, unspecified; D50.0 Iron deficiency anemia secondary to blood loss (chronic); J44.9 Chronic obstructive pulmonary disease, unspecified; I25.10 Atherosclerotic heart disease of native coronary artery without angina pectoris; I48.91 Unspecified atrial fibrillation; E11.9 Type 2 diabetes mellitus without complications; Z79.01 Long term (current) use of anticoagulants; Z79.51 Long term (current) use of inhaled steroids; Z79.84 Long term (current) use of oral hypoglycemic drugs; Z99.81 Dependence on supplemental oxygen; Z95.3 Presence of xenogenic heart valve; Z95.1 Presence of aortocoronary bypass graft; Z96.653 Presence of artificial knee joint, bilateral
CPT/HCPCS: 84484-ER; 86905-90; 97161-GP; G0378; J1200; J1815; J1940; J7512; P9016

== ENCOUNTER → 2018-11-19 | Outpatient (CLI) | payer OTHER | LOC: CIMAGING 17:06 → EDSTATUS 17:08 → CIMAGING 17:10 | PROVIDERS: ATTEND Internal Medicine Cardiovascular Disease | DX: J44.1 Chronic obstructive pulmonary disease with (acute) exacerbation (principal); R91.8 Other nonspecific abnormal finding of lung field | CPT/HCPCS: 71046-PO ==

== ENCOUNTER 2018-11-25 10:18 | Inpatient (IN) | payer OTHER ==
[2018-11-25] MEDS ORDERED: methylPREDNISolone SOD SUCC 125 MG/2 ML VIAL IVP ONE (11:20)
--- NOTE | 2018-11-25 11:20 | EDPHY ---
H & P Stated Complaint: sob Time Seen by Provider: 11/25/18 10:40 HPI/ROS: CHIEF COMPLAINT: Shortness of breath HISTORY OF PRESENT ILLNESS: 68-year-old male with oxygen-dependent COPD and congestive heart failure presents with shortness of breath. On nighttime oxygen for a long time, but over the last week, has required oxygen around the clock because of shortness of breath. Today he was at his primary care physician's office and oxygen saturation on room air was 77%. Sent here for further evaluation. The patient complains of frequent dry cough this weekend and inability to do his usual activities because of shortness of breath. He now is short of breath after walking up 1 stair or walking from room to room in his house. No associated fever or other URI symptoms. Admitted 2 weeks ago for congestive heart failure and anemia secondary to GI bleed. REVIEW OF SYSTEMS: complete 10 point ROS reviewed and is negative except for the noted elements in the HPI Source: Patient - Personal History Current Tetanus/Diphtheria Vaccine: Yes Current Tetanus Diphtheria and Acellular Pertussis (TDAP): Yes - Medical/Surgical History Hx Asthma: No Hx Chronic Respiratory Disease: Yes Hx Diabetes: No Hx Cardiac Disease: Yes Hx Renal Disease: No Hx Cirrhosis: No Hx Alcoholism: Yes Hx HIV/AIDS: No Hx Splenectomy or Spleen Trauma: No Other PMH: Diabetes. Congestive heart failure. Upper GI bleeding. Oxygen- dependent COPD. Coronary artery disease. CVA. Atrial fibrillation - Social History Smoking Status: Former smoker Alcohol Use: Sober Drug Use: None Additional Social History: - Physical Exam Exam: General Appearance: Alert, pleasant, oxygen saturation 96% on 4 L by nasal cannula Eyes: Pupils equal and round, no conjunctival pallor or injection ENT, Mouth: Mucous membranes moist Neck: Normal inspection Respiratory: Good air exchange, lungs are clear to auscultation Cardiovascular: Regular rate and rhythm Gastrointestinal: Abdomen is soft and nontender Neurological: A&O, nonfocal exam Skin: Warm and dry Extremities: 2+ bilateral pedal edema, right greater than left Psychiatric: Mood and affect normal Constitutional: Initial Vital Signs Temperature (C) 36.6 C 11/25/18 10:26 Heart Rate 99 11/25/18 10:26 Respiratory Rate 24 H 11/25/18 10:26 Blood Pressure 137/72 H 11/25/18 10:26 O2 Sat (%) 79 L 11/25/18 10:26 O2 Delivery Mode Nasal Cannula O2 (L/minute) 3 Allergies/Adverse Reactions: Penicillins Allergy (Severe, Verified 11/25/18 10:25) Swelling/neck,face,throat gentamicin [From Garamycin] Allergy (Intermediate, Verified 11/25/18 10:25) Rash Home Medications: Medication Instructions Recorded Polyethylene Glycol 3350 [Miralax 17 gm PO DAILY PRN pkt 06/10/18 17 gm (*)] Albuterol [Proventil Inhaler HFA 1 - 2 puffs IH DAILY PRN #1 mdi 07/04/18 (*)] Allopurinol [Allopurinol 300 MG 300 mg PO DAILY #30 tab 07/04/18 (RX)] Atorvastatin Calcium [Lipitor 40 40 mg PO DAILY #30 tab 07/04/18 mg (*)] Citalopram Hydrobromide 40 mg PO DAILY #30 tablet 07/04/18 [Citalopram HBr] Gabapentin [Neurontin 300 MG (*)] 300 mg PO BID #60 cap 07/04/18 Ipratropium 0.06% Nasal [Atrovent 1 - 2 sprays EACHNARE QID PRN #1 07/04/18 0.06% Nasal] mdi Metoprolol Succinate Xr [Toprol Xl 12.5 mg PO DAILY #15 tab 07/04/18 25 mg (*)] Mycophenolate Mofetil [Cellcept] 1,500 mg PO BID #60 tablet 07/04/18 Potassium Cl [Klor-Con 20 meq (*)] 20 meq PO DAILY #30 tab 07/04/18 metFORMIN HCL [Glucophage 500 mg 500 mg PO DAILY #30 tab 07/04/18 (*)] Acetaminophen [Tylenol 325mg (*)] 650 mg PO Q4HRS PRN tab 11/01/18 Pantoprazole Sodium [Protonix 40mg 40 mg PO BID #120 tab 11/01/18 (*)] ALPRAZolam [Alprazolam] 0.25 mg PO TID PRN 11/08/18 Budesonide/Formoterol 160/4.5 1 puffs IH BID PRN 11/08/18 [Symbicort 160-4.5 Mcg Inh (*)] FOLIC ACID 0.4 mg PO DAILY 11/08/18 Ipratropium/Albuterol [Duoneb (*)] 3 ml IH Q6HRS PRN 11/08/18 Furosemide [Lasix 40 MG (*)] 40 mg PO DAILY #60 tab 11/11/18 Medical Decision Making - Diagnostics EKG Interpretation: EKG interpreted by me reveals normal sinus rhythm, rate 97, LAD, T-wave inversions laterally. Interpretation abnormal EKG. Imaging Results: Chest X-Ray 11/25/18 10:40 Impression: Bilateral interstitial lung disease with bilateral asymmetric opacities most prominent in the left lower lobe, right upper lobe and right lower lobe and therefore superimposed pneumonia or asymmetric pulmonary edema cannot be excluded. Impression: Persistent bilateral opacities representing interstitial lung disease with the possibility of underlying bilateral pneumonia or pulmonary edema. Imaging: I viewed and interpreted images myself ED Course/Re-evaluation: This patient presents with cough and worsening shortness of breath. Oxygen saturation on room air is 79%. CXR: pulm edema vs CHF. Recent admision for CHF without improvement, ?pneumonia. Frequent cough and leukocytosis, will treat for pneumonia. h/o anaphylaxis to PCN. Bld cxs drawn and Levaquin IV given. EKG reveals no ischemic changes or significant dysrhythmia. HCT 28, stable since 11/19/18. 12:30 p.m.-this patient meets the severe sepsis protocol. Lactate was initially 2.1, repeat lactate is 1.9. IV fluids per the sepsis protocol were not initiated because of significant CHF. BNP 1170, similar range as prior BNP' s. The hospitalist service was consulted for admission. CTA chest ordered by hospitalist, will help ddx pulm edema and/or pneumonia. Differential Diagnosis: Differential diagnosis includes though it is not limited to pneumonia, pneumothorax, pulmonary embolism, aortic dissection, pericarditis, acute coronary syndrome. - Data Points Laboratory Results: Laboratory Results 11/25/18 10:35 11/25/18 10:35 Microbiology Results: MICROBIOLOGY 11/25/18 11:15 Blood Blood Culture - Preliminary 11/25/18 11:15 Blood Blood Culture - Preliminary Medications Given: Acetaminophen (Tylenol) 650 mg PO Q4HRS PRN PRN Reason: Pain, Mild/Fever, Can Take PO Stop: 05/24/19 14:34 Last Admin: 11/27/18 17:26 Dose: 650 mg Albuterol/Ipratropium (Duoneb) 3 ml IH Q6HRS PRN PRN Reason: Shortness of breath Stop: 05/24/19 14:35 Last Admin: 11/26/18 09:41 Dose: 3 ml Allopurinol (Allopurinol) 300 mg PO DAILY SCAR Stop: 05/25/19 08:59 Last Admin: 11/28/18 09:50 Dose: 300 mg Alprazolam (Xanax) 0.25 mg PO TID PRN PRN Reason: Itching/anxiety/sleep Stop: 05/24/19 14:35 Last Admin: 11/27/18 00:23 Dose: 0.25 mg Atorvastatin Calcium (Lipitor) 40 mg PO DAILY SCAR Stop: 05/25/19 08:59 Last Admin: 11/28/18 09:48 Dose: 40 mg Budesonide/Formoterol Fumarate (Symbicort 160-4.5 Mcg Inhaler) 1 puffs IH BID PRN PRN Reason: ASTHMA Stop: 05/24/19 14:35 Last Admin: 11/25/18 20:56 Dose: 1 puffs Citalopram Hydrobromide (Celexa) 40 mg PO DAILY SCAR Stop: 05/25/19 08:59 Last Admin: 11/28/18 09:51 Dose: 40 mg Doxepin HCl (Sinequan) 10 mg PO HS SCAR Stop: 05/24/19 20:59 Last Admin: 11/27/18 20:40 Dose: 10 mg Folic Acid (Folic Acid) 0.5 mg PO DAILY SCAR Stop: 05/25/19 08:59 Last Admin: 11/28/18 09:50 Dose: 0.5 mg Gabapentin (Neurontin) 300 mg PO BID SCAR Stop: 05/24/19 20:59 Last Admin: 11/28/18 09:48 Dose: 300 mg Insulin Human Lispro (Humalog Lispro) 0 unit SC TIDMEAL SCAR PRN Reason: Protocol Stop: 05/25/19 07:59 Last Admin: 11/28/18 13:46 Dose: Not Given Metoprolol Succinate (Toprol Xl) 12.5 mg PO DAILY [facility] Stop: 05/25/19 08:59 Last Admin: 11/28/18 09:50 Dose: 12.5 mg Mycophenolate Mofetil (Cellcept) 1,500 mg PO BID [facility] Stop: 05/24/19 20:59 Last Admin: 11/28/18 09:53 Dose: 1,500 mg Pantoprazole Sodium (Protonix) 40 mg PO BID [facility] Stop: 05/24/19 20:59 Last Admin: 11/28/18 09:49 Dose: 40 mg Spironolactone (Aldactone) 12.5 mg PO DAILY [facility] Stop: 05/27/19 08:59 Last Admin: 11/28/18 09:49 Dose: 12.5 mg Torsemide (Demadex) 40 mg PO BIDDIUR [facility] Stop: 05/27/19 08:59 Last Admin: 11/28/18 09:48 Dose: 40 mg Warfarin Sodium (Message-Coumadin Daily Order) 1 ea MISC DAILY@1500 [facility] Stop: 05/25/19 14:59 Last Admin: 11/27/18 15:45 Dose: Not Given Discontinued Medications Furosemide (Lasix) 40 mg PO DAILY [facility] Stop: 05/25/19 08:59 Last Admin: 11/26/18 10:11 Dose: 40 mg Furosemide (Lasix Injection) 40 mg IVP ONCE ONE Stop: 11/25/18 17:26 Last Admin: 11/25/18 18:48 Dose: 40 mg Furosemide (Lasix Injection) 40 mg IVP BID@0900,1500 [facility] Stop: 05/25/19 14:59 Last Admin: 11/27/18 08:53 Dose: 40 mg Furosemide (Lasix Injection) 20 mg IVP ONCE ONE Stop: 11/26/18 11:06 Last Admin: 11/26/18 11:39 Dose: 20 mg Furosemide (Lasix Injection) 20 mg IVP ONCE ONE Stop: 11/27/18 09:09 Last Admin: 11/27/18 10:53 Dose: 20 mg Furosemide (Lasix Injection) 60 mg IVP BID@0900,1500 [facility] Stop: 05/26/19 14:59 Last Admin: 11/27/18 15:33 Dose: 60 mg Levofloxacin/Dextrose (Levaquin 750 Mg (Premix)) 150 mls @ 100 mls/hr IV EDNOW ONE PRN Reason: Protocol Stop: 11/25/18 14:06 Last Admin: 11/25/18 12:58 Dose: 150 mls Magnesium Sulfate/Dextrose (Magnesium Sulf 1 Gm (Premix)) 100 mls @ 100 mls/hr IV ONCE ONE Stop: 11/28/18 09:29 Last Admin: 11/28/18 09:53 Dose: 100 mls Methylprednisolone Sodium Succinate (Solu-Medrol) 125 mg IVP EDNOW ONE Stop: 11/25/18 11:21 Last Admin: 11/25/18 11:36 Dose: 125 mg Potassium Chloride (Klor-Con) 20 meq PO DAILY [facility] Stop: 05/25/19 08:59 Last Admin: 11/27/18 08:49 Dose: 20 meq Warfarin Sodium (Coumadin) 5 mg PO ONCE@1600 ONE Stop: 11/26/18 16:01 Last Admin: 11/26/18 16:30 Dose: 5 mg Warfarin Sodium (Coumadin) 3 mg PO ONCE@1600 ONE Stop: 11/27/18 16:01 Last Admin: 11/27/18 15:33 Dose: 3 mg Point of Care Test Results: Chemistry 11/25/18 11:20 POC Troponin I 0.01 ng/mL ng/mL (0.00-0.08) Departure - Departure Disposition: [facility] Inpatient Acute Clinical Impression: Acute dyspnea Condition: Fair
[2018-11-25 11:36] LABS: PLATELET COUNT 215 10^3/uL (150-400)
[2018-11-25 11:45] LABS: INR 1.27 (0.83-1.16); PROTIME(PATIENT) 15.4 SEC (12.0-15.0)
[2018-11-25] MEDS ORDERED: ACETAMINOPHEN 325 MG TAB PO PRN (14:35)
[2018-11-25] MEDS ORDERED: IPRATROPIUM 0.06% NASAL SPRAY EACHNARE PRN (14:36)
[2018-11-25] MEDS ORDERED: BUDESONIDE/FORMOTEROL 160/4.5 60 PUFFS/MDI IH PRN (14:36)
[2018-11-25] MEDS ORDERED: ALBUTEROL 60 PUFFS/8 GM MDI IH PRN (14:36)
[2018-11-25] MEDS ORDERED: POLYETHYLENE GLYCOL 3350 17 GM PKT PO PRN (14:36)
--- NOTE | 2018-11-25 14:43 | CPEKG ---
Test Reason : OPEN Blood Pressure : / mmHG Vent. Rate : 097 BPM Atrial Rate : 098 BPM P-R Int : 170 ms QRS Dur : 108 ms QT Int : 361 ms P-R-T Axes : 064 -24 182 degrees QTc Int : 459 ms Sinus rhythm Borderline left axis deviation T wave inversions laterally Confirmed by Carolina Nieves ([id number]) on 11/25/2018 2:43:10 PM Referred By: PHYSICIAN ED Confirmed By:Carolina Nieves
[2018-11-25] MEDS ORDERED: ALPRAZolam 0.25 MG TAB ONE (14:45)
[2018-11-25] MEDS: ALPRAZolam 0.25 MG TAB PO PRN ×3 (14:48→23:39)
[2018-11-25] MEDS ORDERED: IOPAMIDOL (ISOVUE 370) 100 ML BTL IV ONE (14:53)
--- NOTE | 2018-11-25 15:42 | GHP ---
[f rep st] HISTORY AND PHYSICAL DATE OF ADMISSION: 11/25/2018 CHIEF COMPLAINT: Shortness of breath, dyspnea on exertion. HPI: The patient is a 68-year-old man with multiple medical issues including history of recent aorti c valve replacement with a bioprosthetic valve in May as well as a CABG. He also has fibrosing interstitial lung disease and bronchiectasis followed by [facility]. He has had multiple medic al issues since over the last several weeks including a GI bleed due to bleeding gastric ulcer with v isible vessels at which time he was treated with cautery and clipping of the visible vessel and disco ntinuation of his anticoagulation, which he is on chronically for atrial fibrillation. He was readmi tted a couple weeks later with increasing shortness of breath and dyspnea on exertion and was felt to have diastolic heart failure, treated with IV Lasix and discharged on November 11, 2018. After disc harge, he said he was still having some dyspnea on exertion, but did feel a little bit better after t he IV Lasix. However, since discharge, he has been progressively going downhill with increasing dysp bertram on exertion, ongoing chronic cough and weakness. He has not had fevers, but has had occasional c hills. He typically uses oxygen at night and has been told to use it during the day, however, at [facility], typically does not use it during the day until recently he has been needing it more often. Wh en he went in to see his primary care provider, he was found to have an oxygen saturation of 75% on r oom air and was told to come to the hospital today. REVIEW OF SYSTEMS: A 10-point review of systems was done with pertinent positives present in the HPI . Additionally, he thinks he has had a couple pound weight gain since his discharge. No chest pain, increased shortness of breath. His cough has actually improved over the last three days. He feels l germaine his abdominal girth has gotten slightly increased. No significant urinary or bowel changes. He has chronic lower extremity edema, which he feels is unchanged. He also has had a lot of itchiness o nolberto his body over the past few weeks and has been taking Xanax as needed for that. PAST MEDICAL HISTORY: 1. Diabetes, on metformin. 2. Hypertension. 3. Coronary artery disease, status post one vessel CABG on metoprolol and aspirin. 4. Aortic insufficiency, status post bioprosthetic aortic valve replacement in May. 5. Interstitial lung disease, followed by [facility]. I believe he is on CellCept. 6. Aortic atrial fibrillation on chronic anticoagulation with warfarin. 7. COPD/RAD on DuoNebs, Proventil, and Symbicort. 8. Remote history of seizures. Antiseizure medication has been weaned off. No recurrent seizures n oted. 9. History of migraines. 10. History of GE reflux disease. 11. Recent gastric ulcers. I do not believe he has been restarted on his warfarin. 12. Tobacco use. Has not smoked since he was in college. No current alcohol use. SOCIAL HISTORY: He is , lives with his who is present at the bedside. FAMILY HISTORY: Reviewed. No obvious pulmonary issues noted. MEDICATIONS: Please see med reconciliation form. ALLERGIES: Penicillin. CODE STATUS: Long discussion with patient and . He would like to be a Do Not Resuscitate. PHYSICAL EXAM: VITAL SIGNS: He is afebrile. Heart rate 85, blood pressure 148/102, respirations 16. He is 79% on room air, 95% on 3 L. GENERAL: In general, he is a mildly obese 68-year-old in mild di stress. He is alert and oriented. HEENT: Pupils are equal. Extraocular movements intact. Sclerae anicteric. Mucous membranes moist. Oropharynx clear. NECK: Supple. HEART: Regular with a systo lic murmur. LUNGS: Diminished. He has rales bilaterally chcf up. ABDOMEN: Obese, soft. No ob vious masses. EXTREMITIES: Bilateral lower extremity edema 2-3+. SKIN: Intact. He does have some scattered rash on his lower extremities. No other rash noted. NEUROLOGIC: He is alert and oriented . Moves all four extremities. MUSCULOSKELETAL: No joint deformities. PSYCHIATRIC: Normal mood, appro priate. LABORATORY DATA: CBC shows a white count of 14.5 with a hemoglobin of 8.3, platelet count of 215, sl ight left shift on the differential. Chemistry shows normal electrolytes and renal function. Glucos e is elevated. BNP is elevated at 1117 with a negative troponin. Procalcitonin is negative at 0.03. INR is 1.27. Respiratory panel shows no organisms. IMAGING: Chest x-ray personally reviewed and interpreted, shows bilateral infiltrates versus fluid, unchanged from previous x-ray dated November 19, 2018. TEST DATA: Electrocardiogram personally reviewed and interpreted: Sinus rhythm, lateral nonspecific T-wave inversions. ASSESSMENT AND PLAN: 68-year-old with cardiopulmonary disease, presents with increasing dyspnea on e xertion and hypoxic respiratory failure. 1. Hypoxic respiratory failure with dyspnea on exertion, unclear etiology. He has significant pulmo nary and cardiac disease including interstitial lung disease, bronchiectasis, and diastolic heart delvis lure. It does not appear he has an acute infection with a negative procalcitonin and negative respir atory panel. Certainly his changes on his chest x-ray could be chronic. Plan: I have discussed the case in detail with Dr. Andrews Quintero who will consult. Will get a CT angiogram and try to get high-re solution cuts as well. We will hold off antibiotics at this time and await further information. Unc lear if related to congestive heart failure. His BNP is elevated, but appears to be close to baselin e. I have discussed the case with Cardiology who will also see him. 2. Diabetes. We will place one insulin sliding scale and hold his metformin given recent contrast. 3. Congestive heart failure, diastolic dysfunction. Again, unclear if how much of this is fluid nolberto hank bronchiectasis and ILD. We will check a CT scan and defer to Cardiology if they want to continue with diuresis. I will check another echocardiogram just to make sure there are no significant dixon es. 4. Coronary artery disease. Negative troponin. No acute ischemic symptoms. Will follow. 5. Aortic valve replacement with a bioprosthetic valve. Again, recheck echocardiogram given that he has had two admissions since his last echocardiogram done and defer to Cardiology if any further gus luation is needed at this time. 6. Pruritus. The patient has a lot of pruritus over the last several weeks, has been taking Xanax. We will also give him a dose of doxepin to take at night to help with sleep and itching. 7. Asthma/chronic obstructive pulmonary disease. Unclear how much of this is worsening his symptoms . Will continue his usual medications. 8. Immunocompromise, currently on CellCept, however, negative procalcitonin and negative viral panel . Will hold off on antibiotics at this time. He has been afebrile. 9. Leukocytosis. This has been present for several months and does not appear to be significantly d ifferent. Will follow. 10. Hypertension, stable. Will continue his medications and follow his blood pressures. /[id number]/MODL
[2018-11-25] MEDS ORDERED: FUROSEMIDE 40 MG/4 ML VIAL IVP ONE (17:25)
--- NOTE | 2018-11-25 17:44 | PDMN ---
Medical Necessity Medical necessity: [facility] General Admission: 68 yo with multi medical issues presents w/ dyspnea, ongoing cough and weakness. Recent admit for GI bleed and CHF. Eval reveals hypoxic resp fx, unclear etiology. Pulm and cardio consults ordered. infection vs CHF vs. ILD?O2 sat 79% on RA, RR 24, elevated WBC, elevated BNP, H&H 05/21, BC pending. Pt is high risk, admit to IP status for ongoing dx testing, monitoring and tx, anticipate>2MN stay. Hx CAD s/p CABG, s/ p bioprosthetic aortic valve replacement, DM, interstitial lung disease on CellCept, afib, COPD, seizures
[2018-11-25] MEDS ORDERED: D50W 25 GM/50 ML SYR IVP PRN (18:05)
--- NOTE | 2018-11-25 19:44 | GCON ---
[f rep st] CONSULTATION CARDIOLOGY CONSULTATION DATE OF CONSULTATION: 11/25/2018 REFERRING PHYSICIAN: Elizabeth Alonso MD SUPERVISING INSULATION WORKER INTERIOR SURFACE: Dr. Michael Jolley. INDICATION FOR CARDIOLOGY CONSULTATION: Known history of recent valvular surgery and bypass, recent hospitalization for diastolic heart failure, increasing shortness of breath with weight gain. REQUESTING PHYSICIAN: Dr. Elizabeth Alonso, Hospitalist services. HISTORY OF PRESENT ILLNESS: The patient is a 68-year-old male who is known to our group. 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 Mg Corrales. He has significant past history that includes aortic insufficiency status post bioprosthetic aortic valve replacement, coronary artery disease status post CABG (1 vessel SVG to RCA), bovine pericardial patch, aortoplasty and ligation of left atrial appendage, CVA (11/2017 and CVA versus TIA 06/2018), paroxysmal atrial fibrillation, TYLER, fibrosing interstitial lung disease and bronchitis which is followed by [facility], hypertension and diabetes. Patient has had a significant complicated last few months with history of GI bleed and gastric ulcer which was treated by cauterization and clipping in the beginning of October. Soon after discharged home. He returned with increased shortness of breath, was diagnosed with diastolic heart failure and was treated with IV Lasix in transition to oral , discharging on November 11, 2018. Patient reporting after being home for a few days he did feel initially well, but then reporting he has noted a significantly worsening in shortness of breath. Stating when he first got home he could climb 1 flight of stairs with no problem , now reporting only able to walk 2-3 stairs without having to stop to catch his breath. He does note that he gained approximately 1-2 kilos over the last week. He denies any chest pressure or pain. He has also noted a chronic cough and weakness. He reports he has had no fevers but has occasional chills. He is known to use nocturnal oxygen but states that he has been using it during the daytime, reporting that this has helped some of his symptoms. He was seen by his primary care provider and was found on room air to have an oxygen of 75% on room air and was told to come to the hospital. Upon arrival chest x-ray was done which noted persistent interstitial lung disease with possible underlying bilateral pneumonia or pulmonary edema. Electrocardiogram was done noting sinus rhythm with borderline left axis deviation with T-wave inversion in lateral leads. Laboratory studies drawn did note elevated white blood cell count of 14.54, D-dimer mildly elevated at 0.56, INR of 1.27, proBNP of 1170 and a troponin of 0.01. He states he has had no chest pressure, pain or symptoms suggestive. He does report some mild orthopnea but denies any palpitations, lightheadedness, near-syncope or syncopal events. PAST MEDICAL HISTORY: Includes diabetes, hypertension, CAD, aortic insufficiency, interstitial lung disease, atrial fibrillation, COPD, remote history of seizures, history of migraines, history of GI bleed, GERD and previous tobacco abuse. PAST SURGERIES: Include bioprosthetic valve replacement; CABG and left atrial appendage ligation with bovine pericardial patch angioplasty ligation May of 2018; knee replacement; and ablation for SVT in 2012. FAMILY HISTORY: Noncontributory. SOCIAL HISTORY: He is . He lives with his . He is a previous smoker. He reports he never uses alcohol. Denies any illicit drug use. ALLERGIES: Penicillin and gentamycin. MEDICATIONS AT HOME: Include MiraLAX 17 g p.o. daily p.r.n.; Protonix 40 mg p.o. b.i.d.; CellCept 1500 mg p.o. b.i.d.; metoprolol succinate 12.5 mg p.o. daily; DuoNeb 3 mL inhaled q.6 hours p.r.n.; Atrovent 1-2 sprays each naris q.i.d. p.r.n.; Neurontin 300 mg p.o. b.i.d.; Lasix 40 mg p.o. daily; folic acid 0.4 mg daily; 40 mg p.o. daily; Symbicort 1 puff inhaled b.i.d. p.r.n.; atorvastatin 40 mg p.o. daily; allopurinol 300 mg p.o. daily; albuterol 1-2 puffs inhaled daily; acetaminophen 650 mg p.o. q.4 hours p.r.n.; 0.25 mg p.o. t.i.d. p.r.n.; metformin 500 mg p.o. daily; potassium chloride 20 mEq p.o. daily. REVIEW OF SYSTEMS: A 10-point review of systems done on this patient all negative except as mentioned above. PHYSICAL EXAMINATION: GENERAL APPEARANCE: Moderately obese, pale male. He is alert and oriented to person, place, time and situation. He appears to be in no acute distress at the time of my examination. VITAL SIGNS: Current vital signs are blood pressure 155/95; heart rate of 88, sinus rhythm on the monitor; respirations are 16; saturating 99% on 4 L nasal cannula oxygen. Temperature of 36.4 degrees Celsius. HEENT: Head is normocephalic. Lips and tongue are pink and moist, with no signs of cyanosis. Conjunctivae pink. NECK: Trachea is midline, no auscultated bruits over carotids, 4-5 cm JVD at a 45-degree angle above sternal notch. +2 carotid pulses bilateral. RESPIRATORY: Mild rales noted in the right lower lobe with mild expiratory wheezing, no rhonchi noted. No accessory muscle use, no intercostal muscle retraction noted. CARDIAC: Regular rate, regular rhythm, S1, S2, 1-2/6 systolic murmur noted along upper chest. ABDOMEN: Firm, nontender , obese. No palpable masses. Bowel sounds x4 quadrants. SKIN: Pale, warm, dry, no cyanosis, no clubbing. +2-3 peripheral edema, bilateral lower extremities to knees. VASCULAR: +2 radials bilateral, +1 posterior tibialis pulses bilateral , +2 carotids bilateral. LABORATORY STUDIES: WBC 14.54, hemoglobin 8.3, hematocrit 28.4, platelet count 215. INR 1.27. D-dimer of 0.56. Lactic acid 2.1. Sodium 136, potassium 4.6, chloride 104, CO2 at 24, BUN 21, creatinine 0.9, glucose 156, calcium 8.5. Troponin 0.01. ProBNP 1170. Prolactin 0.03. TESTING: Chest x-ray and electrocardiogram as mentioned above, patient's most recent echocardiogram on 10/30/2017, noting normal LV systolic function with EF of 55%, normal RV size and function, LA was mildly dilated, RA is normal size, trivial MR, bioprosthetic aortic valve with normal aortic function, no prosthetic stenosis, trivial TR. ASSESSMENT AND PLAN: 1. Hypoxic respiratory failure with dyspnea on exertion: Patient does have significant cardiac and pulmonary disease. He is noted to have an elevated BNP ; but reviewing laboratory studies from the past, this is close to his baseline. He does that he is mildly fluid overloaded. Will give him 1 dose of IV Lasix tonight. He is also scheduled to have Pulmonology see him and is scheduled for a CTA angio of the chest to get high-resolution cuts later. Continue on oxygen therapy, pulmonary toilet per hospitalist and Pulmonology. 2. Congestive heart failure: Recently with diastolic heart failure. Long discussion with patient and ; the patient does admit that he does not know his medications, and patient's says that he has been controlling his medications, questioning if potentially he has been somewhat noncompliant with management. He is noted to be somewhat hypertensive tonight with BP at 155/95. Will resume him on current home dose of metoprolol, he has been resumed on oral dose of Lasix, I will give him 1 dose of IV Lasix today. We will continue monitoring I and Os and daily weights. 3. Coronary artery disease: Patient with previous CABG. Negative troponin. Denies any symptoms suggestive of chest pain or pressure. Will repeat a troponin level in a.m. Echocardiogram pending. Patient is on statin therapy. Resume aspirin. 4. History of aortic valve replacement with bioprosthetic valve. This is his 3rd admission in approximately a month with a worsening shortness of breath and fatigue. Repeated echocardiogram has been done, results are pending. 5. Asthma/chronic obstructive pulmonary disease: Unclear etiology, CTA chest pending. 6. Hypertension: Elevated today, have resumed home medications, diuretic therapy as mentioned above. Will continue to monitor. 7. History of gastrointestinal bleed: H and H look like they have been stable since his hospital discharge. He has been resumed on Protonix. Denies any bleeding issues. His warfarin has been stopped. 8. Paroxysmal atrial fibrillation: History of PAF, maintaining sinus rhythm, has been taken off warfarin due to recent GI bleed. Remains on aspirin. 9. Diabetes: Defer treatment per Hospitalist services. 10. Leukocytosis: This has been present for several months and does not show any significant difference. Will continue to follow. Thank you for this consultation. Will be glad to follow along with you. /[id number]/MODL MTDD
[2018-11-25] MEDS: GABAPENTIN 300 MG CAP PO SCH (20:08)
[2018-11-25] MEDS: DOXEPIN HCL 10 MG CAP PO SCH (20:08)
[2018-11-25] MEDS: MYCOPHENOLATE MOFETIL 250 MG CAP PO SCH (20:08)
[2018-11-25] MEDS: PANTOPRAZOLE SODIUM 40 MG TAB PO SCH (20:08)
[2018-11-25] MEDS: IPRATROPIUM/ALBUTEROL 3 ML DEYVIAL IH PRN (20:26)
[2018-11-26 04:46] LABS: PLATELET COUNT 222 10^3/uL (150-400)
[2018-11-26] MEDS ORDERED: FUROSEMIDE 40 MG TAB PO SCH (09:00)
[2018-11-26] MEDS: IPRATROPIUM/ALBUTEROL 3 ML DEYVIAL IH PRN (09:41)
[2018-11-26] MEDS: ALLOPURINOL 300 MG TAB PO SCH (10:09)
[2018-11-26] MEDS: MYCOPHENOLATE MOFETIL 250 MG CAP PO SCH ×2 (10:09→21:35)
[2018-11-26] MEDS: GABAPENTIN 300 MG CAP PO SCH ×2 (10:11→21:35)
[2018-11-26] MEDS: PANTOPRAZOLE SODIUM 40 MG TAB PO SCH ×2 (10:11→21:35)
[2018-11-26] MEDS: METOPROLOL SUCCINATE XR 25 MG TAB PO SCH (10:11)
[2018-11-26] MEDS: ATORVASTATIN CALCIUM 40 MG TAB PO SCH (10:11)
[2018-11-26] MEDS: FOLIC ACID 1 MG TAB PO SCH (10:12)
[2018-11-26] MEDS: CITALOPRAM 20 MG TAB PO SCH (10:12)
[2018-11-26] MEDS: INSULIN LISPRO 100 UNIT/ML SC SCH ×3 (10:22→18:36)
[2018-11-26] MEDS: POTASSIUM CL 20 MEQ TAB PO SCH (10:28)
[2018-11-26] MEDS ORDERED: FUROSEMIDE 20 MG/2 ML VIAL IVP ONE (11:05)
--- NOTE | 2018-11-26 13:25 | PDCARPN ---
Cardiology Progress Note Chief Complaint: Patient reports continued SOB, but feels improved from yesterday. Assessment/Plan: Assessment: A 68-year-old male syncope with significant past history that includes aortic insufficiency status post bioprosthetic valve replacement, coronary artery disease status post CABG (1 vessel SVG to RCA), bovine pericardial patch, aortoplasty, ligation to left atrial appendage, for CVA the table think (2017 in CVA versus TIA 06/2018), paroxysmal atrial fibrillation (off of anticoagulation due to recent GI bleed 10/2018), TYLER, fibrosis interstitial lung disease: On by my and bronchitis which is followed by [facility], hypertension, diabetes. Admitted 11/25/2018 for ongoing fatigue symptoms with worsening dyspnea on exertion. Noted to be hypoxic at PCPs office with room- air saturation at 75%. Admission labs noted negative troponin, mildly elevated D-dimer at 0.56, proBNP 1170 and troponin of 0.01. Preliminary from echocardiogram done on 11/25/2018 noting normal LV size with borderline concentric LVH, normal LV systolic function, EF estimated at 55% with no regional wall motion abnormalities. Normal RV size and RV function, LA was mildly dilated, RA is normal size, mild MR, mild mitral valve leaflet calcification with a mean gradient of 5 mm Hg. Bioprosthetic aortic valve with normal function, no prosthesis stenosis. No prosthesis regurgitation. Trivial TR. CTA chest done on 11/25/2018 showing negative for PE, underlying interstitial lung disease with superimposed features of acute congestive heart failure including interstitial pulmonary edema bilateral pleural effusions, right greater than left. More confluent airspace consolidation in left lower lung may represent asymmetric pulmonary edema or pneumonia. 11/26/2018: Patient reporting improvement in SOB this today, after receiving IV Lasix last evening. Reporting no chest pain, pressure or symptoms suggesting of ischemia. Continues cardiac monitoring showing sinus rhythm with no malignant arrhythmias or pauses. Laboratory studies today noting sodium 134, potassium 5.2, BUN 21, creatinine 0.8, calcium 8.3, magnesium 2.1. Patient denies of any chest pressure, pain or symptoms suggesting of ischemia. Plan: 1. Acute on chronic diastolic heart failure: Elevated BNP on admission, CTA showing CHF with interstitial pulmonary edema and bilateral pleural effusions. Patient had been on oral Lasix, receiving dose today, discontinued. Will give him 20 mg IV Lasix this morning, and start him on 40 mg IV Lasix twice daily. Will monitor electrolyte renal function closely. May require IV diuresis for few days. When transitioning back to oral, would consider putting him on torsemide. Daily weights. I and O's 2. Acute hypoxic respiratory failure: More likely due to diastolic heart failure, but potentially his interstitial lung disease is contributing. Diastolic heart failure as above, pulmonology has been consulted also. Continue on oxygen therapy. 3. CAD: He reports no chest pain, pressure symptoms suggesting of ischemia. The. Recent CABG x1 vessel. Echo noting normal LV systolic function with no wall motion abnormalities. Has been off of aspirin due to GI bleed being of October. Reviewing DC summary interstitial dated 11/01/2018,, anticoagulation hyperlipidemia, hypertension, could be resumed in 2 weeks. Do to hx recent GI bleed, and resuming warfarin, will hold off on starting him on aspirin. He is on atorvastatin for secondary risk prevention. 4. Valvular heart disease: Status post remote aortic valve replacement. Echocardiogram showing no significant gradients across the new valve, 5. Paroxysmal atrial fibrillation: Syncope patient is currently in sinus rhythm. He is on home dose of metoprolol. He is office warfarin due to the history of GI bleed. As mentioned above, I reviewed discharge summary dated 11/01, which said that he is should remain off of this for 2 weeks. That time has . He has significant chads Vasc score of 7. Reviewing chart his H&H is been stable. Will resume warfarin therapy, will follow INRs and H&H. 6. Hypertension: Blood pressure appears to be fairly well controlled current regime. No changes at this time. 7. Diabetes: Defer management to hospitalist services. 11/26/18 13:23 Subjective: Denies of any chest pressure or pain. Reports continuation of dyspnea on exertion. Denies of any lightheadedness, palpitations, near-syncope or syncopal events. Objective: Vital Signs (8 Hrs) Temp Pulse Resp BP Pulse Ox 11/26/18 11:10 36.6 C 90 20 114/67 100 11/26/18 09:19 85 20 96 11/26/18 08:31 36.4 C 89 18 144/92 H 97 Intake/Output (24 Hrs) 11/25/18 11/26/18 11/27/18 05:59 05:59 05:59 Intake Total 250 Output Total 2700 800 Balance -2450 -800 Intake: Oral (ml) 250 Output: Urine (ml) 2700 800 Urinal 2700 800 Other: Weight 104.326 kg Intake Quantity Yes Sufficient Number of Voids Urinal 3 1 Result Diagrams: 11/26/18 03:45 11/26/18 03:45 - Physical Exam Constitutional: no apparent distress Ears, Nose, Mouth, Throat: moist mucous membranes Cardiovascular: regular rate and rhythm, no rubs, systolic murmur (1/6 left sternal border), jugular vein distention (4-5 cm above sternal notch at a 45 degree angle), pulses symmetric bilat, No carotid bruit Peripheral Pulses: 1+: dorsalis-pedis (R), dorsalis-pedis (L), 2+: carotid (R), carotid (L) Respiratory: other (Diminished in bases bilateral, no rhonchi, rales or wheezing noted. No accessary muscle use, no intercostal muscle retraction noted.) Gastrointestinal: normoactive bowel sounds, no tenderness Skin: warm, No no edema (+3 peripheral edema bilateral lower extremities) Neurologic: AAOx3 Psychiatric: cooperative, interactive, following commands ICD10 Worksheet Patient Problems: Problems Problem Status Onset Left-sided weakness Acute Acute kidney injury Acute Upper GI bleeding Acute Weakness Acute Dyspnea Acute Diabetes mellitus type 2, controlled Chronic History of stroke with residual deficit Chronic S/P CABG x 1 Acute ~06/05/18 S/P aortic valve replacement with bioprosthetic valve Acute ~06/05/18 Immunosuppression Chronic Pulmonary hypertension Chronic Nocturnal hypoxemia Chronic TYLER (obstructive sleep apnea) Chronic ILD (interstitial lung disease) Chronic Aortic valve stenosis with insufficiency Chronic CAD in [place] artery Chronic
--- NOTE | 2018-11-26 13:56 | HOSPPROG ---
Hospitalist Progress Note Assessment/Plan: 68-year-old with a history that includes aortic insufficiency status post recent bioprosthetic valve replacement, coronary artery disease and diastolic heart failure as well as interstitial lung disease on Cellcept is admitted with worsening shortness of breath and dyspnea on exertion. He has had 2 recent hospitalizations for GI bleed and CHF. # acute diastolic heart failure with pulmonary edema noted on CT angiogram. Discussed with Cardiology who feel that this may be the cause of his current symptoms although difficult to assess given his other pulmonary issues. It appears he may be noncompliant with his medications. He has responded to IV Lasix. * Continue IV diuresis * Transition to oral torsemide on discharge rather than Lasix * Will need close follow-up to ensure compliance * Continue cardiac rehab # interstitial lung disease on Cellcept and followed at [facility]. Unclear how much of this is contributing to his current symptoms or if this is relatively stable. I do not know if a steroid taper would be beneficial or not * Pulmonary consult to comment on steroids, nebulizers or any other treatment options for this during that has hospitalization. * He has follow-up scheduled at [facility] at the end of November * Negative procalcitonin, likely no bacterial pneumonia # coronary artery disease status post 1 vessel bypass to RCA * Doubt acute ischemia as cause of any of his symptoms currently * Recent GI bleed with gastric ulcers, will discontinue Aspirin since he will be on chronic anticoagulation for his AFib # history of atrial fibrillation status post ligation to his left atrial appendage however high chads score of 7. * Resume warfarin and monitor H&H while in hospital # diabetes, monitor blood sugars holding metformin due to recent IV contrast, on insulin sliding scale # recent GI bleed due to gastric ulcers status post ligation of visible vessel. Okay to resume anticoagulation per GI note. Will hold aspirin at this time since he will be on full anticoagulation. * Monitor H&H while resuming warfarin Subjective: Discussed with Cardiology and pulmonology. Dyspnea continues is still requiring increased oxygen needs however slightly improved with IV Lasix. Suspect most of this is diastolic dysfunction but would still wonder if any interstitial lung disease is contributing Objective: Vital Signs Temp Pulse Resp BP Pulse Ox 36.6 C 90 20 114/67 100 11/26/18 11:10 11/26/18 11:10 11/26/18 11:10 11/26/18 11:10 11/26/18 11:10 Laboratory Results 11/26/18 03:45 11/26/18 03:45 11/25/18 11/26/18 11/27/18 05:59 05:59 05:59 Intake Total 250 Output Total 2700 800 Balance -2450 -800 PT 15.4 SEC (12.0-15.0) H 11/25/18 10:35 INR 1.27 (0.83-1.16) H 11/25/18 10:35 - Physical Exam Constitutional: no apparent distress, obese Eyes: PERRL Ears, Nose, Mouth, Throat: moist mucous membranes Cardiovascular: regular rate and rhythym, systolic murmur Respiratory: reduced air movement, inspiratory crackles, respiratory distress Gastrointestinal: normoactive bowel sounds Genitourinary: no bladder fullness Skin: warm Neurologic: AAOx3 Psychiatric: interacting appropriately ICD10 Worksheet Patient Problems: Problems Problem Status Onset Left-sided weakness Acute Acute kidney injury Acute Upper GI bleeding Acute Weakness Acute Dyspnea Acute Diabetes mellitus type 2, controlled Chronic History of stroke with residual deficit Chronic S/P CABG x 1 Acute ~06/05/18 S/P aortic valve replacement with bioprosthetic valve Acute ~06/05/18 Immunosuppression Chronic Pulmonary hypertension Chronic Nocturnal hypoxemia Chronic TYLER (obstructive sleep apnea) Chronic ILD (interstitial lung disease) Chronic Aortic valve stenosis with insufficiency Chronic CAD in [place] artery Chronic
[2018-11-26] MEDS: FUROSEMIDE 40 MG/4 ML VIAL IVP SCH (14:45)
[2018-11-26] MEDS ORDERED: WARFARIN SODIUM 5 MG TAB PO ONE (16:00)
--- NOTE | 2018-11-26 16:04 | ASMTCMCOM ---
CM Note CM Note Notes: Patient chart reviewed. Patient admitted via ED with hypoxia. History of CABG, valve surgery and interstitial lung disease. Follow at [facility], Lives independently with his . Last Discharge from hospital in October with outpatient rehab. Per Therapy recommendations remain the same. No current needs identified. CM to follow. Plan: Likely to discharge home with family support when medically cleared for discharge to home. Date Signed: 11/26/2018 04:04 PM Electronically Signed By:Dinora Anton RN
[2018-11-26] MEDS: ALPRAZolam 0.25 MG TAB PO PRN (21:35)
[2018-11-26] MEDS: DOXEPIN HCL 10 MG CAP PO SCH (21:35)
[2018-11-27] MEDS: ALPRAZolam 0.25 MG TAB PO PRN (00:23)
[2018-11-27 04:38] LABS: INR 1.3 (0.83-1.16); PROTIME(PATIENT) 15.6 SEC (12.0-15.0)
[2018-11-27] MEDS: INSULIN LISPRO 100 UNIT/ML SC SCH ×3 (08:43→17:35)
[2018-11-27] MEDS: ALLOPURINOL 300 MG TAB PO SCH (08:44)
[2018-11-27] MEDS: ATORVASTATIN CALCIUM 40 MG TAB PO SCH (08:45)
[2018-11-27] MEDS: CITALOPRAM 20 MG TAB PO SCH (08:45)
[2018-11-27] MEDS: GABAPENTIN 300 MG CAP PO SCH ×2 (08:46→20:40)
[2018-11-27] MEDS: METOPROLOL SUCCINATE XR 25 MG TAB PO SCH (08:47)
[2018-11-27] MEDS: PANTOPRAZOLE SODIUM 40 MG TAB PO SCH ×2 (08:48→20:40)
[2018-11-27] MEDS: FOLIC ACID 1 MG TAB PO SCH (08:49)
[2018-11-27] MEDS: POTASSIUM CL 20 MEQ TAB PO SCH (08:49)
[2018-11-27] MEDS: MYCOPHENOLATE MOFETIL 250 MG CAP PO SCH ×2 (08:51→20:39)
--- NOTE | 2018-11-27 08:52 | GCON ---
[f rep st] CONSULTATION PULMONARY CONSULTATION DATE OF CONSULTATION: 11/26/2018 REASON FOR CONSULTATION: Shortness of breath. HISTORY: The patient is a pleasant 68-year-old gentleman with multiple medical problems. He has chely vular heart disease and coronary artery disease. He underwent aortic valve replacement in May of 2018, as well as bypass grafting. This is associated with congestive heart failure. He also has a history of interstitial fibrotic disease which has been present for a number of years. He is follo wed at [facility] for this. Other problems potentially contributing to shortness of breath incl ude anemia. He is status post a GI bleed. He was recently admitted to [facility] with conges tive heart failure and diuresed. He presented with shortness of breath and fatigue on that admission . According to the patient's , he initially did well after his valve replacement and CABG, but a month or so later, began to have a gradual decline with increased fatigue, and increased shortness o f breath and dyspnea on exertion. He was discharged from [facility] about 2 weeks prior to [facility] admission yesterday. Over at least the past week, he has had increasing shortness of breath. He w as using oxygen at night, but is now using this during the day. He has had a dry cough. He has no f danette, chills, or sweats. He has not had any purulent mucus. He did have increasing lower extremity edema. On the day of admission, he saw his primary care physician. Saturations were reportedly in the 70s on room air. He was sent to the emergency department. In the emergency department, he was p laced on oxygen at 4 L with saturations of 96%. 2+ bilateral pedal edema was noted. He was afebrile , with normal blood pressure. EKG was unremarkable for acute changes. Chest x-ray showed interstiti al lung disease with infiltrates consistent with pulmonary edema. Pneumonia could not be excluded. Blood lactate was 2.1. White blood cell count was mildly elevated at 14,000. BUN and creatinine wer e normal. He was given Solu-Medrol and I believe Lasix. He was admitted to the PCU. Respiratory pa buck was negative. A CT angiogram of the chest was subsequently done. There was no evidence of pulmonary embolic diseas e. Peripheral upper zone interstitial disease greater than lower lobe disease was present. In addit ion, there were changes consistent with pulmonary edema. Pleural effusions were present, right great er than left. BNP was elevated at approximately 1100. Following admission, he has been diuresed with Lasix, 40 mg b.i.d. he is on bronchodilator therapies . Steroids have been continued. He remains on oxygen at 2-3 L. His main complaint is of fatigue an d tiredness. PAST MEDICAL HISTORY: Remarkable for multiple medical problems including his valvular heart disease, aortic valve replacement, coronary artery disease with 1-vessel bypass, systemic hypertension, type 2 diabetes, interstitial lung disease, on CellCept, atrial fibrillation with chronic anticoagulation, possible COPD/reversible airways obstruction, gastroesophageal reflux, recent gastric ulcers with bl eeding, and migraines. MEDICATIONS: Medications on admission included CellCept mg twice a day, pantoprazole, Duo Nebs, Lasix 40 mg per day, gabapentin, citalopram, Symbicort, atorvastatin, allopurinol, p.r.n. albut jennifer, alprazolam t.i.d. p.r.n., metformin, potassium, and acetaminophen. DRUG ALLERGIES: Penicillins, gentamicin. SOCIAL HISTORY: The patient is , lives with his . He is Do Not Resuscitate. He smoked f or about 10 years related to college and a few years after. Significant alcohol is negative. FAMILY HISTORY: Noncontributory. REVIEW OF SYSTEMS: A 10-point review of systems is negative except as outlined in the HPI and past m edical history. PHYSICAL EXAMINATION: GENERAL: Reveals a gentleman who is sitting in a chair. He is somnolent and easily falls asleep, but is arousable, responsive and appropriate. VITAL SIGNS: Oxygen is in place. Blood pressure is 125/75, heart rate 85 with normal sinus rhythm currently. On 3 L saturations are 99%. Respiratory rate is 16. He appears comfortable and is in no distress. HEENT: Mucous membran es are moist. There is no lymphadenopathy or thyromegaly. Jugular venous pressure is difficult to e stimate. PULMONARY: The chest reveals decreased breath sounds bilaterally. Bilateral rales are pre sent. There are no wheezes. Voluntary cough is dry. There is no pulmonary congestion, no rhonchi. HEART: Regular. A systolic murmur is present. His valve sounds fine. A gallop cannot be excluded . P2 is normal to increased. ABDOMEN: Overweight, soft, nontender. Bowel sounds are present. No Robert catheter is in place. EXTREMITIES: Remarkable for 1+ bilateral pitting edema. There are no o bvious cords. NEUROLOGIC: Nonfocal. He moves all extremities. Mentation appears intact. DATABASE: CT scan of the chest is as outlined above, consistent with underlying interstitial lung di sease and more acute congestive heart failure/pulmonary edema associated with pleural effusions. [facility] te blood cell count is 13,500, hematocrit is 26.8. Platelets are normal. INR on admission was 1.27. Venous lactates were 2.1 and 1.9 on repeat. Sodium is 134, potassium 5.2, BUN 21 with a creatinine of 0.8. Glucoses have ranged from 130 to 180 today. Troponin is negative. BNP is elevated at 1170 . Procalcitonin was negative. Respiratory panel was negative. Blood cultures are negative to date. ASSESSMENT: 1. Shortness of breath/dyspnea on exertion, increased hypoxemia. Patient has several etiologies for his shortness of breath and hypoxemia. He does have known underlying interstitial lung disease. Th ere is no indication this is worse acutely. Likewise, there does not appear to be an exacerbation of reversible airways obstruction. He is on treatment for this. There is no evidence of a bacterial p neumonia. He does have known underlying valvular and coronary disease associated with congestive hea rt failure. It appears that congestive heart failure is worse compared to several weeks ago, with in creased congestive heart failure/pulmonary edema noted on x-ray and CT scan. BNP is elevated. He do es seem to be responding to diuresis. 2. Interstitial lung disease. He does carry this diagnosis. The etiology is unclear to me. He was followed by Dr. Zarate, in our office a number of years ago, and has subsequently been followed at [facility]. He is being treated with CellCept. He was on prednisone in the more distant past, a pparently without benefit. It is unclear to me what his actual diagnosis is. Records from [facility] will need to be obtained. However, there is no indication of acute worsening of his interstit ial lung disease, however, this cannot be absolutely excluded, as differentiating this between increa sed congestive heart failure/pulmonary edema is difficult. He also has a history of reversible airwa ys obstruction. He would not appear to have chronic obstructive pulmonary disease. He is on appropr iate inhaled therapies. There is no evidence of an exacerbation of his reversible airways obstructio n. 3. Anemia. The patient is anemic, with a hematocrit of 26. This may be contributing to his dyspnea on exertion as well. There is no evidence of active bleeding at this time. 4. Immunosuppression: Secondary to CellCept. 5. History of multiple other medical problems as outlined above. RECOMMENDATIONS: Relatively aggressive Lasix diuresis should be continued. Renal function and elect rolytes will be followed. Chest x-ray can be followed intermittently. Recent records and his most r ecent CT scan from [facility] will be requested. His current CT scan will be compared to a [facility] scan done approximately 2 years ago. Further plans and recommendations will be made based on his progress over the next 12-24 hours. /[id number]/MODL
[2018-11-27] MEDS: FUROSEMIDE 40 MG/4 ML VIAL IVP SCH (08:53)
[2018-11-27] MEDS ORDERED: ASPIRIN EC 81 MG TAB PO SCH (09:00)
[2018-11-27] MEDS ORDERED: FUROSEMIDE 20 MG/2 ML VIAL IVP ONE (09:08)
--- NOTE | 2018-11-27 11:07 | PDCARPN ---
Cardiology Progress Note Chief Complaint: He reports shortness of breath improved. Assessment/Plan: Assessment: A 68-year-old male syncope with significant past history that includes aortic insufficiency status post bioprosthetic valve replacement, coronary artery disease status post CABG (1 vessel SVG to RCA), bovine pericardial patch, aortoplasty, ligation to left atrial appendage, for CVA the table think (2017 in CVA versus TIA 06/2018), paroxysmal atrial fibrillation (off of anticoagulation due to recent GI bleed 10/2018), TYLER, fibrosis interstitial lung disease: On by my and bronchitis which is followed by [facility], hypertension, diabetes. Admitted 11/25/2018 for ongoing fatigue symptoms with worsening dyspnea on exertion. Noted to be hypoxic at PCPs office with room- air saturation at 75%. Admission labs noted negative troponin, mildly elevated D-dimer at 0.56, proBNP 1170 and troponin of 0.01. Preliminary from echocardiogram done on 11/25/2018 noting normal LV size with borderline concentric LVH, normal LV systolic function, EF estimated at 55% with no regional wall motion abnormalities. Normal RV size and RV function, LA was mildly dilated, RA is normal size, mild MR, mild mitral valve leaflet calcification with a mean gradient of 5 mm Hg. Bioprosthetic aortic valve with normal function, no prosthesis stenosis. No prosthesis regurgitation. Trivial TR. CTA chest done on 11/25/2018 showing negative for PE, underlying interstitial lung disease with superimposed features of acute congestive heart failure including interstitial pulmonary edema bilateral pleural effusions, right greater than left. More confluent airspace consolidation in left lower lung may represent asymmetric pulmonary edema or pneumonia. 11/27/2018: Patient stating that his shortness of breath has improved. He denies of any chest pressure or pain. Continues cardiac monitoring showing a maintaining sinus rhythm with no malignant arrhythmias or pauses. Output greater than input, but no significant weight loss overnight. Laboratories today showing INR of 1.30, potassium 4.7, BUN 24, creatinine 0.9, calcium 7.8, magnesium 2.0. Plan: 1. Acute on chronic diastolic heart failure: Did have a significant of output yesterday, with IV Lasix. No significant weight loss. Continues have JVD on examination. No rales in bases continue with aggressive IV diuresis, increasing dosage of Lasix to 60 mg p. O. Q.day. Will also placed on 1800 mL fluid restriction. Will monitor electrolyte renal function closely. Daily weights. I and O's. In a few days, consideration of transitioning him over to torsemide. 2. Acute hypoxic respiratory failure: More likely due to diastolic heart failure, but potentially his interstitial lung disease is contributing. Diastolic heart failure as above, appreciate pulmonology consultation. Med management per pulmonology and hospitalist. Continue on oxygen therapy. 3. CAD: He reports no chest pain, pressure symptoms suggesting of ischemia. Recent CABG x1 vessel. Echo noting normal LV systolic function with no wall motion abnormalities. Has been off of aspirin due to GI bleed being of October. Reviewing DC summary dated 11/01/2018, anticoagulation could be resumed in 2 weeks. Do to hx recent GI bleed, and resuming warfarin, will hold off on starting him on aspirin. He is on atorvastatin for secondary risk prevention. 4. Valvular heart disease: Status post remote aortic valve replacement. Echocardiogram showing no significant gradients across the new valve, 5. Paroxysmal atrial fibrillation: Syncope patient is currently in sinus rhythm. He is on home dose of metoprolol. He is office warfarin due to the history of GI bleed. As mentioned above, I reviewed discharge summary dated 11/01, which said that he is should remain off of this for 2 weeks. That time has . He has significant chads Vasc score of 7. Reviewing chart his H&H is been stable. Will resume warfarin therapy, will follow INRs and H&H. 6. Hypertension: Blood pressure appears to be fairly well controlled current regime. No changes at this time. 7. Diabetes: Defer management to hospitalist services. 11/27/18 11:03 Subjective: He denies of any chest pressure, pain, or symptoms suggesting of ischemia. Reports shortness of breath has improved. He feels his peripheral edema is also improved. Reports abdomen bloating is better. Denies of any palpitations , lightheadedness, near-syncope or syncopal events. Reviewed/Discussed With: other (Dr Jolley) Objective: Vital Signs (8 Hrs) Temp Pulse Resp BP Pulse Ox 11/27/18 08:47 75 131/77 H 11/27/18 07:58 36.3 C 85 14 132/85 H 97 11/27/18 04:00 36.4 C 88 18 130/96 H 97 Intake/Output (24 Hrs) 11/26/18 11/27/18 11/28/18 05:59 05:59 05:59 Intake Total 250 1340 Output Total 2700 5075 1400 Balance -5710 -4175 -1400 Intake: Oral (ml) 250 1340 Output: Urine (ml) 2700 5075 1400 Toilet 350 600 Urinal 2700 4725 800 Other: Weight 104.326 kg 105.914 kg 105.9 kg Intake Quantity Yes Sufficient Number of Voids Urinal 3 1 Result Diagrams: 11/26/18 03:45 11/27/18 03:42 - Physical Exam Constitutional: no apparent distress, obese (Moderate) Ears, Nose, Mouth, Throat: moist mucous membranes Cardiovascular: regular rate and rhythm, systolic murmur (Her / upper chest), pulses symmetric bilat, No jugular vein distention (4-5 cm above sternal notch) , No carotid bruit Peripheral Pulses: 1+: dorsalis-pedis (R), dorsalis-pedis (L), 2+: carotid (R), carotid (L) Respiratory: other (Lungs are clear but diminished in bases bilateral, no rhonchi, rales, or wheezing.) Gastrointestinal: normoactive bowel sounds, no tenderness, no masses Skin: warm, No no edema (+2 peripheral edema bilateral lower extremities) Neurologic: AAOx3 Psychiatric: cooperative, interactive, following commands ICD10 Worksheet Patient Problems: Problems Problem Status Onset Left-sided weakness Acute Acute kidney injury Acute Upper GI bleeding Acute Weakness Acute Dyspnea Acute Diabetes mellitus type 2, controlled Chronic History of stroke with residual deficit Chronic S/P CABG x 1 Acute ~06/05/18 S/P aortic valve replacement with bioprosthetic valve Acute ~06/05/18 Immunosuppression Chronic Pulmonary hypertension Chronic Nocturnal hypoxemia Chronic TYLER (obstructive sleep apnea) Chronic ILD (interstitial lung disease) Chronic Aortic valve stenosis with insufficiency Chronic CAD in [place] artery Chronic
[2018-11-27] MEDS ORDERED: FUROSEMIDE 100 MG/10 ML VIAL IVP SCH (15:00)
[2018-11-27] MEDS ORDERED: WARFARIN SODIUM 3 MG TAB PO ONE (16:00)
--- NOTE | 2018-11-27 16:15 | HOSPPROG ---
Hospitalist Progress Note Assessment/Plan: 68-year-old with a history that includes aortic insufficiency status post recent bioprosthetic valve replacement, coronary artery disease and diastolic heart failure as well as interstitial lung disease on Cellcept is admitted with worsening shortness of breath and dyspnea on exertion. He has had 2 recent hospitalizations for GI bleed and CHF. # acute diastolic heart failure with pulmonary edema noted on CT angiogram. Discussed with Cardiology who feel that this may be the cause of his current symptoms although difficult to assess given his other pulmonary issues. It appears he may be noncompliant with his medications. He has responded to IV Lasix. * Continue IV diuresis * Transition to oral torsemide on discharge rather than Lasix * Will need close follow-up to ensure compliance * Continue cardiac rehab # interstitial lung disease on Cellcept and followed at [facility]. * Pulmonary consult recc no need for abx or steroids. * He has follow-up scheduled at [facility] at the end of November * Negative procalcitonin, likely no bacterial pneumonia # coronary artery disease status post 1 vessel bypass to RCA * Doubt acute ischemia as cause of any of his symptoms currently * Recent GI bleed with gastric ulcers, will discontinue Aspirin since he has started warfarin for chronic anticoagulation for his AFib # history of atrial fibrillation status post ligation to his left atrial appendage however high chads score of 7. * Resume warfarin and monitor H&H while in hospital. # diabetes, monitor blood sugars holding metformin due to recent IV contrast, on insulin sliding scale # recent GI bleed due to gastric ulcers status post ligation of visible vessel. Okay to resume anticoagulation per GI note. Will hold aspirin at this time since he will be on full anticoagulation. * Monitor H&H while resuming warfarin Subjective: still with volume overload. no cp. + pedal edema Objective: Vital Signs Temp Pulse Resp BP Pulse Ox 36.3 C 93 14 143/84 H 94 11/27/18 15:49 11/27/18 15:49 11/27/18 15:49 11/27/18 15:49 11/27/18 15:55 Laboratory Results 11/26/18 03:45 11/27/18 03:42 11/26/18 11/27/18 11/28/18 05:59 05:59 05:59 Intake Total 250 1340 Output Total 2700 5075 3750 Balance -2450 -2525 -3750 PT 15.6 SEC (12.0-15.0) H 11/27/18 03:42 INR 1.30 (0.83-1.16) H 11/27/18 03:42 - Physical Exam Constitutional: no apparent distress, chronically ill appearing Eyes: PERRL Ears, Nose, Mouth, Throat: moist mucous membranes, hearing normal Cardiovascular: regular rate and rhythym, edema Respiratory: no respiratory distress, no rales or rhonchi, reduced air movement Gastrointestinal: normoactive bowel sounds, soft, non-tender abdomen Skin: warm Neurologic: AAOx3 Psychiatric: interacting appropriately, not anxious, not encephalopathic Lymph, Heme, Immunologic: No petechiae ICD10 Worksheet Patient Problems: Problems Problem Status Onset Acute kidney injury Acute Dyspnea Acute Left-sided weakness Acute S/P CABG x 1 Acute ~06/05/18 S/P aortic valve replacement with bioprosthetic valve Acute ~06/05/18 Upper GI bleeding Acute Weakness Acute Aortic valve stenosis with insufficiency Chronic CAD in [place] artery Chronic Diabetes mellitus type 2, controlled Chronic History of stroke with residual deficit Chronic ILD (interstitial lung disease) Chronic Immunosuppression Chronic Nocturnal hypoxemia Chronic TYLER (obstructive sleep apnea) Chronic Pulmonary hypertension Chronic
[2018-11-27] MEDS: DOXEPIN HCL 10 MG CAP PO SCH (20:40)
[2018-11-28 04:37] LABS: INR 1.23 (0.83-1.16)
[2018-11-28] MEDS ORDERED: MAGNESIUM SULF 1 GM/DEXTROSE 100 ML IV ONE (08:30)
[2018-11-28] MEDS ORDERED: metFORMIN HCL 500 MG TAB PO SCH (09:00)
--- NOTE | 2018-11-28 09:31 | PDCARPN ---
Cardiology Progress Note Chief Complaint: Patient reporting shortness of breath has on proved. Assessment/Plan: Assessment: A 68-year-old male syncope with significant past history that includes aortic insufficiency status post bioprosthetic valve replacement, coronary artery disease status post CABG (1 vessel SVG to RCA), bovine pericardial patch, aortoplasty, ligation to left atrial appendage, for CVA the table think (2017 in CVA versus TIA 06/2018), paroxysmal atrial fibrillation (off of anticoagulation due to recent GI bleed 10/2018), TYLER, fibrosis interstitial lung disease: On by my and bronchitis which is followed by [facility], hypertension, diabetes. Admitted 11/25/2018 for ongoing fatigue symptoms with worsening dyspnea on exertion. Noted to be hypoxic at PCPs office with room- air saturation at 75%. Admission labs noted negative troponin, mildly elevated D-dimer at 0.56, proBNP 1170 and troponin of 0.01. Preliminary from echocardiogram done on 11/25/2018 noting normal LV size with borderline concentric LVH, normal LV systolic function, EF estimated at 55% with no regional wall motion abnormalities. Normal RV size and RV function, LA was mildly dilated, RA is normal size, mild MR, mild mitral valve leaflet calcification with a mean gradient of 5 mm Hg. Bioprosthetic aortic valve with normal function, no prosthesis stenosis. No prosthesis regurgitation. Trivial TR. CTA chest done on 11/25/2018 showing negative for PE, underlying interstitial lung disease with superimposed features of acute congestive heart failure including interstitial pulmonary edema bilateral pleural effusions, right greater than left. More confluent airspace consolidation in left lower lung may represent asymmetric pulmonary edema or pneumonia. 11/28/2018: Patient reporting SOB improved. Denies of any chest pressure, pain, or symptoms suggesting of ischemia. Patient is down approximately 4 kilos from yesterday. Output greater than input. Peripheral edema improved. Patient stating abdomen fullness improved. Continues cardiac monitoring showing sinus rhythm with no malignant arrhythmias or pauses. Laboratories today showing H&H stable. INR still subtherapeutic at 1.23, area chloride down to 94, CO2 33, BUN up at 25, creatinine within normal limits at 0.9, magnesium 1.9. Improvement in BMP down to 491. Plan: 1. Acute on chronic diastolic heart failure: Patient with good weight loss yesterday. Output greater than input. No significant JVD. Peripheral edema improving. Transition over to Demadex today at 40 mg p. O. Twice daily. DC potassium chloride, started on Aldactone at 12.5 mg p.o. Q.day. Continue monitoring weights, I&Os, electrolytes. Magnesium 1.9, supplement ordered. Pending on how patient is doing, potential discharge probable tomorrow from cardiac standpoint. 2. Acute hypoxic respiratory failure: More likely due to diastolic heart failure, but potentially his interstitial lung disease is contributing. Diastolic heart failure as above, appreciate pulmonology consultation. Med management per pulmonology and hospitalist. Continue on oxygen therapy. 3. CAD: He reports no chest pain, pressure symptoms suggesting of ischemia. Recent CABG x1 vessel. Echo noting normal LV systolic function with no wall motion abnormalities. Has been off of aspirin due to GI bleed being of October. Reviewing DC summary dated 11/01/2018, anticoagulation could be resumed in 2 weeks. Do to hx recent GI bleed, and resuming warfarin, will hold off on starting him on aspirin. He is on atorvastatin for secondary risk prevention. 4. Valvular heart disease: Status post remote aortic valve replacement. Echocardiogram showing no significant gradients across the new valve, 5. Paroxysmal atrial fibrillation: Syncope patient is currently in sinus rhythm. He is on home dose of metoprolol. He is office warfarin due to the history of GI bleed. As mentioned above, I reviewed discharge summary dated 11/01, which said that he is should remain off of this for 2 weeks. That time has . He has significant chads Vasc score of 7. He has been resumed on warfarin therapy. H&H stable. INR subtherapeutic. Pharmacy to dose warfarin, with recent GI bleed, no bridging. 6. Hypertension: Blood pressure well controlled at this time. No changes at this time. 7. Diabetes: Defer management to hospitalist services. 11/28/18 09:27 Subjective: He denies of any chest pressure, pain, or or symptoms suggesting of ischemia. Denies of any palpitations, lightheadedness, near-syncope or syncopal events. Reviewed/Discussed With: other (Dr Jolley.) Objective: Vital Signs (8 Hrs) Temp Pulse Resp BP Pulse Ox 11/28/18 08:48 36.6 C 80 20 118/86 H 92 11/28/18 04:00 36.3 C 75 20 109/78 93 Intake/Output (24 Hrs) 11/27/18 11/28/18 11/29/18 05:59 05:59 05:59 Intake Total 1340 950 Output Total 5075 7050 Balance -3735 -6100 Intake: Oral (ml) 1340 950 Output: Urine (ml) 5075 7050 Toilet 350 1050 Urinal 4725 6000 Other: Weight 105.914 kg 101.378 kg Intake Quantity Yes Sufficient Output Comment Toilet collected in hat Number of Voids Toilet 1 Urinal 1 1 Result Diagrams: 11/28/18 03:32 11/28/18 03:32 - Physical Exam Constitutional: no apparent distress, obese (Mild) Cardiovascular: regular rate and rhythm, no rubs, no gallops, systolic murmur (1 /6 left sternal border), jugular vein distention (4 cm above sternal notch), pulses symmetric bilat Peripheral Pulses: 1+: dorsalis-pedis (R), dorsalis-pedis (L), 2+: carotid (R), carotid (L) Respiratory: other (Mild expiratory wheeze, no rhonchi or rales. No accessary muscle use, no intercostal muscle retraction noted.) Gastrointestinal: normoactive bowel sounds Skin: warm, other, No no edema (+1 peripheral edema bilateral lower extremities) Neurologic: AAOx3 Psychiatric: cooperative, interactive, following commands ICD10 Worksheet Patient Problems: Problems Problem Status Onset Acute kidney injury Acute Dyspnea Acute Left-sided weakness Acute S/P CABG x 1 Acute ~06/05/18 S/P aortic valve replacement with bioprosthetic valve Acute ~06/05/18 Upper GI bleeding Acute Weakness Acute Aortic valve stenosis with insufficiency Chronic CAD in [place] artery Chronic Diabetes mellitus type 2, controlled Chronic History of stroke with residual deficit Chronic ILD (interstitial lung disease) Chronic Immunosuppression Chronic Nocturnal hypoxemia Chronic TYLER (obstructive sleep apnea) Chronic Pulmonary hypertension Chronic
[2018-11-28] MEDS: ATORVASTATIN CALCIUM 40 MG TAB PO SCH (09:48)
[2018-11-28] MEDS: TORSEMIDE 20 MG TAB PO SCH ×2 (09:48→16:37)
[2018-11-28] MEDS: GABAPENTIN 300 MG CAP PO SCH ×2 (09:48→19:59)
[2018-11-28] MEDS: PANTOPRAZOLE SODIUM 40 MG TAB PO SCH ×2 (09:49→19:59)
[2018-11-28] MEDS: SPIRONOLACTONE 25 MG TAB PO SCH (09:49)
[2018-11-28] MEDS: ALLOPURINOL 300 MG TAB PO SCH (09:50)
[2018-11-28] MEDS: METOPROLOL SUCCINATE XR 25 MG TAB PO SCH (09:50)
[2018-11-28] MEDS: FOLIC ACID 1 MG TAB PO SCH (09:50)
[2018-11-28] MEDS: CITALOPRAM 20 MG TAB PO SCH (09:51)
[2018-11-28] MEDS: INSULIN LISPRO 100 UNIT/ML SC SCH ×3 (09:51→16:58)
[2018-11-28] MEDS: MYCOPHENOLATE MOFETIL 250 MG CAP PO SCH ×2 (09:53→19:58)
--- NOTE | 2018-11-28 16:41 | HOSPPROG ---
Hospitalist Progress Note Assessment/Plan: 68-year-old with a history that includes aortic insufficiency status post recent bioprosthetic valve replacement, coronary artery disease and diastolic heart failure as well as interstitial lung disease on Cellcept is admitted with worsening shortness of breath and dyspnea on exertion. He has had 2 recent hospitalizations for GI bleed and CHF. # acute diastolic heart failure with pulmonary edema noted on CT angiogram. Discussed with Cardiology who feel that this may be the cause of his current symptoms although difficult to assess given his other pulmonary issues. It appears he may be noncompliant with his medications. * Stop IV diuresis * Transition to oral torsemide on discharge rather than Lasix * Will need close follow-up to ensure compliance * Continue cardiac rehab # interstitial lung disease on Cellcept and followed at [facility]. * Pulmonary consult recc no need for abx or steroids. * He has follow-up scheduled at [facility] at the end of November * Negative procalcitonin, likely no bacterial pneumonia # coronary artery disease status post 1 vessel bypass to RCA * Doubt acute ischemia as cause of any of his symptoms currently * Recent GI bleed with gastric ulcers, will discontinue Aspirin since he has started warfarin for chronic anticoagulation for his AFib # chronic AC: await therapeutic INR # history of atrial fibrillation status post ligation to his left atrial appendage however high chads score of 7. * Resume warfarin and monitor H&H while in hospital. # diabetes, monitor blood sugars holding metformin due to recent IV contrast, on insulin sliding scale # recent GI bleed due to gastric ulcers status post ligation of visible vessel. Okay to resume anticoagulation per GI note. Will hold aspirin at this time since he will be on full anticoagulation. * Monitor H&H while resuming warfarin labs in a.m. likely d/c tomorrow Subjective: no cp. sob is better. feels better overall. pedal edema is better Objective: Vital Signs Temp Pulse Resp BP Pulse Ox 36.8 C 80 20 121/70 H 98 11/28/18 16:26 11/28/18 16:26 11/28/18 16:26 11/28/18 16:26 11/28/18 16:26 Laboratory Results 11/28/18 03:32 11/28/18 03:32 11/27/18 11/28/18 11/29/18 05:59 05:59 05:59 Intake Total 1340 950 780 Output Total 6455 5354 9457 Balance -5365 -6100 -1870 PT 15.0 SEC (12.0-15.0) 11/28/18 03:32 INR 1.23 (0.83-1.16) H 11/28/18 03:32 - Physical Exam Constitutional: no apparent distress Eyes: PERRL, EOMI Ears, Nose, Mouth, Throat: moist mucous membranes, hearing normal Cardiovascular: regular rate and rhythym, edema Respiratory: no respiratory distress, reduced air movement Gastrointestinal: normoactive bowel sounds, soft, non-tender abdomen Skin: warm Neurologic: AAOx3 Psychiatric: interacting appropriately, not anxious, not encephalopathic Lymph, Heme, Immunologic: No petechiae ICD10 Worksheet Patient Problems: Problems Problem Status Onset Acute dyspnea Acute Acute kidney injury Acute Dyspnea Acute Left-sided weakness Acute S/P CABG x 1 Acute ~06/05/18 S/P aortic valve replacement with bioprosthetic valve Acute ~06/05/18 Upper GI bleeding Acute Weakness Acute Aortic valve stenosis with insufficiency Chronic CAD in [place] artery Chronic Diabetes mellitus type 2, controlled Chronic History of stroke with residual deficit Chronic ILD (interstitial lung disease) Chronic Immunosuppression Chronic Nocturnal hypoxemia Chronic TYLER (obstructive sleep apnea) Chronic Pulmonary hypertension Chronic
[2018-11-28] MEDS ORDERED: WARFARIN SODIUM 5 MG TAB PO ONE (16:45)
--- NOTE | 2018-11-28 18:59 | SOAPPROG ---
SOAP Progress Note Assessment/Plan: Assessment: Congestive heart failure: Improving with diuresis. BNP decreased. Weight down 3-4 kilos. History of valvular heart disease, coronary disease. Dyspnea on exertion, fatigue. Improved, secondary to above. Underlying interstitial lung disease: Stable, no evidence of exacerbation. Plan: Continue diuresis. Continue oxygen. Increase ambulation as tolerated. Continue bronchopulmonary therapies. Possible discharge tomorrow. I will try to check in with the patient prior to his leaving. Pulmonary follow-up will likely be at [facility]. I would be happy to see him back here in [place] if needed. Subjective: Feels better, less short of breath. Up ambulating in the [place]. Fatigue has improved. Objective: Vital Signs Temp Pulse Resp BP Pulse Ox 36.8 C 80 20 121/70 H 98 11/28/18 16:26 11/28/18 16:26 11/28/18 16:26 11/28/18 16:26 11/28/18 16:26 Laboratory Results 11/28/18 03:32 11/28/18 03:32 11/27/18 11/28/18 11/29/18 05:59 05:59 05:59 Intake Total 1340 950 780 Output Total 5075 7050 2650 Balance -4985 -6100 -1870 PT 15.0 SEC (12.0-15.0) 11/28/18 03:32 INR 1.23 (0.83-1.16) H 11/28/18 03:32 Physical Exam - Physical Exam General Appearance: alert, no apparent distress EENT: PERRL/EOMI, other (Nasal cannula oxygen in place at 2-3 L. Increases with ambulation.) Neck: normal inspection (No obvious JVD) Respiratory: lungs clear (Anteriorly), decreased breath sounds (At bases), rales (Few basilar rales on the right side, otherwise), No rhonchi (Essentially clear), No wheezing Cardiac/Chest: regular rate, rhythm, systolic murmur, No gallop Abdomen: normal bowel sounds, non-tender, soft Skin: normal color, warm/dry Extremities: pedal edema (Trace +, improved) Neuro/Psych: no motor/sensory deficits, No cognition abnormalities ICD10 Worksheet Patient Problems: Problems Problem Status Onset Left-sided weakness Acute Acute kidney injury Acute Upper GI bleeding Acute Weakness Acute Dyspnea Acute Acute dyspnea Acute Diabetes mellitus type 2, controlled Chronic History of stroke with residual deficit Chronic S/P CABG x 1 Acute ~06/05/18 S/P aortic valve replacement with bioprosthetic valve Acute ~06/05/18 Immunosuppression Chronic Pulmonary hypertension Chronic Nocturnal hypoxemia Chronic TYLER (obstructive sleep apnea) Chronic ILD (interstitial lung disease) Chronic Aortic valve stenosis with insufficiency Chronic CAD in [place] artery Chronic
[2018-11-28] MEDS: ALPRAZolam 0.25 MG TAB PO PRN (19:59)
[2018-11-28] MEDS: DOXEPIN HCL 10 MG CAP PO SCH (20:00)
[2018-11-29 04:58] LABS: INR 1.22 (0.83-1.16); PROTIME(PATIENT) 14.9 SEC (12.0-15.0)
[2018-11-29] MEDS: CITALOPRAM 20 MG TAB PO SCH (09:25)
[2018-11-29] MEDS: PANTOPRAZOLE SODIUM 40 MG TAB PO SCH (09:25)
[2018-11-29] MEDS: GABAPENTIN 300 MG CAP PO SCH (09:25)
[2018-11-29] MEDS: FOLIC ACID 1 MG TAB PO SCH (09:26)
[2018-11-29] MEDS: ATORVASTATIN CALCIUM 40 MG TAB PO SCH (09:27)
[2018-11-29] MEDS: METOPROLOL SUCCINATE XR 25 MG TAB PO SCH (09:27)
[2018-11-29] MEDS: ALLOPURINOL 300 MG TAB PO SCH (09:27)
[2018-11-29] MEDS: MYCOPHENOLATE MOFETIL 250 MG CAP PO SCH (09:28)
[2018-11-29] MEDS: SPIRONOLACTONE 25 MG TAB PO SCH (09:29)
[2018-11-29] MEDS: INSULIN LISPRO 100 UNIT/ML SC SCH ×2 (09:31→12:14)
[2018-11-29] MEDS ORDERED: TORSEMIDE 20 MG TAB PO SCH (10:00)
[2018-11-29] MEDS ORDERED: FUROSEMIDE 40 MG/4 ML VIAL IVP ONE (10:35)
[2018-11-29 10:59] VITALS: BP 118/76
--- NOTE | 2018-11-29 12:24 | PDCARPN ---
Cardiology Progress Note Chief Complaint: Patient reports shortness of breath has improved significantly. Assessment/Plan: Assessment: A 68-year-old male syncope with significant past history that includes aortic insufficiency status post bioprosthetic valve replacement, coronary artery disease status post CABG (1 vessel SVG to RCA), bovine pericardial patch, aortoplasty, ligation to left atrial appendage, for CVA the table think (2017 in CVA versus TIA 06/2018), paroxysmal atrial fibrillation (off of anticoagulation due to recent GI bleed 10/2018), TYLER, fibrosis interstitial lung disease: On by my and bronchitis which is followed by [facility], hypertension, diabetes. Admitted 11/25/2018 for ongoing fatigue symptoms with worsening dyspnea on exertion. Noted to be hypoxic at PCPs office with room- air saturation at 75%. Admission labs noted negative troponin, mildly elevated D-dimer at 0.56, proBNP 1170 and troponin of 0.01. Preliminary from echocardiogram done on 11/25/2018 noting normal LV size with borderline concentric LVH, normal LV systolic function, EF estimated at 55% with no regional wall motion abnormalities. Normal RV size and RV function, LA was mildly dilated, RA is normal size, mild MR, mild mitral valve leaflet calcification with a mean gradient of 5 mm Hg. Bioprosthetic aortic valve with normal function, no prosthesis stenosis. No prosthesis regurgitation. Trivial TR. CTA chest done on 11/25/2018 showing negative for PE, underlying interstitial lung disease with superimposed features of acute congestive heart failure including interstitial pulmonary edema bilateral pleural effusions, right greater than left. More confluent airspace consolidation in left lower lung may represent asymmetric pulmonary edema or pneumonia. 11/29/2018: Patient reporting SOB improved. Denies of any chest pressure, pain or symptoms suggesting of ischemia. Output remains greater than input. Weight is down approximately 3 kilos from yesterday. Total weight loss during hospitalization he from diuresis 5.8 kilos. Patient reporting no adverse reaction to torsemide are Aldactone. Laboratories today sodium 134, potassium 4.4, chloride 93, CO2 33, BUN 31, creatinine 1.0, glucose 120, calcium 7.7, magnesium 2.1. INR today of 1.22. BNP from yesterday down to 491. Plan: 1. Acute on chronic diastolic heart failure: Patient continues to lose weight, output greater than input, with recent change to torsemide at 40 mg p. O. twice daily. CO2 and BUN up mildly. Patient appearing to be closer to euvolemic. Will decrease dosage of torsemide to 40 mg p.o. Q.day. Continue on current Aldactone. Continue monitoring weights, I&Os, electrolytes. Potentially patient will be discharged today, we did have a significant discussion about the importance of medication compliance. I have asked him to continue monitoring his weight on a daily basis, he has been told that if he gains more than 2 lb in a day or 5 lb in a week he was post to call our office. He has been scheduled to see Dr. Yepez, our heart failure specialist on Sunday. 2. Acute hypoxic respiratory failure: More likely due to diastolic heart failure, but potentially his interstitial lung disease is contributing. Diastolic heart failure treatment as mentioned above. Interstitial lung disease med management per pulmonology and hospitalist. Continue on oxygen therapy. 3. CAD: He reports no chest pain, pressure or symptoms suggesting of ischemia. Recent CABG x1 vessel. Echo noting normal LV systolic function with no wall motion abnormalities. Has been off of aspirin due to GI bleed being of October. Reviewing DC summary dated 11/01/2018, anticoagulation could be resumed in 2 weeks. Do to hx recent GI bleed, and resuming warfarin, will hold off on starting him on aspirin. He is on atorvastatin for secondary risk prevention. 4. Valvular heart disease: Status post remote aortic valve replacement. Echocardiogram showing no significant gradients across the new valve, 5. Paroxysmal atrial fibrillation: Syncope patient is currently in sinus rhythm. He is on home dose of metoprolol. He is office warfarin due to the history of GI bleed. As mentioned above, I reviewed discharge summary dated 11/01, which said that he is should remain off of this for 2 weeks. That time has . He has significant chads Vasc score of 7. He has been resumed on warfarin therapy. H&H stable. INR subtherapeutic. I have spoken with pharmacy , who recommended a home management. He will follow up in [facility] on Sunday. With recent history of GI bleed, will not bridge. 6. Hypertension: Blood pressure well controlled at this time. No changes at this time. 7. Diabetes: Defer management to hospitalist services. 11/29/18 12:20 Subjective: Patient denies of any chest pressure or pain. Reports no palpitations. Denies of any lightheadedness, near-syncope or syncopal events. Reports significant improvement in peripheral edema Reviewed/Discussed With: hospitalist (Dr Prather), other (Dr Jolley) Objective: Vital Signs (8 Hrs) Temp Pulse Resp BP Pulse Ox 11/29/18 10:57 36.7 C 78 20 118/76 97 11/29/18 07:41 36.5 C 83 13 99/64 L 96 Intake/Output (24 Hrs) 11/28/18 11/29/18 11/30/18 05:59 05:59 05:59 Intake Total 950 1280 444 Output Total 7050 5415 400 Balance -0668 -0540 44 Intake: Oral (ml) 950 1180 444 IV Infused (ml) 100 Magnesium Sulf 1 gm/ 100 Dextrose 100 ml @ 100 mls /hr IV ONCE ONE Rx#: [id number] Output: Urine (ml) 7050 5415 400 Toilet 1050 1000 Urinal 6000 4415 400 Other: Weight 101.378 kg 98.5 kg Intake Quantity Yes Sufficient Output Comment Toilet collected in hat Number of Voids Toilet 1 1 Urinal 1 2 Result Diagrams: 11/29/18 04:25 11/29/18 03:25 - Physical Exam Constitutional: healthy appearing, obese (Mildly) Ears, Nose, Mouth, Throat: moist mucous membranes Cardiovascular: no murmurs, systolic murmur (1/6 left sternal border), jugular vein distention (4-5 cm above sternal notch), pulses symmetric bilat, No carotid bruit Peripheral Pulses: 1+: dorsalis-pedis (R), dorsalis-pedis (L), 2+: carotid (R), carotid (L) Respiratory: other (Diminished in bases bilateral, expiratory wheezes noted. No rhonchi, or rales noted. No accessary muscle use, no intercostal muscle retraction noted.) Gastrointestinal: normoactive bowel sounds Skin: warm, No no edema (+ 1 peripheral edema bilateral lower extremities to knees.) Neurologic: AAOx3 Psychiatric: cooperative, interactive, following commands ICD10 Worksheet Patient Problems: Problems Problem Status Onset Left-sided weakness Acute Acute kidney injury Acute Upper GI bleeding Acute Weakness Acute Dyspnea Acute Acute dyspnea Acute Diabetes mellitus type 2, controlled Chronic History of stroke with residual deficit Chronic S/P CABG x 1 Acute ~06/05/18 S/P aortic valve replacement with bioprosthetic valve Acute ~06/05/18 Immunosuppression Chronic Pulmonary hypertension Chronic Nocturnal hypoxemia Chronic TYLER (obstructive sleep apnea) Chronic ILD (interstitial lung disease) Chronic Aortic valve stenosis with insufficiency Chronic CAD in [place] artery Chronic
--- NOTE | 2018-11-29 13:17 | PDDCSUM ---
Discharge Summary Discharge Summary: 68-year-old with a history that includes aortic insufficiency status post recent bioprosthetic valve replacement, coronary artery disease and diastolic heart failure as well as interstitial lung disease on Cellcept is admitted with worsening shortness of breath and dyspnea on exertion due to CHF. He was admitted and diuresed. Warfarin was restarted. Resp/CV trevino he is much better. INR is not yet therapeutic. H/H have been stable. He will follow with [facility] clinic on Sunday he will f/u with [facility] next week DDX: # acute diastolic heart failure with pulmonary edema noted on CT angiogram. * Transition to oral torsemide on discharge rather than Lasix * Will need close follow-up to ensure compliance * Continue cardiac rehab # interstitial lung disease on Cellcept and followed at [facility]. * Pulmonary consult recc no need for abx or steroids. * He has follow-up scheduled at [facility] at the end of November * Negative procalcitonin, likely no bacterial pneumonia # coronary artery disease status post 1 vessel bypass to RCA * Doubt acute ischemia as cause of any of his symptoms currently * Recent GI bleed with gastric ulcers, will discontinue Aspirin since he has started warfarin for chronic anticoagulation for his AFib # chronic AC: await therapeutic INR # history of atrial fibrillation status post ligation to his left atrial appendage however high chads score of 7. * Resume warfarin # diabetes, home meds # recent GI bleed due to gastric ulcers status post ligation of visible vessel. Okay to resume anticoagulation per GI note. Will hold aspirin at this time since he will be on full anticoagulation. Exam: NAD AAOX3 RRR CTA B S/NT/ND MEDS: SEE MED REC TOTAL TIME SPENT ON D/C IS 35 MINUTES
--- NOTE | 2018-11-29 14:17 | ASMTLACE ---
LACE Length of stay for Answers: 4-6 days current admission Acuity / Level of Answers: Yes Care: Did the patient have an inpatient admission? Comorbidities - select Answers: Chronic pulmonary disease all that apply Congestive heart failure Diabetes (uncontrolled or controlled) Other Notes: AFib # of Emergency department Answers: 3-4 visits in the last 6 months Social determinants Answers: History of substance abuse (ETOH, street drugs, prescription drugs, etc.) Score: 19 Date Signed: 11/29/2018 02:17 PM Electronically Signed By:Carli Keane RN
--- NOTE | 2018-11-29 14:20 | ASMTDCNOTE ---
Case Management Discharge Discharge Order Complete? Answers: Yes Patient to Obtain Answers: via Family Medications Transportation Arranged Answers: Family/Friends Discharge Comments Notes: 11/29/2018 Case Management Note PT cleared for home with outpatient rehab. Pt to see Dr. Rehman for follow up. Pt has appointment with [facility] clinic next week. Case Management d/c poc: independent with follow up as directed. Date Signed: 11/29/2018 02:19 PM Electronically Signed By:Carli Keane RN
[2018-11-29] MEDS ORDERED: WARFARIN SODIUM 5 MG TAB PO ONE (16:00)
--- NOTE | 2018-11-29 16:13 | ASDISCHSUM ---
Discharge Information Plan Status:Home with No Needs Medically Cleared to Leave:11/28/2018 Discharge Date:11/29/2018 02:30 PM CM D/C Disposition:Home, Routine, Self-Care ADT D/C Disposition:Home, Routine, Self-Care Projected Discharge Date:11/29/2018 02:30 PM Transportation at D/C: Discharge Delay Reason: Follow-Up Date:11/29/2018 02:30 PM Discharge Slot: Final Diagnosis: Placement Information Patient Contact Information Contact Name:LATASHA Relationship: Address:[address] [place]:[facility] Phone: State/Zip Code:[place] [address] Email: Financial Information Financial Class:Medicare Primary Plan Desc:MEDICARE INPATIENT Primary Plan Number:[id number] Secondary Plan Desc:[facility] Secondary Plan Number:[id number] Assessment Information LACE LACE Length of stay for Answers: 4-6 days current admission Acuity / Level of Answers: Yes Care: Did the patient have an inpatient admission? Comorbidities - select Answers: Chronic pulmonary disease all that apply Congestive heart failure Diabetes (uncontrolled or controlled) Other Notes: AFib # of Emergency department Answers: 3-4 visits in the last 6 months Social determinants Answers: History of substance abuse (ETOH, street drugs, prescription drugs, etc.) Score: 19 Date Signed: 11/29/2018 02:17 PM Electronically Signed By:Carli Keane RN [facility] Progress Note CM Kacie GRANADO Note Notes: Patient chart reviewed. Patient admitted via ED with hypoxia. History of CABG, valve surgery and interstitial lung disease. Follow at [facility], Lives independently with his . Last Discharge from hospital in October with outpatient rehab. Per Therapy recommendations remain the same. No current needs identified. CM to follow. Plan: Likely to discharge home with family support when medically cleared for discharge to home. Date Signed: 11/26/2018 04:04 PM Electronically Signed By:Dinora Anton RN Case Management Discharge Plan Note Case Management Discharge Discharge Order Complete? Answers: Yes Patient to Obtain Answers: via Family Medications Transportation Arranged Answers: Family/Friends Discharge Comments Notes: 11/29/2018 Case Management Note PT cleared for home with outpatient rehab. Pt to see Dr. Rehman for follow up. Pt has appointment with [facility] next week. Case Management d/c poc: independent with follow up as directed. Date Signed: 11/29/2018 02:19 PM Electronically Signed By:Carli Keane RN Intervention Information Intervention Type:*IM-Signed Date of Service:11/29/2018 02:50 PM Patient Type:Inpatient Staff Member:Carolyn Stewart Hours: Discipline: Severity: Comment:
--- NOTE | 2018-12-02 15:01 | PDCARTEE ---
CAR LOLIS CAR LOLIS: Please note: This is actually a transthoracic echocardiography report. It is being dictated in the LOLIS template following a recent software upgrade which precludes completing it in the prior system. Normal left ventricular size. LVEF 55% without regional wall motion abnormalities. Borderline left ventricular hypertrophy with normal diastolic function. Normal or RV sizes with normal RV systolic function. Mild left atrial enlargement. Mild mitral leaflet thickening with a mean mitral valve gradient of 5 mmHg. Bioprosthetic aortic valve with normal function. No stenosis or regurgitation. Trace tricuspid regurgitation. No significant change compared to a study performed October 30, 2018.
--- NOTE | 2018-12-03 14:39 | PQFORM ---
PHYSICIAN QUERY FORM Needs Your Response This query form is being sent to you to assure this patient record is coded properly. Please respond to the question below: YACHT BUILDER QUESTION: Dear Dr. Prather, Hypoxic respiratory failure was documented within the H&P. Patient presented to ER with shortness of breath, with a respiratory rate of 24 and O2 Sat % of 79. On 11/28 patients CO2 level wsa 33, and on 11/29 CO2 was 33 requiring increased oxygen. Cardiology Progress Notes dated 11/26-11/29 patient was diagnosed with Acute respiratory failure w/ hypoxia. Patient also has a history of COPD with use of night time oxygen. Based on the clinical indictors and your professional judgement can this patients hypoxic respiratory disorder be further specified? ___x__Acute hypoxic respiratory failure Acute respiratory insufficiency Acute on Chronic hypoxic respiratory failure Other more appropriate diagnosis (please specify) __ Clinically unable to determine Thank you Alycia Alexis, PHYSIOLOGIST HIM/Coding Dept. INSTRUCTIONS FOR RESPONSE: Answer question by clicking on the "Edit Document" button. Move cursor to area below the stars. When complete, hit "Save." Click on the "Sign" button, then click "Sign" again. Type in your PIN and hit "Enter." MTDD
== END 2018-11-29 14:30 | disposition home or self-care (01) | DRG 291 ==
LOC: F2W 15:41
PROVIDERS: ADMIT Internal Medicine; ATTEND Internal Medicine
DX: I11.0 Hypertensive heart disease with heart failure (principal); J96.01 Acute respiratory failure with hypoxia; I50.31 Acute diastolic (congestive) heart failure; J84.9 Interstitial pulmonary disease, unspecified; I25.10 Atherosclerotic heart disease of native coronary artery without angina pectoris; I48.0 Paroxysmal atrial fibrillation; E11.9 Type 2 diabetes mellitus without complications; J44.9 Chronic obstructive pulmonary disease, unspecified; Z79.84 Long term (current) use of oral hypoglycemic drugs; Z79.01 Long term (current) use of anticoagulants; Z99.81 Dependence on supplemental oxygen; Z87.891 Personal history of nicotine dependence; Z95.1 Presence of aortocoronary bypass graft; Z95.3 Presence of xenogenic heart valve
CPT/HCPCS: 84484-ER; 96374; 97116-GP; 97161-GP; 97166-GO; 97530-GO; 97535-GO; J1815; J1940; J1956; J2930; J3475; Q9967